=== PATIENT | female | born 1980 | race Caucasian/White ===

== ENCOUNTER → 2016-05-26 | Outpatient (CLI) | payer MEDICARE ==
[2016-05-26 15:46] LABS: Anion Gap 10 mmol/L; Blood Urea Nitrogen 8 mg/dL (7-17); Calcium 9.6 mg/dL (8.4-10.2); Carbon Dioxide 23 mmol/L (22-30); Chloride 110 mmol/L (98-107); Glucose 114 mg/dL (74-99); Non-African American GFR(MDRD) >60 (>60 ml/min/1.73 sqM); Potassium 3.5 mmol/L (3.5-5.1); Sodium 143 mmol/L (137-145)
== END | disposition home or self-care (01) ==
LOC: LABWHC1 15:20
PROVIDERS: ATTEND Family Medicine
DX: E87.6 Hypokalemia (principal); R00.0 Tachycardia, unspecified
CPT/HCPCS: 36415; 80048

== ENCOUNTER → 2016-06-03 | Outpatient (CLI) | payer MEDICARE ==
[2016-06-03 15:51] LABS: C Reactive Protein <5.0 mg/L (<10.0); Creatine Kinase 43 U/L (30-135); Iron 124 ug/dL (37-170)
[2016-06-03 16:04] LABS: Total Iron Binding Capacity 336 ug/dL (265-497)
[2016-06-03 16:57] LABS: Vitamin B12 315 pg/mL (239-931)
== END | disposition home or self-care (01) ==
LOC: LABWHC1 13:44
PROVIDERS: ATTEND Social Worker Clinical
DX: K90.89 Other intestinal malabsorption (principal); F45.8 Other somatoform disorders; E63.9 Nutritional deficiency, unspecified; G93.3 Postviral and related fatigue syndromes; R76.8 Other specified abnormal immunological findings in serum; R52 Pain, unspecified
CPT/HCPCS: 36415; 82306; 82550; 82607; 82746; 83540; 83550; 85652; 86140; 86160; 86225; 86235

== ENCOUNTER → 2016-06-08 | Outpatient (CLI) | payer MEDICARE ==
--- NOTE | 2016-06-09 08:09 | MM ---
Reason for exam: clinical finding. Last mammogram was performed 10 months ago. History: Family history of breast cancer in aunt at age 60. Indicated problem(s): other indicated problem in the right breast. Physical Findings: Nurse did not find any significant physical abnormalities on exam. MG 3D Diag Mammo W/Cad RT CC and MLO view(s) were taken of the right breast. Prior study comparison: August 04, 2015, bilateral MG 3d diag mammo w/cad [facility]. Densities in the right breast. Ultrasound is recommended. These results were verbally communicated with the patient and result sheet given to the patient on 06/08/16. ASSESSMENT: Incomplete: need additional imaging evaluation, BI-RAD 0 RECOMMENDATION: Ultrasound of the right breast.
--- NOTE | 2016-06-09 08:10 | USB ---
Reason for exam: additional evaluation requested from abnormal screening. History: Family history of breast cancer in aunt at age 60. US Breast RT Right breast ultrasound including all four quadrants, the retroareolar region and axilla demonstrates a 0.36 x 0.26 x 0.33cm lesion too small to characterize at 2 o'clock, a 0.95 x 0.48 x 0.79cm cystic lesion at 10 o'clock and a 0.24 x 0.21 x 0.27cm lesion too small to characterize at 11 o'clock. These results were verbally communicated with the patient and result sheet given to the patient on 06/08/16. ASSESSMENT: Benign, BI-RAD 2 RECOMMENDATION: Routine screening mammogram of both breasts at age 38.
== END | disposition home or self-care (01) ==
LOC: RADMAMWWP 14:11
PROVIDERS: ATTEND Family Medicine
DX: N63 Unspecified lump in breast (principal); R92.8 Other abnormal and inconclusive findings on diagnostic imaging of breast
CPT/HCPCS: 76641; G0206; G0279

== ENCOUNTER → 2016-08-30 | Outpatient (CLI) | payer MEDICARE ==
[2016-08-30 13:26] LABS: CH 31.9; CHCM 33.1; HCT 45.5 % (34.0-46.0); HDW 2.35; HGB 15.1 gm/dL (11.4-16.0); MCH 32.2 pg (25.0-35.0); MCHC 33.2 g/dL (31.0-37.0); MCV 96.9 fL (80.0-100.0); Mean Platelet Volume 8.3; RBC 4.69 m/uL (3.80-5.40); RDW 12.4 % (11.5-15.5); WBC 7.3 k/uL (3.8-10.6)
[2016-08-30 13:38] LABS: Anion Gap 12 mmol/L; Blood Urea Nitrogen 14 mg/dL (7-17); Calcium 9.9 mg/dL (8.4-10.2); Carbon Dioxide 25 mmol/L (22-30); Chloride 105 mmol/L (98-107); Glucose 105 mg/dL (74-99); Non-African American GFR(MDRD) >60 (>60 ml/min/1.73 sqM); Potassium 4.4 mmol/L (3.5-5.1); Sodium 142 mmol/L (137-145)
== END | disposition home or self-care (01) ==
LOC: LABWHC1 12:49
PROVIDERS: ATTEND Internal Medicine Clinical Cardiac Electrophysiology
DX: R00.2 Palpitations (principal)
CPT/HCPCS: 36415; 80048; 85027

== ENCOUNTER 2016-09-06 08:45 | Day surgery (SDC) | payer MEDICARE ==
[2016-09-05 09:20] VITALS: BMI 16.8
[~2016-09-06 08:45] MED LIST: SODIUM CHLORIDE 0.9% 1,000 ML IV SCH
[2016-09-06] MEDS ORDERED: IV FLUID CONTINUATION 1,000 ML IV ONE (10:25)
[2016-09-06] MEDS ORDERED: PROPOFOL 10 MG/ML 20 ML VIAL IV ONE (12:10)
[2016-09-06] MEDS ORDERED: PHENYLEPHRINE-0.9% NACL SYG 1 MG/10 ML SYRINGE ONE (12:10)
[2016-09-06] MEDS ORDERED: MIDAZOLAM 2 MG/2 ML VIAL ONE (12:10)
[2016-09-06] MEDS ORDERED: fentaNYL (PF) 50 MCG/ML 2 ML AMP ONE (12:10)
[2016-09-06] MEDS ORDERED: HYDROmorphone (PF) 1 MG/ML ONE (12:10)
[2016-09-06] MEDS ORDERED: ISOPROTERENOL 250 MCG/1.25 ML SYR IV ONE (12:10)
[2016-09-06] MEDS ORDERED: LIDOCAINE 1% INJ 10MG/ML (20 ML MDV) ONE (12:10)
[2016-09-06] MEDS ORDERED: IV FLUID CONTINUATION 800 ML IV ONE (12:16)
[2016-09-06] MEDS ORDERED: IODIXANOL 320 MG/ML 100 ML IV ONE (12:35)
[2016-09-06] MEDS ORDERED: LIDOCAINE 2% INJ 20 MG/ML SQ ONE (12:42)
--- NOTE | 2016-09-06 13:23 | P.PCN ---
Preoperative Diagnosis: Twelve-lead ECG Sinus rhythm normal LA narrow QRS normal ST segments normal QT interval of 440 ms no delta waves no epsilon waves Tilt table test report Baseline blood pressure 136/79 mmHg Heart rate 61 beats a minute Patient was tilted upright at an angle of 70 per protocol She did report dizziness when a heart rate increased 118 beats a minute briefly No evidence for neurocardiogenic syncope, no evidence for postural tachycardia syndrome
[2016-09-06] MEDS ORDERED: SODIUM CHLORIDE 0.9% 1,000 ML IV ONE (13:58)
[2016-09-06] MEDS ORDERED: ACETAMINOPHEN TAB 325 MG TAB PO PRN (14:02)
[2016-09-06] MEDS ORDERED: HYDROcodone/APAP 5-325MG 1 EACH TAB PO PRN (14:02)
[2016-09-06] MEDS ORDERED: ONDANSETRON 4 MG TAB PO PRN (14:03)
[2016-09-06] MEDS ORDERED: ALPRAZolam 0.5 MG TAB PO PRN (14:03)
--- NOTE | 2016-09-06 14:25 | CE ---
DATE OF SERVICE: This is a 36-year-old female who has recurrent palpitations. She was brought in for a diagnostic EP study. Patient was brought to the EP lab in a fasting state. Written informed consent was obtained prior to the procedure. The right and left femur were prepped and draped as per protocol and 1% Lidocaine was used for local anesthesia. Three venous sheaths were placed in the right femoral vein, one venous sheath in the left femoral vein. Via these, diagnostic catheters were placed in the right heart (high right atrial catheter, HIS bundle catheter and RV catheter). Baseline measurements were as follows: Sinus cycle length 855 ms, AR interval 99 ms, QRS 88 ms, and QT 414 ms, AH interval 73 ms, HV interval 30 ms. Sinus recovery times at 600, 500 and 400 ms were 904, 753 and 967 ms. No slow pathway conduction, no delta waves are noted, the ( ) reduction was midline and decremental. VA Wenckebach block at 420 ms, AV node Wenckebach block at 540 ms, Isuprel was started wide open and then 2 mcg later and 1 mcg EP study is continued. AV node Wenckebach block 210 ms, VA Wenckebach 360 ms, extrastimulation from the high right atrium, coronary sinus and RV were performed up to double extrastimuli. No SVT was induced. ( ) induction is midline and decremental. No excessive pathway conduction and no slow pathway conduction. Burst stimulation was performed from the atrium, coronary sinus and from the right ventricle. No arrhythmia was induced. EP study was continued after shutting off Isuprel. No arrhythmia is induced. Please note that during this study, start Isuprel, runs of sinus rhythm with alterations in heart rate were noted. These appear to be exaggerated form of sinus arrhythmia, not specifically atrial tachycardia. The patient tolerated the procedure well without any acute complications. PLAN: Consider digoxin 0.125 mg daily for suppression of palpitations which are most likely episodes of sinus tachycardia. I did not find any clear-cut evidence for an atrial tachycardia nor any AV mimi re-entry or ( ) SVT.
--- NOTE | 2016-09-06 14:30 | LTR ---
September 06, 2016 RE: Amparo Hester Brandon Dear Dr. Mari; I had the pleasure of seeing Amparo Hester in electrophysiology followup. As you know, Amparo complains of recurrent palpitations. She underwent a tilt table test which did not show any evidence for neurocardiogenic syncope or dysautonomia. There was an episode when she has sinus tachycardia up to 118 beats a minute. At that time, she felt dizzy, but her blood pressure was normal. During the EP study, no different arrhythmia was induced. I was not able to induce any atrial tachycardia. She does have a very prominent sinus arrhythmia and she does feel this. I would suggest reassurance and digoxin therapy, suggest 0.125 mg p.o. daily. Alternatively, Verapamil could also be considered; however, she has diabetes mellitus and Verapamil could increase her constipation and reduce peristalsis. Thank you for entrusting me with the care of your patient. Warm regards. Sincerely, MANDI CUEVA MD
[2016-09-06] MEDS: DIGOXIN 125 MCG TAB PO SCH (15:25)
[2016-09-06] MEDS ORDERED: ACETAMINOPHEN IV (For NPO) 1,000 MG in EMPTY BAG 1 BAG IVPB ONE (16:00)
[2016-09-06] MEDS ORDERED: SPIRONOLACTONE 25 MG TAB PO SCH (21:00)
[2016-09-07 04:28] VITALS: TEMP 97.7
--- NOTE | 2016-09-07 07:48 | P.DS ---
Providers Attending physician: Unruly Martin Primary care physician: [facility] Course: Patient is doing well. She has no chest discomfort no dizziness lightheadedness no shortness of breath. She has no groin pain or swelling. On examination her groin is healed well there is no hematoma, bilaterally She's afebrile 97.7F pulse rate in the 50s, blood pressure 119/73 mmHg normal respirations Normal heart sounds normal S1 normal S2 no murmurs or gallops Normal breath sounds no rhonchi no crackles Abdomen is soft nontender Extremities warm no edema Impression Symptoms of palpitations. Exaggerated sinus arrhythmia no definite SVT or atrial tachycardia induced at EP study no evidence for neurocardiogenic syncope postural tachycardia syndrome Plan Low-dose digoxin Verapamil distress but she does have diverticulosis/avoid constipation Plan - Discharge Summary New Discharge Prescriptions: Digoxin [Lanoxin] 125 mcg PO DAILY #1 tab Discharge Medication List HYDROcodone/APAP 7.5-325MG [Clifford 7.5-325] 1 tab PO Q6HR PRN 10/05/14 [History] ALPRAZolam [Xanax] 2 mg PO DAILY PRN 03/15/16 [History] Ondansetron [Zofran] 4 mg PO Q12HR PRN 09/05/16 [History] Spironolactone [Aldactone] 25 mg PO HS 09/05/16 [History] Digoxin [Lanoxin] 125 mcg PO DAILY #1 tab 09/07/16 [Rx] Activity/Diet/Wound Care/Special Instructions: Post EP study - Ablation instructions 1. Keep access sites dry for 2 days. 2. No heavy lifting or straining for 2 days. 3. Avoid bending the hips repeatedly for 2 days. 4. You may go up and down stairs slowly Call if the following is noted 1. Bleeding, increasing swelling or pain at the access sites. 2. Increasing chest discomfort, especially upon taking a deep breath. 3. Increasing shortness of breath, at rest or with exertion. 4. Undue cough / phlegm 5. Difficulty or pain while swallowing. 6. Pain or change in color in the extremities. 7. Fever, chills, rigors. 8. Increasing headache or neurologic symptoms. 9. Dizziness, fainting, palpitations Follow-up for a groin check within 1 week
[2016-09-07] MEDS: DIGOXIN 125 MCG TAB PO SCH (08:13)
[2016-09-07 08:33] VITALS: BP 110/58; PULSE 72; RESP 14
== END 2016-09-07 10:21 | disposition home or self-care (01) ==
LOC: CATHEP 08:45 → 3OBS 13:45 → CATHEP 09-07 10:21
PROVIDERS: ATTEND Internal Medicine Clinical Cardiac Electrophysiology
DX: R00.2 Palpitations (principal); Z82.3 Family history of stroke; Z87.891 Personal history of nicotine dependence; Z79.899 Other long term (current) drug therapy
CPT/HCPCS: 93005; 93623; 93620; 93660; C1894; C1769 ×2; C1730 ×2; J2001 ×2; J2250; Q9967; J3010; J1170; J2370; J2704

== ENCOUNTER 2017-01-26 13:00 | Emergency (ER) | payer MEDICARE ==
[2017-01-26] MEDS ORDERED: ONDANSETRON 4 MG/2 ML VIAL IVP STA (13:17)
[2017-01-26] MEDS ORDERED: HYDROmorphone 1 MG/ML 1 ML SYRINGE IVP STA (13:17)
[2017-01-26] MEDS ORDERED: SODIUM CHLORIDE 0.9% 1,000 ML IV STA ×2 (13:17→13:20)
--- NOTE | 2017-01-26 13:20 | ED ---
General Adult HPI - General Chief complaint: Abdominal Pain Stated complaint: Lupus/Not feeling well Time Seen by Provider: 01/26/17 13:12 Source: patient, RN notes reviewed Mode of arrival: wheelchair Limitations: no limitations - History of Present Illness Initial comments: Patient is a 36-year-old female who presents emergency room today with a chief complaint of symptoms of abdominal pain with nausea vomiting. She does admit that over the last week symptoms become worse. She has a history of lupus. She states that she's having difficult time keeping anything down. She states she's lost 5 pounds last week. Patient does admit to abdominal pain to the middle of her abdomen. She states feels a cramping sensation. She denies any other symptoms currently. Patient denies any recent fever, chills, shortness of breath, chest pain, back pain, numbness or tingling, dysuria or hematuria, constipation or diarrhea, headaches or visual changes, or any other complaints. - Related Data Home Medications Medication Instructions Recorded Confirmed HYDROcodone/APAP 7.5-325MG [Snyder 1 tab PO Q6HR PRN 10/05/14 01/26/17 7.5-325] Ondansetron [Zofran] 4 mg PO Q12HR PRN 09/05/16 01/26/17 ALPRAZolam [Xanax XR] 2 mg PO HS 01/26/17 01/26/17 Previous Rx's Medication Instructions Recorded Digoxin [Lanoxin] 125 mcg PO DAILY #1 tab 09/07/16 Metoclopramide HCl [Reglan] 10 mg PO Q6HR PRN #5 day 01/26/17 Allergies Allergy/AdvReac Type Severity Reaction Status Date / Time No Known Allergies Allergy Verified 01/26/17 13:25 Review of Systems ROS Statement: Those systems with pertinent positive or pertinent negative responses have been documented in the HPI. ROS Other: All systems not noted in ROS Statement are negative. Past Medical History Past Medical History: Fibromyalgia Additional Past Medical History / Comment(s): DIVERTICULITIS; HAS ARRYTHMIA, lupus, pleurisy History of Any Multi-Drug Resistant Organisms: None Reported Past Surgical History: Appendectomy, Bowel Resection, Section, Hysterectomy, Tubal Ligation, Uterine Ablation Additional Past Surgical History / Comment(s): 09/30/14 Robotic assisted lap vaginal hysterectomy, lysis of adhesions, and cystoscopy, LAPAROSCOPY X4;. c- section X4. BILAT CATARACTS REMOVED. COLONOSCOPY Past Anesthesia/Blood Transfusion Reactions: No Reported Reaction Past Psychological History: No Psychological Hx Reported Smoking Status: Former smoker Past Alcohol Use History: None Reported Past Drug Use History: Marijuana - Past Family History Mother Family Medical History: No Reported History Father Family Medical History: Diabetes Mellitus, Hyperlipidemia, Hypertension Additional Family Medical History / Comment(s): Glaucoma, Cataracts General Exam - General Exam Comments Initial Comments: General: The patient is awake and alert, in no distress, and does not appear acutely ill. Eye: Pupils are equal, round and reactive to light, extra-ocular movements are intact. No nystagmus. There is normal conjunctiva bilaterally. No signs of icterus. Ears, nose, mouth and throat: There are moist mucous membranes and no oral lesions. Neck: The neck is supple, there is no tenderness or JVD. Cardiovascular: There is a regular rate and rhythm. No murmur, rub or gallop is appreciated. Respiratory: Lungs are clear to auscultation, respirations are non-labored, breath sounds are equal. No wheezes, stridor, rales, or rhonchi. Gastrointestinal: Normal appearance of abdomen. Normal bowel sounds. Soft on palpation. Patient does have tenderness to the epigastric area. No rebound tenderness or guarding. No CVA tenderness. Musculoskeletal: Normal ROM, no tenderness. Strength 5/5. Sensation intact. Pulses equal bilaterally 2+. Neurological: A&O x 3. CN II-XII intact, There are no obvious motor or sensory deficits. Coordination appears grossly intact. Speech is normal. Skin: Skin is warm and dry and no rashes or lesions are noted. Psychiatric: Cooperative, appropriate mood & affect, normal judgment. Limitations: no limitations Course Vital Signs 01/26/17 13:05 Temperature 99.2 F Pulse Rate 110 H Respiratory 18 Rate Blood Pressure 165/97 O2 Sat by Pulse 99 Oximetry Medical Decision Making - Medical Decision Making Patient reexamined at this time shows no signs of distress. She isn't feeling better after cocktail of Toradol, Reglan, Benadryl here in the emergency room. Her abdomen soft nontender. Labs been reviewed. Imaging is unremarkable. At this time patient feels comfortable with that be discharged home. Follow-up the family doctor. Ice return for any other concerns. - Lab Data Result diagrams: 01/26/17 13:55 01/26/17 13:55 Lab Results 01/26/17 01/26/17 01/26/17 Range/Units 13:55 13:55 13:55 WBC 7.2 (3.8-10.6) k/uL RBC 5.33 (3.80-5.40) m/uL Hgb 16.6 H (11.4-16.0) gm/dL Hct 50.2 H (34.0-46.0) % MCV 94.3 (80.0-100.0) fL MCH 31.1 (25.0-35.0) pg MCHC 33.0 (31.0-37.0) g/dL RDW 13.0 (11.5-15.5) % Plt Count 259 (150-450) k/uL Neutrophils % 79 % Lymphocytes % 14 % Monocytes % 4 % Eosinophils % 1 % Basophils % 0 % Neutrophils # 5.7 (1.3-7.7) k/uL Lymphocytes # 1.0 (1.0-4.8) k/uL Monocytes # 0.3 (0-1.0) k/uL Eosinophils # 0.0 (0-0.7) k/uL Basophils # 0.0 (0-0.2) k/uL PT 10.6 (9.0-12.0) sec INR 1.0 (<1.2) APTT 24.0 (22.0-30.0) sec Sodium 141 (137-145) mmol/L Potassium 3.8 (3.5-5.1) mmol/L Chloride 102 (98-107) mmol/L Carbon Dioxide 25 (22-30) mmol/L Anion Gap 14 mmol/L BUN 14 (7-17) mg/dL Creatinine 0.80 (0.52-1.04) mg/dL Est GFR (MDRD) Af Amer >60 (>60 ml/min/1.73 sqM) Est GFR (MDRD) Non-Af >60 (>60 ml/min/1.73 sqM) Glucose 102 H (74-99) mg/dL Calcium 10.4 H (8.4-10.2) mg/dL Total Bilirubin 0.7 (0.2-1.3) mg/dL AST 23 (14-36) U/L ALT 26 (9-52) U/L Alkaline Phosphatase 56 (38-126) U/L Total Protein 8.6 H (6.3-8.2) g/dL Albumin 5.6 H (3.5-5.0) g/dL Amylase 85 (30-110) U/L Lipase 99 (23-300) U/L Urine Color Urine Appearance (Clear) Urine pH (5.0-8.0) Ur Specific Blauvelt (1.001-1.035) Urine Protein (Negative) Urine Glucose (UA) (Negative) Urine Ketones (Negative) Urine Blood (Negative) Urine Nitrite (Negative) Urine Bilirubin (Negative) Urine Urobilinogen (<2.0) mg/dL Ur Leukocyte Esterase (Negative) Group A Strep Rapid (Negative) 01/26/17 01/26/17 Range/Units 13:55 14:27 WBC (3.8-10.6) k/uL RBC (3.80-5.40) m/uL Hgb (11.4-16.0) gm/dL Hct (34.0-46.0) % MCV (80.0-100.0) fL MCH (25.0-35.0) pg MCHC (31.0-37.0) g/dL RDW (11.5-15.5) % Plt Count (150-450) k/uL Neutrophils % % Lymphocytes % % Monocytes % % Eosinophils % % Basophils % % Neutrophils # (1.3-7.7) k/uL Lymphocytes # (1.0-4.8) k/uL Monocytes # (0-1.0) k/uL Eosinophils # (0-0.7) k/uL Basophils # (0-0.2) k/uL PT (9.0-12.0) sec INR (<1.2) APTT (22.0-30.0) sec Sodium (137-145) mmol/L Potassium (3.5-5.1) mmol/L Chloride (98-107) mmol/L Carbon Dioxide (22-30) mmol/L Anion Gap mmol/L BUN (7-17) mg/dL Creatinine (0.52-1.04) mg/dL Est GFR (MDRD) Af Amer (>60 ml/min/1.73 sqM) Est GFR (MDRD) Non-Af (>60 ml/min/1.73 sqM) Glucose (74-99) mg/dL Calcium (8.4-10.2) mg/dL Total Bilirubin (0.2-1.3) mg/dL AST (14-36) U/L ALT (9-52) U/L Alkaline Phosphatase (38-126) U/L Total Protein (6.3-8.2) g/dL Albumin (3.5-5.0) g/dL Amylase (30-110) U/L Lipase (23-300) U/L Urine Color Yellow Urine Appearance Clear (Clear) Urine pH 5.0 (5.0-8.0) Ur Specific Blauvelt 1.013 (1.001-1.035) Urine Protein Negative (Negative) Urine Glucose (UA) Negative (Negative) Urine Ketones 1+ H (Negative) Urine Blood Negative (Negative) Urine Nitrite Negative (Negative) Urine Bilirubin Negative (Negative) Urine Urobilinogen <2.0 (<2.0) mg/dL Ur Leukocyte Esterase Negative (Negative) Group A Strep Rapid Negative (Negative) Disposition Clinical Impression: Nausea & vomiting, Headache, Abdominal pain Disposition: HOME SELF-CARE Condition: Good Instructions: Abdominal Pain (ED) Additional Instructions: Please use medication as discussed. Please discuss further evaluation of gallbladder possible ERCP or HIDA scan. if symptoms persist. Please follow-up with family doctor in the next 2 days of symptoms have not improved. Please return to emergency room if the symptoms increase or worsen or for any other concerns. Prescriptions: Metoclopramide HCl [Reglan] 10 mg PO Q6HR PRN #5 day PRN Reason: Nausea Referrals: Chuy Simon III, MD [Primary Care Provider] - 1-2 days Time of Disposition: 16:10
[2017-01-26 14:19] LABS: Appearance,Urine Clear (Clear); Bilirubin,Urine Negative (Negative); Glucose,Urine (UA) Negative (Negative); Ketones,Urine 1+ (Negative); Leukocyte Esterase,Urine Negative (Negative); Nitrite,Urine Negative (Negative); Protein,Urine Negative (Negative); Specific Gravity,Urine 1.013 (1.001-1.035); UA Billing (MACRO vs. MICRO) CHEM; Urobilinogen,Urine <2.0 mg/dL (<2.0)
[2017-01-26 14:23] LABS: Basophils % (A) 0 %; CH 32.5; CHCM 34.6; Eosinophils % (A) 1 %; HCT 50.2 % (34.0-46.0); HDW 2.23; HGB 16.6 gm/dL (11.4-16.0); Luc # (Auto) 0.14; Luc % (Auto) 2; Lymphocytes % (A) 14 %; MCH 31.1 pg (25.0-35.0); MCV 94.3 fL (80.0-100.0); Mean Platelet Volume 9.4; Monocytes # (A) 0.3 k/uL (0-1.0); Monocytes % (A) 4 %; Neutrophils # (A) 5.7 k/uL (1.3-7.7); Neutrophils % (A) 79 %; RBC 5.33 m/uL (3.80-5.40); WBC 7.2 k/uL (3.8-10.6); WBC (Perox) 7.09
[2017-01-26 14:28] LABS: Prothrombin Time 10.6 sec (9.0-12.0)
--- NOTE | 2017-01-26 14:29 | XR ---
EXAMINATION TYPE: XR KUB DATE OF EXAM: 01/26/2017 COMPARISON: 07/06/2010 HISTORY: Pain TECHNIQUE: Single supine KUB image of the abdomen is obtained FINDINGS: Small bowel demonstrates no evidence for dilatation or air fluid levels. Gas and fecal material is seen in non-distended colon. No convincing evidence for pneumoperitoneum. No unusual calcifications. The lung bases are clear. The osseous structures are intact. IMPRESSION: 1. Overall nonobstructive bowel gas pattern.
[2017-01-26 14:34] LABS: ALT 26 U/L (9-52); AST 23 U/L (14-36); Alkaline Phosphatase 56 U/L (38-126); Amylase 85 U/L (30-110); Anion Gap 14 mmol/L; Blood Urea Nitrogen 14 mg/dL (7-17); Calcium 10.4 mg/dL (8.4-10.2); Carbon Dioxide 25 mmol/L (22-30); Chloride 102 mmol/L (98-107); Glucose 102 mg/dL (74-99); Non-African American GFR(MDRD) >60 (>60 ml/min/1.73 sqM); Potassium 3.8 mmol/L (3.5-5.1); Sodium 141 mmol/L (137-145); Total Bilirubin 0.7 mg/dL (0.2-1.3); Total Protein 8.6 g/dL (6.3-8.2)
--- NOTE | 2017-01-26 15:02 | US ---
EXAMINATION TYPE: US abdomen limited DATE OF EXAM: 01/26/2017 COMPARISON: CT CLINICAL HISTORY: Pain. Abdomen pain, N/V, history of Lupus, history of appendectomy, exam done nereyda ble in ER EXAM MEASUREMENTS: Liver Length: 13.1 cm Gallbladder Wall: 0.1 cm CBD: 0.3 cm Right Kidney: 11 x 4.5 x 4.4 cm Pancreas: wnl Liver: wnl Gallbladder: wnl Evidence for sonographic Cummins's sign: yes CBD: wnl Right Kidney: small 0.3cm echogenic focus superior pole IMPRESSION: 1. 3 mm nonobstructing upper pole right renal calculus.
[2017-01-26] MEDS ORDERED: METOCLOPRAMIDE 5 MG/ML 2 ML VIAL IVP STA (15:10)
[2017-01-26] MEDS ORDERED: SODIUM CHLORIDE 0.9% 500 ML IV STA (15:10)
[2017-01-26] MEDS ORDERED: diphenhydrAMINE 50 MG/ML 1 ML VIAL IVP STA (15:10)
[2017-01-26] MEDS ORDERED: KETOROLAC 30 MG/ML 1 ML VIAL IVP STA (15:10)
[2017-01-26 16:20] VITALS: BP 128/75; PULSE 83; RESP 16; TEMP 98.5
== END 2017-01-26 16:27 | disposition home or self-care (01) ==
LOC: EC 13:00
DX: R11.2 Nausea with vomiting, unspecified (principal); R51 Headache; R10.13 Epigastric pain; N20.0 Calculus of kidney; Z90.49 Acquired absence of other specified parts of digestive tract; Z79.899 Other long term (current) drug therapy; Z87.891 Personal history of nicotine dependence
CPT/HCPCS: 99284; 96374; 96375 ×4; 96361 ×2; 36415; 80053; 82150; 83690; 85025; 85610; 85730; 81003; 87081; 87430; 74000; 76705; J1200; J2765; J2405; J1885; J1170

== ENCOUNTER 2017-01-31 14:06 | Inpatient (IN) | payer MEDICARE ==
[2017-01-31] MEDS ORDERED: HYDROmorphone 1 MG/ML 1 ML SYRINGE IVP PRN (15:14)
[2017-01-31] MEDS: SODIUM CHLORIDE 0.45% 1,000 ML IV SCH (18:51)
[2017-01-31] MEDS ORDERED: ONDANSETRON 4 MG TAB PO PRN (19:21)
[2017-01-31] MEDS ORDERED: ALPRAZolam 0.5 MG TAB PO STA (19:24)
[2017-01-31] MEDS: HEPARIN SODIUM,PORCINE 5,000 UNIT/ML 1 ML VIAL SQ SCH ×2 (19:30→21:53)
[2017-01-31] MEDS: PANTOPRAZOLE 40 MG/10 ML VIAL IVP SCH (19:30)
--- NOTE | 2017-01-31 20:05 | NM ---
EXAMINATION TYPE: NM hepatobiliary w EF DATE OF EXAM: 01/31/2017 COMPARISON: NONE HISTORY: Pain TECHNIQUE: After the intravenous administration of 5.3 mCi Tc 99m Mebrofenin hepatobiliary scintigrap hy is performed. Immediate images post injection. FINDINGS: There is satisfactory initial accumulation of tracer by the liver. The gallbladder is visualized wit hin 5 minutes. The small bowel activity is noted within 15 minutes. At one hour 8 ounces of oral en sure plus is given to mimic CCK and gallbladder ejection fraction is calculated at 20%. IMPRESSION: Diminished gallbladder ejection fraction which may reflect chronic cholecystitis and/or b iliary dyskinesia.
[2017-01-31] MEDS: DIGOXIN 125 MCG TAB PO SCH (21:38)
[2017-01-31] MEDS: ONDANSETRON 4 MG/2 ML VIAL IVP PRN (21:39)
[2017-01-31] MEDS: MORPHINE SULFATE 4 MG/ML SYRINGE IVP PRN (23:08)
[2017-02-01] MEDS: SODIUM CHLORIDE 0.45% 1,000 ML IV SCH ×2 (03:49→21:59)
[2017-02-01] MEDS: MORPHINE SULFATE 4 MG/ML SYRINGE IVP PRN ×2 (04:00→09:00)
[2017-02-01 08:16] LABS: Basophils % (A) 1 %; CH 32.2; CHCM 33.9; Eosinophils # (A) 0.1 k/uL (0-0.7); Eosinophils % (A) 2 %; HCT 40.1 % (34.0-46.0); HDW 2.21; HGB 13.2 gm/dL (11.4-16.0); Luc # (Auto) 0.16; Luc % (Auto) 3; Lymphocytes % (A) 35 %; MCH 31.3 pg (25.0-35.0); MCHC 32.8 g/dL (31.0-37.0); MCV 95.5 fL (80.0-100.0); Mean Platelet Volume 9.4; Monocytes # (A) 0.3 k/uL (0-1.0); Monocytes % (A) 6 %; Neutrophils % (A) 53 %; WBC 5.6 k/uL (3.8-10.6); WBC (Perox) 5.71
[2017-02-01] MEDS: DIGOXIN 125 MCG TAB PO SCH (08:30)
[2017-02-01 08:33] LABS: ALT 22 U/L (9-52); AST 17 U/L (14-36); Alkaline Phosphatase 37 U/L (38-126); Anion Gap 8 mmol/L; Blood Urea Nitrogen 14 mg/dL (7-17); Calcium 9.3 mg/dL (8.4-10.2); Carbon Dioxide 26 mmol/L (22-30); Chloride 105 mmol/L (98-107); Glucose 71 mg/dL (74-99); Non-African American GFR(MDRD) >60 (>60 ml/min/1.73 sqM); Potassium 4.5 mmol/L (3.5-5.1); Sodium 139 mmol/L (137-145); Total Bilirubin 0.5 mg/dL (0.2-1.3); Total Protein 6.2 g/dL (6.3-8.2)
[2017-02-01] MEDS: PANTOPRAZOLE 40 MG/10 ML VIAL IVP SCH (08:51)
[2017-02-01] MEDS: HEPARIN SODIUM,PORCINE 5,000 UNIT/ML 1 ML VIAL SQ SCH ×2 (08:52→16:03)
[2017-02-01] MEDS: ONDANSETRON 4 MG/2 ML VIAL IVP PRN ×2 (08:52→17:35)
[2017-02-01 10:22] VITALS: BMI 15.5
[2017-02-01] MEDS: MORPHINE SULFATE 10 MG/ML SYRINGE IVP PRN ×2 (11:47→17:34)
--- NOTE | 2017-02-01 12:02 | P.GSCN ---
History of Present Illness Consult date: 02/01/17 Reason for Consult: Abdominal pain History of present illness: Patient presents to the hospital with complaints of abdominal pain. She states that her pain is been going on for the last 3 weeks or so. She has a history of advanced lupus and has had a variety of different symptoms related to that in the past. She states that over the last few years she has been eating quite poorly. She remains fairly thin because she says she is unable to eat large quantities of food. She has been seen by GI and has had upper and lower endoscopies in the past. He states the last upper endoscopy was 6-12 months ago. She complains of abdominal pain. The pain is crampy and intermittent in nature. The patient points to the infraumbilical location initially as to the site of discomfort. She also describes the pain in the right lower back at times. She has a history of numerous abdominal surgeries including laparoscopy , exploration, and bladder repair. She had an outpatient ultrasound and at least at that time. Sales And Distribution Clerk describe a positive Cummins's sign. No gallstones were described in the gallbladder wall appeared normal on that study. Clinically she had a CAT scan of the abdomen and pelvis which was done without oral IV contrast and therefore was not very helpful but no abnormalities were identified. She had a HIDA scan performed yesterday evening she was experiencing some tenderness in the right upper quadrant and that showed a sluggish gallbladder. Her labs are fairly unimpressive including her liver enzymes. Pancreatic enzymes were not ordered. The patient describes infrequent bowels. She describes early satiety and upper abdominal discomfort sometimes after only 2 bites of food. She has had increased reflux recently. Some heartburn as well with that. Denies fevers. No rectal bleeding or melena. No history of ulcer disease. Review of Systems The patient denies any acute changes in vision or hearing, no dysphagia or odynophagia, no chest pain or shortness of breath, no dysuria or hematuria, no headache, no runny nose, no rectal bleeding or melena Past Medical History Past Medical History: Fibromyalgia Additional Past Medical History / Comment(s): DIVERTICULITIS;PCOS " ARRYTHMIA", lupus "mottled skin on her back", pleurisy,migraines, mixed connective tissue disease,tremors,ibs, thyroid nodule History of Any Multi-Drug Resistant Organisms: None Reported Past Surgical History: Appendectomy, Bowel Resection, Section, Hysterectomy, Tubal Ligation, Uterine Ablation Additional Past Surgical History / Comment(s): 09/30/14 Robotic assisted lap vaginal hysterectomy, lysis of adhesions pt stated bladder had been knicked - had sx to repair that and stomach lining, LAPAROSCOPY X4; TILT TABLE TEST AND EP STUDY. X4. BILAT CATARACTS REMOVED. COLONOSCOPY Past Anesthesia/Blood Transfusion Reactions: No Reported Reaction Smoking Status: Former smoker - Past Family History Mother Family Medical History: No Reported History Additional Family Medical History / Comment(s): celiac disease, migarines Father Family Medical History: Diabetes Mellitus, Hyperlipidemia, Hypertension Additional Family Medical History / Comment(s): Glaucoma, Cataracts Medications and Allergies Home Medications Medication Instructions Recorded Confirmed Type HYDROcodone/APAP 7.5-325MG [[place] 1 tab PO Q6HR PRN 10/05/14 01/31/17 History 7.5-325] Ondansetron [Zofran] 4 mg PO Q12HR PRN 09/05/16 01/31/17 History Digoxin [Lanoxin] 125 mcg PO DAILY #1 tab 09/07/16 01/31/17 Rx ALPRAZolam [Xanax XR] 2 mg PO HS 01/26/17 01/31/17 History Metoclopramide HCl [Reglan] 10 mg PO Q6HR PRN #5 day 01/26/17 01/31/17 Rx Allergies Allergy/AdvReac Type Severity Reaction Status Date / Time No Known Allergies Allergy Verified 01/31/17 15:27 Surgical - Exam Vital Signs Temp Pulse Resp BP Pulse Ox 98.5 F 84 18 142/83 100 01/31/17 14:46 01/31/17 14:46 01/31/17 14:46 01/31/17 14:46 01/31/17 14:46 Physical exam: General: Well-developed, thin-appearing HEENT: Normocephalic, sclerae nonicteric Abdomen: Mild diffuse tenderness, slightly increased in the right upper quadrant , previous scars noted, nondistended Extremities: No edema Neuro: Alert and oriented Results - Labs 02/01/17 06:49 02/01/17 06:49 Abnormal Lab Results - Last 24 Hours (Table) 02/01/17 Range/Units 06:49 Glucose 71 L (74-99) mg/dL Alkaline Phosphatase 37 L (38-126) U/L Total Protein 6.2 L (6.3-8.2) g/dL Diabetes panel 02/01/17 Range/Units 06:49 Sodium 139 (137-145) mmol/L Potassium 4.5 (3.5-5.1) mmol/L Chloride 105 (98-107) mmol/L Carbon Dioxide 26 (22-30) mmol/L BUN 14 (7-17) mg/dL Creatinine 0.79 (0.52-1.04) mg/dL Glucose 71 L (74-99) mg/dL Calcium 9.3 (8.4-10.2) mg/dL AST 17 (14-36) U/L ALT 22 (9-52) U/L Alkaline Phosphatase 37 L (38-126) U/L Total Protein 6.2 L (6.3-8.2) g/dL Albumin 4.0 (3.5-5.0) g/dL Calcium panel 02/01/17 Range/Units 06:49 Calcium 9.3 (8.4-10.2) mg/dL Albumin 4.0 (3.5-5.0) g/dL Pituitary panel 02/01/17 Range/Units 06:49 Sodium 139 (137-145) mmol/L Potassium 4.5 (3.5-5.1) mmol/L Chloride 105 (98-107) mmol/L Carbon Dioxide 26 (22-30) mmol/L BUN 14 (7-17) mg/dL Creatinine 0.79 (0.52-1.04) mg/dL Glucose 71 L (74-99) mg/dL Calcium 9.3 (8.4-10.2) mg/dL Adrenal panel 02/01/17 Range/Units 06:49 Sodium 139 (137-145) mmol/L Potassium 4.5 (3.5-5.1) mmol/L Chloride 105 (98-107) mmol/L Carbon Dioxide 26 (22-30) mmol/L BUN 14 (7-17) mg/dL Creatinine 0.79 (0.52-1.04) mg/dL Glucose 71 L (74-99) mg/dL Calcium 9.3 (8.4-10.2) mg/dL Total Bilirubin 0.5 (0.2-1.3) mg/dL AST 17 (14-36) U/L ALT 22 (9-52) U/L Alkaline Phosphatase 37 L (38-126) U/L Total Protein 6.2 L (6.3-8.2) g/dL Albumin 4.0 (3.5-5.0) g/dL Assessment and Plan (1) Abdominal pain Narrative/Plan: Patient with abdominal pain. Symptoms are not classic for biliary disease despite having right upper quadrant tenderness. Advise GI evaluation. Would prefer an upper endoscopy preoperatively. If no additional etiologies for her pain are identified would consider cholecystectomy although I did already discussed with the patient and her family that the alleviation of her symptoms may not be complete. Status: Acute
--- NOTE | 2017-02-01 12:47 | P.CONS ---
History of Present Illness - Reason for Consult Consult date: 02/01/17 abdominal pain Requesting physician: Mague Issa - History of Present Illness 34-year-old female history of prior myalgia, migraines, diverticulosis, depression, multiple abdominal surgeries admitted with abdominal pain crampy in nature to the mid abdomen sometimes radiating to lower right back x 3 weeks. Seems to exacerbate with meals and treatment fullness early satiety. Denies diarrhea occasional constipation. Nonbloody emesis at times no fevers. No history of this type of pain. No ETOH, ASA, or NSAIDS. Abdominal pain evaluated in the past with colonoscopy 2014 with findings of a normal-appearing colon with no evidence of colitis or colorectal neoplasia. Scattered sigmoid diverticulosis and small internal hemorrhoids. Upper endoscopy January 2014 show gastritis. Evaluated by general surgery. CT abdomen normal-appearing liver spleen pancreas gallbladder. No stones. Abdominal ultrasound mentioned no stones, wall thickening, pericholecystic fluid. HIDA scan diminished gallbladder EF may reflect chronic cholecystitis and/or biliary dyskinesia 20%. White count 5.6-9.7. Hemoglobin 13.2-16.1. Platelet 181-to 34. BUN 14. Creatinine 0.7. LFTs normal. Lipase 99. Review of Systems Constitutional: Denies fever, chills, sweats, weight gain, or loss. HEENT: History of migraines denies, blurred vision or loss, earaches, drainage, tinnitus, oral mucosal lesions, dysphagia, or odynophagia. CARDIAC: Negative for chest pain, arrhythmias, or palpitation. RESPIRATORY: Negative for shortness of breath, hemoptysis, cough, or sputum production. GI: See HPI for pertinent findings. : Negative for hematuria, urgency, frequency, polyuria, or dysuria. GYNc: Denies possibility of . Negative vaginal discharge. MUSCULOSKELETAL: Fibromyalgia. Negative for muscle aches, swelling, arthritis, and arthralgias. NEUROLOGIC: Negative for stroke or TIA. ENDOCRINE: Lupus. Negative for thyroid problems. SKIN: Negative for rash or itching. PSYCHIATRIC: History of depression All systems: negative (See HPI) Past Medical History Past Medical History: Fibromyalgia Additional Past Medical History / Comment(s): DIVERTICULITIS;PCOS " ARRYTHMIA", lupus "mottled skin on her back", pleurisy,migraines, mixed connective tissue disease,tremors,ibs, thyroid nodule History of Any Multi-Drug Resistant Organisms: None Reported Past Surgical History: Appendectomy, Bowel Resection, Section, Hysterectomy, Tubal Ligation, Uterine Ablation Additional Past Surgical History / Comment(s): 09/30/14 Robotic assisted lap vaginal hysterectomy, lysis of adhesions pt stated bladder had been knicked - had sx to repair that and stomach lining, LAPAROSCOPY X4; TILT TABLE TEST AND EP STUDY. X4. BILAT CATARACTS REMOVED. COLONOSCOPY Past Anesthesia/Blood Transfusion Reactions: No Reported Reaction Smoking Status: Former smoker - Past Family History Mother Family Medical History: No Reported History Additional Family Medical History / Comment(s): celiac disease, migarines Father Family Medical History: Diabetes Mellitus, Hyperlipidemia, Hypertension Additional Family Medical History / Comment(s): Glaucoma, Cataracts Medications and Allergies Home Medications Medication Instructions Recorded Confirmed Type HYDROcodone/APAP 7.5-325MG [[place] 1 tab PO Q6HR PRN 10/05/14 01/31/17 History 7.5-325] Ondansetron [Zofran] 4 mg PO Q12HR PRN 09/05/16 01/31/17 History Digoxin [Lanoxin] 125 mcg PO DAILY #1 tab 09/07/16 01/31/17 Rx ALPRAZolam [Xanax XR] 2 mg PO HS 01/26/17 01/31/17 History Metoclopramide HCl [Reglan] 10 mg PO Q6HR PRN #5 day 01/26/17 01/31/17 Rx Allergies Allergy/AdvReac Type Severity Reaction Status Date / Time No Known Allergies Allergy Verified 01/31/17 15:27 Physical Exam Vitals: Vital Signs Temp Pulse Resp BP Pulse Ox 02/01/17 07:00 97.8 F 65 18 117/65 100 02/01/17 00:00 60 16 01/31/17 22:25 98.4 F 60 16 129/77 99 01/31/17 14:46 98.5 F 84 18 142/83 100 Intake and Output 01/31/17 02/01/17 02/01/17 22:59 06:59 14:59 Intake Total 300 1000 Balance 300 1000 Intake: Intake, IV Titration 300 1000 Amount Sodium Chloride 0.45% 1, 300 1000 000 ml @ 100 mls/hr IV . Q10H [facility] Rx#:[id number] Other: Voiding Method Toilet Toilet # Voids 2 3 Weight 43.772 kg Patient Weight 02/02/17 06:59 Weight 43.772 kg General appearance: The patient is alert, oriented, in no acute distress. HET: Head is normocephalic and atraumatic. Pupils are equal and reactive. Oropharynx is clear without lesions. Neck: Supple without lymphadenopathy. Trachea midline. Heart: S1 S2. Regular rate and rhythm. Lungs: No crackles or wheezes are heard. Abdomen: Soft, mild midabdominal discomfort with palpation, nondistended with bowel sounds. No peritoneal signs. No palpable organomegaly or masses. Extremities: Normal skin color and turgor. No cyanosis, rash, ulceration, clubbing, or edema. Radial and pedal pulses are 2/4 bilaterally. Neurological: No focal deficits. Strength and sensation are grossly intact. - Constitutional General appearance: average body habitus, no acute distress - EENT Eyes: normal appearance - Neck Neck: normal ROM - Respiratory Respiratory: bilateral: CTA - Cardiovascular Rhythm: regular Heart sounds: normal: S1, S2 - Gastrointestinal General gastrointestinal: soft - Integumentary Integumentary: normal turgor - Neurologic Neurologic: CNII-XII intact - Psychiatric Psychiatric: A&O x's 3, appropriate affect, intact judgment & insight Results CBC & Chem 7: 02/01/17 06:49 02/01/17 06:49 Labs: Abnormal Lab Results - Last 24 Hours (Table) 02/01/17 Range/Units 06:49 Glucose 71 L (74-99) mg/dL Alkaline Phosphatase 37 L (38-126) U/L Total Protein 6.2 L (6.3-8.2) g/dL CT scan - abdomen: report reviewed (Dr. Machuca) US - abdomen: report reviewed (Dr. Machuca) Assessment and Plan (1) Abdominal pain Narrative/Plan: Possible GERD possible peptic ulcer disease Status: Acute Plan: . EGD evaluation tomorrow. 2. Continue with IV Protonix daily. Clear liquid diet. Nothing by mouth after midnight. Supportive measures. The senior software developer has discussed the risks, benefits and alternative therapies for the above-mentioned procedure and for both sedation/analgesia as well as necessary blood product administration, if indicated, as they pertain to this patient. The patient has indicated understanding and acceptance of the risks and procedures discussed. Thank you for this kind referral and the opportunity to participate in the care of your patient. This consultation was discussed with Dr. Machuca. The impression and plan of care have been directed as dictated.
--- NOTE | 2017-02-01 14:40 | P.HPIM ---
History of Present Illness 34-year-old female history of prior myalgia, migraines, diverticulosis, depression, multiple abdominal surgeries admitted with abdominal pain crampy in nature to the mid abdomen sometimes radiating to lower right back x 3 weeks. Seems to exacerbate with meals and treatment fullness early satiety. Denies diarrhea occasional constipation. Nonbloody emesis at times no fevers. No history of this type of pain. No ETOH, ASA, or NSAIDS. Abdominal pain evaluated in the past with colonoscopy 2014 with findings of a normal-appearing colon with no evidence of colitis or colorectal neoplasia. Scattered sigmoid diverticulosis and small internal hemorrhoids. Upper endoscopy January 2014 show gastritis. patient was a valid by [facility] surgery, patient underwent a HIDA scan which showed decreased ejection fraction. Plan is upper GI endoscopy which showed peptic ulcer disease no further intervention and treatment of peptic ulcer disease. He doesn't smoke peptic ulcer disease patient may need to undergo laparoscopic cholecystectomy. Review of Systems REVIEW OF SYSTEMS: CONSTITUTIONAL: No fever, no malaise, no fatigue. HEENT: No recent visual problems or hearing problems. Denied any sore throat. CARDIOVASCULAR: No chest pain, orthopnea, PND, no palpitations, no syncope. PULMONARY: No shortness of breath, no cough, no hemoptysis. GASTROINTESTINAL: as described in HPI NEUROLOGICAL: No headaches, no weakness, no numbness. HEMATOLOGICAL: Denies any bleeding or petechiae. GENITOURINARY: Denies any burning micturition, frequency, or urgency. MUSCULOSKELETAL/RHEUMATOLOGICAL: Denies any joint pain, swelling, or any muscle pain. ENDOCRINE: Denies any polyuria or polydipsia. The rest of the 14-point review of systems is negative. Past Medical History Past Medical History: Fibromyalgia Additional Past Medical History / Comment(s): DIVERTICULITIS;PCOS " ARRYTHMIA", lupus "mottled skin on her back", pleurisy,migraines, mixed connective tissue disease,tremors,ibs, thyroid nodule History of Any Multi-Drug Resistant Organisms: None Reported Past Surgical History: Appendectomy, Bowel Resection, Section, Hysterectomy, Tubal Ligation, Uterine Ablation Additional Past Surgical History / Comment(s): 09/30/14 Robotic assisted lap vaginal hysterectomy, lysis of adhesions pt stated bladder had been knicked - had sx to repair that and stomach lining, LAPAROSCOPY X4; TILT TABLE TEST AND EP STUDY. X4. BILAT CATARACTS REMOVED. COLONOSCOPY Past Anesthesia/Blood Transfusion Reactions: No Reported Reaction Smoking Status: Former smoker - Past Family History Mother Family Medical History: No Reported History Additional Family Medical History / Comment(s): celiac disease, migarines Father Family Medical History: Diabetes Mellitus, Hyperlipidemia, Hypertension Additional Family Medical History / Comment(s): Glaucoma, Cataracts Medications and Allergies Home Medications Medication Instructions Recorded Confirmed Type HYDROcodone/APAP 7.5-325MG [[place] 1 tab PO Q6HR PRN 10/05/14 01/31/17 History 7.5-325] Ondansetron [Zofran] 4 mg PO Q12HR PRN 09/05/16 01/31/17 History Digoxin [Lanoxin] 125 mcg PO DAILY #1 tab 09/07/16 01/31/17 Rx ALPRAZolam [Xanax XR] 2 mg PO HS 01/26/17 01/31/17 History Metoclopramide HCl [Reglan] 10 mg PO Q6HR PRN #5 day 01/26/17 01/31/17 Rx Allergies Allergy/AdvReac Type Severity Reaction Status Date / Time No Known Allergies Allergy Verified 01/31/17 15:27 Physical Exam Vitals: Vital Signs Temp Pulse Resp BP Pulse Ox 02/01/17 07:00 97.8 F 65 18 117/65 100 02/01/17 00:00 60 16 01/31/17 22:25 98.4 F 60 16 129/77 99 01/31/17 14:46 98.5 F 84 18 142/83 100 Intake and Output 01/31/17 02/01/17 02/01/17 22:59 06:59 14:59 Intake Total 300 1000 Balance 300 1000 Intake: Intake, IV Titration 300 1000 Amount Sodium Chloride 0.45% 1, 300 1000 000 ml @ 100 mls/hr IV . Q10H [facility] Rx#:[id number] Other: Voiding Method Toilet Toilet # Voids 2 3 Weight 43.772 kg Patient Weight 02/02/17 06:59 Weight 43.772 kg PHYSICAL EXAMINATION: GENERAL: The patient is alert and oriented x3, not in any acute distress. thin built patient did lose some weight because she is unable to tolerate oral diet. HEENT: Pupils are round and equally reacting to light. EOMI. No scleral icterus. No conjunctival pallor. Normocephalic, atraumatic. No pharyngeal erythema. No thyromegaly. CARDIOVASCULAR: S1 and S2 present. No murmurs, rubs, or gallops. PULMONARY: Chest is clear to auscultation, no wheezing or crackles. ABDOMEN: Soft, nontender, nondistended, normoactive bowel sounds. No palpable organomegaly. MUSCULOSKELETAL: No joint swelling or deformity. EXTREMITIES: No cyanosis, clubbing, or pedal edema. NEUROLOGICAL: Gross neurological examination did not reveal any focal deficits. SKIN: No rashes. Results CBC & Chem 7: 02/01/17 06:49 02/01/17 06:49 Labs: Abnormal Lab Results - Last 24 Hours (Table) 02/01/17 Range/Units 06:49 Glucose 71 L (74-99) mg/dL Alkaline Phosphatase 37 L (38-126) U/L Total Protein 6.2 L (6.3-8.2) g/dL Thrombosis Risk Factor Assmnt - Choose All That Apply Any of the Below Risk Factors Present?: Yes Other Risk Factors: Yes Each Risk Factor Represents 3 Points: Positive Lupus Anticoagulant Other congenital or acquired thrombophilia - If yes, enter type in comment: No Thrombosis Risk Factor Assessment Total Risk Factor Score: 3 Thrombosis Risk Factor Assessment Level: Moderate Risk Assessment and Plan Plan: #1 severe epigastric and right upper quadrant abdominal pains radiating to the back: Possibility of gastritis, will obtain lipase, cholecystitis cannot be ruled out. Patient is on Protonix at this time. #2fibromyalgia. #3 history of multiple surgeries including bowel resection section hysterotomy tubal ligation in the past.
[2017-02-02] MEDS: HEPARIN SODIUM,PORCINE 5,000 UNIT/ML 1 ML VIAL SQ SCH ×3 (00:44→16:11)
[2017-02-02] MEDS: SODIUM CHLORIDE 0.45% 1,000 ML IV SCH ×3 (00:46→12:58)
[2017-02-02] MEDS: ALPRAZOLAM 2 MG PO SCH ×2 (02:09→21:35)
[2017-02-02] MEDS: ONDANSETRON 4 MG/2 ML VIAL IVP PRN ×3 (07:57→21:36)
[2017-02-02] MEDS: PANTOPRAZOLE 40 MG/10 ML VIAL IVP SCH (07:58)
[2017-02-02] MEDS ORDERED: PROPOFOL 10 MG/ML 20 ML VIAL IV ONE (09:22)
[2017-02-02] MEDS ORDERED: LIDOCAINE 1% INJ 10MG/ML (20 ML MDV) ONE (09:22)
[2017-02-02] MEDS ORDERED: IV FLUID CONTINUATION 650 ML IV ONE (09:26)
--- NOTE | 2017-02-02 09:42 | P.PCN ---
Date of Procedure: 02/02/17 Procedure(s) Performed: BRIEF HISTORY: Patient is a 36-year-old, pleasant, scheduled for an upper endoscopy as a part of evaluation of acute onset of severe epigastric and right upper quadrant abdominal pain for the last 2 weeks' duration. The pain has been progressively getting worse with eating and hence she is scheduled for an upper endoscopy to evaluate further. PROCEDURE PERFORMED: Esophagogastroduodenoscopy with biopsy. PREOPERATIVE DIAGNOSIS: Epigastric/right upper quadrant abdominal. IV sedation per anesthesia. PROCEDURE: After informed consent was obtained, the patient was brought into the endoscopy unit. IV sedation was administered by Anesthesia under continuous monitoring. Initially the Olympus GIF-140 video endoscope was inserted into the mouth. Esophagus intubated without any difficulty. It was gradually advanced into the stomach and duodenum and carefully examined. The bulb and the second part of the duodenum appeared normal. The scope at this time was withdrawn to the stomach, adequately insufflated with air, and upon careful examination, mucosa of the antrum and mild mottling of the mucosa and biopsies were done from this area. body, cardia and the fundus appeared normal. The scope was then withdrawn into the esophagus. The GE junction was located at 39 cm from the incisors. There was once Provigil erosion consistent with LA grade a reflux esophagitis. The rest of the esophagus appeared normal and the patient tolerated the procedure well. IMPRESSION: 1. Mild antral gastritis but no evidence of peptic ulcer disease. 2. LA grade A reflux esophagitis. RECOMMENDATIONS: The findings of this examination were discussed with the patient as well as a family. She will continue with Protonix 40 mg daily and follow antireflux measures.
[2017-02-02] MEDS: MORPHINE SULFATE 10 MG/ML SYRINGE IVP PRN (10:18)
[2017-02-02] MEDS: DIGOXIN 125 MCG TAB PO SCH (12:03)
[2017-02-02] MEDS: HYDROmorphone 1 MG/ML 1 ML SYRINGE IVP PRN ×3 (12:58→23:21)
--- NOTE | 2017-02-02 16:35 | P.PN ---
Subjective Progress note being dictated for Dr. Issa Interval history:34-year-old female history of prior myalgia, migraines, diverticulosis, depression, multiple abdominal surgeries admitted with abdominal pain crampy in nature to the mid abdomen sometimes radiating to lower right back x 3 weeks. Seems to exacerbate with meals and treatment fullness early satiety. Denies diarrhea occasional constipation. Nonbloody emesis at times no fevers. No history of this type of pain. No ETOH, ASA, or NSAIDS. Abdominal pain evaluated in the past with colonoscopy 2014 with findings of a normal-appearing colon with no evidence of colitis or colorectal neoplasia. Scattered sigmoid diverticulosis and small internal hemorrhoids. Upper endoscopy January 2014 show gastritis. patient was a valid by [place] [facility], patient underwent a HIDA scan which showed decreased ejection fraction. Plan is upper GI endoscopy which showed peptic ulcer disease no further intervention and treatment of peptic ulcer disease. He doesn't smoke peptic ulcer disease patient may need to undergo laparoscopic cholecystectomy. 02/02/17 status post EGD reportedly mild gastritis, no peptic ulcer disease, LA Grade A reflux esophagitis. Lipase 189. continues to have significant mid epigastric pain radiating to right upper quadrant and right shoulder, unrelieved by morphine. Surgery notified, further recommendations pending. Afebrile. Objective - Vital Signs Vital signs: Vital Signs Temp 98.2 F 02/02/17 15:00 Pulse 63 02/02/17 11:55 Resp 20 02/02/17 15:00 BP 114/86 02/02/17 15:00 Pulse Ox 98 02/02/17 15:00 Intake & Output 02/01/17 02/02/17 02/02/17 18:59 06:59 18:59 Intake Total 1100 1150 Output Total 1 Balance 1100 1149 Weight 43.772 kg Intake: IV 350 Intake, IV Titration 1100 800 Amount Sodium Chloride 0.45% 1, 1100 800 000 ml @ 100 mls/hr IV . Q10H SHELLY Rx#:[id number] Output: Urine 1 Other: Voiding Method Toilet Toilet Toilet # Voids 2 2 - Exam GENERAL: The patient is alert and oriented x3, thin built, currently having abdominal pain as mentioned above. HEENT: Pupils are round and equally reacting to light. EOMI. No scleral icterus. No conjunctival pallor. Normocephalic, atraumatic. No pharyngeal erythema. No thyromegaly. CARDIOVASCULAR: S1 and S2 present. No murmurs, rubs, or gallops. PULMONARY: Chest is clear to auscultation, no wheezing or crackles. ABDOMEN: Soft, nondistended, mid epigastric tenderness ,normoactive bowel sounds. No palpable organomegaly. MUSCULOSKELETAL: No joint swelling or deformity. EXTREMITIES: No cyanosis, clubbing, or pedal edema. NEUROLOGICAL: Gross neurological examination did not reveal any focal deficits. SKIN: No rashes. - Labs CBC & Chem 7: 02/01/17 06:49 02/01/17 06:49 Assessment and Plan Plan: #1 severe epigastric and right upper quadrant abdominal pains radiating to the back: status post EGD reportedly mild gastritis, no peptic ulcer disease, LA Grade A reflux esophagitis., cholecystitis cannot be ruled out. #2fibromyalgia. #3 history of multiple surgeries including bowel resection section hysterotomy tubal ligation in the past. Plan: Continue on current medication regime ,monitoring and symptomatic treatment. For better pain control, DC morphine and placed on Dilaudid 1 mg every 3 hours prn. Further recommendations pending from surgery. The impression and plan of care has been dictated as directed. : I performed a H&P examination of this patient and discussed the same with the dictator. I agree with the dictator's note. Any additional findings/opinions/ etc. will be noted.
--- NOTE | 2017-02-02 17:59 | P.PN ---
Subjective Principal diagnosis: Abdominal pain Patient still having abdominal pain today. She says it is in the epigastric region. She does have radiation to the mid back. It is shortly after eating. Appetite diminished. Today's upper endoscopy by GI shows mild gastritis and mild esophagitis. The degree of esophagitis appears to be less than would explain her current symptoms. Labs are pending. No rectal bleeding or melena. She is afebrile. Objective - Vital Signs Vital signs: Vital Signs Temp 98.2 F 02/02/17 15:00 Pulse 63 02/02/17 11:55 Resp 20 02/02/17 15:00 BP 114/86 02/02/17 15:00 Pulse Ox 98 02/02/17 15:00 Intake & Output 02/01/17 02/02/17 02/02/17 18:59 06:59 18:59 Intake Total 1100 1150 Output Total 1 Balance 1100 1149 Weight 43.772 kg Intake: IV 350 Intake, IV Titration 1100 800 Amount Sodium Chloride 0.45% 1, 1100 800 000 ml @ 100 mls/hr IV . Q10H SHELLY Rx#:[id number] Output: Urine 1 Other: Voiding Method Toilet Toilet Toilet # Voids 2 2 - Exam Abdomen: Soft, mild epigastric tenderness, nondistended - Labs CBC & Chem 7: 02/01/17 06:49 02/01/17 06:49 Assessment and Plan (1) Abdominal pain Narrative/Plan: Patient ongoing upper abdominal pain with radiation of the mid back. Cannot completely exclude chronic cholecystitis/biliary dyskinesia as the source of her discomfort. No additional etiologies identified at this time. Options of observation versus cholecystectomy discussed. They are anxious to proceed with laparoscopic cholecystectomy in the hopes that this will improve her symptoms. The success rate of approximately 60-70% was described to the patient and her family. The risks of bleeding, infection, diarrhea, persistent pain, trocar injury, conversion, bile leak, bile duct injury, retained common bile duct stone , and anesthesia-related comp locations were discussed. They understand and wish for us to proceed. Status: Acute
[2017-02-02 18:21] LABS: Basophils % (A) 0 %; CH 32.2; CHCM 33.7; Eosinophils # (A) 0.1 k/uL (0-0.7); Eosinophils % (A) 2 %; HCT 41.4 % (34.0-46.0); HDW 2.25; HGB 13.4 gm/dL (11.4-16.0); Luc # (Auto) 0.11; Luc % (Auto) 2; Lymphocytes # (A) 1.7 k/uL (1.0-4.8); Lymphocytes % (A) 24 %; MCH 31.2 pg (25.0-35.0); MCHC 32.4 g/dL (31.0-37.0); MCV 96.2 fL (80.0-100.0); Mean Platelet Volume 9.1; Monocytes # (A) 0.3 k/uL (0-1.0); Monocytes % (A) 4 %; Neutrophils % (A) 69 %; RDW 12.9 % (11.5-15.5); WBC 7.3 k/uL (3.8-10.6); WBC (Perox) 7.76
[2017-02-02 18:30] LABS: ALT 22 U/L (9-52); AST 20 U/L (14-36); Alkaline Phosphatase 40 U/L (38-126); Amylase 57 U/L (30-110); Anion Gap 12 mmol/L; Blood Urea Nitrogen 10 mg/dL (7-17); Calcium 9.5 mg/dL (8.4-10.2); Carbon Dioxide 19 mmol/L (22-30); Chloride 108 mmol/L (98-107); Glucose 68 mg/dL (74-99); Non-African American GFR(MDRD) >60 (>60 ml/min/1.73 sqM); Potassium 4.6 mmol/L (3.5-5.1); Sodium 139 mmol/L (137-145); Total Bilirubin 0.6 mg/dL (0.2-1.3); Total Protein 6.8 g/dL (6.3-8.2)
[2017-02-03] MEDS: HEPARIN SODIUM,PORCINE 5,000 UNIT/ML 1 ML VIAL SQ SCH ×4 (00:41→23:07)
[2017-02-03] MEDS: HYDROmorphone 1 MG/ML 1 ML SYRINGE IVP PRN ×4 (03:17→15:24)
[2017-02-03] MEDS: SODIUM CHLORIDE 0.45% 1,000 ML IV SCH ×2 (07:06→07:10)
[2017-02-03] MEDS: DIGOXIN 125 MCG TAB PO SCH (08:33)
[2017-02-03] MEDS: PANTOPRAZOLE 40 MG/10 ML VIAL IVP SCH (09:44)
[2017-02-03] MEDS: ONDANSETRON 4 MG/2 ML VIAL IVP PRN ×2 (12:03→20:19)
--- NOTE | 2017-02-03 13:56 | P.PN ---
Subjective Progress note being dictated for Dr. Issa Interval history:34-year-old female history of prior myalgia, migraines, diverticulosis, depression, multiple abdominal surgeries admitted with abdominal pain crampy in nature to the mid abdomen sometimes radiating to lower right back x 3 weeks. Seems to exacerbate with meals and treatment fullness early satiety. Denies diarrhea occasional constipation. Nonbloody emesis at times no fevers. No history of this type of pain. No ETOH, ASA, or NSAIDS. Abdominal pain evaluated in the past with colonoscopy 2014 with findings of a normal-appearing colon with no evidence of colitis or colorectal neoplasia. Scattered sigmoid diverticulosis and small internal hemorrhoids. Upper endoscopy January 2014 show gastritis. patient was a valid by [facility] surgery, patient underwent a HIDA scan which showed decreased ejection fraction. Plan is upper GI endoscopy which showed peptic ulcer disease no further intervention and treatment of peptic ulcer disease. He doesn't smoke peptic ulcer disease patient may need to undergo laparoscopic cholecystectomy. 02/02/17 status post EGD reportedly mild gastritis, no peptic ulcer disease, LA Grade A reflux esophagitis. Lipase 189. continues to have significant mid epigastric pain radiating to right upper quadrant and right shoulder, unrelieved by morphine. Surgery notified, further recommendations pending. Afebrile. 02/03/2017 persistent mid epigastric pain radiating to mid back and right shoulder ,following diet intake. Evaluated by surgery, scheduled for laparoscopic cholecystectomy. Denies chest pain, palpitations or increasing shortness of breath. Afebrile. Objective - Vital Signs Vital signs: Vital Signs Temp 98.1 F 02/03/17 11:21 Pulse 63 02/03/17 11:21 Resp 16 02/03/17 11:21 BP 128/78 02/03/17 11:21 Pulse Ox 100 02/03/17 11:21 Intake & Output 02/02/17 02/03/17 02/03/17 18:59 06:59 18:59 Intake Total 1150 Output Total 1 Balance 1149 Intake: IV 350 Intake, IV Titration 800 Amount Sodium Chloride 0.45% 1, 800 000 ml @ 100 mls/hr IV . Q10H SHELLY Rx#:[id number] Output: Urine 1 Other: Voiding Method Toilet Toilet Toilet # Voids 2 - Exam GENERAL: The patient is alert and oriented x3, thin built, no acute distress HEENT: Pupils are round and equally reacting to light. EOMI. No scleral icterus. No conjunctival pallor. Normocephalic, atraumatic. No pharyngeal erythema. CARDIOVASCULAR: S1 and S2 present. No murmurs, rubs, or gallops. PULMONARY: Chest is clear to auscultation, no wheezing or crackles. ABDOMEN: Soft, nondistended, mid epigastric tenderness ,normoactive bowel sounds. No palpable organomegaly. MUSCULOSKELETAL: No joint swelling or deformity. EXTREMITIES: No cyanosis, clubbing, or pedal edema. NEUROLOGICAL: Gross neurological examination did not reveal any focal deficits. SKIN: No rashes. - Labs CBC & Chem 7: 02/02/17 18:03 02/02/17 18:03 Labs: Abnormal Lab Results - Last 24 Hours (Table) 02/02/17 Range/Units 18:03 Chloride 108 H (98-107) mmol/L Carbon Dioxide 19 L (22-30) mmol/L Glucose 68 L (74-99) mg/dL Assessment and Plan Plan: #1 severe epigastric and right upper quadrant abdominal pains radiating to the back: status post EGD reportedly mild gastritis, no peptic ulcer disease, LA Grade A reflux esophagitis., cholecystitis cannot be ruled out. #2fibromyalgia. #3 history of multiple surgeries including bowel resection section hysterotomy tubal ligation in the past. Plan: Continue on current medication regime ,monitoring and symptomatic treatment. Awaiting surgery, Dilaudid frequency increased. Incentive spirometer ordered-aggressive pulmonary toileting. Discharge planning in progress for tomorrow pending surgery's clearance. The impression and plan of care has been dictated as directed. : I performed a H&P examination of this patient and discussed the same with the dictator. I agree with the dictator's note. Any additional findings/opinions/ etc. will be noted.
[2017-02-03] MEDS ORDERED: IV FLUID CONTINUATION 1,000 ML IV ONE (17:44)
[2017-02-03] MEDS ORDERED: HEPARIN SODIUM,PORCINE 5,000 UNIT/ML 1 ML VIAL SQ ONE (17:51)
[2017-02-03] MEDS ORDERED: MIDAZOLAM 2 MG/2 ML VIAL ONE (18:09)
[2017-02-03] MEDS ORDERED: SUCCINYLCHOLINE CHLORIDE 100 MG/5 ML SYR IV ONE (18:09)
[2017-02-03] MEDS ORDERED: ONDANSETRON 4 MG/2 ML VIAL ONE (18:09)
[2017-02-03] MEDS ORDERED: ceFAZolin 1,000 MG VIAL ONE (18:09)
[2017-02-03] MEDS ORDERED: PROPOFOL 10 MG/ML 20 ML VIAL IV ONE (18:09)
[2017-02-03] MEDS ORDERED: ROCURONIUM BROMIDE 10 MG/ML 10 ML VIAL IV ONE (18:09)
[2017-02-03] MEDS ORDERED: GLYCOPYRROLATE 0.2 MG/ML 2 ML VIAL ONE (18:09)
[2017-02-03] MEDS ORDERED: NEOSTIGMINE 1 MG/ML 10 ML VIAL ONE (18:09)
[2017-02-03] MEDS ORDERED: HYDROmorphone (PF) 1 MG/ML ONE (18:09)
[2017-02-03] MEDS ORDERED: LIDOCAINE 1% INJ 10MG/ML (20 ML MDV) ONE (18:09)
[2017-02-03] MEDS ORDERED: fentaNYL (PF) 50 MCG/ML 2 ML AMP ONE (18:09)
[2017-02-03] MEDS ORDERED: BUPIVACAINE (PF) 0.25% 30 ML VIAL SQ ONE ×2 (18:25)
[2017-02-03] MEDS ORDERED: HYDROcodone/APAP 5-325MG 1 EACH TAB PO PRN (19:17)
--- NOTE | 2017-02-03 19:21 | P.OP ---
Date of Procedure: 02/03/17 Procedure(s) Performed: PREOPERATIVE DIAGNOSIS: Biliary dyskinesia/chronic cholecystitis POSTOPERATIVE DIAGNOSIS: Same PROCEDURE: Laparoscopic cholecystectomy SURGEON: aMrk EBL: Minimal see anesthesia record ANESTHESIA: Gen. COMPLICATIONS: None OPERATIVE PROCEDURE: The patient was brought and placed on the operating room table in the supine position. The patient was placed under general anesthesia at that time. The abdomen was prepped and draped in the usual sterile fashion. The patient had a previous midline incision extending above the umbilicus. A 5 mm optical trocar was used to enter the perineal cavity in the left upper quadrant. Entrance into the peritoneal cavity in that area was performed without difficulty. No adhesions at that location were seen. Insufflation took place fully to 15 mmHg. There were adhesions to the midline incision but these were less than anticipated. There were no adhesions above the umbilicus. There were some adhesions in the pelvis as well but again not as bad as anticipated given the significant surgeries she has had in the past. An additional 5 mm trocar was placed in the suprapubic location under direct visualization. 2 additional 5 mm trochars were placed in the right upper quadrant under direct visualization. A 12 mm trocar was advanced into the epigastric incision site. The gallbladder was retracted superiorly and laterally. The peritoneum overlying the infundibulum was bluntly dissected. The patient's cystic duct was visualized. The junction between the cystic duct common and hepatic duct was identified. The cystic duct was then divided after placement of 3 12 mm clips on the patient's side and one on the specimen side. The cystic artery was identified and clipped as well. A small vessel was seen along the gallbladder fossa and clipped as well. The gallbladder was then removed from the liver bed using electrocautery. The gallbladder was then removed from the epigastric trocar site with an Endo Catch bag. The gallbladder fossa was irrigated with saline. There was no evidence of any bleeding or biliary drainage seen. The trochars were then removed. The fascia at the 12 millimeter site was closed using a [id number] 0 Vicryl stitch. The skin at all 5 sites was closed using a 4-0 Monocryl stitch. Dermabond was applied to the incision sites At the end of this procedure the sponge and needle counts were correct. DISPOSITION: Stable to the recovery room
[2017-02-03] MEDS: HYDROmorphone 1 MG/ML 1 ML SYRINGE IVP ONE ×2 (19:28→19:42)
[2017-02-03] MEDS: MORPHINE SULFATE 10 MG/ML SYRINGE IVP PRN ×2 (21:03→23:05)
[2017-02-03] MEDS: ALPRAZOLAM 2 MG PO SCH (22:23)
[2017-02-04] MEDS: MORPHINE SULFATE 10 MG/ML SYRINGE IVP PRN ×11 (01:22→23:39)
[2017-02-04] MEDS: ONDANSETRON 4 MG/2 ML VIAL IVP PRN ×4 (03:41→23:39)
[2017-02-04] MEDS: SODIUM CHLORIDE 0.45% 1,000 ML IV SCH ×3 (04:13→17:27)
[2017-02-04] MEDS: PANTOPRAZOLE 40 MG/10 ML VIAL IVP SCH (08:17)
[2017-02-04] MEDS: DIGOXIN 125 MCG TAB PO SCH (08:17)
[2017-02-04] MEDS: HEPARIN SODIUM,PORCINE 5,000 UNIT/ML 1 ML VIAL SQ SCH ×3 (09:03→23:45)
--- NOTE | 2017-02-04 10:08 | P.PN ---
Subjective Principal diagnosis: Abdominal pain Patient having abdominal discomfort last night. Slightly better today. Seems to be more incisional discomfort. No nausea or vomiting. Appetite remains diminished. Objective - Vital Signs Vital signs: Vital Signs Temp 97.9 F 02/04/17 07:00 Pulse 60 02/04/17 07:00 Resp 18 02/04/17 07:00 BP 112/63 02/04/17 07:00 Pulse Ox 99 02/04/17 07:00 Intake & Output 02/03/17 02/04/17 02/04/17 18:59 06:59 18:59 Intake Total 450 1200 Output Total 5 Balance 445 1200 Weight 43.772 kg Intake: IV 450 1200 Sodium Chloride 0.45% 1, 1000 000 ml @ 100 mls/hr IV . Q10H SHELLY Rx#:[id number] Output: Estimated Blood Loss 5 Other: Voiding Method Toilet Toilet # Voids 2 5 - Exam Abdomen: Soft, nondistended, incisions clean and dry - Labs CBC & Chem 7: 02/02/17 18:03 02/02/17 18:03 Assessment and Plan (1) Abdominal pain Narrative/Plan: Increase activity. Add Toradol for pain control. Improve oral intake. Status: Acute
[2017-02-04] MEDS: KETOROLAC 30 MG/ML 1 ML VIAL IVP SCH ×3 (11:03→23:38)
[2017-02-04 16:11] LABS: ALT 28 U/L (9-52); AST 22 U/L (14-36); Alkaline Phosphatase 42 U/L (38-126); Anion Gap 15 mmol/L; Blood Urea Nitrogen 5 mg/dL (7-17); Calcium 9.6 mg/dL (8.4-10.2); Carbon Dioxide 18 mmol/L (22-30); Chloride 105 mmol/L (98-107); Glucose 72 mg/dL (74-99); Non-African American GFR(MDRD) >60 (>60 ml/min/1.73 sqM); Potassium 3.8 mmol/L (3.5-5.1); Sodium 138 mmol/L (137-145); Total Bilirubin 0.7 mg/dL (0.2-1.3); Total Protein 7.5 g/dL (6.3-8.2)
--- NOTE | 2017-02-04 18:23 | PN ---
PROGRESS NOTE DATE OF SERVICE: 02/04/2017 This 36-year-old woman who was admitted after significant abdominal pain and biliary dyskinesia under cholecystectomy. The patient is complaining of severe pain. Dr. Flores is following the patient. Pain management has been coordinated. No fever. No cough. PHYSICAL EXAMINATION: Alert, oriented x3. Pulse 60, blood pressure 112/60, respirations 18, temperature 97.9, pulse ox 99% on room air. HEENT: Conjunctivae normal. NECK: No jugular venous distention. CARDIOVASCULAR: S1, S2. RESPIRATORY: Breath sounds diminished in the bases. A few scattered rhonchi and crackles. Expiratory wheezing also present. ABDOMEN: Soft, nontender. No mass palpable. LEGS: No edema. No swelling. NERVOUS SYSTEM: Higher functions as mentioned earlier. Moves all four limbs. LYMPHATICS: No lymph node palpable in the neck, axillae or groin. SKIN: No rash, ulcer, bleeding. LAB: CBC within normal limits. Glucose 68. ASSESSMENT: 1. Severe epigastric and right upper quadrant abdominal pain possible gallbladder dyskinesia, status post cholecystectomy. 2. Fibromyalgia. 3. History of multiple surgeries including bowel obstruction, hysterectomy, tubal ligation. RECOMMENDATIONS AND DISCUSSION: I recommend to continue current medications. Continue symptomatic treatment. I recommend repeat labs. Pain management. Increase ambulation. Otherwise closely follow with Dr. Flores. Further recommendations to follow. MMODL / IJN: [id number] /
[2017-02-04] MEDS: ALPRAZOLAM 2 MG PO SCH (21:32)
[2017-02-05] MEDS: MORPHINE SULFATE 10 MG/ML SYRINGE IVP PRN ×2 (02:33→08:07)
[2017-02-05] MEDS: SODIUM CHLORIDE 0.45% 1,000 ML IV SCH (02:36)
[2017-02-05] MEDS: KETOROLAC 30 MG/ML 1 ML VIAL IVP SCH ×2 (05:57→11:49)
[2017-02-05] MEDS: ONDANSETRON 4 MG/2 ML VIAL IVP PRN (05:58)
[2017-02-05 07:47] LABS: Basophils % (A) 1 %; CH 31.5; CHCM 32.7; Eosinophils # (A) 0.2 k/uL (0-0.7); Eosinophils % (A) 4 %; HCT 36.8 % (34.0-46.0); HDW 2.32; HGB 12.1 gm/dL (11.4-16.0); Luc # (Auto) 0.11; Luc % (Auto) 2; Lymphocytes % (A) 17 %; MCH 31.7 pg (25.0-35.0); MCHC 32.8 g/dL (31.0-37.0); MCV 96.7 fL (80.0-100.0); Monocytes # (A) 0.4 k/uL (0-1.0); Monocytes % (A) 6 %; Neutrophils # (A) 4.2 k/uL (1.3-7.7); Neutrophils % (A) 71 %; RBC 3.81 m/uL (3.80-5.40); RDW 12.3 % (11.5-15.5); WBC (Perox) 6.31
[2017-02-05] MEDS: HEPARIN SODIUM,PORCINE 5,000 UNIT/ML 1 ML VIAL SQ SCH (08:08)
[2017-02-05] MEDS: PANTOPRAZOLE 40 MG/10 ML VIAL IVP SCH (08:08)
[2017-02-05] MEDS: DIGOXIN 125 MCG TAB PO SCH (08:09)
[2017-02-05 08:26] VITALS: BP 103/56; PULSE 74; RESP 20; TEMP 98.3
--- NOTE | 2017-02-05 10:08 | P.PN ---
Subjective Principal diagnosis: Abdominal pain Patient doing much better today. Pain is down to around 5. She tolerated her diet. She is hoping to go home today. Objective - Vital Signs Vital signs: Vital Signs Temp 98.3 F 02/05/17 07:00 Pulse 74 02/05/17 07:00 Resp 20 02/05/17 07:00 BP 103/56 02/05/17 07:00 Pulse Ox 97 02/05/17 07:00 Intake & Output 02/04/17 02/05/17 02/05/17 18:59 06:59 18:59 Intake Total 2280 Balance 2280 Intake: IV 1200 Sodium Chloride 0.45% 1, 1200 000 ml @ 100 mls/hr IV . Q10H SHELLY Rx#:[id number] Oral 1080 Other: Voiding Method Toilet Toilet Toilet # Voids 5 1 - Exam Abdomen: Soft, nondistended, mild tenderness, incision clean and dry - Labs CBC & Chem 7: 02/05/17 07:01 02/04/17 15:43 Labs: Abnormal Lab Results - Last 24 Hours (Table) 02/04/17 Range/Units 15:43 Carbon Dioxide 18 L (22-30) mmol/L BUN 5 L (7-17) mg/dL Glucose 72 L (74-99) mg/dL Assessment and Plan (1) Abdominal pain Narrative/Plan: Continue advancing diet as tolerated. May discharge from my standpoint. Follow -up in the office 1-2 weeks. Status: Acute
--- NOTE | 2017-02-05 17:52 | P.DS ---
Providers Date of admission: 01/31/17 14:23 Attending physician: Mague Issa Consults: 01/31/17 14:57 Consult Physician Routine Consulting Provider: Chema Flores Consult Reason/Comments: abd pain Do you want consulting provider notified?: Yes 02/01/17 11:56 Consult Physician Routine Consulting Provider: Yael Machuca Consult Reason/Comments: abdominal pain Do you want consulting provider notified?: Yes Primary care physician: Chuy [facility] Hospital Course: 6-year-old woman was admitted with severe epigastric and right upper quadrant abdominal pain possibly secondary to gallbladder dyskinesia. Dr. Flores saw the patient. Patient underwent cholecystectomy by Dr. Flores. Patient improved significantly. Pain management was given. On exam vitals stable. Cardio S1 and S2 normal. Respirator system normal. Abdomen soft status post surgery. Labs are stable. Dr. Flores recommend patient be discharged home for further follow-up in the preceding and Dr. Flores and Dr. Simon in the preceding. Final diagnosis 1. Severe epigastric and right upper quadrant pain possibly gallbladder dyskinesia status post cholecystectomy. 2. Fibromyalgia 3. History multiple surgeries including bowel obstruction hysterectomy and tubal ligation Plan - Discharge Summary New Discharge Prescriptions: Continue Ondansetron [Zofran] 4 mg PO Q12HR PRN PRN Reason: Nausea Digoxin [Lanoxin] 125 mcg PO DAILY #1 tab ALPRAZolam [Xanax XR] 2 mg PO HS Metoclopramide HCl [Reglan] 10 mg PO Q6HR PRN #5 day PRN Reason: Nausea HYDROcodone/APAP 7.5-325MG [[place] 7.5-325] 1 tab PO Q6HR PRN #30 PRN Reason: Pain Discharge Medication List Ondansetron [Zofran] 4 mg PO Q12HR PRN 09/05/16 [History] Digoxin [Lanoxin] 125 mcg PO DAILY #1 tab 09/07/16 [Rx] ALPRAZolam [Xanax XR] 2 mg PO HS 01/26/17 [History] Metoclopramide HCl [Reglan] 10 mg PO Q6HR PRN #5 day 01/26/17 [Rx] HYDROcodone/APAP 7.5-325MG [[place] 7.5-325] 1 tab PO Q6HR PRN #30 02/05/17 [Rx] Follow up Appointment(s)/Referral(s): Chema Flores MD [Medical Doctor] - 1 Week (Patient to call Dr. Flores's office Monday to schedule follow up appointment. The office is closed at time of discharge. ) Chuy Simon III, MD [Primary Care Provider] - 1 Week (Patient to call Dr. Simon's office Monday to schedule follow up appointment. The office is closed at time of discharge.) Patient Instructions/Handouts: *Surgery [facility] - ([facility]) Laparoscopic Cholecystectomy, Hydrocodone/Acetaminophen (By mouth) Activity/Diet/Wound Care/Special Instructions: diet soft as tolerated act limited till f/u Discharge Disposition: HOME SELF-CARE
== END 2017-02-05 13:15 | disposition home or self-care (01) | DRG 419 ==
LOC: 5ONC 14:23
PROVIDERS: ADMIT Internal Medicine; ATTEND Internal Medicine
PROC: 0DB68ZX Excision of Stomach, Via Natural or Artificial Opening Endoscopic, Diagnostic (ICD-10-PCS; principal; 2017-02-02 09:35)
PROC: 0DB58ZX Excision of Esophagus, Via Natural or Artificial Opening Endoscopic, Diagnostic (ICD-10-PCS; principal; 2017-02-02 09:35)
PROC: 0DB98ZX Excision of Duodenum, Via Natural or Artificial Opening Endoscopic, Diagnostic (ICD-10-PCS; principal; 2017-02-02 09:35)
PROC: 0FT44ZZ Resection of Gallbladder, Percutaneous Endoscopic Approach (ICD-10-PCS; 2017-02-03)
DX: K81.1 Chronic cholecystitis (principal); K27.9 Peptic ulcer, site unspecified, unspecified as acute or chronic, without hemorrhage or perforation; K21.0 Gastro-esophageal reflux disease with esophagitis; K29.60 Other gastritis without bleeding; K57.30 Diverticulosis of large intestine without perforation or abscess without bleeding; K58.9 Irritable bowel syndrome, unspecified; K64.8 Other hemorrhoids; M79.7 Fibromyalgia; Z82.49 Family history of ischemic heart disease and other diseases of the circulatory system; Z83.79 Family history of other diseases of the digestive system; Z87.891 Personal history of nicotine dependence; Z90.710 Acquired absence of both cervix and uterus; Z79.899 Other long term (current) drug therapy
CPT/HCPCS: 43239; 74176; 78226; 80053; 82150; 83690; 85025; 88304; 88305; 88342

== ENCOUNTER → 2017-01-31 | Outpatient (CLI) | payer MEDICARE ==
[2017-01-31 12:29] LABS: Basophils % (A) 0 %; CH 32.2; CHCM 34.2; Eosinophils % (A) 0 %; HCT 49.2 % (34.0-46.0); HDW 2.26; HGB 16.1 gm/dL (11.4-16.0); Luc # (Auto) 0.11; Luc % (Auto) 1; Lymphocytes # (A) 1.3 k/uL (1.0-4.8); Lymphocytes % (A) 13 %; MCHC 32.7 g/dL (31.0-37.0); MCV 94.7 fL (80.0-100.0); Mean Platelet Volume 9.7; Monocytes # (A) 0.4 k/uL (0-1.0); Monocytes % (A) 4 %; Neutrophils # (A) 7.9 k/uL (1.3-7.7); Neutrophils % (A) 81 %; RDW 13.2 % (11.5-15.5); WBC 9.7 k/uL (3.8-10.6); WBC (Perox) 9.23
[2017-01-31 12:31] LABS: ALT 24 U/L (9-52); AST 23 U/L (14-36); Alkaline Phosphatase 46 U/L (38-126); Anion Gap 11 mmol/L; Blood Urea Nitrogen 13 mg/dL (7-17); Carbon Dioxide 27 mmol/L (22-30); Chloride 104 mmol/L (98-107); Glucose 92 mg/dL (74-99); Non-African American GFR(MDRD) >60 (>60 ml/min/1.73 sqM); Sodium 142 mmol/L (137-145); Total Bilirubin 0.5 mg/dL (0.2-1.3); Total Protein 8.1 g/dL (6.3-8.2)
--- NOTE | 2017-01-31 12:32 | CT ---
EXAMINATION TYPE: CT abdomen pelvis wo con DATE OF EXAM: 01/31/2017 COMPARISON: NONE INDICATION: Epigastric pain and Rt flank pain DLP: 440 mGycm, Automated exposure control for dose reduction was used. CONTRAST: 0 mL of Omnipaque 300. Study performed without Oral Contrast TECHNIQUE: Axial images were obtained from above the diaphragm to the pubic rami in the axial plane a t 5 mm thick sections. Reconstructed images are reviewed on the computer in the coronal plane. FINDINGS: Limited CT sections are obtained the lung bases. The lung bases are clear. CT ABDOMEN: Liver: Normal Spleen: Normal Pancreas: Normal Adrenal glands: The adrenal glands are normal. Gallbladder: Normal Kidneys: No masses are evident. No hydronephrosis is present. No cysts are present. Aorta: Normal Inferior vena cava: Normal. CT PELVIS: Loops of bowel within the abdomen and pelvis are normal. No oral contrast was utilized. There is present throughout small bowel loops as well as the colon. A few diverticuli are likely within the si gmoid colon. Appendix: Normal as visualized. Urinary bladder: Normal. Genitourinary structures: Uterus is normal. The right ovary appears somewhat franklin than the left. Saxena spicious cysts are not evident. Osseous structures: No suspicious lytic or sclerotic lesions. IMPRESSIONS: 1. No suspicious etiology to account for right flank pain. 2. Nonspecific bowel without dilated loops. A few diverticuli without acute diverticulitis are eviden t. 3. Small air-filled appendix evident.
== END | disposition home or self-care (01) ==
LOC: RADCTMAIN 11:30
PROVIDERS: ATTEND Family Medicine
DX: K57.30 Diverticulosis of large intestine without perforation or abscess without bleeding (principal); N20.0 Calculus of kidney; R10.13 Epigastric pain; R10.11 Right upper quadrant pain
CPT/HCPCS: 74176; 80053; 85025

== ENCOUNTER → 2017-07-07 | Outpatient (CLI) | payer MEDICARE ==
--- NOTE | 2017-07-07 11:46 | MM ---
Reason for exam: additional evaluation requested from prior study. Last mammogram was performed 1 year and 1 month ago. History: Family history of breast cancer in aunt at age 60. Physical Findings: Nurse did not find any significant physical abnormalities on exam. MG 3D Diag Mammo W/Cad RT CC and MLO view(s) were taken of the right breast. Prior study comparison: June 08, 2016, right breast MG 3d diag mammo w/cad RT. August 04, 2015, bilateral MG 3d diag mammo w/cad [facility]. The breast tissue is heterogeneously dense. This may lower the sensitivity of mammography. The benign appearing mass at the 10 o'clock position corresponding to the sonographic cyst. These results were verbally communicated with the patient and result sheet given to the patient on 07/07/17. ASSESSMENT: Benign, BI-RAD 2 RECOMMENDATION: Routine screening mammogram of both breasts at age 38. (or sooner if clinically indicated)
--- NOTE | 2017-07-07 11:49 | USB ---
Reason for exam: additional evaluation requested from prior study. History: Family history of breast cancer in aunt at age 60. US Breast RT Right breast ultrasound includes all four quadrants, the retroareolar region and axilla. Finding demonstrates a 0.5 x 0.8 x 0.3cm benign, oval, cystic lesion at 7 o'clock and a 1.4 x 1.2 x 0.5cm benign, oval, cystic lesion at 10 o'clock. These results were verbally communicated with the patient and result sheet given to the patient on 07/07/17. ASSESSMENT: Benign, BI-RAD 2 RECOMMENDATION: Routine screening mammogram of both breasts at age 38. (or sooner if clinically indicated) Manage patient on a clinical basis.
== END | disposition home or self-care (01) ==
LOC: RADMAMWWP 08:59
PROVIDERS: ATTEND Family Medicine
DX: N63.11 Unspecified lump in the right breast, upper outer quadrant (principal); N64.4 Mastodynia
CPT/HCPCS: 77065; 76641; G0279

== ENCOUNTER 2017-10-29 10:01 | Emergency (ER) | payer MEDICARE ==
[2017-10-29 10:11] VITALS: RESP 18
[2017-10-29] MEDS ORDERED: HYDROcodone/APAP 5-325MG 1 EACH TAB PO STA (10:41)
--- NOTE | 2017-10-29 11:12 | XR ---
EXAMINATION TYPE: XR knee 4V RT DATE OF EXAM: 10/29/2017 COMPARISON: NONE HISTORY: Pain TECHNIQUE: Four views are submitted. FINDINGS: Joint spaces are preserved. Osseous structures are intact. No acute fracture seen. IMPRESSION: 1. No acute fracture or dislocation.
--- NOTE | 2017-10-29 11:36 | ED ---
Lower Extremity Injury HPI - General Chief Complaint: Extremity Injury, Lower Stated Complaint: Knee Injury Time Seen by Provider: 10/29/17 10:21 Source: patient Mode of arrival: wheelchair Limitations: no limitations - History of Present Illness Initial Comments: 37-year-old female with past medical history as noted below presented for evaluation of right knee pain. She states that she was planted on her right leg and turned left to walk out of the room and felt a pop and had pain on the medial joint line of the knee. She was able to walk on it but continued to cause her pain. Has pain with active and passive range of motion in flexion and extension. Denies any swelling or overlying skin changes. No change in sensation or discoloration of the foot. No previous surgeries to the knee. - Related Data Home Medications Medication Instructions Recorded Confirmed Ondansetron [Zofran] 4 mg PO Q12HR PRN 09/05/16 01/31/17 ALPRAZolam [Xanax XR] 2 mg PO HS 01/26/17 01/31/17 Previous Rx's Medication Instructions Recorded Digoxin [Lanoxin] 125 mcg PO DAILY #1 tab 09/07/16 Metoclopramide HCl [Reglan] 10 mg PO Q6HR PRN #5 day 01/26/17 HYDROcodone/APAP 7.5-325MG [[place] 1 tab PO Q6HR PRN #30 02/05/17 7.5-325] Allergies Allergy/AdvReac Type Severity Reaction Status Date / Time No Known Allergies Allergy Verified 10/29/17 10:10 Review of Systems ROS Statement: Those systems with pertinent positive or pertinent negative responses have been documented in the HPI. ROS Other: All systems not noted in ROS Statement are negative. Constitutional: Denies: fever, chills Respiratory: Denies: cough, dyspnea Cardiovascular: Denies: chest pain, palpitations Gastrointestinal: Denies: abdominal pain, nausea, vomiting Musculoskeletal: Reports: arthralgia (Right knee). Denies: back pain, joint swelling, myalgia Skin: Denies: rash, lesions, change in color Neurological: Reports: abnormal gait (Limping). Denies: weakness, numbness, paresthesias Psychiatric: Denies: anxiety, depression Hematological/Lymphatic: Denies: easy bleeding, easy bruising Past Medical History Past Medical History: Fibromyalgia Additional Past Medical History / Comment(s): DIVERTICULITIS;PCOS " ARRYTHMIA", lupus "mottled skin on her back", pleurisy,migraines, mixed connective tissue disease,tremors,ibs, thyroid nodule History of Any Multi-Drug Resistant Organisms: None Reported Past Surgical History: Appendectomy, Bowel Resection, Section, Hysterectomy, Tubal Ligation, Uterine Ablation Additional Past Surgical History / Comment(s): 09/30/14 Robotic assisted lap vaginal hysterectomy, lysis of adhesions pt stated bladder had been knicked - had sx to repair that and stomach lining, LAPAROSCOPY X4; TILT TABLE TEST AND EP STUDY. X4. BILAT CATARACTS REMOVED. COLONOSCOPY Past Anesthesia/Blood Transfusion Reactions: No Reported Reaction Past Psychological History: Depression Smoking Status: Former smoker Past Alcohol Use History: None Reported Past Drug Use History: Marijuana - Past Family History Mother Family Medical History: No Reported History Additional Family Medical History / Comment(s): celiac disease, migarines Father Family Medical History: Diabetes Mellitus, Hyperlipidemia, Hypertension Additional Family Medical History / Comment(s): Glaucoma, Cataracts General Exam Limitations: no limitations General appearance: alert, in no apparent distress Head exam: Present: atraumatic, normocephalic Eye exam: Present: normal appearance, EOMI Neck exam: Present: normal inspection, tenderness Respiratory exam: Present: normal lung sounds bilaterally. Absent: respiratory distress Cardiovascular Exam: Present: regular rate, normal rhythm GI/Abdominal exam: Present: soft. Absent: tenderness Rectal exam: Present: deferred Extremities exam: Present: tenderness (Right medial joint line), normal capillary refill. Absent: full ROM, pedal edema, joint swelling, calf tenderness Back exam: Present: normal inspection, full ROM Neurological exam: Present: alert, oriented X3 Psychiatric exam: Present: normal affect, normal mood Skin exam: Present: warm, dry, intact Course Vital Signs 10/29/17 10/29/17 10:09 11:53 Temperature 98.6 F 97.4 F L Pulse Rate 71 80 Respiratory 18 18 Rate Blood Pressure 124/87 144/72 O2 Sat by Pulse 99 99 Oximetry Medical Decision Making - Medical Decision Making 37-year-old male presented for evaluation of right knee pain after twisting and popping sensation. On physical examination she has tenderness to the right medial joint line without effusion or overlying erythema bruising or other discoloration. Pain with active and passive range of motion with the ability to passively flex to about 30. Patient is able to weight bear however with significant pain and tenderness. Distal pulse sensation and motor function intact. Popliteal pulse palpable without abnormality. X-ray showed no acute fracture. Patient was offered crutches and knee immobilizer both of which she accepted. Advised to follow-up with her orthopedic surgeon and given return instructions. The patient knowledge and understanding of all formation provided and agreed with this plan of care. Disposition Clinical Impression: Right knee injury Disposition: HOME SELF-CARE Condition: Stable Instructions: Knee Sprain (ED) Additional Instructions: Please follow up with you PCP or orthopedic surgeon Dr. Cummins tomorrow or monday for reevaluation. If your symptoms should worsen or persist please return to this ED for further treatment and evaluation. Is patient prescribed a controlled substance at d/c from ED?: No Referrals: Chuy Simon III, MD [Primary Care Provider] - 1-2 days Ezequiel Cummins MD [STAFF PHYSICIAN] - 1-2 days Time of Disposition: 11:36
[2017-10-29 11:54] VITALS: BP 144/72; PULSE 80; TEMP 97.4
== END 2017-10-29 11:54 | disposition home or self-care (01) ==
LOC: EC 10:01
DX: S89.91XA Unspecified injury of right lower leg, initial encounter (principal); Z87.891 Personal history of nicotine dependence; Z98.890 Other specified postprocedural states; X50.1XXA Overexertion from prolonged static or awkward postures, initial encounter
CPT/HCPCS: 73564; 99283; L1830

== ENCOUNTER → 2018-03-21 | Outpatient (CLI) | payer MEDICARE ==
--- NOTE | 2018-03-21 13:24 | XR ---
EXAMINATION TYPE: XR KUB DATE OF EXAM: 03/21/2018 COMPARISON: 01/26/2017 HISTORY: Pain TECHNIQUE: One view abdominal series FINDINGS: The osseous structures are intact. The bowel gas pattern is nonspecific. Surgical clips in the right upper quadrant. Numerous calcifications in the pelvis may be vascular. Sclerotic density overlying t he left upper sacrum likely related to bone island. Stable in appearance. IMPRESSION: 1. Nonspecific abdomen.
== END ==
LOC: RADXRMAIN 12:22
PROVIDERS: ATTEND Urology
DX: N30.20 Other chronic cystitis without hematuria (principal)
CPT/HCPCS: 74018

== ENCOUNTER → 2018-09-18 | Outpatient (CLI) | payer MEDICARE ==
[2018-09-18 14:40] LABS: Basophils % (A) 0 %; Eosinophils # (A) 0.1 k/uL (0-0.7); Eosinophils % (A) 1 %; HCT 41.7 % (34.0-46.0); HGB 13.7 gm/dL (11.4-16.0); Lymphocytes % (A) 13 %; MCH 30.3 pg (25.0-35.0); MCV 91.9 fL (80.0-100.0); Mean Platelet Volume 9.7; Monocytes # (A) 0.3 k/uL (0-1.0); Monocytes % (A) 3 %; Neutrophils # (A) 6.1 k/uL (1.3-7.7); Neutrophils % (A) 82 %; Platelet Count 224 k/uL (150-450); RBC 4.53 m/uL (3.80-5.40); RDW 12.8 % (11.5-15.5); WBC 7.5 k/uL (3.8-10.6)
[2018-09-18 15:27] LABS: Appearance,Urine Cloudy (Clear); Bacteria,Urine Occasional /hpf; Bilirubin,Urine Negative (Negative); Blood,Urine Negative (Negative); Color,Urine Yellow; Glucose,Urine (UA) Negative (Negative); Ketones,Urine 1+ (Negative); Leukocyte Esterase,Urine Negative (Negative); Mucus,Urine Many /hpf; Nitrite,Urine Negative (Negative); PH, Urine 5.5 (5.0-8.0); Protein,Urine Trace (Negative); RBC,Urine 3 /hpf (0-5); Specific Gravity,Urine 1.029 (1.001-1.035); Squamous Epithelial Cell,Urine 1 /hpf (0-4); Urobilinogen,Urine <2.0 mg/dL (<2.0); WBC,Urine 5 /hpf (0-5)
[2018-09-18 16:06] LABS: Erythrocyte Sedimentation Rate 2 mm/hr (0-20)
[2018-09-18 18:57] LABS: ALT 14 U/L (8-44); AST 23 U/L (13-35); Alkaline Phosphatase 54 U/L (41-126); Calcium 9.5 mg/dL (8.7-10.3); Carbon Dioxide 25.6 mmol/L (21.6-31.8); Chloride 106 mmol/L (96-109); Glucose 106 mg/dL (70-110); Potassium 3.6 mmol/L (3.5-5.5); Sodium 141 mmol/L (135-145); Total Bilirubin 0.5 mg/dL (0.3-1.2); Total Protein 6.8 g/dL (6.2-8.2)
[2018-09-18 18:58] LABS: C Reactive Protein <0.4 mg/dL (0.0-0.8); Magnesium 1.9 mg/dL (1.5-2.4); Phosphorus 2.8 mg/dL (2.4-5.1)
[2018-09-18 19:03] LABS: Anti-DNA, DS unit <1.0 IU/mL; DNA Double-Stranded NEGATIVE (NEGATIVE)
[2018-09-18 19:33] LABS: RNP <0.2 AI
[2018-09-19 13:02] LABS: Complement C3 89.5 mg/dL (80.0-207.0)
== END ==
LOC: LABWHC1 12:48
PROVIDERS: ATTEND Internal Medicine Nephrology
DX: N20.0 Calculus of kidney (principal); M32.9 Systemic lupus erythematosus, unspecified; G43.719 Chronic migraine without aura, intractable, without status migrainosus; N39.0 Urinary tract infection, site not specified; R22.2 Localized swelling, mass and lump, trunk; R80.9 Proteinuria, unspecified
CPT/HCPCS: 36415; 80053; 81001; 82570; 83735; 84100; 84156; 84166; 85025; 85652; 86038; 86140; 86160; 86225; 86235; 87086

== ENCOUNTER 2018-11-19 11:56 | Emergency (ER) | payer MEDICARE ==
[2018-11-19 12:27] VITALS: RESP 16; TEMP 99.9
--- NOTE | 2018-11-19 13:33 | XR ---
EXAMINATION TYPE: XR abdomen 2V DATE OF EXAM: 11/19/2018 COMPARISON: 03/21/2018 HISTORY: Pain TECHNIQUE: One view abdominal series FINDINGS: The osseous structures are intact. The bowel gas pattern is nonspecific. Lung bases are clear. Surg ical clips in the gallbladder fossa are noted. Calcifications in the pelvis are seen which are likely vascular. Hypertrophic change of the acetabulum can be associated with femoral acetabular impingemen t. Curvature the spine may represent position rather than scoliotic curvature. IMPRESSION: 1. Nonspecific abdomen.
[2018-11-19] MEDS ORDERED: MORPHINE SULFATE 4 MG/ML SYRINGE IVP STA (13:59)
[2018-11-19] MEDS ORDERED: ONDANSETRON 4 MG/2 ML VIAL IVP STA (14:43)
[2018-11-19 14:44] LABS: Basophils % (A) 0 %; Eosinophils % (A) 1 %; HCT 43.4 % (34.0-46.0); Lymphocytes # (A) 1.1 k/uL (1.0-4.8); Lymphocytes % (A) 12 %; MCH 30.3 pg (25.0-35.0); MCHC 32.3 g/dL (31.0-37.0); MCV 93.7 fL (80.0-100.0); Mean Platelet Volume 8.9; Monocytes # (A) 0.2 k/uL (0-1.0); Monocytes % (A) 3 %; Neutrophils # (A) 7.1 k/uL (1.3-7.7); Neutrophils % (A) 83 %; Platelet Count 210 k/uL (150-450); RBC 4.64 m/uL (3.80-5.40); RDW 12.5 % (11.5-15.5); WBC 8.6 k/uL (3.8-10.6)
[2018-11-19 15:00] LABS: ALT 18 U/L (9-52); AST 24 U/L (14-36); African American GFR (CKD) >90 (>60 ml/min/1.73 sqM); Alkaline Phosphatase 53 U/L (38-126); Amylase 96 U/L (30-110); Anion Gap 14 mmol/L; Blood Urea Nitrogen 14 mg/dL (7-17); Calcium 9.7 mg/dL (8.4-10.2); Carbon Dioxide 23 mmol/L (22-30); Chloride 105 mmol/L (98-107); Glucose 114 mg/dL (74-99); Lipase 61 U/L (23-300); Potassium 3.6 mmol/L (3.5-5.1); Sodium 142 mmol/L (137-145); Total Bilirubin 0.6 mg/dL (0.2-1.3); Total Protein 7.9 g/dL (6.3-8.2)
[2018-11-19 15:06] LABS: Appearance,Urine Clear (Clear); Bilirubin,Urine Negative (Negative); Blood,Urine Negative (Negative); Color,Urine Yellow; Glucose,Urine (UA) Negative (Negative); Ketones,Urine 1+ (Negative); Leukocyte Esterase,Urine Negative (Negative); Nitrite,Urine Negative (Negative); Protein,Urine Trace (Negative); Urobilinogen,Urine <2.0 mg/dL (<2.0)
[2018-11-19] MEDS ORDERED: DICYCLOMINE 10 MG/ML 2 ML AMP IM STA (15:15)
--- NOTE | 2018-11-19 15:23 | ED ---
Abdominal Pain HPI - General Chief Complaint: Abdominal Pain Stated Complaint: GI bleed Time Seen by Provider: 11/19/18 13:49 Source: patient Mode of arrival: ambulatory Limitations: no limitations - History of Present Illness Initial Comments: Patient is a 38-year-old female with history of lupus that presents to the emergency Department with abdominal pain. Patient reports multiple abdominal surgeries in past few years. Patient reports approximately 2 years ago she had a hysterectomy and in the process her bladder was injured. She reports bladder reconstructive surgery causing her constant urinary issues. Patient reports yesterday she was not able to urinate and she thought the cause of that was due to constipation. Patient takes multiple narcotics and has been constipated for over 2 weeks. The patient attempted to use an enema yesterday which relieved the urinary retention but caused bright red rectal bleeding. Patient reports this morning she had diarrhea but no blood. Patient denies dysuria or vaginal discharge but does report increased urgency or frequency and states that is typical for her due to her bladder reconstructive surgery. Patient reports nausea but no vomiting. Patient denies hematuria. Patient reports abdominal pain that has increased after yesterday and is mostly located in the mid suprapubic region and left lower quadrant. Patient reports the pain is a 9 and cramping. Patient reports an appendectomy, cholecystectomy and hysterectomy. - Related Data Home Medications Medication Instructions Recorded Confirmed Ondansetron [Zofran] 4 mg PO Q12HR PRN 09/05/16 11/19/18 ALPRAZolam [Xanax] 1 mg PO HS PRN 11/19/18 11/19/18 Desvenlafaxine Succinate [Pristiq] 50 mg PO DAILY 11/19/18 11/19/18 Diazepam [Valium] 20 mg PO HS 11/19/18 11/19/18 HYDROcodone/APAP 7.5-325MG [[place] 1 tab PO BID 11/19/18 11/19/18 7.5-325] Allergies Allergy/AdvReac Type Severity Reaction Status Date / Time No Known Allergies Allergy Verified 11/19/18 14:04 Review of Systems ROS Statement: Those systems with pertinent positive or pertinent negative responses have been documented in the HPI. ROS Other: All systems not noted in ROS Statement are negative. Past Medical History Past Medical History: Fibromyalgia Additional Past Medical History / Comment(s): DIVERTICULITIS;PCOS " ARRYTHMIA", lupus "mottled skin on her back", pleurisy,migraines, mixed connective tissue disease,tremors,ibs, thyroid nodule History of Any Multi-Drug Resistant Organisms: None Reported Past Surgical History: Appendectomy, Bowel Resection, Section, Hysterectomy, Tubal Ligation, Uterine Ablation Additional Past Surgical History / Comment(s): 09/30/14 Robotic assisted lap vaginal hysterectomy, lysis of adhesions pt stated bladder had been knicked -had sx to repair that and stomach lining, LAPAROSCOPY X4; TILT TABLE TEST AND EP STUDY. X4. BILAT CATARACTS REMOVED. COLONOSCOPY Past Anesthesia/Blood Transfusion Reactions: No Reported Reaction Past Psychological History: Depression Smoking Status: Former smoker Past Alcohol Use History: None Reported Past Drug Use History: Marijuana - Past Family History Mother Family Medical History: No Reported History Additional Family Medical History / Comment(s): celiac disease, migarines Father Family Medical History: Diabetes Mellitus, Hyperlipidemia, Hypertension Additional Family Medical History / Comment(s): Glaucoma, Cataracts General Exam Limitations: no limitations General appearance: alert, in no apparent distress Head exam: Present: atraumatic, normocephalic, normal inspection Eye exam: Present: normal appearance, PERRL, EOMI Pupils: Present: normal accommodation ENT exam: Present: normal exam, normal oropharynx, mucous membranes moist, TM's normal bilaterally, normal external ear exam Neck exam: Present: normal inspection Respiratory exam: Present: normal lung sounds bilaterally Cardiovascular Exam: Present: regular rate, normal rhythm, normal heart sounds GI/Abdominal exam: Present: soft, tenderness (Left lower quadrant and mid sup rapubic), normal bowel sounds. Absent: guarding, rebound, mass, bruit Extremities exam: Present: normal inspection, full ROM Back exam: Present: normal inspection, full ROM. Absent: CVA tenderness (R), CVA tenderness (L) Neurological exam: Present: alert, oriented X3 Psychiatric exam: Present: normal affect, normal mood Skin exam: Present: warm, intact, normal color Course Vital Signs 11/19/18 12:24 Temperature 99.9 F H Pulse Rate 99 Respiratory 16 Rate Blood Pressure 147/83 O2 Sat by Pulse 100 Oximetry Medical Decision Making - Medical Decision Making Patient is a 38-year-old female presenting to the emergency department with abdominal pain. Patient was given Zofran for nausea, morphine for pain and Bentyl for the abdominal cramping. CT of abdomen and pelvis is indicated of nonobstructing mid to upper left renal calcification. No abnormalities account for the constipation. No fecal retention noted. Labs are unremarkable. Bladder scan showing less than 20 mL of fluid. Patient advised to follow-up with a safety equipment testing specialist and surgeon who performed her procedures. On reevaluation patient reports she feels better and is ready go home. Strict return parameters were thoroughly discussed with patient who is understanding and agreeable. Case discussed and imaging reviewed with Dr. Pena who is in agreement with the treatment plan. - Lab Data Result diagrams: 11/19/18 14:18 11/19/18 14:18 Lab Results 11/19/18 11/19/18 11/19/18 Range/Units 14:10 14:18 14:18 WBC 8.6 (3.8-10.6) k/uL RBC 4.64 (3.80-5.40) m/uL Hgb 14.0 (11.4-16.0) gm/dL Hct 43.4 (34.0-46.0) % MCV 93.7 (80.0-100.0) fL MCH 30.3 (25.0-35.0) pg MCHC 32.3 (31.0-37.0) g/dL RDW 12.5 (11.5-15.5) % Plt Count 210 (150-450) k/uL Neutrophils % 83 % Lymphocytes % 12 % Monocytes % 3 % Eosinophils % 1 % Basophils % 0 % Neutrophils # 7.1 (1.3-7.7) k/uL Lymphocytes # 1.1 (1.0-4.8) k/uL Monocytes # 0.2 (0-1.0) k/uL Eosinophils # 0.0 (0-0.7) k/uL Basophils # 0.0 (0-0.2) k/uL Sodium 142 (137-145) mmol/L Potassium 3.6 (3.5-5.1) mmol/L Chloride 105 (98-107) mmol/L Carbon Dioxide 23 (22-30) mmol/L Anion Gap 14 mmol/L BUN 14 (7-17) mg/dL Creatinine 0.75 (0.52-1.04) mg/dL Est GFR (CKD-EPI)AfAm >90 (>60 ml/min/1.73 sqM) Est GFR (CKD-EPI)NonAf >90 (>60 ml/min/1.73 sqM) Glucose 114 H (74-99) mg/dL Calcium 9.7 (8.4-10.2) mg/dL Total Bilirubin 0.6 (0.2-1.3) mg/dL AST 24 (14-36) U/L ALT 18 (9-52) U/L Alkaline Phosphatase 53 (38-126) U/L Total Protein 7.9 (6.3-8.2) g/dL Albumin 5.0 (3.5-5.0) g/dL Amylase 96 (30-110) U/L Lipase 61 (23-300) U/L Urine Color Yellow Urine Appearance Clear (Clear) Urine pH 5.0 (5.0-8.0) Ur Specific [place] 1.020 (1.001-1.035) Urine Protein Trace H (Negative) Urine Glucose (UA) Negative (Negative) Urine Ketones 1+ H (Negative) Urine Blood Negative (Negative) Urine Nitrite Negative (Negative) Urine Bilirubin Negative (Negative) Urine Urobilinogen <2.0 (<2.0) mg/dL Ur Leukocyte Esterase Negative (Negative) Disposition Clinical Impression: Abdominal pain Disposition: HOME SELF-CARE Condition: Stable Instructions (If sedation given, give patient instructions): Abdominal Pain (ED) Additional Instructions: Please follow-up with rheumatology and neurosurgeon. Please return to emergency department if symptoms worsen. Alternate between Tylenol and ibuprofen for pain control. Please continue taking a stool softener. Is patient prescribed a controlled substance at d/c from ED?: No Referrals: Chuy Simon III, MD [Primary Care Provider] - 1-2 days Time of Disposition: 16:14
--- NOTE | 2018-11-19 15:33 | CT ---
EXAMINATION TYPE: CT abdomen pelvis wo con DATE OF EXAM: 11/19/2018 COMPARISON: 01/31/2017 INDICATION: Constipation x 4 weeks. Generalized abdominal pain. History of lupus. DLP: 278.1 mGycm, Automated exposure control for dose reduction was used. CONTRAST: 0 mL of Isovue 300. Study performed without Oral Contrast TECHNIQUE: Axial images were obtained from above the diaphragm to the pubic rami in the axial plane a t 5 mm thick sections. Reconstructed images are reviewed on the computer in the coronal plane. FINDINGS: Limited CT sections are obtained the lung bases. The lung bases are clear. CT ABDOMEN: Liver: Normal Spleen: Normal Pancreas: Normal Adrenal glands: The adrenal glands are normal. Gallbladder: Surgically absent Kidneys: No masses are evident. No hydronephrosis is present. No cysts are present. There are coup le of punctate upper pole renal calcifications without evidence of obstruction. No obstructing renal stones are evident. Aorta: Normal Inferior vena cava: Normal. CT PELVIS: Loops of bowel within the abdomen and pelvis are normal. Study is without oral contrast limiting bowel evaluation. Appendix: Normal as visualized. Urinary bladder: Decompressed with limited evaluation Genitourinary structures: Uterus and ovaries are not identified. Osseous structures: No suspicious lytic or sclerotic lesions. IMPRESSIONS: 1. Nonobstructing mid to upper left renal calcifications. No suspicious abnormality to account for c onstipation. No significant fecal retention is evident at this time.
[2018-11-19 16:37] VITALS: BP 109/65; PULSE 65
== END 2018-11-19 16:36 | disposition home or self-care (01) ==
LOC: EC 11:56
DX: R10.32 Left lower quadrant pain (principal); N28.89 Other specified disorders of kidney and ureter; M79.7 Fibromyalgia; F32.9 Major depressive disorder, single episode, unspecified; Z87.891 Personal history of nicotine dependence; Z79.891 Long term (current) use of opiate analgesic; Z79.899 Other long term (current) drug therapy; Z90.49 Acquired absence of other specified parts of digestive tract; Z90.710 Acquired absence of both cervix and uterus
CPT/HCPCS: 36415; 80053; 82150; 83690; 85025; 81003; 74019; 74176; 99284; 96374; 96375; 96372; J2270; J0500; J2405

== ENCOUNTER → 2019-04-23 | Outpatient (CLI) | payer MEDICARE ==
--- NOTE | 2019-04-23 09:42 | MM ---
Reason for exam: additional evaluation requested from prior study. Last mammogram was performed 1 year and 9 months ago. History: Family history of breast cancer in aunt at age 60. Physical Findings: Nurse Summary: 1cm nodule in the right breast at 9 o'clock (nurse kp). MG 3D Diag Mammo W/Cad ELMER Bilateral CC and MLO view(s) were taken. Prior study comparison: July 07, 2017, right breast MG 3d diag mammo w/cad RT. June 08, 2016, right breast MG 3d diag mammo w/cad RT. The breast tissue is extremely dense which could obscure a lesion on mammography. Benign appearing stable calcifications in the left breast. These results were verbally communicated with the patient and result sheet given to the patient on 04/23/19. ASSESSMENT: Incomplete: need additional imaging evaluation, BI-RAD 0 RECOMMENDATION: Ultrasound of the right breast.
--- NOTE | 2019-04-23 09:44 | USB ---
Reason for exam: clinical finding. History: Family history of breast cancer in aunt at age 60. US Breast RT Right complete breast ultrasound includes all four quadrants, the retroareolar region and axilla. Finding demonstrates a 0.3 x 0.3 x 0.2cm oval, cystic cluster at 1 o'clock, a 0.5 x 0.3 x 0.2cm oval, complex, cystic cluster at 6 o'clock, a 1.9 x 1.9 x 0.8cm oval, complex, cystic cluster at 10 o'clock BB and a 0.6 x 0.7 x 0.6cm cystic cluster at 11 o'clock. These results were verbally communicated with the patient and result sheet given to the patient on 04/23/19. ASSESSMENT: Probably benign, BI-RAD 3 RECOMMENDATION: Ultrasound of the right breast in 6 months.
== END ==
LOC: RADMAMWWP 08:10
PROVIDERS: ATTEND Family Medicine
DX: N63.10 Unspecified lump in the right breast, unspecified quadrant (principal)
CPT/HCPCS: 77062; 77066

== ENCOUNTER → 2019-06-27 | Outpatient (CLI) | payer MEDICARE ==
--- NOTE | 2019-06-27 11:44 | ECHOF ---
Referral Reason:R06.02 Shortness of Breath, R07.89 Other chestpain MEASUREMENTS -------- HEIGHT: 165.1 cm WEIGHT: 42.6 kg BP: RVIDd: 2.4 cm (< 3.3) IVSd: 0.6 cm (0.6 - 1.1) LVIDd: 4.5 cm (3.9 - 5.3) LVPWd: 0.7 cm (0.6 - 1.1) IVSs: 1.1 cm LVIDs: 2.8 cm LVPWs: 1.2 cm LAESV Index (A-L): 17.81 ml/m Ao Diam: 2.6 cm (2.0 - 3.7) AV Cusp: 2.0 cm (1.5 - 2.6) LA Diam: 2.4 cm (2.7 - 3.8) MV EXCURSION: 16.162 mm (> 18.000) MV EF SLOPE: 141 mm/s (70 - 150) EPSS: 1.4 cm MV E Saud: 0.68 m/s MV DecT: 174 ms MV A Saud: 0.64 m/s MV E/A Ratio: 1.06 RAP: 5.00 mmHg RVSP: 19.58 mmHg TAPSE: 24.36 mm FINDINGS -------- Sinus rhythm. This was a technically good study. The left ventricular size is normal. Left ventricular wall thickness is normal. Overall left vent ricular systolic function is low-normal with, an EF between 50 - 55 %. The diastolic filling patter n is normal for the age of the patient 7.55. The right ventricle is normal in size. The left atrial size is normal. Normal LA size by volume 22+/-6 ml/m2. The right atrial size is normal. The aortic valve is trileaflet and appears structurally normal. The mitral valve is normal. Mild mitral regurgitation is present. The tricuspid valve appears structurally normal. Mild tricuspid regurgitation present. Right vent ricular systolic pressure is normal at < 35 mmHg. There is no pulmonic regurgitation present. The aortic root size is normal. Normal inferior vena cava with normal inspiratory collapse consistent with estimated right atrial pre ssure of 5 mmHg. There is no pericardial effusion. CONCLUSIONS -------- 1. Sinus rhythm. 2. This was a technically good study. 3. The left ventricular size is normal. 4. Left ventricular wall thickness is normal. 5. Overall left ventricular systolic function is low-normal with, an EF between 50 - 55 %. 6. The diastolic filling pattern is normal for the age of the patient 7.55 7. The right ventricle is normal in size. 8. The left atrial size is normal. 9. Normal LA size by volume 22+/-6 ml/m2. 10. The right atrial size is normal. 11. The aortic valve is trileaflet and appears structurally normal. 12. The mitral valve is normal. 13. Mild mitral regurgitation is present. 14. The tricuspid valve appears structurally normal. 15. Mild tricuspid regurgitation present. 16. Right ventricular systolic pressure is normal at < 35 mmHg. 17. There is no pulmonic regurgitation present. 18. The aortic root size is normal. 19. Normal inferior vena cava with normal inspiratory collapse consistent with estimated right atrial pressure of 5 mmHg. 20. There is no pericardial effusion. COMMUNITY LIAISON: Sherita Dickens RDCS
[2019-06-27 12:39] LABS: Basophils % (A) 1 %; Eosinophils % (A) 1 %; HCT 42.2 % (34.0-46.0); HGB 14.1 gm/dL (11.4-16.0); Lymphocytes % (A) 17 %; MCH 31.5 pg (25.0-35.0); MCHC 33.3 g/dL (31.0-37.0); MCV 94.6 fL (80.0-100.0); Mean Platelet Volume 9.2; Monocytes # (A) 0.2 k/uL (0-1.0); Monocytes % (A) 4 %; Neutrophils # (A) 4.4 k/uL (1.3-7.7); Neutrophils % (A) 76 %; Platelet Count 242 k/uL (150-450); RBC 4.47 m/uL (3.80-5.40); RDW 11.9 % (11.5-15.5); WBC 5.8 k/uL (3.8-10.6)
[2019-06-27 12:50] LABS: ALT 13 U/L (4-34); AST 25 U/L (14-36); African American GFR (CKD) >90 (>60 ml/min/1.73 sqM); Albumin 5.1 g/dL (3.5-5.0); Alkaline Phosphatase 51 U/L (38-126); Anion Gap 14 mmol/L; Blood Urea Nitrogen 15 mg/dL (7-17); Calcium 10.4 mg/dL (8.4-10.2); Carbon Dioxide 26 mmol/L (22-30); Chloride 102 mmol/L (98-107); Glucose 104 mg/dL (74-99); Non-African American GFR(CKD) 79 (>60 ml/min/1.73 sqM); Potassium 4.2 mmol/L (3.5-5.1); Sodium 142 mmol/L (137-145); Total Bilirubin 0.6 mg/dL (0.2-1.3); Total Protein 8.3 g/dL (6.3-8.2)
[2019-06-27 20:52] LABS: Hemoglobin A1C 4.7 % (4.0-6.0)
== END | disposition home or self-care (01) ==
LOC: RADECHMAIN 10:49
PROVIDERS: ATTEND Family Medicine
DX: I08.1 Rheumatic disorders of both mitral and tricuspid valves (principal); Z00.01 Encounter for general adult medical examination with abnormal findings; R07.89 Other chest pain; R06.02 Shortness of breath; R63.1 Polydipsia; R63.4 Abnormal weight loss; R53.83 Other fatigue; G47.00 Insomnia, unspecified; R00.0 Tachycardia, unspecified
CPT/HCPCS: 36415; 80053; 83036; 84443; 85025; 93306

== ENCOUNTER 2019-07-04 12:24 | Inpatient (IN) | payer MEDICARE ==
[2019-07-04] MEDS ORDERED: ONDANSETRON 4 MG/2 ML VIAL IVP PRN (14:24)
[2019-07-04] MEDS: SODIUM CHLORIDE 0.9% 1,000 ML IV SCH (15:17)
[2019-07-04 15:21] LABS: ALT 13 U/L (4-34); AST 23 U/L (14-36); African American GFR (CKD) >90 (>60 ml/min/1.73 sqM); Albumin 4.8 g/dL (3.5-5.0); Alkaline Phosphatase 48 U/L (38-126); Anion Gap 7 mmol/L; Blood Urea Nitrogen 17 mg/dL (7-17); Calcium 9.8 mg/dL (8.4-10.2); Carbon Dioxide 29 mmol/L (22-30); Chloride 103 mmol/L (98-107); Glucose 96 mg/dL (74-99); Non-African American GFR(CKD) 90 (>60 ml/min/1.73 sqM); Sodium 139 mmol/L (137-145); Total Bilirubin 0.6 mg/dL (0.2-1.3); Total Protein 7.3 g/dL (6.3-8.2)
[2019-07-04 15:49] LABS: Basophils % (A) 1 %; Eosinophils % (A) 0 %; HCT 42.8 % (34.0-46.0); HGB 14.5 gm/dL (11.4-16.0); Lymphocytes % (A) 16 %; MCH 31.5 pg (25.0-35.0); MCHC 33.8 g/dL (31.0-37.0); MCV 93.2 fL (80.0-100.0); Mean Platelet Volume 9.5; Monocytes # (A) 0.3 k/uL (0-1.0); Monocytes % (A) 5 %; Neutrophils # (A) 4.7 k/uL (1.3-7.7); Neutrophils % (A) 77 %; Platelet Count 194 k/uL (150-450); RBC 4.59 m/uL (3.80-5.40); WBC 6.2 k/uL (3.8-10.6)
[2019-07-04] MEDS ORDERED: SUMAtriptan SUCCINATE 6 MG/0.5 ML VIAL SQ STA (15:52)
--- NOTE | 2019-07-04 16:39 | P.HPIM ---
History of Present Illness 38-year-old female was admitted after she was transferred from PCPs office. As patient is unable to tolerate any diet patient has been laying on gap of 8 lost significant amount of weight about 2 pounds in last week and significant and few pounds since last Thanksgiving patient denied any dysphagia or odynophagia is complaining of abdominal pain diffuse crampy in nature denied any diarrhea patient does have a scaphoid abdomen extremely thin built, denied any fever chills. CBC and basic metabolic profile was obtained which is essentially within normal limits although patient complains of significant other medical problems including systemic lupus erythematosus which was diagnosed by a physician, vp research at [facility]. Patient states that she has mixed connective disorder as well and does have significant problems with the chronic diarrhea and had multiple colonoscopies and upper GI endoscopies in the past patient states that she has migraine but nothing helped including Compazine and Reglan sumatriptan only thing that helps is opiates as per the patient. All the biopsies in the past all of them are within normal notes patient has a multiple abdominal and the adrenal biopsies which showed normal mucosa except for mild gastritis. Review of Systems REVIEW OF SYSTEMS: CONSTITUTIONAL: No fever, no malaise, no fatigue. HEENT: No recent visual problems or hearing problems. Denied any sore throat. CARDIOVASCULAR: No chest pain, orthopnea, PND, no palpitations, no syncope. PULMONARY: No shortness of breath, no cough, no hemoptysis. GASTROINTESTINAL: As mentioned in HPI NEUROLOGICAL: No headaches, no weakness, no numbness. HEMATOLOGICAL: Denies any bleeding or petechiae. GENITOURINARY: Denies any burning micturition, frequency, or urgency. MUSCULOSKELETAL/RHEUMATOLOGICAL: Denies any joint pain, swelling, or any muscle pain. ENDOCRINE: Denies any polyuria or polydipsia. The rest of the 14-point review of systems is negative. Past Medical History Past Medical History: Fibromyalgia Additional Past Medical History / Comment(s): DIVERTICULITIS;PCOS " ARRYTHMIA", lupus "mottled skin on her back", pleurisy,migraines, mixed connective tissue disease,tremors,ibs, thyroid nodule History of Any Multi-Drug Resistant Organisms: None Reported Past Surgical History: Appendectomy, Bowel Resection, Section, Hysterectomy, Tubal Ligation, Uterine Ablation Additional Past Surgical History / Comment(s): 09/30/14 Robotic assisted lap vaginal hysterectomy, lysis of adhesions pt stated bladder had been knicked -had sx to repair that and stomach lining, LAPAROSCOPY X4; TILT TABLE TEST AND EP STUDY. X4. BILAT CATARACTS REMOVED. COLONOSCOPY Past Anesthesia/Blood Transfusion Reactions: No Reported Reaction Past Psychological History: Depression Smoking Status: Former smoker Past Alcohol Use History: None Reported Additional Past Alcohol Use History / Comment(s): started smoking at age 10 and quit 2016 Past Drug Use History: Marijuana Additional Drug Use History / Comment(s): last used marijuana - Past Family History Mother Family Medical History: No Reported History Additional Family Medical History / Comment(s): celiac disease, migarines Father Family Medical History: Diabetes Mellitus, Hyperlipidemia, Hypertension Additional Family Medical History / Comment(s): Glaucoma, Cataracts Medications and Allergies Home Medications Medication Instructions Recorded Confirmed Type Ondansetron [Zofran] 4 mg PO Q12HR PRN 09/05/16 11/19/18 History ALPRAZolam [Xanax] 1 mg PO HS PRN 11/19/18 11/19/18 History Desvenlafaxine Succinate [Pristiq] 50 mg PO DAILY 11/19/18 11/19/18 History Diazepam [Valium] 20 mg PO HS 11/19/18 11/19/18 History Dicyclomine [Bentyl] 20 mg PO TID #30 tablet 11/19/18 Rx HYDROcodone/APAP 7.5-325MG [[place] 1 tab PO BID 11/19/18 11/19/18 History 7.5-325] Allergies Allergy/AdvReac Type Severity Reaction Status Date / Time No Known Allergies Allergy Verified 11/19/18 14:04 Physical Exam Vitals: Vital Signs Temp Pulse Resp BP Pulse Ox 07/04/19 14:10 98.4 F 98 18 131/95 98 Intake and Output 07/04/19 07/04/19 07/04/19 06:59 14:59 22:59 Other: Voiding Method Toilet Weight 43.182 kg PHYSICAL EXAMINATION: GENERAL: The patient is alert and oriented x3, not in any acute distress. Thin built HEENT: Pupils are round and equally reacting to light. EOMI. No scleral icterus. No conjunctival pallor. Normocephalic, atraumatic. No pharyngeal erythema. No thyromegaly. CARDIOVASCULAR: S1 and S2 present. No murmurs, rubs, or gallops. PULMONARY: Chest is clear to auscultation, no wheezing or crackles. ABDOMEN: Soft, scaphoid mild some subjective mild abdominal tenderness in the bilateral lower abdominal quadrants MUSCULOSKELETAL: No joint swelling or deformity. EXTREMITIES: No cyanosis, clubbing, or pedal edema. NEUROLOGICAL: Gross neurological examination did not reveal any focal deficits. SKIN: No rashes. Results CBC & Chem 7: 07/04/19 14:50 07/04/19 14:50 Thrombosis Risk Factor Assmnt - Choose All That Apply Any of the Below Risk Factors Present?: No Other Risk Factors: No Other congenital or acquired thrombophilia - If yes, enter type in comment: No Thrombosis Risk Factor Assessment Level: Very Low Risk Assessment and Plan Plan: -Intractable nausea vomiting with weight loss in able to tolerate any diet: Etiology is not clear consulted Dr. Teague very well may need another upper GI endoscopy patient doesn't have any dysphagia. Patient has multiple abdominal surgeries in the past may need abdominal imaging as well along with upper GI endoscopy but I'll leave the addition to gastroneurology hervery well -History of lupus not on any medications -History of migraine with aura as per the patient and patient is requesting morphine which helped. Which will be ordered along with IV Reglan to help her with the GI symptoms as well as migraine. -Depression
[2019-07-04] MEDS: MORPHINE SULFATE 4 MG/ML SYRINGE IVP PRN ×2 (16:46→20:55)
[2019-07-04] MEDS: DIAZEPAM 5 MG TAB PO PRN (20:55)
[2019-07-04] MEDS: PANTOPRAZOLE 40 MG/10 ML VIAL IVP SCH (20:56)
[2019-07-05] MEDS: SODIUM CHLORIDE 0.9% 1,000 ML IV SCH ×2 (00:19→11:20)
[2019-07-05] MEDS: MORPHINE SULFATE 4 MG/ML SYRINGE IVP PRN ×3 (01:52→16:17)
[2019-07-05] MEDS: METOCLOPRAMIDE 5 MG/ML 2 ML VIAL IVP PRN ×3 (01:53→19:44)
[2019-07-05] MEDS: PANTOPRAZOLE 40 MG/10 ML VIAL IVP SCH ×2 (07:45→20:20)
[2019-07-05] MEDS: ONDANSETRON 4 MG/2 ML VIAL IVP SCH ×2 (11:20→17:26)
--- NOTE | 2019-07-05 13:38 | P.PN ---
Subjective Patient is admitted for nausea vomiting which is kind of chronic With weight loss patient will undergo upper GI endoscopy tomorrow and patient has multiple medical issues which will be discussed in assessment and plan. Patient is still nauseous and barely able to drink liquids Constitutional: Denied any fatigue denied any fever. Cardio vascular: denied any chest pain, palpitations Gastrointestinal as mentioned in and told history Pulmonary: Denied any shortness of breath cough Neurologic denied any new focal deficits All inpatient medications were reviewed and appropriate changes in these medications as dictated in the interval history and assessment and plan. Objective - Vital Signs Vital signs: Vital Signs Temp 97.8 F 07/05/19 05:13 Pulse 55 L 07/05/19 05:13 Resp 16 07/05/19 05:13 BP 96/56 07/05/19 05:13 Pulse Ox 98 07/05/19 05:13 Intake & Output 07/04/19 07/05/19 07/05/19 18:59 06:59 18:59 Weight 43.182 kg Other: Voiding Method Toilet Toilet Toilet # Voids 2 # Bowel Movements 1 - Exam PHYSICAL EXAMINATION: GENERAL: The patient is alert and oriented x3, not in any acute distress. Thin built HEENT: Pupils are round and equally reacting to light. EOMI. No scleral icterus. No conjunctival pallor. Normocephalic, atraumatic. No pharyngeal erythema. No thyromegaly. CARDIOVASCULAR: S1 and S2 present. No murmurs, rubs, or gallops. PULMONARY: Chest is clear to auscultation, no wheezing or crackles. ABDOMEN: Soft, scaphoid mild some subjective mild abdominal tenderness in the bilateral lower abdominal quadrants MUSCULOSKELETAL: No joint swelling or deformity. EXTREMITIES: No cyanosis, clubbing, or pedal edema. NEUROLOGICAL: Gross neurological examination did not reveal any focal deficits. SKIN: No rashes. - Labs CBC & Chem 7: 07/04/19 14:50 07/04/19 14:50 Assessment and Plan Plan: -Intractable nausea vomiting with weight loss in able to tolerate any diet: Etiology is not clear patient will undergo upper GI endoscopy patient had both upper and lower GI endoscopies multiple in the past -History of lupus not on any medications -History of migraine with aura as per the patient and patient is requesting morphine which helped. Which will be ordered along with IV Reglan to help her with the GI symptoms as well as migraine. -Depression
[2019-07-05 14:04] VITALS: BMI 15.8
[2019-07-05] MEDS: MULTIVITAMINS, THERA 1 EACH TAB PO SCH (14:46)
[2019-07-05] MEDS: buPROPion XL 150 MG TAB.ER.24H PO SCH (14:46)
--- NOTE | 2019-07-05 20:04 | CONS ---
CONSULTATION DATE OF DICTATION: 07/05/2019 REASON FOR CONSULTATION: Abdominal pain, nausea, vomiting. HISTORY OF PRESENT ILLNESS: The patient is a 38-year-old pleasant white female who was admitted to the hospital with progressive weight loss of almost 15-20 pounds in the last one year duration. She has been having some abdominal epigastric pain associated with intermittent nausea and vomiting almost on a daily basis. She complains of severe nausea since Thanksgiving. She has been taking Zofran, Phenergan and Compazine, with no help. She thought she lost another 5 pounds in the last 3 months. Hence we are consulted for possible EGD. The patient states that she was diagnosed with systemic lupus erythematosus, for which she follows with a insulation cupola operator at [facility]. She also complains of occasional diarrhea and intermittent rectal bleeding. PAST MEDICAL HISTORY: Significant for fibromyalgia, migraines, chronic back pain, systemic lupus erythematosus, thyroid nodule. PAST SURGICAL HISTORY: Appendectomy, , hysterectomy, tubal ligation, uterine ablation, vaginal hysterectomy, EGD, colonoscopy in the past. MEDICATIONS: Medications at home include Zofran, Xanax, Desyrel, Valium, Bentyl, [place]. ALLERGIES: NONE. SOCIAL HISTORY: No smoking. Former smoker. No alcohol use. Uses medical marijuana. FAMILY HISTORY: Mother, migraine. Father, hyperlipidemia, hypertension and diabetes. REVIEW OF SYSTEMS: CARDIOPULMONARY: No chest pain or shortness of breath. GENITOURINARY: No dysuria or hematuria. MUSCULOSKELETAL: History of fibromyalgia. NEUROLOGY: Unremarkable. PSYCHIATRY: Anxiety, depression. ENT/VISION: Unremarkable. CONSTITUTIONAL: Weight loss of 15 to 20 pounds in 2 years. No fever, chills, night sweats. PHYSICAL EXAMINATION: She appears comfortable. No apparent distress. Vital signs are stable. Blood pressure is 108/76, pulse rate 55, temperature 97.6. HEENT examination unremarkable. Conjunctivae pink. Sclerae anicteric. Oral cavity no lesions. NECK: No JVD or lymph node enlargement. CHEST: Clear to auscultation. HEART: Regular rate and rhythm. ABDOMEN: Soft. Bowel sounds are positive. No organomegaly. EXTREMITIES: No pedal edema. SKIN: No rashes. NEUROLOGIC: Alert and oriented x3. No focal deficits. LABS: WBC 6.2, hemoglobin 14.5, platelets normal. Basic metabolic panel is within normal limits. ALT, AST, T-bilirubin and alkaline phosphatase are within normal limits. IMPRESSION: 1. Epigastric pain associated with intermittent nausea, vomiting and weight loss for the last 3 months' duration. Symptoms progressively getting worse. She had an EGD done about 2 years ago that showed mild gastritis. She is status post gallbladder surgery for similar symptoms a few years ago by Dr. Flores. 2. History of fibromyalgia and chronic migraines. 3. History of anxiety. 4. History of systemic lupus erythematosus; follows with a insulation cupola operator at [facility]. RECOMMENDATIONS: 1. Will proceed with an upper endoscopy tomorrow. 2. Continue with Protonix and anti-emetics for now. 3. If the upper endoscopy is negative, will schedule a gastric emptying scan. 4. We will follow with you closely. Thank you for this consultation. MMODL / IJN: [id number] /
[2019-07-05] MEDS: DIAZEPAM 5 MG TAB PO PRN (20:18)
[2019-07-06] MEDS: ONDANSETRON 4 MG/2 ML VIAL IVP SCH ×4 (01:46→16:44)
[2019-07-06] MEDS: SODIUM CHLORIDE 0.9% 1,000 ML IV SCH ×3 (01:46→16:44)
[2019-07-06] MEDS: MORPHINE SULFATE 4 MG/ML SYRINGE IVP PRN (01:51)
[2019-07-06] MEDS: METOCLOPRAMIDE 5 MG/ML 2 ML VIAL IVP PRN (06:24)
[2019-07-06] MEDS ORDERED: PROPOFOL 10 MG/ML 20 ML VIAL IV ONE (06:56)
[2019-07-06] MEDS ORDERED: LIDOCAINE 1% INJ 10MG/ML (20 ML MDV) ONE (06:56)
[2019-07-06] MEDS ORDERED: IV FLUID CONTINUATION 1,000 ML IV ONE (06:56)
--- NOTE | 2019-07-06 07:19 | P.PCN ---
Date of Procedure: 07/06/19 Procedure(s) Performed: BRIEF HISTORY: Patient is a 38-year-old, pleasant, 8 female scheduled for an upper endoscopy as a part of evaluation of intermittent episodes of nausea vomiting epigastric pain and progressive weight loss for the last 3 months duration. She tried various antiemetics and proton pump inhibitors with no help. PROCEDURE PERFORMED: Esophagogastroduodenoscopy with biopsy. PREOPERATIVE DIAGNOSIS: Epigastric pain/intermittent nausea vomiting for the last 3 months duration associated weight loss of 20 pounds. IV sedation per anesthesia. PROCEDURE: After informed consent was obtained, the patient was brought into the endoscopy unit. IV sedation was administered by Anesthesia under continuous monitoring. Initially the Olympus GIF-140 video endoscope was inserted into the mouth. Esophagus intubated without any difficulty. It was gradually advanced into the stomach and duodenum and carefully examined. The bulb and the second part of the duodenum appeared normal. Biopsies were done from this area to rule out celiac disease. The scope at this time was withdrawn to the stomach, adequately insufflated with air, and upon careful examination, mucosa of the antrum, had mild gastritis and biopsies were done from this area. The body, cardia and the fundus appeared normal. The scope was then withdrawn into the esophagus. The GE junction was located at 39 cm from the incisors. The esophagus appeared normal. There were no erosions or ulcerations seen, biopsies were done from the distal esophagus and the patient tolerated the procedure well. IMPRESSION: 1. Mild antral gastritis. 2. No evidence of esophagitis or peptic ulcer disease. RECOMMENDATIONS: The findings of this examination were discussed with the patient. Diet will be advanced as tolerated. In the meantime we'll schedule her for is gastric empting scan to evaluate further. She will continue with P PIs and antiemetics.
[2019-07-06] MEDS: MULTIVITAMINS, THERA 1 EACH TAB PO SCH (08:45)
[2019-07-06] MEDS: PANTOPRAZOLE 40 MG/10 ML VIAL IVP SCH ×2 (08:45→20:31)
[2019-07-06] MEDS: buPROPion XL 150 MG TAB.ER.24H PO SCH (08:45)
--- NOTE | 2019-07-06 15:56 | P.PN ---
Subjective Patient is admitted for nausea vomiting which is kind of chronic With weight loss patient will undergo upper GI endoscopy tomorrow and patient has multiple medical issues which will be discussed in assessment and plan. Patient is still nauseous and barely able to drink liquids 07/06/2019 Patient had an upper GI endoscopy which showed mild gastritis patient is scheduled for gastric emptying studies tomorrow. Because of that Reglan is being held morphine is being held and patient will be started on Fioricet without codeine her headaches Constitutional: Denied any fatigue denied any fever. Cardio vascular: denied any chest pain, palpitations Gastrointestinal as mentioned in and told history Pulmonary: Denied any shortness of breath cough Neurologic denied any new focal deficits All inpatient medications were reviewed and appropriate changes in these medications as dictated in the interval history and assessment and plan. Objective - Vital Signs Vital signs: Vital Signs Temp 98.4 F 07/06/19 12:30 Pulse 64 07/06/19 12:30 Resp 18 07/06/19 12:30 BP 108/69 07/06/19 12:30 Pulse Ox 100 07/06/19 12:30 Intake & Output 07/05/19 07/06/19 07/06/19 18:59 06:59 18:59 Intake Total 540 100 Balance 540 100 Weight 43.182 kg Intake: IV 100 Oral 540 Other: Voiding Method Toilet # Voids 2 1 1 # Bowel Movements 0 - Exam PHYSICAL EXAMINATION: GENERAL: The patient is alert and oriented x3, not in any acute distress. Thin built HEENT: Pupils are round and equally reacting to light. EOMI. No scleral icterus. No conjunctival pallor. Normocephalic, atraumatic. No pharyngeal erythema. No thyromegaly. CARDIOVASCULAR: S1 and S2 present. No murmurs, rubs, or gallops. PULMONARY: Chest is clear to auscultation, no wheezing or crackles. ABDOMEN: Soft, scaphoid mild some subjective mild abdominal tenderness in the bilateral lower abdominal quadrants MUSCULOSKELETAL: No joint swelling or deformity. EXTREMITIES: No cyanosis, clubbing, or pedal edema. NEUROLOGICAL: Gross neurological examination did not reveal any focal deficits. SKIN: No rashes. - Labs CBC & Chem 7: 07/04/19 14:50 07/04/19 14:50 Assessment and Plan Plan: -Intractable nausea vomiting with weight loss in able to tolerate any diet: Etiology is not clear patient-upper GI endoscopy as mentioned above continue with Protonix and gastric emptying studies tomorrow -History of lupus not on any medications -History of migraine with aura as per the patient: Fioricet as mentioned above -Depression
[2019-07-06] MEDS: BUTALB/APAP/CAFF 50-325-40MG TAB PO PRN ×2 (16:46→21:24)
[2019-07-06] MEDS: DIAZEPAM 5 MG TAB PO PRN (21:24)
[2019-07-07] MEDS: ONDANSETRON 4 MG/2 ML VIAL IVP SCH ×4 (00:42→11:40)
[2019-07-07] MEDS: SODIUM CHLORIDE 0.9% 1,000 ML IV SCH ×3 (04:22→22:22)
[2019-07-07] MEDS: PANTOPRAZOLE 40 MG/10 ML VIAL IVP SCH ×2 (08:40→20:38)
[2019-07-07] MEDS: MULTIVITAMINS, THERA 1 EACH TAB PO SCH (08:40)
[2019-07-07] MEDS: buPROPion XL 150 MG TAB.ER.24H PO SCH (08:41)
--- NOTE | 2019-07-07 11:15 | PN ---
PROGRESS NOTE DATE OF SERVICE: 07/07/2019 The patient is a 38-year-old pleasant white female admitted to hospital with severe epigastric pain associated with nausea, vomiting, decreased oral intake and abdominal pain for the last several months' duration. She has lost 30 pounds in the last 6 months. She had an EGD done yesterday that showed mild gastritis, otherwise unremarkable. She was scheduled for a gastric emptying scan which was not done yet and is scheduled for tomorrow. In the meantime, she continues to have poor oral intake secondary to decreased appetite and abdominal cramping. PHYSICAL EXAMINATION: Appears comfortable. No apparent distress. VITAL SIGNS: Stable. Blood pressure is 180/77, pulse rate 54, temperature 97.8. HEENT examination unremarkable. Conjunctivae pink. Sclerae anicteric. Oral cavity no lesions. NECK: No JVD or lymph node enlargement. CHEST: Clear to auscultation. HEART: Regular rate and rhythm. ABDOMEN: Soft. Bowel sounds are positive. Mild tenderness in the epigastric area. EXTREMITIES: No pedal edema. SKIN no rashes. NEUROLOGIC: Alert and oriented x3. No focal deficits. LABS: No labs available from today. IMPRESSION: 1. Epigastric pain associated with nausea, vomiting, and weight loss for the last several months' duration. Recent EGD done yesterday showed minimal gastritis. Biopsies are still pending. 2. History of anxiety and depression. 3. Progressive weight loss of 30 pounds in the last 6 months. RECOMMENDATIONS: 1. Obtain gastric emptying scan. 2. In the meantime, continue with Protonix 40 mg daily and antiemetics as needed. 3. Increase oral intake. 4. We will follow with you closely. Thank you for this consultation. MMODL / IJN: [id number] /
[2019-07-07] MEDS: BUTALB/APAP/CAFF 50-325-40MG TAB PO PRN ×2 (11:35→22:17)
--- NOTE | 2019-07-07 14:17 | P.PN ---
Subjective Patient is admitted for nausea vomiting which is kind of chronic With weight loss patient will undergo upper GI endoscopy tomorrow and patient has multiple medical issues which will be discussed in assessment and plan. Patient is still nauseous and barely able to drink liquids 07/06/2019 Patient had an upper GI endoscopy which showed mild gastritis patient is scheduled for gastric emptying studies tomorrow. Because of that Reglan is being held morphine is being held and patient will be started on Fioricet without codeine her headaches 07/07/2019 Patient is still scared of eating but able to tolerate diet. Patient will undergo gastric emptying studies tomorrow Constitutional: Denied any fatigue denied any fever. Cardio vascular: denied any chest pain, palpitations Gastrointestinal as mentioned in and told history Pulmonary: Denied any shortness of breath cough Neurologic denied any new focal deficits All inpatient medications were reviewed and appropriate changes in these medications as dictated in the interval history and assessment and plan. Objective - Vital Signs Vital signs: Vital Signs Temp 97.3 F L 07/07/19 05:27 Pulse 54 L 07/07/19 05:27 Resp 16 07/07/19 05:27 BP 118/77 07/07/19 05:27 Pulse Ox 98 07/07/19 05:27 Intake & Output 07/06/19 07/07/19 07/07/19 18:59 06:59 18:59 Other: Voiding Method Toilet # Voids 1 1 # Bowel Movements 0 - Exam PHYSICAL EXAMINATION: GENERAL: The patient is alert and oriented x3, not in any acute distress. Thin built HEENT: Pupils are round and equally reacting to light. EOMI. No scleral icterus. No conjunctival pallor. Normocephalic, atraumatic. No pharyngeal erythema. No thyromegaly. CARDIOVASCULAR: S1 and S2 present. No murmurs, rubs, or gallops. PULMONARY: Chest is clear to auscultation, no wheezing or crackles. ABDOMEN: Soft, scaphoid mild some subjective mild abdominal tenderness in the bilateral lower abdominal quadrants MUSCULOSKELETAL: No joint swelling or deformity. EXTREMITIES: No cyanosis, clubbing, or pedal edema. NEUROLOGICAL: Gross neurological examination did not reveal any focal deficits. SKIN: No rashes. - Labs CBC & Chem 7: 07/04/19 14:50 07/04/19 14:50 Assessment and Plan Plan: -Intractable nausea vomiting with weight loss in able to tolerate any diet: Etiology is not clear patient-upper GI endoscopy as mentioned above continue with Protonix and gastric emptying studies tomorrow -History of lupus not on any medications -History of migraine with aura as per the patient: Fioricet as mentioned above -Depression
[2019-07-07] MEDS: DIAZEPAM 5 MG TAB PO PRN (20:29)
[2019-07-08] MEDS: MULTIVITAMINS, THERA 1 EACH TAB PO SCH (12:29)
[2019-07-08] MEDS: MORPHINE SULFATE 4 MG/ML SYRINGE IVP PRN (12:29)
[2019-07-08] MEDS: buPROPion XL 150 MG TAB.ER.24H PO SCH (12:29)
[2019-07-08] MEDS: SODIUM CHLORIDE 0.9% 1,000 ML IV SCH (12:31)
--- NOTE | 2019-07-08 13:04 | NM ---
EXAMINATION TYPE: NM gastric emptying static DATE OF EXAM: 07/08/2019 COMPARISON: NONE HISTORY: Chronic nausea and vomiting, weight loss Following administration of 2.2 mCi Tc 99m Sulfur Colloid with 4oz eggs and 1/2peice of toast, projec tion images of the abdomen were obtained 10 minutes post ingestion. Patient Emptying Values 1 Hour 5 % 2 Hours 32 % 3 Hours 58 % 4 Hours 74 % Gastroesophagel reflux: None IMPRESSION: Gastric emptying: Delayed Gastroesophageal reflux: None
[2019-07-08 14:34] VITALS: BP 137/82; PULSE 50; RESP 16; TEMP 98.1
[2019-07-08] MEDS ORDERED: PANTOPRAZOLE 40 MG TABLET PO SCH (17:30)
--- NOTE | 2019-07-09 08:51 | P.DS ---
Providers Date of admission: 07/06/19 16:11 Expected date of discharge: 07/08/19 Attending physician: Mague Issa Consults: 07/04/19 14:25 Consult Physician Routine Consulting Provider: Yael Machuca Consult Reason/Comments: nausea, vomiting, diarrhea, weight loss Do you want consulting provider notified?: Yes Placement Type Exists?: Yes Primary care physician: Chuy Simon [facility] Course: Final diagnosis -Intractable nausea vomiting with weight loss and unable to tolerate any diet: Etiology is not clear -History of lupus not on any medications -History of migraine with aura as per the patient -Depression Discharge disposition Patient is being discharged in a stable condition with guarded prognosis to home and will follow-up with primary care provider Dr. Simon in the outpatient setting along with GI in 1-2 weeks for results. Patient will continue on Protonix twice daily for the next 2 weeks until follow-up with GI. Total time taken is 35 minutes. History of present illness Patient is admitted for nausea vomiting which is kind of chronic With weight loss patient will undergo upper GI endoscopy tomorrow and patient has multiple medical issues which will be discussed in assessment and plan. Patient is still nauseous and barely able to drink liquids 07/06/2019 Patient had an upper GI endoscopy which showed mild gastritis patient is schedul ed for gastric emptying studies tomorrow. Because of that Reglan is being held morphine is being held and patient will be started on Fioricet without codeine her headaches 07/07/2019 Patient is still scared of eating but able to tolerate diet. Patient will undergo gastric emptying studies tomorrow 07/08/2019 Patient underwent gastric emptying studies with GI and states that she is having decreasing abdominal pain and is tolerating some diet. Instructed the patient to advance diet slowly as tolerated and continue with Protonix 40 mg twice daily for the next 2 weeks until follow-up with GI. Patient instructed follow-up with primary care provider along with GI in 1-2 weeks for test results. No reports of chest pain, shortness of breath, or palpitations. Patient is afebrile. No reports of nausea or vomiting and patient is tolerating diet. Patient states she would like to go home today. On exam vital signs are stable. Temp is 98.1F, pulse is 50, respirations are 16, blood pressure is 137/82, oxygen saturation is 98% on room air. Cardio S1, S2 are present. Respiratory system shows clear to auscultation. Abdomen is soft, thin, nontender. Nervous system shows no focal deficits. Please refer to medication reconciliation sheet for a list of medications. Patient Condition at Discharge: Stable Plan - Discharge Summary New Discharge Prescriptions: New Pantoprazole [Protonix] 40 mg PO AC-BID #40 tablet. Continue Ondansetron [Zofran] 4 mg PO Q8H PRN PRN Reason: Nausea And Vomiting Diazepam [Valium] 20 mg PO HS PRN PRN Reason: Insomnia HYDROcodone/APAP 7.5-325MG [[place] 7.5-325] 1 tab PO Q6H PRN PRN Reason: Pain buPROPion HCL [Wellbutrin XL] 150 mg PO DAILY Multivitamins, Thera [Multivitamin (formulary)] 1 tab PO DAILY Discharge Medication List Ondansetron [Zofran] 4 mg PO Q8H PRN 09/05/16 [History] Diazepam [Valium] 20 mg PO HS PRN 11/19/18 [History] HYDROcodone/APAP 7.5-325MG [[place] 7.5-325] 1 tab PO Q6H PRN 11/19/18 [History] Multivitamins, Thera [Multivitamin (formulary)] 1 tab PO DAILY 07/04/19 [History] buPROPion HCL [Wellbutrin XL] 150 mg PO DAILY 07/04/19 [History] Pantoprazole [Protonix] 40 mg PO AC-BID #40 tablet. 07/08/19 [Rx] Follow up Appointment(s)/Referral(s): Chuy Simon III, MD [Primary Care Provider] - 07/15/19 11:00 am Yael Machuca MD [STAFF PHYSICIAN] - 08/01/19 11:30 am (hospital follow up and gastric empyting scan results) Patient Instructions/Handouts: Gastritis (DC), Acute Nausea and Vomiting (DC) Activity/Diet/Wound Care/Special Instructions: Contact CM at DC if Indigent funds needed Activity Limited until follow-up Continue current diet Follow-up with primary care provider upon discharge Continue with Protonix twice daily for 2 weeks Follow-up with GI in 2 weeks Discharge Disposition: HOME SELF-CARE
== END 2019-07-08 14:15 | disposition home or self-care (01) | DRG 392 ==
LOC: 6NMEDSUR 13:59 → INTOOBSV 13:59 → OBSVTOIN 07-06 16:11
PROVIDERS: ADMIT Internal Medicine; ATTEND Internal Medicine
PROC: 0DB98ZX Excision of Duodenum, Via Natural or Artificial Opening Endoscopic, Diagnostic (ICD-10-PCS; principal; 2019-07-06 07:25)
PROC: 0DB38ZX Excision of Lower Esophagus, Via Natural or Artificial Opening Endoscopic, Diagnostic (ICD-10-PCS; principal; 2019-07-06 07:25)
PROC: 0DB78ZX Excision of Stomach, Pylorus, Via Natural or Artificial Opening Endoscopic, Diagnostic (ICD-10-PCS; principal; 2019-07-06 07:25)
DX: R11.2 Nausea with vomiting, unspecified (principal); K62.5 Hemorrhage of anus and rectum; M35.1 Other overlap syndromes; M32.9 Systemic lupus erythematosus, unspecified; F32.9 Major depressive disorder, single episode, unspecified; G43.909 Migraine, unspecified, not intractable, without status migrainosus; K29.70 Gastritis, unspecified, without bleeding; K58.0 Irritable bowel syndrome with diarrhea; M79.7 Fibromyalgia; E04.1 Nontoxic single thyroid nodule; F41.9 Anxiety disorder, unspecified; E28.2 Polycystic ovarian syndrome; G89.29 Other chronic pain; M54.9 Dorsalgia, unspecified; R63.4 Abnormal weight loss; R10.9 Unspecified abdominal pain; K57.90 Diverticulosis of intestine, part unspecified, without perforation or abscess without bleeding; Z79.899 Other long term (current) drug therapy; Z90.710 Acquired absence of both cervix and uterus; Z87.891 Personal history of nicotine dependence; Z90.49 Acquired absence of other specified parts of digestive tract; Z98.51 Tubal ligation status; Z98.42 Cataract extraction status, left eye; Z98.41 Cataract extraction status, right eye; Z96.1 Presence of intraocular lens; Z82.49 Family history of ischemic heart disease and other diseases of the circulatory system; Z83.3 Family history of diabetes mellitus; Z83.79 Family history of other diseases of the digestive system; Z83.511 Family history of glaucoma; Z84.89 Family history of other specified conditions
CPT/HCPCS: 43239; 78264; 80053; 85025; 88305; 93005

== ENCOUNTER → 2019-08-06 | Outpatient (CLI) | payer MEDICARE ==
--- NOTE | 2019-08-06 13:12 | US ---
EXAMINATION TYPE: US pelvis complete transvag DATE OF EXAM: 08/06/2019 COMPARISON: CT November 19, 2018 CLINICAL HISTORY: N93.9 abn uterine and vaginal bleeding. TECHNIQUE: Transvaginal (TV) and Transabdominal (TA) . Transabdominal sonographic images of the pel vis were acquired. Transvaginal sonographic images were medically necessary to better assess the fol lowing anatomy: Date of LMP: Hysterectomy EXAM MEASUREMENTS: Uterus: Surgically absent Endometrial Stripe: Surgically absent Right Ovary: 3.4 x 2.3 x 2.3 cm Left Ovary: Surgically absent 1. Uterus: Surgically absent 2. Endometrium: Surgically absent 3. Right Ovary: wnl 4. Left Ovary: Surgically absent 5. Bilateral Adnexa: wnl 6. Posterior cul-de-sac: wnl Uterus is surgically absent peristalsing bowel noted during real-time scanning in the pelvis per tech nologist. Images of the bladder are unremarkable. Left ovary noted surgically absent per patient. No suspicious left adnexal masses. Right ovary shows 2 adjacent simple appearing thin-walled cysts or prominent follicles up to 2.2 cm long axis. Small pe ripheral follicles are noted. IMPRESSION: Source of vaginal bleeding not identified. No suspicious abnormality is seen on images sa keri.
== END | disposition home or self-care (01) ==
LOC: RADUSWWP 12:12
PROVIDERS: ATTEND Family Medicine
DX: N93.9 Abnormal uterine and vaginal bleeding, unspecified (principal)
CPT/HCPCS: 76830; 76856

== ENCOUNTER → 2019-11-12 | Outpatient (CLI) | payer MEDICARE ==
--- NOTE | 2019-11-12 15:29 | CT ---
EXAMINATION TYPE: CT kidney stone wo con DATE OF EXAM: 11/12/2019 COMPARISON: None HISTORY: 39-year-old female Bilateral flank pain with urination changes TECHNIQUE: Contiguous axial scanning of the abdomen and pelvis without IV contrast. Coronal and sagit jaye reconstructions performed. CT DLP: 224 mGycm Automated exposure control for dose reduction was used. FINDINGS: Heart normal size without pericardial effusion. Lung bases clear without pleural effusion. Noncontrast appearance of the liver, adrenal glands, spleen, and pancreas show no gross of mammograph y. Limited assessment due to paucity of intra-abdominal fat and lack of contrast. Cholecystectomy clips. There is no hydronephrosis seen on either side. No definite suspicious calcification along the course of either ureter though there are phleboliths in the pelvis. A couple punctate 2 mm nonobstructive left renal calculi. No dilated small bowel, free fluid, or free air. No obvious mesenteric or retroperitoneal lymphadenop athy. No secondary findings of acute appendicitis. The appendix cannot be discretely visualized. Moderate stool burden. Left-sided colonic diverticulosis, greatest in the sigmoid colon. No pericolic inflammatory change. Bladder is urine distended. Uterus surgically absent. 3.4 x 2.1 cm oval soft tissue along the right pelvic sidewall likely corresponds to the right ovary. Trace right cul-de-sac free fluid. Left ovary is also visualized. Bones: No osseous destructive process. IMPRESSION: 1. A COUPLE PUNCTATE 2 MM NONOBSTRUCTIVE LEFT RENAL CALCULI. NO HYDRONEPHROSIS ON EITHER SIDE. 2. SUSPECT MULTIPLE PELVIC PHLEBOLITHS RATHER THAN A PUNCTATE DISTAL URETERAL CALCULUS GIVEN THE LACK OF HYDRONEPHROSIS. FURTHER CLINICAL CORRELATION RECOMMENDED. 3. MODERATE STOOL BURDEN. SIGMOID DIVERTICULOSIS WITHOUT ACUTE DIVERTICULITIS. 4. STATUS POST HYSTERECTOMY. BOTH OVARIES ARE VISUALIZED.
== END | disposition home or self-care (01) ==
LOC: RADCTMAIN 14:06
PROVIDERS: ATTEND Family Medicine
DX: N20.0 Calculus of kidney (principal); K57.30 Diverticulosis of large intestine without perforation or abscess without bleeding; Z90.710 Acquired absence of both cervix and uterus; R35.0 Frequency of micturition
CPT/HCPCS: 74176

== ENCOUNTER 2020-07-06 12:55 | Emergency (ER) | payer MEDICARE ==
[2020-07-06 13:06] VITALS: TEMP 98.6
[2020-07-06] MEDS ORDERED: diphenhydrAMINE 50 MG/ML 1 ML VIAL IVP STA (13:30)
[2020-07-06] MEDS ORDERED: SODIUM CHLORIDE 0.9% 1,000 ML IV STA (13:30)
[2020-07-06] MEDS ORDERED: METOCLOPRAMIDE 5 MG/ML 2 ML VIAL IVP STA (13:30)
[2020-07-06] MEDS ORDERED: SODIUM CHLORIDE 0.9% 500 ML 500 ML IV STA (13:30)
--- NOTE | 2020-07-06 13:37 | ED ---
General Adult HPI - General Chief complaint: Nausea/Vomiting/Diarrhea Stated complaint: Dehydration,SOB Time Seen by Provider: 07/06/20 13:18 Source: patient, family, RN notes reviewed Mode of arrival: wheelchair Limitations: no limitations - History of Present Illness Initial comments: This a 39-year-old female presents emergency Department with chief complaint of nausea vomiting dehydration. Patient states that this started 4 days ago after starting some antibiotics for an abscess in her mouth. Patient states abscess ruptured last night. Patient states that she has not taken this antibiotic in the past in which she is on Keflex. Patient states that she's had recurrent issues with dehydration, hypo-kalemia, long history of GI issues including history of lupus. Patient states that she feels very dehydrated she's had urinary frequency but states that this is ongoing issue after she had complications from her hysterectomy. Patient denies known fever no chills no complaints of chest pain or shortness breath currently. She states when she vomits she has some pain radiates up from her acid reflux. - Related Data Home Medications Medication Instructions Recorded Confirmed Ondansetron [Zofran] 4 mg PO Q8H PRN 09/05/16 07/04/19 Diazepam [Valium] 20 mg PO HS PRN 11/19/18 07/04/19 HYDROcodone/APAP 7.5-325MG [[place] 1 tab PO Q6H PRN 11/19/18 07/04/19 7.5-325] Multivitamins, Thera [Multivitamin 1 tab PO DAILY 07/04/19 07/04/19 (formulary)] buPROPion HCL [Wellbutrin XL] 150 mg PO DAILY 07/04/19 07/04/19 Previous Rx's Medication Instructions Recorded Pantoprazole [Protonix] 40 mg PO AC-BID #40 tablet. 07/08/19 Ondansetron Odt [Zofran Odt] 4 mg PO Q8HR PRN #10 tab 07/06/20 Allergies Allergy/AdvReac Type Severity Reaction Status Date / Time No Known Allergies Allergy Verified 07/06/20 13:06 Review of Systems ROS Statement: Those systems with pertinent positive or pertinent negative responses have been documented in the HPI. ROS Other: All systems not noted in ROS Statement are negative. Past Medical History Past Medical History: Fibromyalgia Additional Past Medical History / Comment(s): DIVERTICULITIS;PCOS " ARRYTHMIA", lupus "mottled skin on her back", pleurisy,migraines, mixed connective tissue disease,tremors,ibs, thyroid nodule History of Any Multi-Drug Resistant Organisms: None Reported Past Surgical History: Appendectomy, Bowel Resection, Section, Hysterectomy, Tubal Ligation, Uterine Ablation Additional Past Surgical History / Comment(s): 09/30/14 Robotic assisted lap vaginal hysterectomy, lysis of adhesions pt stated bladder had been knicked -had sx to repair that and stomach lining, LAPAROSCOPY X4; TILT TABLE TEST AND EP STUDY. X4. BILAT CATARACTS REMOVED. COLONOSCOPY Past Anesthesia/Blood Transfusion Reactions: No Reported Reaction Past Psychological History: Depression Smoking Status: Never smoker Past Alcohol Use History: None Reported Past Drug Use History: Marijuana - Past Family History Mother Family Medical History: No Reported History Additional Family Medical History / Comment(s): celiac disease, migarines Father Family Medical History: Diabetes Mellitus, Hyperlipidemia, Hypertension Additional Family Medical History / Comment(s): Glaucoma, Cataracts General Exam Limitations: no limitations General appearance: alert, in no apparent distress Head exam: Present: atraumatic, normocephalic, normal inspection Eye exam: Present: normal appearance, PERRL, EOMI. Absent: scleral icterus, conjunctival injection, periorbital swelling ENT exam: Present: mucous membranes moist. Absent: normal exam, normal oropharynx (Small ruptured cyst in the lower lip inner aspect) Neck exam: Present: normal inspection, full ROM. Absent: tenderness, meningismus, lymphadenopathy Respiratory exam: Present: normal lung sounds bilaterally. Absent: respiratory distress, wheezes, rales, rhonchi, stridor Cardiovascular Exam: Present: normal rhythm, tachycardia, normal heart sounds. Absent: systolic murmur, diastolic murmur, rubs, gallop, clicks GI/Abdominal exam: Present: soft, tenderness, normal bowel sounds. Absent: distended, guarding, rebound, rigid Neurological exam: Present: alert, oriented X3, reflexes normal. Absent: motor sensory deficit Skin exam: Present: warm, dry, intact, normal color. Absent: rash Course Vital Signs 07/06/20 13:02 Temperature 98.6 F Pulse Rate 117 H Respiratory 18 Rate Blood Pressure 117/80 O2 Sat by Pulse 100 Oximetry Medical Decision Making - Medical Decision Making 39-year-old presents for nausea vomiting patient's had recurrent issues with multiple medical problems. Patient is improved after IV fluids, antiemetics. Patient does have a small cyst on the inner aspect of her lip which has ruptured there is no secondary signs of infection. Patient discharged with antiemetics will follow-up with PCP and return for any worsening change in symptoms. - Lab Data Result diagrams: 07/06/20 13:40 07/06/20 13:40 Lab Results 07/06/20 07/06/20 07/06/20 Range/Units 13:40 13:40 13:40 WBC 6.6 (3.8-10.6) k/uL RBC 4.64 (3.80-5.40) m/uL Hgb 14.9 (11.4-16.0) gm/dL Hct 44.1 (34.0-46.0) % MCV 95.0 (80.0-100.0) fL MCH 32.0 (25.0-35.0) pg MCHC 33.7 (31.0-37.0) g/dL RDW 11.7 (11.5-15.5) % Plt Count 220 (150-450) k/uL MPV 8.9 Neutrophils % 82 % Lymphocytes % 12 % Monocytes % 4 % Eosinophils % 1 % Basophils % 1 % Neutrophils # 5.4 (1.3-7.7) k/uL Lymphocytes # 0.8 L (1.0-4.8) k/uL Monocytes # 0.2 (0-1.0) k/uL Eosinophils # 0.0 (0-0.7) k/uL Basophils # 0.0 (0-0.2) k/uL Sodium 140 (137-145) mmol/L Potassium 3.9 (3.5-5.1) mmol/L Chloride 102 (98-107) mmol/L Carbon Dioxide 26 (22-30) mmol/L Anion Gap 12 mmol/L BUN 19 H (7-17) mg/dL Creatinine 0.91 (0.52-1.04) mg/dL Est GFR (CKD-EPI)AfAm >90 (>60 ml/min/1.73 sqM) Est GFR (CKD-EPI)NonAf 79 (>60 ml/min/1.73 sqM) Glucose 104 H (74-99) mg/dL Plasma Lactic Acid Viktor 1.5 (0.7-2.0) mmol/L Calcium 9.8 (8.4-10.2) mg/dL Magnesium 2.2 (1.6-2.3) mg/dL Total Bilirubin 0.6 (0.2-1.3) mg/dL AST 23 (14-36) U/L ALT 15 (4-34) U/L Alkaline Phosphatase 46 (38-126) U/L Total Protein 7.6 (6.3-8.2) g/dL Albumin 4.9 (3.5-5.0) g/dL Amylase 82 (30-110) U/L Lipase 91 (23-300) U/L Urine Color Urine Appearance (Clear) Urine pH (5.0-8.0) Ur Specific [place] (1.001-1.035) Urine Protein (Negative) Urine Glucose (UA) (Negative) Urine Ketones (Negative) Urine Blood (Negative) Urine Nitrite (Negative) Urine Bilirubin (Negative) Urine Urobilinogen (<2.0) mg/dL Ur Leukocyte Esterase (Negative) 07/06/20 Range/Units 14:33 WBC (3.8-10.6) k/uL RBC (3.80-5.40) m/uL Hgb (11.4-16.0) gm/dL Hct (34.0-46.0) % MCV (80.0-100.0) fL MCH (25.0-35.0) pg MCHC (31.0-37.0) g/dL RDW (11.5-15.5) % Plt Count (150-450) k/uL MPV Neutrophils % % Lymphocytes % % Monocytes % % Eosinophils % % Basophils % % Neutrophils # (1.3-7.7) k/uL Lymphocytes # (1.0-4.8) k/uL Monocytes # (0-1.0) k/uL Eosinophils # (0-0.7) k/uL Basophils # (0-0.2) k/uL Sodium (137-145) mmol/L Potassium (3.5-5.1) mmol/L Chloride (98-107) mmol/L Carbon Dioxide (22-30) mmol/L Anion Gap mmol/L BUN (7-17) mg/dL Creatinine (0.52-1.04) mg/dL Est GFR (CKD-EPI)AfAm (>60 ml/min/1.73 sqM) Est GFR (CKD-EPI)NonAf (>60 ml/min/1.73 sqM) Glucose (74-99) mg/dL Plasma Lactic Acid Viktor (0.7-2.0) mmol/L Calcium (8.4-10.2) mg/dL Magnesium (1.6-2.3) mg/dL Total Bilirubin (0.2-1.3) mg/dL AST (14-36) U/L ALT (4-34) U/L Alkaline Phosphatase (38-126) U/L Total Protein (6.3-8.2) g/dL Albumin (3.5-5.0) g/dL Amylase (30-110) U/L Lipase (23-300) U/L Urine Color Yellow Urine Appearance Clear (Clear) Urine pH 6.0 (5.0-8.0) Ur Specific [place] 1.025 (1.001-1.035) Urine Protein Trace H (Negative) Urine Glucose (UA) Negative (Negative) Urine Ketones 2+ H (Negative) Urine Blood Negative (Negative) Urine Nitrite Negative (Negative) Urine Bilirubin Negative (Negative) Urine Urobilinogen <2.0 (<2.0) mg/dL Ur Leukocyte Esterase Negative (Negative) Disposition Clinical Impression: Dehydration, Nausea & vomiting Disposition: HOME SELF-CARE Condition: Stable Instructions (If sedation given, give patient instructions): Acute Nausea and Vomiting (ED) Additional Instructions: Please return to the Emergency Department if symptoms worsen or any other concerns. Prescriptions: Ondansetron Odt [Zofran Odt] 4 mg PO Q8HR PRN #10 tab PRN Reason: Nausea Is patient prescribed a controlled substance at d/c from ED?: No Referrals: Chuy Simon III, MD [Primary Care Provider] - 1-2 days Time of Disposition: 15:40
[2020-07-06 14:10] LABS: Basophils % (A) 1 %; Eosinophils % (A) 1 %; HCT 44.1 % (34.0-46.0); HGB 14.9 gm/dL (11.4-16.0); Lymphocytes # (A) 0.8 k/uL (1.0-4.8); Lymphocytes % (A) 12 %; MCHC 33.7 g/dL (31.0-37.0); Mean Platelet Volume 8.9; Monocytes # (A) 0.2 k/uL (0-1.0); Monocytes % (A) 4 %; Neutrophils # (A) 5.4 k/uL (1.3-7.7); Neutrophils % (A) 82 %; Platelet Count 220 k/uL (150-450); RBC 4.64 m/uL (3.80-5.40); RDW 11.7 % (11.5-15.5); WBC 6.6 k/uL (3.8-10.6)
[2020-07-06 14:20] LABS: ALT 15 U/L (4-34); AST 23 U/L (14-36); African American GFR (CKD) >90 (>60 ml/min/1.73 sqM); Albumin 4.9 g/dL (3.5-5.0); Alkaline Phosphatase 46 U/L (38-126); Amylase 82 U/L (30-110); Anion Gap 12 mmol/L; Blood Urea Nitrogen 19 mg/dL (7-17); Calcium 9.8 mg/dL (8.4-10.2); Carbon Dioxide 26 mmol/L (22-30); Chloride 102 mmol/L (98-107); Glucose 104 mg/dL (74-99); Lipase 91 U/L (23-300); Magnesium 2.2 mg/dL (1.6-2.3); Non-African American GFR(CKD) 79 (>60 ml/min/1.73 sqM); Potassium 3.9 mmol/L (3.5-5.1); Sodium 140 mmol/L (137-145); Total Bilirubin 0.6 mg/dL (0.2-1.3); Total Protein 7.6 g/dL (6.3-8.2)
[2020-07-06 14:39] LABS: Appearance,Urine Clear (Clear); Bilirubin,Urine Negative (Negative); Blood,Urine Negative (Negative); Color,Urine Yellow; Glucose,Urine (UA) Negative (Negative); Ketones,Urine 2+ (Negative); Leukocyte Esterase,Urine Negative (Negative); Nitrite,Urine Negative (Negative); Protein,Urine Trace (Negative); Specific Gravity,Urine 1.025 (1.001-1.035); Urobilinogen,Urine <2.0 mg/dL (<2.0)
[2020-07-06 16:00] VITALS: BP 116/79; PULSE 110; RESP 16
== END 2020-07-06 16:00 | disposition home or self-care (01) ==
LOC: EC 12:55
DX: E86.0 Dehydration (principal); R11.2 Nausea with vomiting, unspecified; L72.8 Other follicular cysts of the skin and subcutaneous tissue; R35.0 Frequency of micturition; F32.9 Major depressive disorder, single episode, unspecified; M79.7 Fibromyalgia; M32.9 Systemic lupus erythematosus, unspecified; Z87.19 Personal history of other diseases of the digestive system; Z79.899 Other long term (current) drug therapy; Z90.49 Acquired absence of other specified parts of digestive tract; Z98.890 Other specified postprocedural states
CPT/HCPCS: 36415; 80053; 82150; 83605; 83690; 83735; 85025; 81003; 99284; 96374; 96375; 96361; J1200; J2765

== ENCOUNTER → 2020-07-08 | Outpatient (CLI) | payer MEDICARE ==
--- NOTE | 2020-07-08 14:38 | MM ---
Reason for exam: additional evaluation requested from prior study. Last mammogram was performed 1 year and 2 months ago. History: Family history of breast cancer in aunt at age 60. Physical Findings: Nurse did not find any significant physical abnormalities on exam. MG 3D Diag Mammo W/Cad ELMER Bilateral CC and MLO view(s) were taken. Prior study comparison: April 23, 2019, bilateral MG 3d diag mammo w/cad ELMER. July 07, 2017, right breast MG 3d diag mammo w/cad RT. The breast tissue is heterogeneously dense. This may lower the sensitivity of mammography. No significant new findings when compared with previous films. These results were verbally communicated with the patient and result sheet given to the patient on 07/08/20. ASSESSMENT: Incomplete: need additional imaging evaluation, BI-RAD 0 RECOMMENDATION: Ultrasound of both breasts. (right as ordered, left upper outer quadrant at nurse palpated lumpiness)
--- NOTE | 2020-07-08 14:40 | USB ---
Reason for exam: additional evaluation requested from abnormal screening. History: Family history of breast cancer in aunt at age 60. US Breast Limited BILAT Right complete breast ultrasound includes all four quadrants, the retroareolar region and axilla. Finding demonstrates a 5 x 2 x 4mm oval, cystic lesion at 6 o'clock, a 7 x 6 x 7mm oval, hypoechoic lesion at 10 o'clock likely debris filled cyst at the site of previous larger palpated cyst, 6 month follow up recommended and a 5 x 4 x 4mm oval, cystic lesion at 11 o'clock. Left limited breast ultrasound including focal area of concern, retroareolar and axilla demonstrates a 2 x 2 x 3mm oval, cystic lesion at 1 o'clock. These results were verbally communicated with the patient and result sheet given to the patient on 07/08/20. ASSESSMENT: Probably benign, BI-RAD 3 RECOMMENDATION: Ultrasound of the right breast in 6 months.
== END | disposition home or self-care (01) ==
LOC: RADMAMWWP 12:54
PROVIDERS: ATTEND Family Medicine
DX: N63.10 Unspecified lump in the right breast, unspecified quadrant (principal); R92.8 Other abnormal and inconclusive findings on diagnostic imaging of breast
CPT/HCPCS: 77066; 76642; G0279; 77062

== ENCOUNTER → 2020-09-03 | Outpatient (CLI) | payer MEDICARE ==
--- NOTE | 2020-09-03 07:57 | US ---
EXAMINATION TYPE: US pelvic complete DATE OF EXAM: 09/03/2020 COMPARISON: US August 06, 2019. CT abdomen and pelvis November 19, 2018 CLINICAL HISTORY: N93.9 Abnormal uterine bleeding. Patient stated had hysterectomy 2014 with history of left ectopic (unsure if left ovary still present); Lupus; IBS per patient; 3 weeks left pelvic pain; several bladder surgeries; bowel surgery; vaginal bleeding x several episodes TECHNIQUE: . Limited Transabdominal sonographic images of the pelvis were acquired as patient's blad parviz not full. Transvaginal sonographic images were medically necessary per order and to better assess the following anatomy: ovaries Date of LMP: NA EXAM MEASUREMENTS: Uterus: surgically removed Endometrial Stripe: surgically removed Right Ovary: 3.4 x 2.0 x 2.1 cm Left Ovary: 3.4 x 2.3 x 2.6 cm 1. Right Ovary: multiple follicles 2. Left Ovary: multiple follicles with largest = 1.2 x 1.3 x 1.2cm Spectral, color and waveform Doppler imaging shows good arterial and venous flow within the ovaries ; . 3. Bilateral Adnexa: large fluid filled bowel loop seen in left adnexa during real-time scanning. 4. Posterior cul-de-sac: wnl Uterus is surgically absent. Right ovary is identified and normal in size with scattered peripheral f ollicles. Left ovary less well seen but normal in size with scattered peripheral follicles. IMPRESSION: Posthysterectomy change is redemonstrated. Normal sized bilateral ovaries seen on current study. No suspicious solid or cystic adnexal mass.
== END | disposition home or self-care (01) ==
LOC: RADUSWWP 07:02
PROVIDERS: ATTEND Family Medicine
DX: N93.9 Abnormal uterine and vaginal bleeding, unspecified (principal); Z90.710 Acquired absence of both cervix and uterus
CPT/HCPCS: 76830; 76856

== ENCOUNTER → 2021-02-04 | Outpatient (CLI) | payer MEDICARE | END | disposition home or self-care (01) | LOC: LABWHC1 15:48 | PROVIDERS: ATTEND Family Medicine | DX: Z20.822 Contact with and (suspected) exposure to COVID-19 (principal) | CPT/HCPCS: U0003; C9803; U0005 ==

== ENCOUNTER → 2021-08-10 | Outpatient (CLI) | payer MEDICARE ==
[2021-08-10 23:59] LABS: Basophils # (A) 0.04 X 10*3/uL (0.00-0.10); Basophils % (A) 0.5 %; Eosinophils # (A) 0.03 X 10*3/uL (0.04-0.35); Eosinophils % (A) 0.4 %; HCT 44.2 % (37.2-46.3); Immature Grans, Automated 0.4 %; Lymphocytes # (A) 1.17 X 10*3/uL (0.90-5.00); MCH 30.4 pg (27.0-32.0); MCHC 31.7 g/dL (32.0-37.0); MCV 96.1 fL (80.0-97.0); Mean Platelet Volume 12.9 fL (9.5-12.2); Monocytes # (A) 0.33 X 10*3/uL (0.20-1.00); NRBC Per 100 WBC 0 /100 WBCS (0.0-0.0); Neutrophils # (A) 6.75 X 10*3/uL (1.80-7.70); Neutrophils % (A) 80.7 %; Platelet Count 248 X 10*3/uL (140-440); RDW 12.3 % (11.5-14.5); WBC 8.35 X 10*3/uL (4.50-10.00)
[2021-08-11 04:48] LABS: ALT 12 U/L (8-44); AST 16 U/L (13-35); African American GFR (CKD) 96.4 (60.0-200.0); Albumin 5.2 g/dL (3.8-4.9); Albumin/Globulin Ratio 2.43 (1.60-3.17); Alkaline Phosphatase 57 U/L (41-126); BUN/Creat Ratio 17.77 Ratio (12.00-20.00); Blood Urea Nitrogen 15.3 mg/dL (9.0-27.0); Calcium 9.5 mg/dL (8.7-10.3); Carbon Dioxide 19.3 mmol/L (20.0-27.5); Chloride 106 mmol/L (96-109); Follicle Stimulating Hormone 5.5 mIU/mL; Globulin 2.1 g/dL (1.6-3.3); Glucose 118 mg/dL (70-110); Luteinizing Hormone 7.5 mIU/mL; Non-African American GFR(CKD) 83.2 (60.0-200.0); Potassium 3.9 mmol/L (3.5-5.5); Sodium 141 mmol/L (135-145); Total Protein 7.3 g/dL (6.2-8.2)
[2021-08-11 06:21] LABS: Estradiol 61.3 pg/mL
--- NOTE | 2021-08-11 08:50 | MM ---
Reason for exam: clinical finding. Last mammogram was performed 1 year and 1 month ago. History: Family history of breast cancer in aunt at age 60. Indicated problem(s): lump or thickening in the right breast. Physical Findings: A clinical breast exam by your physician is recommended on an annual basis and results should be correlated with mammographic findings. MG 3D Diag Mammo W/Cad ELMER Bilateral CC and MLO view(s) were taken. Prior study comparison: July 08, 2020, bilateral MG 3d diag mammo w/cad ELMER. April 23, 2019, bilateral MG 3d diag mammo w/cad ELMER. The breast tissue is extremely dense which could obscure a lesion on mammography. There is no discrete abnormality including area of concern with regard to right palpable. No significant changes when compared with prior studies. ASSESSMENT: Benign, BI-RAD 2 RECOMMENDATION: Routine screening mammogram of both breasts in 1 year.
--- NOTE | 2021-08-11 08:52 | USB ---
Reason for exam: clinical finding. History: Family history of breast cancer in aunt at age 60. Indicated problem(s): lump or thickening in the right breast. Physical Findings: A clinical breast exam by your physician is recommended on an annual basis and results should be correlated with mammographic findings. US Breast RT Right complete breast ultrasound includes all four quadrants, the retroareolar region and axilla. Finding demonstrates a 0.6 x 0.5 x 0.6cm mixed lesion at 11 o'clock, cyst aspiration recommended and a 0.8 x 0.2 x 0.5cm lesion at 10 o'clock. Dense tissue. ASSESSMENT: Suspicious, BI-RAD 4 RECOMMENDATION: Aspiration of the right breast. (11 o'clock) Called Dr. Simon's office with mammographic findings and has scheduled an appointment for the patient for 10/07/21 at 8:[address] Flores. Aspiration scheduled for 08/25/21 at 8:00. PRELIMINARY REPORT CALLED AND FAXED TO DR. FLORES ON 08/11/21.
== END | disposition home or self-care (01) ==
LOC: RADMAMWWP 12:43
PROVIDERS: ATTEND Family Medicine
DX: Z00.01 Encounter for general adult medical examination with abnormal findings (principal); M35.9 Systemic involvement of connective tissue, unspecified; M32.9 Systemic lupus erythematosus, unspecified; G89.4 Chronic pain syndrome; F33.1 Major depressive disorder, recurrent, moderate; R92.8 Other abnormal and inconclusive findings on diagnostic imaging of breast; Z80.3 Family history of malignant neoplasm of breast
CPT/HCPCS: 80053; 84443; 83001; 83002; 82607; 82670; 85025; 84144; 82306; 77066; 76641; 36415; G0279; 77062

== ENCOUNTER 2021-09-20 08:23 | Observation (INO) | payer MEDICARE ==
[2021-09-20] MEDS ORDERED: ASPIRIN 81 MG PO STA (08:42)
[2021-09-20] MEDS ORDERED: NITROGLYCERIN SL TABS 0.4 MG TAB SUBLINGUAL STA ×3 (08:42)
[2021-09-20] MEDS ORDERED: LORazepam 2 MG/ML INJ IV STA (08:43)
--- NOTE | 2021-09-20 08:45 | ED ---
General Adult HPI - General Chief complaint: Chest Pain Stated complaint: Chest Pain Time Seen by Provider: 09/20/21 08:31 Source: patient, RN notes reviewed Mode of arrival: ambulatory Limitations: no limitations - History of Present Illness Initial comments: Patient is a pleasant 41-year-old female presenting to the emergency Department with chest discomfort. Symptoms have been intermittent for the past several weeks. Symptoms are worse this morning. Discomfort is somewhat severe at this time. Discomfort feels like an ache however there is some tightness up in her neck. No dyspnea. No nausea. Patient has had some associated sweating. No leg pain or leg swelling. - Related Data Home Medications Medication Instructions Recorded Confirmed Diazepam [Valium] 10 mg PO HS PRN 11/19/18 09/20/21 HYDROcodone/APAP 7.5-325MG [[place] 1 tab PO DAILY PRN 11/19/18 09/20/21 7.5-325] Rizatriptan Odt [Maxalt BITE BLOCK MAKER] 10 mg PO DAILY PRN 07/06/20 09/20/21 buPROPion XL [Wellbutrin XL] 300 mg PO DAILY 07/06/20 09/20/21 Immune Boost 1 tab PO DAILY 09/20/21 09/20/21 Multivit with Calcium,Iron,Min 1 tab PO DAILY 09/20/21 09/20/21 [Women's Multivitamin] Previous Rx's Medication Instructions Recorded Ondansetron Odt [Zofran Odt] 4 mg PO Q8HR PRN #10 tab 07/06/20 Allergies Allergy/AdvReac Type Severity Reaction Status Date / Time No Known Allergies Allergy Verified 09/20/21 09:31 Review of Systems ROS Statement: Those systems with pertinent positive or pertinent negative responses have been documented in the HPI. ROS Other: All systems not noted in ROS Statement are negative. Constitutional: Denies: fever Eyes: Denies: eye pain ENT: Denies: ear pain Respiratory: Denies: cough Cardiovascular: Reports: as per HPI, chest pain Endocrine: Denies: fatigue Gastrointestinal: Denies: abdominal pain Genitourinary: Denies: dysuria Musculoskeletal: Denies: back pain Skin: Denies: rash Neurological: Denies: weakness Past Medical History Past Medical History: Fibromyalgia Additional Past Medical History / Comment(s): DIVERTICULITIS;PCOS " ARRYTHMIA", lupus "mottled skin on her back", pleurisy,migraines, mixed connective tissue disease,tremors,ibs, thyroid nodule History of Any Multi-Drug Resistant Organisms: None Reported Past Surgical History: Appendectomy, Bowel Resection, Section, Cholecystectomy, Hysterectomy, Tubal Ligation, Uterine Ablation Additional Past Surgical History / Comment(s): 09/30/14 Robotic assisted lap vaginal hysterectomy, lysis of adhesions pt stated bladder had been knicked -had sx to repair that and stomach lining, LAPAROSCOPY X4; TILT TABLE TEST AND EP STUDY. X4. BILAT CATARACTS REMOVED. 2016 pots, cardiac ablation. COLONOSCOPY Past Anesthesia/Blood Transfusion Reactions: No Reported Reaction Past Psychological History: Anxiety, Depression Smoking Status: Former smoker Past Alcohol Use History: None Reported Past Drug Use History: Marijuana - Past Family History Mother Family Medical History: No Reported History Additional Family Medical History / Comment(s): celiac disease, migarines Father Family Medical History: Diabetes Mellitus, Hyperlipidemia, Hypertension Additional Family Medical History / Comment(s): Glaucoma, Cataracts General Exam Limitations: no limitations General appearance: alert Head exam: Present: normocephalic Eye exam: Present: normal appearance Neck exam: Present: normal inspection. Absent: tenderness Respiratory exam: Present: normal lung sounds bilaterally. Absent: chest wall tenderness Cardiovascular Exam: Present: normal rhythm, tachycardia Expanded Peripheral pulses: 2+: Radial (R), Radial (L), Dorsalis Pedis (R), Dorsalis Pedis (L) GI/Abdominal exam: Present: soft. Absent: tenderness Extremities exam: Present: normal inspection. Absent: pedal edema, calf tenderness Neurological exam: Present: alert Psychiatric exam: Present: anxious (Patient does appear mildly anxious) Skin exam: Present: normal color Course Vital Signs 09/20/21 09/20/21 09/20/21 08:25 08:50 09:27 Temperature 98.4 F Pulse Rate 138 H 108 H 97 Respiratory 16 22 18 Rate Blood Pressure 154/67 127/91 131/88 O2 Sat by Pulse 100 99 99 Oximetry EKG Findings - EKG Comments: EKG Findings:: Sinus tachycardia 110. HI 129. QRS 82. QT 315. QTC 38. Normal axis. Right atrial enlargement. No acute ST change. Medical Decision Making - Medical Decision Making Patient reevaluated and resting more comfortably in bed. Patient still having discomfort. Patient and family updated on results and plan. Case was discussed with Dr. Long, who will admit for hospital observation call - Lab Data Result diagrams: 09/20/21 08:44 09/20/21 08:44 Lab Results 09/20/21 09/20/21 09/20/21 Range/Units 08:44 08:44 08:44 WBC 6.5 (3.8-10.6) k/uL RBC 5.00 (3.80-5.40) m/uL Hgb 15.7 (11.4-16.0) gm/dL Hct 47.7 H (34.0-46.0) % MCV 95.4 (80.0-100.0) fL MCH 31.3 (25.0-35.0) pg MCHC 32.9 (31.0-37.0) g/dL RDW 12.6 (11.5-15.5) % Plt Count 271 (150-450) k/uL MPV 9.9 Neutrophils % 63 % Lymphocytes % 26 % Monocytes % 5 % Eosinophils % 2 % Basophils % 1 % Neutrophils # 4.1 (1.3-7.7) k/uL Lymphocytes # 1.7 (1.0-4.8) k/uL Monocytes # 0.3 (0-1.0) k/uL Eosinophils # 0.1 (0-0.7) k/uL Basophils # 0.0 (0-0.2) k/uL PT 11.0 (9.0-12.0) sec INR 1.0 (<1.2) APTT 24.8 (22.0-30.0) sec D-Dimer <0.17 (<0.60) mg/L FEU Sodium 139 (137-145) mmol/L Potassium 3.9 (3.5-5.1) mmol/L Chloride 104 (98-107) mmol/L Carbon Dioxide 24 (22-30) mmol/L Anion Gap 11 mmol/L BUN 17 (7-17) mg/dL Creatinine 0.89 (0.52-1.04) mg/dL Est GFR (CKD-EPI)AfAm >90 (>60 ml/min/1.73 sqM) Est GFR (CKD-EPI)NonAf 80 (>60 ml/min/1.73 sqM) Glucose 133 H (74-99) mg/dL Calcium 9.9 (8.4-10.2) mg/dL Magnesium 2.0 (1.6-2.3) mg/dL Total Bilirubin 0.7 (0.2-1.3) mg/dL AST 25 (14-36) U/L ALT 15 (4-34) U/L Alkaline Phosphatase 66 (38-126) U/L Troponin I (0.000-0.034) ng/mL Total Protein 8.2 (6.3-8.2) g/dL Albumin 5.2 H (3.5-5.0) g/dL Lipase 596 H (23-300) U/L 09/20/21 Range/Units 08:44 WBC (3.8-10.6) k/uL RBC (3.80-5.40) m/uL Hgb (11.4-16.0) gm/dL Hct (34.0-46.0) % MCV (80.0-100.0) fL MCH (25.0-35.0) pg MCHC (31.0-37.0) g/dL RDW (11.5-15.5) % Plt Count (150-450) k/uL MPV Neutrophils % % Lymphocytes % % Monocytes % % Eosinophils % % Basophils % % Neutrophils # (1.3-7.7) k/uL Lymphocytes # (1.0-4.8) k/uL Monocytes # (0-1.0) k/uL Eosinophils # (0-0.7) k/uL Basophils # (0-0.2) k/uL PT (9.0-12.0) sec INR (<1.2) APTT (22.0-30.0) sec D-Dimer (<0.60) mg/L FEU Sodium (137-145) mmol/L Potassium (3.5-5.1) mmol/L Chloride (98-107) mmol/L Carbon Dioxide (22-30) mmol/L Anion Gap mmol/L BUN (7-17) mg/dL Creatinine (0.52-1.04) mg/dL Est GFR (CKD-EPI)AfAm (>60 ml/min/1.73 sqM) Est GFR (CKD-EPI)NonAf (>60 ml/min/1.73 sqM) Glucose (74-99) mg/dL Calcium (8.4-10.2) mg/dL Magnesium (1.6-2.3) mg/dL Total Bilirubin (0.2-1.3) mg/dL AST (14-36) U/L ALT (4-34) U/L Alkaline Phosphatase (38-126) U/L Troponin I <0.012 (0.000-0.034) ng/mL Total Protein (6.3-8.2) g/dL Albumin (3.5-5.0) g/dL Lipase (23-300) U/L - Radiology Data Radiology results: image reviewed (Chest x-ray shows no acute) Disposition Clinical Impression: Chest pain Disposition: ADMITTED IP TO THIS HOSP Is patient prescribed a controlled substance at d/c from ED?: No Referrals: Chuy Simon III, MD [Primary Care Provider] - 1-2 days Time of Disposition: 10:45
[2021-09-20] MEDS ORDERED: ONDANSETRON 4 MG/2 ML VIAL IVP STA (08:51)
--- NOTE | 2021-09-20 09:11 | XR ---
EXAMINATION TYPE: XR chest 2V DATE OF EXAM: 09/20/2021 COMPARISON: NONE TECHNIQUE: PA and lateral views submitted. HISTORY: Chest pain FINDINGS: The lungs are clear and there is no pneumothorax, pleural effusion, or focal pneumonia. Heart size is normal. There is no overt failure. Surgical clips in the abdomen. Hyperinflation suggests COPD. IMPRESSION: 1. No acute process.
[2021-09-20 09:43] LABS: Basophils % (A) 1 %; Eosinophils # (A) 0.1 k/uL (0-0.7); Eosinophils % (A) 2 %; HCT 47.7 % (34.0-46.0); HGB 15.7 gm/dL (11.4-16.0); Lymphocytes # (A) 1.7 k/uL (1.0-4.8); Lymphocytes % (A) 26 %; MCH 31.3 pg (25.0-35.0); MCHC 32.9 g/dL (31.0-37.0); MCV 95.4 fL (80.0-100.0); Mean Platelet Volume 9.9; Monocytes # (A) 0.3 k/uL (0-1.0); Monocytes % (A) 5 %; Neutrophils # (A) 4.1 k/uL (1.3-7.7); Neutrophils % (A) 63 %; Platelet Count 271 k/uL (150-450); RDW 12.6 % (11.5-15.5); WBC 6.5 k/uL (3.8-10.6)
[2021-09-20 09:55] LABS: ALT 15 U/L (4-34); AST 25 U/L (14-36); African American GFR (CKD) >90 (>60 ml/min/1.73 sqM); Albumin 5.2 g/dL (3.5-5.0); Alkaline Phosphatase 66 U/L (38-126); Anion Gap 11 mmol/L; Blood Urea Nitrogen 17 mg/dL (7-17); Calcium 9.9 mg/dL (8.4-10.2); Carbon Dioxide 24 mmol/L (22-30); Chloride 104 mmol/L (98-107); Glucose 133 mg/dL (74-99); Lipase 596 U/L (23-300); Non-African American GFR(CKD) 80 (>60 ml/min/1.73 sqM); Potassium 3.9 mmol/L (3.5-5.1); Sodium 139 mmol/L (137-145); Total Bilirubin 0.7 mg/dL (0.2-1.3); Total Protein 8.2 g/dL (6.3-8.2)
[2021-09-20] MEDS ORDERED: MORPHINE SULFATE 4 MG/ML SYRINGE IVP STA (09:57)
[2021-09-20 09:59] LABS: Partial Thromboplastin Time 24.8 sec (22.0-30.0)
[2021-09-20] MEDS ORDERED: ALPRAZolam 0.25 MG TAB PO PRN (10:46)
[2021-09-20] MEDS ORDERED: NITROGLYCERIN SL TABS 0.4 MG TAB SUBLINGUAL PRN (10:46)
--- NOTE | 2021-09-20 11:18 | US ---
EXAMINATION TYPE: US abdomen limited DATE OF EXAM: 09/20/2021 COMPARISON: CT November 12, 2019 CLINICAL HISTORY: Evaluate pancreas. abn labs EXAM MEASUREMENTS: Liver Length: 9.9 cm Gallbladder Wall: Surgically absent CBD: 0.5 cm Right Kidney: 9.9 x 3.8 x 4.3 cm Pancreas: prominent duct Liver: wnl Gallbladder: Surgically absent CBD: wnl Right Kidney: No hydronephrosis or masses seen Visualized portion of pancreas shows no worrisome solid or cystic mass. Pancreatic duct measures 2 mm which is within normal limits and the proximal to mid body on images saved. Gallbladder surgically a bsent. No intrahepatic or extra hepatic biliary dilatation. No concerning liver masses. No right-side d hydronephrosis. IMPRESSION: No worrisome pancreatic mass or abnormal ductal dilatation on images saved.
[2021-09-20] MEDS ORDERED: MORPHINE SULFATE 4 MG/ML SYRINGE IVP PRN (11:19)
[2021-09-20] MEDS ORDERED: HYDROcodone/APAP 7.5-325MG 1 EACH TAB PO PRN (12:12)
[2021-09-20] MEDS ORDERED: SUMAtriptan succinate 50 MG TAB PO PRN (12:12)
--- NOTE | 2021-09-20 12:12 | P.HPIM ---
History of Present Illness H&P Date: 09/20/21 History of Presenting Illness: Patient is a very pleasant 41-year-old female with a past medical history of lupus, fibromyalgia, chronic migraines, anxiety and connective tissue disorder. She presented to the emergency department with a chief complaint of chest pain. Patient reports chest pain intermittently over the past 2-3 months but reports last night this feeling intensified and was described as an achiness/tightness in the midsternal chest radiating up her left anterior neck and into her jaw. Patient reports this pain persisted throughout the night accompanied by mild diaphoresis. She denies having any recent fevers or illnesses, headache, lightheadedness, dizziness, palpitations, shortness of breath, cough/congestion, nausea, vomiting, or experiencing any numbness/tingling/weakness in her extremities. In the emergency department patient underwent full evaluation. EKG completed showing sinus tachycardia at 110 bpm with no noted T-wave or ST abnormalities. CBC and CMP were unremarkable. Troponin less than 0.012 and d- dimer less than 0.17. Patient was noted to have a slightly elevated lipase of 596. Abdominal ultrasound completed negative for acute intra-abdominal process showing no worrisome pancreatic mass or abnormal ductal dilation on images. Patient was admitted under our services with consultation to cardiology. Review of systems: Pertinent positives and negatives as discussed in HPI, a complete review of systems was performed and all other systems are negative. Physical exam: Vital signs reviewed and stable. General: Nontoxic, no distress and appears stated age. Very thin build. Skin warm and dry, normal coloration for ethnicity. Head: Atraumatic, normocephalic and symmetric. Eyes: EOMs intact, no lid lag, and anicteric sclera Mouth: no lip lesions, mucus membranes moist Cardiovascular: regular rate and rhythm with normal S1S2, no murmur, positive posterior tibial pulses bilaterally, and cap refill < 2 seconds. Lungs: Respirations even, regular, and unlabored on room air. Lungs CTA bilaterally, no rhonchi, no rales, no wheezing, and no accessory muscle usage. Abdominal: soft, nontender to palpation, no guarding, no appreciable organomegaly Ext: ROM intact. No gross muscle atrophy, no edema, no contractures Neuro: Speech clear, face symmetrical and CN II-XII grossly intact with no noted focal neuro deficits Psych: Alert and oriented to person, place, time, and situation. Anxious but pleasant affect. Assessment and Plan of Care: Chest pain, rule out acute coronary event -Cardiology consult, appreciate further recommendations -Telemetry monitoring -Trend troponins -Cardiac diet, NPO at midnight -Aspirin, atorvastatin, and metoprolol -Lipid profile with a.m. labs. -Echocardiogram Elevated lipase -Unclear etiology, patient denies daily EtOH use. -Provide IV fluid hydration. The patient is admitted with an anticipated less than 2 midnight stay for evaluation of chest pain. CODE STATUS: Full code DVT prophylaxis: heparin Discussed with: patient, patient's significant other, and RN Anticipated discharge date: Likely tomorrow morning Anticipated discharge place: home A total of 40 minutes was spent on the care of this complex patient more than 50% of the time was spent in counseling and care coordination. I reviewed the documentation as provided by the KAREN above, who is the original author of this note. I agree with the documented assessment and plan, with the following changes: none Past Medical History Past Medical History: Fibromyalgia Additional Past Medical History / Comment(s): DIVERTICULITIS;PCOS " ARRYTHMIA", lupus "mottled skin on her back", pleurisy,migraines, mixed connective tissue disease,tremors,ibs, thyroid nodule History of Any Multi-Drug Resistant Organisms: None Reported Past Surgical History: Appendectomy, Bowel Resection, Section, Cholecystectomy, Hysterectomy, Tubal Ligation, Uterine Ablation Additional Past Surgical History / Comment(s): 09/30/14 Robotic assisted lap vaginal hysterectomy, lysis of adhesions pt stated bladder had been knicked -had sx to repair that and stomach lining, LAPAROSCOPY X4; TILT TABLE TEST AND EP STUDY. X4. BILAT CATARACTS REMOVED. 2016 pots, cardiac ablation. COLONOSCOPY Past Anesthesia/Blood Transfusion Reactions: No Reported Reaction Past Psychological History: Anxiety, Depression Smoking Status: Former smoker Past Alcohol Use History: None Reported Past Drug Use History: Marijuana - Past Family History Mother Family Medical History: No Reported History Additional Family Medical History / Comment(s): celiac disease, migarines Father Family Medical History: Diabetes Mellitus, Hyperlipidemia, Hypertension Additional Family Medical History / Comment(s): Glaucoma, Cataracts Medications and Allergies Home Medications Medication Instructions Recorded Confirmed Type Diazepam [Valium] 10 mg PO HS PRN 11/19/18 09/20/21 History HYDROcodone/APAP 7.5-325MG [[place] 1 tab PO DAILY PRN 11/19/18 09/20/21 History 7.5-325] Ondansetron Odt [Zofran Odt] 4 mg PO Q8HR PRN #10 tab 07/06/20 09/20/21 Rx Rizatriptan Odt [Maxalt IT HELP DESK TECHNICIAN] 10 mg PO DAILY PRN 07/06/20 09/20/21 History buPROPion XL [Wellbutrin XL] 300 mg PO DAILY 07/06/20 09/20/21 History Immune Boost 1 tab PO DAILY 09/20/21 09/20/21 History Multivit with Calcium,Iron,Min 1 tab PO DAILY 09/20/21 09/20/21 History [Women's Multivitamin] Allergies Allergy/AdvReac Type Severity Reaction Status Date / Time No Known Allergies Allergy Verified 09/20/21 09:31 Physical Exam Osteopathic Statement: *. No significant issues noted on an osteopathic structural exam other than those noted in the History and Physical/Consult. Vitals: Vital Signs Temp Pulse Pulse Resp BP BP Pulse Ox 09/20/21 11:35 98.5 F 93 18 135/90 98 09/20/21 11:25 98.1 F 98 16 107/85 98 09/20/21 09:27 97 18 131/88 99 09/20/21 08:50 108 H 22 127/91 99 09/20/21 08:25 98.4 F 138 H 16 154/67 100 Intake and Output 09/19/21 09/20/21 09/20/21 22:59 06:59 14:59 Other: Weight 45.359 kg Results CBC & Chem 7: 09/20/21 08:44 09/20/21 08:44 Labs: Abnormal Lab Results - Last 24 Hours (Table) 09/20/21 09/20/21 Range/Units 08:44 08:44 Hct 47.7 H (34.0-46.0) % Glucose 133 H (74-99) mg/dL Albumin 5.2 H (3.5-5.0) g/dL Lipase 596 H (23-300) U/L
[2021-09-20] MEDS: NITROGLYCERIN OINT 1 INCH/GM PACKET TOPICAL SCH ×3 (13:18→23:15)
[2021-09-20] MEDS: SODIUM CHLORIDE 0.9% 1,000 ML IV SCH ×2 (15:17→23:14)
[2021-09-20] MEDS: HEPARIN SODIUM,PORCINE/PF 5,000 UNIT/0.5 ML SYRINGE SQ SCH (17:09)
--- NOTE | 2021-09-20 17:12 | CA ---
Transthoracic Echo Report Name: Amparo Valencia Age: 41 Gender: F : 1980 Exam Date: 09/20/2021 13:17 Exam Location: [facility] Ht (in): 65 Wt (lb): 100 Ordering Physician: Mariaa Friend Attending/Referring Phys: [id number], Phuc Alligator Shear Operator Denia Redmond, JIMMY Procedure CPT: Indications: Chest Pain Cardiac Hx: Technical Quality: Excellent Contrast 1: Total Dose (mL): Contrast 2: Total Dose (mL): MEASUREMENTS (Male / Female) Normal Values 2D ECHO LV Diastolic Diameter PLAX 3.8 cm 4.2 - 5.9 / 3.9 - 5.3 cm LV Systolic Diameter PLAX 2.9 cm IVS Diastolic Thickness 0.9 cm 0.6 - 1.0 / 0.6 - 0.9 cm LVPW Diastolic Thickness 0.7 cm 0.6 - 1.0 / 0.6 - 0.9 cm LV Relative Wall Thickness 0.4 RV Internal Dim ED PLAX 3.0 cm LA Systolic Diameter LX 2.4 cm 3.0 - 4.0 / 2.7 - 3.8 cm LA Volume 31.5 cm??? 18 - 58 / 22 - 52 cm??? M-MODE Aortic Root Diameter MM 2.6 cm MV E Point Septal Separation 1.0 cm AV Cusp Separation MM 1.9 cm DOPPLER AV Peak Velocity 110.8 cm/s AV Peak Gradient 4.9 mmHg MV Area PHT 2.0 cm??? Mitral E Point Velocity 62.6 cm/s Mitral A Point Velocity 51.0 cm/s Mitral E to A Ratio 1.2 MV Deceleration Time 370.2 ms TR Peak Velocity 197.6 cm/s TR Peak Gradient 15.6 mmHg Right Ventricular Systolic Press 20.0 mmHg FINDINGS Left Ventricle Left ventricular ejection fraction is estimated at 60-65 %. Normal Left ventricular size, wall thickness, systolic function with no obvious regional wall motion abnormalities. Normal Left ventricular diastolic filling pattern. Right Ventricle Normal right ventricular size and function. Right ventricular systolic pressure within normal limits. Right Atrium Normal right atrial size. Left Atrium Normal left atrial size. No evidence for an atrial septal defect. Mitral Valve Structurally normal mitral valve. Trace mitral regurgitation. Aortic Valve Trileaflet aortic valve. No aortic valve stenosis or regurgitation. Tricuspid Valve Mild tricuspid regurgitation. Pulmonic Valve Trace pulmonic regurgitation. Pericardium Normal pericardium. Aorta Normal size aortic root and proximal ascending aorta. CONCLUSIONS Normal LV function Previewed by: Dr. Ralph Machuca MD (Electronically Signed) Final Date: 20 Sep 2021 17:11
[2021-09-21] MEDS: HEPARIN SODIUM,PORCINE/PF 5,000 UNIT/0.5 ML SYRINGE SQ SCH ×2 (00:18→10:47)
[2021-09-21] MEDS: SODIUM CHLORIDE 0.9% 1,000 ML IV SCH (05:57)
[2021-09-21] MEDS: NITROGLYCERIN OINT 1 INCH/GM PACKET TOPICAL SCH ×2 (05:57→06:02)
[2021-09-21 08:00] VITALS: BP 110/72; PULSE 91; RESP 18; TEMP 98.4
[2021-09-21] MEDS ORDERED: DOBUTamine DRIP for NUC MED 500 MG in DEXTROSE/WATER 1 250ML.BAG IV PRN (08:15)
[2021-09-21 08:46] LABS: ALT 10 U/L (4-34); AST 17 U/L (14-36); African American GFR (CKD) >90 (>60 ml/min/1.73 sqM); Albumin 3.3 g/dL (3.5-5.0); Albumin/Globulin Ratio 1.4; Alkaline Phosphatase 47 U/L (38-126); Anion Gap 5 mmol/L; Blood Urea Nitrogen 15 mg/dL (7-17); Calcium 8.4 mg/dL (8.4-10.2); Carbon Dioxide 26 mmol/L (22-30); Chloride 109 mmol/L (98-107); Globulin 2.4 g/dL; Glucose 95 mg/dL (74-99); Lipase 162 U/L (23-300); Non-African American GFR(CKD) >90 (>60 ml/min/1.73 sqM); Potassium 3.9 mmol/L (3.5-5.1); Sodium 140 mmol/L (137-145); Total Bilirubin 0.4 mg/dL (0.2-1.3); Total Protein 5.7 g/dL (6.3-8.2)
[2021-09-21 08:49] LABS: HCT 38.7 % (34.0-46.0); MCH 32.1 pg (25.0-35.0); MCHC 32.7 g/dL (31.0-37.0); MCV 98.1 fL (80.0-100.0); Platelet Count 195 k/uL (150-450); RBC 3.94 m/uL (3.80-5.40); RDW 12.7 % (11.5-15.5)
[2021-09-21 08:54] LABS: HGB 12.6 gm/dL (11.4-16.0)
[2021-09-21] MEDS ORDERED: ASPIRIN 325 MG TAB PO SCH (09:00)
[2021-09-21] MEDS ORDERED: buPROPion XL 300 MG TAB.ER.24H PO SCH (09:00)
[2021-09-21] MEDS ORDERED: ASPIRIN 81 MG PO SCH (09:00)
--- NOTE | 2021-09-21 09:13 | P.CRDCN ---
History of Present Illness History of present illness: HISTORY OF PRESENT ILLNESS: This is a 41-year-old female with a past medical history significant for lupus, fibromyalgia, anxiety, migraines, and connective tissue disorder. Patient used to follow in the office with Dr Martin but has not been seen since 2017. At t hat time patient underwent a tilt table test which did not show any evidence of neurogenic syncope or pots. She also underwent EP study which revealed sinus tachycardia with no inducible arrhythmias. We have been asked to see the patient in consultation for chest pain. Patient examined at the bedside. Patient states she has been having chest pain and back pain for the past 2-3 months. She state s that yesterday she was having chest pain that seemed to be more severe. She also reports the pain radiated into her back. She denied any shortness of breath. At the time of examination this morning, she denies any chest pain or pressure. * EKG reveals sinus tachycardia with no signs of acute ischemia. * Chest xray negative for acute process * Laboratory data: WBC 4.0. Hemoglobin 12.6. Platelet count 198. D-dimer 0.17. Sodium 140. Potassium 3.9. BUN 15. Creatinine 0.75. Magnesium 2.0. Troponin negative 3. * Current home cardiac medications include none * Echocardiogram completed revealing ejection fraction 60-65%, trace MR, mild TR. * Patient underwent stress test in 2013 which was negative for ischemia REVIEW OF SYSTEMS: At the time of my exam: CONSTITUTIONAL: Denies fever or chills. HEENT: Denies blurred vision, vision changes, or eye pain. Denies hemoptysis CARDIOVASCULAR: Denies chest pain. Denies orthopnea. Denies PND. Denies palpitations RESPIRATORY: Denies shortness of breath. GASTROINTESTINAL: Denies abdominal pain. Denies nausea or vomiting. HEMATOLOGIC: Denies bleeding disorders. GENITOURINARY: Denies any blood in urine. SKIN: Denies pruitis. Denies rash. PHYSICAL EXAM: VITAL SIGNS: Reviewed. GENERAL: Well-developed in no acute distress. HEENT: Head is normocephalic. Pupils are equal, round. Sclerae anicteric. Mucous membranes of the mouth are moist. Neck supple. No JVD or thyromegaly LUNGS: Respirations even and unlabored. Lungs essentially clear to auscultation bilaterally. HEART: Regular rate and rhythm. S1 and S2 heard. ABDOMEN: Soft. Nondistended. Nontender. EXTREMITIES: Normal range of motion. No clubbing or cyanosis. Peripheral pulses intact. No lower extremity edema NEUROLOGIC: Awake and alert. Oriented x 3. ASSESSMENT: Acute on chronic chest pain, troponins negative 3 Elevated lipase Lupus Fibromyalgia History of migraines Anxiety History of connective tissue disorder PLAN: An acute coronary event has been ruled out 2-D echo obtained and reviewed Patient states she is unable to complete a walking stress test. We will perform dobutamine stress test today to assess for ischemia If negative, the patient may be discharged home today from a cardiac standpoint Nurse practitioner note has been reviewed by physician. Signing provider agrees with the documented findings, assessment, and plan of care. Past Medical History Past Medical History: Fibromyalgia Additional Past Medical History / Comment(s): DIVERTICULITIS;PCOS " ARRYTHMIA", lupus "mottled skin on her back", pleurisy,migraines, mixed connective tissue disease,tremors,ibs, thyroid nodule History of Any Multi-Drug Resistant Organisms: None Reported Past Surgical History: Appendectomy, Bowel Resection, Section, Cholecystectomy, Hysterectomy, Tubal Ligation, Uterine Ablation Additional Past Surgical History / Comment(s): 09/30/14 Robotic assisted lap vaginal hysterectomy, lysis of adhesions pt stated bladder had been knicked -had sx to repair that and stomach lining, LAPAROSCOPY X4; TILT TABLE TEST AND EP STUDY. X4. BILAT CATARACTS REMOVED. 2015 pots, cardiac ablation. COLONOSCOPY Past Anesthesia/Blood Transfusion Reactions: No Reported Reaction Past Psychological History: Anxiety, Depression Smoking Status: Former smoker Past Alcohol Use History: None Reported Past Drug Use History: Marijuana - Past Family History Mother Family Medical History: No Reported History Additional Family Medical History / Comment(s): celiac disease, migarines Father Family Medical History: Diabetes Mellitus, Hyperlipidemia, Hypertension Additional Family Medical History / Comment(s): Glaucoma, Cataracts Medications and Allergies Home Medications Medication Instructions Recorded Confirmed Type Diazepam [Valium] 10 mg PO HS PRN 11/19/18 09/20/21 History HYDROcodone/APAP 7.5-325MG [[place] 1 tab PO DAILY PRN 11/19/18 09/20/21 History 7.5-325] Ondansetron Odt [Zofran Odt] 4 mg PO Q8HR PRN #10 tab 07/06/20 09/20/21 Rx Rizatriptan Odt [Maxalt DIVISION HUMAN RESOURCES MANAGER] 10 mg PO DAILY PRN 07/06/20 09/20/21 History buPROPion XL [Wellbutrin XL] 300 mg PO DAILY 07/06/20 09/20/21 History Immune Boost 1 tab PO DAILY 09/20/21 09/20/21 History Multivit with Calcium,Iron,Min 1 tab PO DAILY 09/20/21 09/20/21 History [Women's Multivitamin] Allergies Allergy/AdvReac Type Severity Reaction Status Date / Time No Known Allergies Allergy Verified 09/20/21 09:31 Physical Exam Vitals: Vital Signs Temp Pulse Pulse Resp BP BP Pulse Ox 09/21/21 07:00 98.4 F 91 18 110/72 100 09/21/21 04:03 79 100/59 09/21/21 03:30 98.2 F 79 16 94/54 99 09/21/21 02:00 89 09/20/21 20:00 98.1 F 89 17 111/69 99 09/20/21 19:26 86 18 09/20/21 15:00 98.0 F 86 18 114/73 99 09/20/21 12:37 98 09/20/21 11:35 98.5 F 93 18 135/90 98 09/20/21 11:25 98.1 F 98 16 107/85 98 09/20/21 09:27 97 18 131/88 99 09/20/21 08:50 108 H 22 127/91 99 09/20/21 08:25 98.4 F 138 H 16 154/67 100 Intake and Output 09/20/21 09/21/21 09/21/21 22:59 06:59 14:59 Intake Total 0 Balance 0 Intake: Oral 0 Other: Voiding Method Toilet # Voids 1 1 Results 09/21/21 05:41 09/21/21 05:41 Cardiac Enzymes 09/20/21 09/20/21 09/20/21 Range/Units 08:44 08:44 11:33 AST 25 (14-36) U/L Troponin I <0.012 <0.012 (0.000-0.034) ng/mL 09/20/21 Range/Units 14:19 AST (14-36) U/L Troponin I <0.012 (0.000-0.034) ng/mL Coagulation 09/20/21 Range/Units 08:44 PT 11.0 (9.0-12.0) sec APTT 24.8 (22.0-30.0) sec CBC 09/20/21 Range/Units 08:44 WBC 6.5 (3.8-10.6) k/uL RBC 5.00 (3.80-5.40) m/uL Hgb 15.7 (11.4-16.0) gm/dL Hct 47.7 H (34.0-46.0) % Plt Count 271 (150-450) k/uL Comprehensive Metabolic Panel 09/20/21 Range/Units 08:44 Sodium 139 (137-145) mmol/L Potassium 3.9 (3.5-5.1) mmol/L Chloride 104 (98-107) mmol/L Carbon Dioxide 24 (22-30) mmol/L BUN 17 (7-17) mg/dL Creatinine 0.89 (0.52-1.04) mg/dL Glucose 133 H (74-99) mg/dL Calcium 9.9 (8.4-10.2) mg/dL AST 25 (14-36) U/L ALT 15 (4-34) U/L Alkaline Phosphatase 66 (38-126) U/L Total Protein 8.2 (6.3-8.2) g/dL Albumin 5.2 H (3.5-5.0) g/dL Current Medications Generic Name Dose Route Start Last Admin Trade Name Freq PRN Reason Stop Dose Admin Hydrocodone Bitart/Acetaminophen 1 each 09/20/21 12:12 09/20/21 15:17 Hydrocodone/Apap 7.5-325mg 1 Each Tab PO 1 each DAILY PRN Administration Pain Alprazolam 0.25 mg 09/20/21 10:46 09/20/21 22:16 Alprazolam 0.25 Mg Tab PO 0.25 mg QID PRN Administration Anxiety Aspirin 81 mg 09/21/21 09:00 Aspirin 81 Mg PO DAILY SHELLY Bupropion HCl 300 mg 09/21/21 09:00 Bupropion Xl 300 Mg Tab.Er.24h PO DAILY SHELLY Heparin Sodium (Porcine) 5,000 unit 09/20/21 16:00 09/21/21 00:18 Heparin Sodium,Porcine/Pf 5,000 Unit/0.5 Ml Syringe SQ 5,000 unit Q8HR SHELLY Administration Sodium Chloride 1,000 mls @ 130 mls/hr 09/20/21 14:15 09/21/21 05:57 Saline 0.9% IV 130 mls/hr .[id number] SHELLY Administration Morphine Sulfate 4 mg 09/20/21 11:19 Morphine Sulfate 4 Mg/Ml Syringe IVP Q4HR PRN Pain Nitroglycerin 0.4 mg 09/20/21 10:46 Nitroglycerin Sl Tabs 0.4 Mg Tab SUBLINGUAL Q5M PRN Chest Pain Nitroglycerin 1 inch 09/20/21 12:00 09/21/21 06:02 Nitroglycerin Oint 1 Inch/Gm Packet TOPICAL Not Given Q6HR SHELLY Sodium Chloride 10 ml 09/20/21 21:00 09/20/21 21:48 Sodium Chloride 0.9% Flush 10 Ml Syringe IV 10 ml BID SHELLY Administration Sumatriptan Succinate 100 mg 09/20/21 12:12 Sumatriptan Succinate 50 Mg Tab PO DAILY PRN Migraine Headache Intake and Output 09/20/21 09/21/21 09/21/21 22:59 06:59 14:59 Intake Total 0 Balance 0 Intake: Oral 0 Other: Voiding Method Toilet # Voids 1 1 09/20/21 08:44 09/20/21 08:44
[2021-09-21 09:46] LABS: Chol/HDL Ratio 2.31 Ratio; Complement C3 67.2 mg/dL (80.0-207.0); LDL Cholesterol,Calculated 56.2 mg/dL (0.0-131.0); VLDL Calculation 12.42 mg/dL (5.00-40.00)
[2021-09-21] MEDS ORDERED: ONDANSETRON 4 MG/2 ML VIAL IVP PRN (11:18)
[2021-09-21] MEDS ORDERED: POTASSIUM CHLORIDE ER 20 MEQ TAB.ER PO STA (11:20)
--- NOTE | 2021-09-21 12:10 | CA ---
Dobutamine Stress Echocardiogram Report Amparo Valencia Age: 41 Gender: F : 1980 Exam Date: 09/21/2021 11:15 Exam Location: [facility] Ordering Physician: Mariaa Friend Referring Physician: [id number] [address] Justice: Sherita Dickens RDCS Technologist: Ht (in): 65 Wt (lb): 100 Procedure CPT: Indication: Chest Pain ICD-9 Codes: Rhythm: Patient History: Cardiac Medications: Medications in past 24 hours: Contrast: Total Dose (mL): Stress Results Protocol: Dobutamine Peak Dose (???g/kg/min): 40 Duration (min:sec): Atropine:(mg) N/A Target HR: 150 Double Product: [id number] Resting HR: 83 Resting BP: 114 / 81 Peak HR: 156 Peak BP: 169 / 75 Max Predicted HR: 177 88 % Max Predicted HR Stress Summary: BP Response: Reason for Termination: Cardiac Symptoms: ECG Analysis Resting EKG: Normal sinus rhythm normal axis normal intervals Stress EKG: At peak dobutamine infusion 88% of predicted maximal heart rate was obtained and there was no ST segment depression Arrhythmia: No significant cardiac arrhythmia Echo Analysis Base Echo Analysis: Technically suboptimal study Normal wall motion and LV function Low Echo Anaylsis: Peak Echo Analysis: Normal hyperdynamic response of all segments of myocardium noted Recovery Echo: MEASUREMENTS (Male/Female) Normal Values CONCLUSIONS Negative stress test by EKG criteria Negative dobutamine stress echo Dr. Ralph Machuca MD (Electronically Signed) Final Date: 21 Sep 2021 12:08
--- NOTE | 2021-09-21 13:28 | P.DS ---
Providers Date of admission: 09/20/21 10:46 Expected date of discharge: 09/21/21 Attending physician: Ginette Meier MD Primary care physician: Chuy Simon [place] Hospital Course: Discharge Diagnosis: Chest pain, acute coronary event ruled out. Likely costochondritis as pain is reproducible upon palpation. Elevated lipase, resolved Lupus, complement C3 remains slightly low at 67.2 patient being discharged home on prednisone 40 mg daily 5 days and to follow up outpatient with video production engineer. Fibromyalgia Chronic migraines Anxiety Connective tissue disorder Hospital Course: Patient is a very pleasant 41-year-old female with a past medical history of lupus, fibromyalgia, chronic migraines, anxiety and connective tissue disorder. She presented to the emergency department with a chief complaint of chest pain. Patient reports chest pain intermittently over the past 2-3 months but reports last night this feeling intensified and was described as an achiness/tightness in the midsternal chest radiating up her left anterior neck and into her jaw. Patient reports this pain persisted throughout the night accompanied by mild diaphoresis. She denies having any recent fevers or illnesses, headache, lightheadedness, dizziness, palpitations, shortness of breath, cough/congestion, nausea, vomiting, or experiencing any numbness/tingling/weakness in her extremities. In the emergency department patient underwent full evaluation. EKG completed showing sinus tachycardia at 110 bpm with no noted T-wave or ST abnormalities. CBC and CMP were unremarkable. Troponin less than 0.012 and d- dimer less than 0.17. chest x-ray negative for acute cardiopulmonary process. Patient was noted to have a slightly elevated lipase of 596. Abdominal u ltrasound completed negative for acute intra-abdominal process showing no worrisome pancreatic mass or abnormal ductal dilation on images. Patient was admitted under our services with consultation to cardiology. echocardiogram revealing normal EF of 60-65% with no significant valvular abnormalities. troponins were trended all negative at less than 0.012. Patient was seen and evaluated by cardiology and underwent a dobutamine stress test which was negative stress test by EKG criteria and negative dobutamine stress echo.repeat labs completed with CBC and CMP unremarkable. Lipid profile was unremarkable. Previous elevation in lipase resolved. Complement C3 and complement C4 drawn secondary to patient's history of lupus. Complement C3 was slightly low at 67.2. Patient is medically stable at this time for discharge, chest pain believed to be costochondritis as pain is reproducible upon palpation of left anterior chest.patient discharged home at this time was prescribed prednisone 40 mg daily 5 days secondary to slightly low complement C3. Patient stable for discharge and to follow up outpatient with PCP, cardiology, and rheumatology. Physical exam: Vital signs reviewed and stable. General: Nontoxic, no distress and appears stated age. Very thin/frail build. Skin warm and dry, normal coloration for ethnicity. Head: Atraumatic, normocephalic and symmetric. Eyes: EOMs intact, no lid lag, and anicteric sclera Mouth: no lip lesions, mucus membranes moist Cardiovascular: regular rate and rhythm with normal S1S2, no murmur, positive posterior tibial pulses bilaterally, and cap refill < 2 seconds. Patient with reproducible pain to left anterior chest upon palpation. Lungs: Respirations even, regular, and unlabored on room air. Lungs CTA bilaterally, no rhonchi, no rales, no wheezing, and no accessory muscle usage. Abdominal: soft, nontender to palpation, no guarding, no appreciable organomegaly Ext: ROM intact. No gross muscle atrophy, no edema, no contractures Neuro: Speech clear, face symmetrical and CN II-XII grossly intact with no noted focal neuro deficits Psych: Alert and oriented to person, place, time, and situation. Anxious but pleasant affect. A total of 35 minutes of time were spent preparing this complex discharge summary. Pt was discharged on 09/21/21 at 1:27 PM. I reviewed the documentation as provided by the KAREN above, who is the original author of this note. I agree with the documented assessment and plan, with the following changes: none Patient Condition at Discharge: Stable Plan - Discharge Summary Discharge Rx Participant: No New Discharge Prescriptions: New predniSONE [Deltasone] 40 mg PO DAILY 5 Days #10 tab Continue Diazepam [Valium] 10 mg PO HS PRN PRN Reason: Insomnia HYDROcodone/APAP 7.5-325MG [[place] 7.5-325] 1 tab PO DAILY PRN PRN Reason: Pain Ondansetron Odt [Zofran ODT] 4 mg PO Q8HR PRN #10 tab PRN Reason: Nausea buPROPion XL [Wellbutrin XL] 300 mg PO DAILY Rizatriptan Odt [Maxalt OPERATING ROOM ASSISTANT] 10 mg PO DAILY PRN PRN Reason: Migraine Headache Immune Boost 1 tab PO DAILY Multivit with Calcium,Iron,Min [Women's Multivitamin] 1 tab PO DAILY Discharge Medication List Diazepam [Valium] 10 mg PO HS PRN 11/19/18 [History] HYDROcodone/APAP 7.5-325MG [[place] 7.5-325] 1 tab PO DAILY PRN 11/19/18 [History] Ondansetron Odt [Zofran ODT] 4 mg PO Q8HR PRN #10 tab 07/06/20 [Rx] Rizatriptan Odt [Maxalt OPERATING ROOM ASSISTANT] 10 mg PO DAILY PRN 07/06/20 [History] buPROPion XL [Wellbutrin XL] 300 mg PO DAILY 07/06/20 [History] Immune Boost 1 tab PO DAILY 09/20/21 [History] Multivit with Calcium,Iron,Min [Women's Multivitamin] 1 tab PO DAILY 09/20/21 [History] predniSONE [Deltasone] 40 mg PO DAILY 5 Days #10 tab 09/21/21 [Rx] Follow up Appointment(s)/Referral(s): Chuy Simon III, MD [Primary Care Provider] - 1-2 days Daniella Domingo MD [STAFF PHYSICIAN] - 1 Week Ralph Machuca MD [STAFF PHYSICIAN] - 1 Week Activity/Diet/Wound Care/Special Instructions: Activity: As tolerated. Take breaks as needed. Diet: Heart healthy and carb consistent diet. Avoid salts, or foods with hidden salts such as canned or boxed foods and frozen dinners. Extra salt makes your heart work harder and traps the fluid in your body for longer. Special Instructions: Take all of your medications as directed and remember to keep all of your doctor's appointments and follow-up as needed. Thank you for allowing us to participate in your care, it was truly a pleasure having you for our patient!!! Discharge Disposition: HOME SELF-CARE
[2021-09-21 14:25] VITALS: BMI 16.6
== END 2021-09-21 14:28 | disposition home or self-care (01) ==
LOC: EC 08:23 → 6NMEDSUR 10:46
PROVIDERS: ADMIT Internal Medicine; ATTEND Internal Medicine
DX: R07.89 Other chest pain (principal); R74.8 Abnormal levels of other serum enzymes; G89.29 Other chronic pain; M79.7 Fibromyalgia; M35.1 Other overlap syndromes; R61 Generalized hyperhidrosis; G43.909 Migraine, unspecified, not intractable, without status migrainosus; E28.2 Polycystic ovarian syndrome; K58.9 Irritable bowel syndrome, unspecified; F32.A Depression, unspecified; F41.9 Anxiety disorder, unspecified; E04.1 Nontoxic single thyroid nodule; I49.8 Other specified cardiac arrhythmias; Z79.899 Other long term (current) drug therapy; Z98.51 Tubal ligation status; Z90.710 Acquired absence of both cervix and uterus; Z87.19 Personal history of other diseases of the digestive system; Z98.42 Cataract extraction status, left eye; Z98.41 Cataract extraction status, right eye; Z98.891 History of uterine scar from previous surgery; Z90.49 Acquired absence of other specified parts of digestive tract; Z87.891 Personal history of nicotine dependence; Z98.890 Other specified postprocedural states; Z83.79 Family history of other diseases of the digestive system; Z83.3 Family history of diabetes mellitus; Z82.49 Family history of ischemic heart disease and other diseases of the circulatory system; Z83.511 Family history of glaucoma; Z83.49 Family history of other endocrine, nutritional and metabolic diseases; Z82.0 Family history of epilepsy and other diseases of the nervous system; Z83.518 Family history of other specified eye disorder
CPT/HCPCS: 96376; 96361; 96372 ×2; 96374; 96375; 99285; 36415; 93005; 93306; 93351; 86160 ×2; 85379; 86162; 80061; 80053 ×2; 83690 ×2; 83735; 84484; 85025; 85027; 85610; 85730; 71046; 76705; G0378 ×2; J2060; J1250; J2270; J2405 ×2; J1644 ×2

== ENCOUNTER → 2021-09-29 | Day surgery (SDC) | payer MEDICARE ==
--- NOTE | 2021-10-04 10:45 | USB ---
Risk Values: Tatyana 5 year model risk: 0.5%. NCI Lifetime model risk: 7.1%. Pathology Description: Location: 11 o'clock, upper outer quadrant, anterior. EXAMINATION TYPE: US breast aspiration single RT DATE OF EXAM: 09/29/2021 CLINICAL HISTORY: N60.01 SOLITARY CYST OF RT BREAST. TECHNIQUE: Ultrasound guided vaccuum assisted cyst aspiration of right breast. COMPARISON: NONE FINDINGS: The ultrasound guided cyst aspiration procedure was explained to the patient. The risks, benefits, alternatives were discussed. An informed consent was then obtained. Timeout was performed. The patient was placed in supine positioning for imaging and for the procedure. The overlying skin was prepped with betadine and sterilely draped in usual sterile fashion. Lidocaine 1% was used as anesthetic into the skin and deeper breast tissue up to area of concern in the breast. Under ultrasound guidance, cyst aspiration was performed of a cyst at the 11:00 position right breast. This was an area identified by the patient as painful and correlating with previous palpable areas. Tiny amount of bloody fluid was extracted with easy decompression when the needle tip was placed within the cyst. A biopsy clip was left at the location. Barrel coil [place] tom was placed. Good hemostasis was obtained with direct pressure. Discharge instructions were discussed with the patient. The patient will follow up with the referring physician for results. Postprocedure mammogram: The patient was transferred to mammography for physician ordered post procedure mammogram for clip placement verification. The clip is in the expected region of the biopsy. The patient tolerated the procedure well without any immediate complication. The patient was discharged to home in stable condition. IMPRESSION: 1. Successful ultrasound cyst aspiration right breast. Pathology Results: Result: Benign, Benign cyst. RIGHT BREAST, ELEVEN O'CLOCK, ASPIRATION: Peripheral blood elements and small clusters of ductal cells having apocrine metaplasia. See note. Tissue Density: Right: The breast tissue is extremely dense which could obscure a lesion on mammography. Overall Assessment: Benign Assessment: MG diagnostic mammo RT wo CAD - Right: Benign, BI-RAD 2. Management: Diagnostic Breast Ultrasound of the right breast in 6 months. Electronically signed and approved by: Royce Hahn D.O. Radiologis
== END ==
LOC: RADUSWWP 12:41
PROVIDERS: ATTEND Surgery
DX: N60.81 Other benign mammary dysplasias of right breast (principal)
CPT/HCPCS: 19000; 19285; 88305; 88173; 77065; 76942; A4648

== ENCOUNTER 2022-01-26 11:09 | Emergency (ER) | payer MEDICARE ==
[2022-01-26] MEDS ORDERED: SODIUM CHLORIDE 0.9% 1,000 ML IV ONE (12:34)
[2022-01-26] MEDS ORDERED: methylPREDNISolone SOD SUCCI 125 MG/2 ML VIAL IV STA (12:35)
--- NOTE | 2022-01-26 12:37 | ED ---
General Adult HPI - General Chief complaint: Neuro Symptoms/Deficit Stated complaint: lupus, hard time walking Time Seen by Provider: 01/26/22 12:25 Source: patient, RN notes reviewed, old records reviewed Mode of arrival: wheelchair Limitations: no limitations - History of Present Illness Initial comments: This is a 41-year-old female with past history significant for lupus. Patient comes in today stating that she started having a migraine earlier in the morning she was very nauseated and vomiting. Patient states the pain radiates from her head now down into her trapezius muscles bilaterally. Patient denies any pain into her left arm. Patient denies any shortness of breath but she states it does hurt to take a deep breath because her costochondritis is acting up. Patient denies any anterior chest pain. Patient states she also has a little bit of pain in the lower back that radiates down her left leg. Patient denies abdominal pain. Patient denies any diarrhea. Patient denies any recent fever chills or cough. - Related Data Home Medications Medication Instructions Recorded Confirmed HYDROcodone/APAP 7.5-325MG [[place] 1 tab PO DAILY PRN 11/19/18 01/26/22 7.5-325] diazePAM [Valium] 10 mg PO HS PRN 11/19/18 01/26/22 Multivit with Calcium,Iron,Min 1 tab PO DAILY 09/20/21 01/26/22 [Women's Multivitamin] Previous Rx's Medication Instructions Recorded Ondansetron Odt [Zofran ODT] 4 mg PO Q8HR PRN #10 tab 07/06/20 predniSONE [Deltasone] 40 mg PO DAILY #8 tab 01/26/22 Allergies Allergy/AdvReac Type Severity Reaction Status Date / Time No Known Allergies Allergy Verified 01/26/22 15:34 Review of Systems ROS Statement: Those systems with pertinent positive or pertinent negative responses have been documented in the HPI. ROS Other: All systems not noted in ROS Statement are negative. Past Medical History Past Medical History: Fibromyalgia Additional Past Medical History / Comment(s): DIVERTICULITIS;PCOS " ARRYTHMIA", lupus "mottled skin on her back", pleurisy,migraines, mixed connective tissue disease,tremors,ibs, thyroid nodule History of Any Multi-Drug Resistant Organisms: None Reported Past Surgical History: Appendectomy, Bowel Resection, Section, Cholecystectomy, Hysterectomy, Tubal Ligation, Uterine Ablation Additional Past Surgical History / Comment(s): 09/30/14 Robotic assisted lap vaginal hysterectomy, lysis of adhesions pt stated bladder had been knicked -had sx to repair that and stomach lining, LAPAROSCOPY X4; TILT TABLE TEST AND EP STUDY. X4. BILAT CATARACTS REMOVED. 2016 pots, cardiac ablation. COLONOSCOPY Past Anesthesia/Blood Transfusion Reactions: No Reported Reaction Past Psychological History: Anxiety, Depression Smoking Status: Former smoker Past Alcohol Use History: None Reported Past Drug Use History: Marijuana - Past Family History Mother Family Medical History: No Reported History Additional Family Medical History / Comment(s): celiac disease, migarines Father Family Medical History: Diabetes Mellitus, Hyperlipidemia, Hypertension Additional Family Medical History / Comment(s): Glaucoma, Cataracts General Exam - General Exam Comments Initial Comments: GENERAL: Patient is well-developed and well-nourished. Patient is nontoxic and well- hydrated and is in mild distress. ENT: Neck is soft and supple. No significant lymphadenopathy is noted. Oropharynx is clear. Moist mucous membranes. Neck has full range of motion without eliciting any pain. EYES: The sclera were anicteric and conjunctiva were pink and moist. Extraocular movements were intact and pupils were equal round and reactive to light. Eyelids were unremarkable. PULMONARY: Unlabored respirations. Good breath sounds bilaterally. No audible rales rhonchi or wheezing was noted. CARDIOVASCULAR: There is a regular rate and rhythm without any murmurs gallops or rubs. Patient has some tenderness in the thoracic region posteriorly just below the left scapula ABDOMEN: Soft and nontender with normal bowel sounds. SKIN: Skin is clear with no lesions or rashes and otherwise unremarkable. NEUROLOGIC: Patient is alert and oriented x3. Cranial nerves II through XII are grossly intact. Motor and sensory are also intact. Normal speech, volume and content. Symmetrical smile. Straight leg test is negative bilaterally. NIH is 0 MUSCULOSKELETAL: Normal extremities with adequate strength and full range of motion. LYMPHATICS: No significant lymphadenopathy is noted PSYCHIATRIC: Normal psychiatric evaluation. Limitations: no limitations Course Vital Signs 01/26/22 01/26/22 01/26/22 11:26 15:21 16:07 Temperature 99.2 F 98.7 F Pulse Rate 91 95 99 Respiratory 16 16 18 Rate Blood Pressure 119/80 127/88 113/74 O2 Sat by Pulse 99 97 97 Oximetry Medical Decision Making - Medical Decision Making EKG shows sinus rhythm at 70 bpm NM interval is 128 QRSs 80 QT interval 383 QTC is 44 per patient's EKG shows no ST segment elevation or depression. Chest x-ray showed no acute normalities. Patient received droperidol and Reglan and for the nausea and headache. Patient states it helped very slightly. After that I gave the patient Benadryl and Compazine and Toradol and I will back into reevaluate the patient she stated she felt considerably better wanted be discharged home. Patient stated that often times she gets his thoracic pain it is her lupus acting up and steroids helped in the past so we will try a short course of steroids on the patient was home. - Lab Data Result diagrams: 01/26/22 13:01/26/22 13:01 Lab Results 01/26/22 01/26/22 Range/Units 13: 13:01 WBC 6.0 (3.8-10.6) k/uL RBC 5.09 (3.80-5.40) m/uL Hgb 15.3 (11.4-16.0) gm/dL Hct 47.8 H (34.0-46.0) % MCV 93.9 (80.0-100.0) fL MCH 30.0 (25.0-35.0) pg MCHC 32.0 (31.0-37.0) g/dL RDW 12.1 (11.5-15.5) % Plt Count 177 (150-450) k/uL MPV 9.4 Neutrophils % 85 % Lymphocytes % 4 % Monocytes % 7 % Eosinophils % 1 % Basophils % 1 % Neutrophils # 5.1 (1.3-7.7) k/uL Lymphocytes # 0.2 L (1.0-4.8) k/uL Monocytes # 0.4 (0-1.0) k/uL Eosinophils # 0.0 (0-0.7) k/uL Basophils # 0.1 (0-0.2) k/uL Sodium 139 (137-145) mmol/L Potassium 3.4 L (3.5-5.1) mmol/L Chloride 101 (98-107) mmol/L Carbon Dioxide 23 (22-30) mmol/L Anion Gap 15 mmol/L BUN 9 (7-17) mg/dL Creatinine 0.76 (0.52-1.04) mg/dL Est GFR (CKD-EPI)AfAm >90 (>60 ml/min/1.73 sqM) Est GFR (CKD-EPI)NonAf >90 (>60 ml/min/1.73 sqM) Glucose 94 (74-99) mg/dL Calcium 9.5 (8.4-10.2) mg/dL Total Bilirubin 0.7 (0.2-1.3) mg/dL AST 25 (14-36) U/L ALT 15 (4-34) U/L Alkaline Phosphatase 60 (38-126) U/L Total Protein 7.8 (6.3-8.2) g/dL Albumin 5.2 H (3.5-5.0) g/dL Disposition Clinical Impression: Migraine headache, Thoracic back pain Disposition: HOME SELF-CARE Condition: Good Prescriptions: predniSONE [Deltasone] 40 mg PO DAILY #8 tab Is patient prescribed a controlled substance at d/c from ED?: No Referrals: Chuy Simon III, MD [Primary Care Provider] - 1-2 days Time of Disposition: 16:51
[2022-01-26 13:19] LABS: Basophils # (A) 0.1 k/uL (0-0.2); Basophils % (A) 1 %; Eosinophils % (A) 1 %; HCT 47.8 % (34.0-46.0); HGB 15.3 gm/dL (11.4-16.0); Lymphocytes # (A) 0.2 k/uL (1.0-4.8); Lymphocytes % (A) 4 %; MCV 93.9 fL (80.0-100.0); Mean Platelet Volume 9.4; Monocytes # (A) 0.4 k/uL (0-1.0); Monocytes % (A) 7 %; Neutrophils # (A) 5.1 k/uL (1.3-7.7); Neutrophils % (A) 85 %; Platelet Count 177 k/uL (150-450); RBC 5.09 m/uL (3.80-5.40); RDW 12.1 % (11.5-15.5)
[2022-01-26 13:33] LABS: ALT 15 U/L (4-34); AST 25 U/L (14-36); African American GFR (CKD) >90 (>60 ml/min/1.73 sqM); Albumin 5.2 g/dL (3.5-5.0); Alkaline Phosphatase 60 U/L (38-126); Anion Gap 15 mmol/L; Blood Urea Nitrogen 9 mg/dL (7-17); Calcium 9.5 mg/dL (8.4-10.2); Carbon Dioxide 23 mmol/L (22-30); Chloride 101 mmol/L (98-107); Glucose 94 mg/dL (74-99); Non-African American GFR(CKD) >90 (>60 ml/min/1.73 sqM); Potassium 3.4 mmol/L (3.5-5.1); Sodium 139 mmol/L (137-145); Total Bilirubin 0.7 mg/dL (0.2-1.3); Total Protein 7.8 g/dL (6.3-8.2)
--- NOTE | 2022-01-26 14:28 | XR ---
EXAMINATION TYPE: XR chest 2V DATE OF EXAM: 01/26/2022 COMPARISON: 09/30/2021 TECHNIQUE: PA and lateral views submitted. HISTORY: Chest pain FINDINGS: The lungs are clear and there is no pneumothorax, pleural effusion, or focal pneumonia. Heart size is normal. No overt failure. Biapical pleural thickening. Hyperexpansion of the lungs. Surgical clips in the abdomen. IMPRESSION: 1. No acute process. Correlate for asthma or COPD.
--- NOTE | 2022-01-26 14:30 | XR ---
EXAMINATION TYPE: XR cervical spine comp DATE OF EXAM: 01/26/2022 COMPARISON: NONE HISTORY: Pain TECHNIQUE: Four views are submitted. FINDINGS: The odontoid is intact. There are no compression deformities. The prevertebral soft tissue structur es are within normal limits. Vertebral body height and disc airspace maintained. IMPRESSION: 1. No acute process. If symptoms persist or there is concern for disc herniation consider MRI.
[2022-01-26] MEDS ORDERED: PROCHLORPERAZINE INJ 10 MG/2 ML VIAL IVP STA (15:29)
[2022-01-26] MEDS ORDERED: diphenhydrAMINE 50 MG/ML 1 ML VIAL IVP STA (15:29)
[2022-01-26] MEDS ORDERED: KETOROLAC 15 MG/ML 1 ML VIAL IVP STA (15:29)
[2022-01-26 16:08] VITALS: RESP 18
[2022-01-26 17:10] VITALS: BP 102/69; PULSE 98; TEMP 98.6
== END 2022-01-26 17:08 | disposition home or self-care (01) ==
LOC: EC 11:09
DX: G43.909 Migraine, unspecified, not intractable, without status migrainosus (principal); M54.6 Pain in thoracic spine; F41.9 Anxiety disorder, unspecified; F32.A Depression, unspecified; Z87.891 Personal history of nicotine dependence; F12.90 Cannabis use, unspecified, uncomplicated; Z79.899 Other long term (current) drug therapy
CPT/HCPCS: 36415; 93005; 80053; 85025; 72050; 71046; 99284; 96374; 96375 ×4; 96361; J1200; J0780; J2930; J1885; J1790

== ENCOUNTER 2022-09-19 14:09 | Observation (INO) | payer MEDICARE ==
--- NOTE | 2022-09-19 16:18 | ED ---
General Adult HPI - General Chief complaint: Chest Pain Stated complaint: chest pain Time Seen by Provider: 09/19/22 15:35 Source: patient, RN notes reviewed, old records reviewed Mode of arrival: ambulatory Limitations: no limitations - History of Present Illness Initial comments: 42-year-old female presenting to the emergency department for reevaluation of central chest pain radiating to the bilateral arms. Patient's had contacted her apprentice painter hand who recommended the patient presented to the emergency department.He is vomiting or diaphoresis. No fever. - Related Data Home Medications Medication Instructions Recorded Confirmed HYDROcodone/APAP 7.5-325MG [[place] 1 tab PO Q8H PRN 11/19/18 09/19/22 7.5-325] diazePAM [Valium] 10 - 20 mg PO HS PRN 11/19/18 09/19/22 Cholecalciferol [Vitamin D3 (25 25 mcg PO DAILY 09/19/22 09/19/22 Mcg = 1000 Iu)] Mirabegron [Myrbetriq] 50 mg PO DIRECTED 09/19/22 09/19/22 Allergies Allergy/AdvReac Type Severity Reaction Status Date / Time No Known Allergies Allergy Verified 09/19/22 15:53 Review of Systems ROS Statement: Those systems with pertinent positive or pertinent negative responses have been documented in the HPI. ROS Other: All systems not noted in ROS Statement are negative. Past Medical History Past Medical History: Fibromyalgia Additional Past Medical History / Comment(s): DIVERTICULITIS;PCOS " ARRYTHMIA", lupus "mottled skin on her back", pleurisy,migraines, mixed connective tissue disease,tremors,ibs, thyroid nodule, pots, tachycardia History of Any Multi-Drug Resistant Organisms: None Reported Past Surgical History: Appendectomy, Bowel Resection, Section, Cholecystectomy, Hysterectomy, Tubal Ligation, Uterine Ablation Additional Past Surgical History / Comment(s): 09/30/14 Robotic assisted lap vaginal hysterectomy, lysis of adhesions pt stated bladder had been knicked -had sx to repair that and stomach lining, LAPAROSCOPY X4; TILT TABLE TEST AND EP STUDY. X4. BILAT CATARACTS REMOVED. 2016 pots, cardiac ablation. COLONOSCOPY Past Anesthesia/Blood Transfusion Reactions: No Reported Reaction Past Psychological History: Anxiety, Depression Smoking Status: Former smoker Past Alcohol Use History: None Reported Past Drug Use History: Marijuana - Past Family History Mother Family Medical History: No Reported History Additional Family Medical History / Comment(s): celiac disease, migarines Father Family Medical History: Diabetes Mellitus, Hyperlipidemia, Hypertension Additional Family Medical History / Comment(s): Glaucoma, Cataracts General Exam Limitations: no limitations General appearance: alert, anxious Head exam: Present: atraumatic, normocephalic Eye exam: Present: normal appearance, PERRL ENT exam: Present: normal exam Neck exam: Present: normal inspection. Absent: tenderness, meningismus Respiratory exam: Present: normal lung sounds bilaterally. Absent: respiratory distress, wheezes, rales Cardiovascular Exam: Present: regular rate, normal rhythm GI/Abdominal exam: Present: soft. Absent: distended, tenderness, guarding Extremities exam: Present: normal inspection, normal capillary refill. Absent: pedal edema, joint swelling Neurological exam: Present: alert, oriented X3, CN II-XII intact. Absent: motor sensory deficit Psychiatric exam: Present: anxious Skin exam: Present: warm, dry, intact. Absent: cyanosis, diaphoretic Course Vital Signs 09/19/22 14:16 Temperature 98 F Pulse Rate 108 H Respiratory 16 Rate Blood Pressure 137/89 O2 Sat by Pulse 99 Oximetry EKG Findings - EKG Comments: EKG Findings:: EKG: Sinus rhythm rate 97, TX interval 133, QRS duration 79, QTC 399, no ST segment elevation. - EKG Results: EKG: interpreted by KYLE Medical Decision Making - Medical Decision Making Was pt. sent in by a medical professional or institution (, PA, TRAINING AND DEVELOPMENT HEAD, urgent care, hospital, or long term...) When possible be specific @ -No Did you speak to anyone other than the patient for history (EMS, parent, family, police, friend...)? What history was obtained from this source @ -No Did you review nursing and triage notes (agree or disagree)? Why? @ -I reviewed and agree with nursing and triage notes Were old charts reviewed (outside hosp., previous admission, EMS record, old EKG, old radiological studies, urgent care reports/EKG's, long term records)? Report findings @ -No old charts were reviewed Differential Diagnosis (chest pain, altered mental status, abdominal pain women, abdominal pain men, vaginal bleeding, weakness, fever, dyspnea, syncope, headache, dizziness, GI bleed, back pain, seizure, CVA, palpatations, mental health, musculoskeletal)? @ -Differential Chest Pain: Stable Angina, Unstable Angina, STEMI, NSTEMI Aortic Dissection, Pneumothorax, Musculoskeletal, Esophageal Spasm GERD, Cholecystitis, Pancreatitis, Zoster, this is not meant to be an all-inclusive list. EKG interpreted by me (3pts min.). @ -As above X-rays interpreted by me (1pt min.). @Chest x-ray negative for acute cardiac primary findings CT interpreted by me (1pt min.). @ -None done U/S interpreted by me (1pt. min.). @ -None done What testing was considered but not performed or refused? (CT, X-rays, U/S, labs)? Why? @ -None What meds were considered but not given or refused? Why? @ -None Did you discuss the management of the patient with other professionals (professionals i.e. , PA, TRAINING AND DEVELOPMENT HEAD, lab, RT, psych nurse, social work nurse, natural gas field processing supervisor, teacher, foreign service officer, case assembler)? Give summary @ [facility] Was smoking cessation discussed for >3mins.? @ -No Was critical care preformed (if so, how long)? @ -No Were there social determinants of health that impacted care today? How? (Homelessness, low income, unemployed, alcoholism, drug addiction, transportation, low edu. Level, literacy, decrease access to med. care, assisted, re hab)? @ -No Was there de-escalation of care discussed even if they declined (Discuss DNR or withdrawal of care, Hospice)? DNR status @ -No What co-morbidities impacted this encounter? (DM, HTN, Smoking, COPD, CAD, Cancer, CVA, ARF, Chemo, Hep., AIDS, mental health diagnosis, sleep apnea, morbid obesity)? @ -Smoking Was patient admitted / discharged? Hospital course, mention meds given and route, prescriptions, significant lab abnormalities, going to OR and other pertinent info. @ Given the recurrent nature of her symptoms she will be admitted for cardiology consultation, telemetry, serial cardiac enzymes, and echo Undiagnosed new problem with uncertain prognosis? @ -No Drug Therapy requiring intensive monitoring for toxicity (Heparin, Nitro, Insulin, Cardizem)? @ -No Were any procedures done? @ -No Diagnosis/symptom? @ Chest pain Acute, or Chronic, or Acute on Chronic? @ Acute Uncomplicated (without systemic symptoms) or Complicated (systemic symptoms)? @Complicated Side effects of treatment? @ -No Exacerbation, Progression, or Severe Exacerbation? @ -No Poses a threat to life or bodily function? How? (Chest pain, [place], PR, pneumonia, PE, COPD, DKA, ARF, appy, cholecystitis, CVA, Diverticulitis, Homicidal, Suicidal, threat to staff... and all critical care pts) @ Yes, chest pain - Lab Data Result diagrams: 09/19/22 16:25 09/19/22 16:25 Lab Results 09/19/22 09/19/22 09/19/22 Range/Units 16:25 16:25 16:25 WBC 8.8 (3.8-10.6) k/uL RBC 5.29 (3.80-5.40) m/uL Hgb 16.1 H (11.4-16.0) gm/dL Hct 48.5 H (34.0-46.0) % MCV 91.7 (80.0-100.0) fL MCH 30.5 (25.0-35.0) pg MCHC 33.3 (31.0-37.0) g/dL RDW 12.5 (11.5-15.5) % Plt Count 269 (150-450) k/uL MPV 9.6 Neutrophils % 82 % Lymphocytes % 12 % Monocytes % 3 % Eosinophils % 0 % Basophils % 0 % Neutrophils # 7.2 (1.3-7.7) k/uL Lymphocytes # 1.1 (1.0-4.8) k/uL Monocytes # 0.3 (0-1.0) k/uL Eosinophils # 0.0 (0-0.7) k/uL Basophils # 0.0 (0-0.2) k/uL PT 10.2 (9.0-12.0) sec INR 1.0 (<1.2) APTT 23.2 (22.0-30.0) sec D-Dimer <0.17 (<0.60) mg/L FEU Sodium 139 (137-145) mmol/L Potassium 3.5 (3.5-5.1) mmol/L Chloride 102 (98-107) mmol/L Carbon Dioxide 24 (22-30) mmol/L Anion Gap 13 mmol/L BUN 13 (7-17) mg/dL Creatinine 0.73 (0.52-1.04) mg/dL Est GFR (CKD-EPI)AfAm >90 (>60 ml/min/1.73 sqM) Est GFR (CKD-EPI)NonAf >90 (>60 ml/min/1.73 sqM) Glucose 91 (74-99) mg/dL Calcium 9.7 (8.4-10.2) mg/dL Magnesium 2.0 (1.6-2.3) mg/dL Total Bilirubin 0.7 (0.2-1.3) mg/dL AST 34 (14-36) U/L ALT 28 (4-34) U/L Alkaline Phosphatase 60 (38-126) U/L Troponin I (0.000-0.034) ng/mL Total Protein 7.9 (6.3-8.2) g/dL Albumin 4.9 (3.5-5.0) g/dL Lipase 60 (23-300) U/L 09/19/22 Range/Units 16:25 WBC (3.8-10.6) k/uL RBC (3.80-5.40) m/uL Hgb (11.4-16.0) gm/dL Hct (34.0-46.0) % MCV (80.0-100.0) fL MCH (25.0-35.0) pg MCHC (31.0-37.0) g/dL RDW (11.5-15.5) % Plt Count (150-450) k/uL MPV Neutrophils % % Lymphocytes % % Monocytes % % Eosinophils % % Basophils % % Neutrophils # (1.3-7.7) k/uL Lymphocytes # (1.0-4.8) k/uL Monocytes # (0-1.0) k/uL Eosinophils # (0-0.7) k/uL Basophils # (0-0.2) k/uL PT (9.0-12.0) sec INR (<1.2) APTT (22.0-30.0) sec D-Dimer (<0.60) mg/L FEU Sodium (137-145) mmol/L Potassium (3.5-5.1) mmol/L Chloride (98-107) mmol/L Carbon Dioxide (22-30) mmol/L Anion Gap mmol/L BUN (7-17) mg/dL Creatinine (0.52-1.04) mg/dL Est GFR (CKD-EPI)AfAm (>60 ml/min/1.73 sqM) Est GFR (CKD-EPI)NonAf (>60 ml/min/1.73 sqM) Glucose (74-99) mg/dL Calcium (8.4-10.2) mg/dL Magnesium (1.6-2.3) mg/dL Total Bilirubin (0.2-1.3) mg/dL AST (14-36) U/L ALT (4-34) U/L Alkaline Phosphatase (38-126) U/L Troponin I <0.012 (0.000-0.034) ng/mL Total Protein (6.3-8.2) g/dL Albumin (3.5-5.0) g/dL Lipase (23-300) U/L Disposition Clinical Impression: Chest pain Disposition: ADMITTED IP TO [facility] Condition: Stable Is patient prescribed a controlled substance at d/c from ED?: No Referrals: Chuy Simon III, MD [Primary Care Provider] - 1-2 days Time of Disposition: 18:04
[2022-09-19 16:37] LABS: Basophils % (A) 0 %; Eosinophils % (A) 0 %; HCT 48.5 % (34.0-46.0); HGB 16.1 gm/dL (11.4-16.0); Lymphocytes # (A) 1.1 k/uL (1.0-4.8); Lymphocytes % (A) 12 %; MCH 30.5 pg (25.0-35.0); MCHC 33.3 g/dL (31.0-37.0); MCV 91.7 fL (80.0-100.0); Mean Platelet Volume 9.6; Monocytes # (A) 0.3 k/uL (0-1.0); Monocytes % (A) 3 %; Neutrophils # (A) 7.2 k/uL (1.3-7.7); Neutrophils % (A) 82 %; Platelet Count 269 k/uL (150-450); RBC 5.29 m/uL (3.80-5.40); RDW 12.5 % (11.5-15.5); WBC 8.8 k/uL (3.8-10.6)
[2022-09-19 16:53] LABS: ALT 28 U/L (4-34); AST 34 U/L (14-36); African American GFR (CKD) >90 (>60 ml/min/1.73 sqM); Albumin 4.9 g/dL (3.5-5.0); Alkaline Phosphatase 60 U/L (38-126); Anion Gap 13 mmol/L; Blood Urea Nitrogen 13 mg/dL (7-17); Calcium 9.7 mg/dL (8.4-10.2); Carbon Dioxide 24 mmol/L (22-30); Chloride 102 mmol/L (98-107); Glucose 91 mg/dL (74-99); Lipase 60 U/L (23-300); Non-African American GFR(CKD) >90 (>60 ml/min/1.73 sqM); Potassium 3.5 mmol/L (3.5-5.1); Sodium 139 mmol/L (137-145); Total Bilirubin 0.7 mg/dL (0.2-1.3); Total Protein 7.9 g/dL (6.3-8.2)
[2022-09-19 16:55] LABS: Partial Thromboplastin Time 23.2 sec (22.0-30.0); Prothrombin Time 10.2 sec (9.0-12.0)
--- NOTE | 2022-09-19 17:07 | XR ---
EXAMINATION TYPE: XR chest 2V DATE OF EXAM: 09/19/2022 COMPARISON: 09/12/2022 HISTORY: 42 year-old female chest pain TECHNIQUE: PA and lateral views FINDINGS: The cardiomediastinal silhouette, aorta, and pulmonary vasculature are within normal limits. Lungs an d pleural spaces are clear. IMPRESSION: No acute cardiopulmonary process.
[2022-09-19] MEDS ORDERED: LORazepam 0.5 MG TAB PO PRN (18:01)
[2022-09-19] MEDS ORDERED: ACETAMINOPHEN TAB 325 MG TAB PO PRN (18:01)
[2022-09-19] MEDS ORDERED: NALOXONE 0.4 MG/ML 1 ML VIAL IV PRN (18:01)
[2022-09-19 18:27] LABS: Glucose,Whole Blood 88 mg/dL (70-110)
[2022-09-19] MEDS: MORPHINE SULFATE 4 MG/ML SYRINGE IV PRN ×2 (18:32→21:41)
[2022-09-19] MEDS ORDERED: HYDROcodone/APAP 7.5-325MG 1 EACH TAB PO PRN (20:23)
[2022-09-19] MEDS ORDERED: diazePAM 5 MG TAB PO SCH (21:30)
[2022-09-20] MEDS ORDERED: PANTOPRAZOLE 40 MG TABLET PO SCH (07:30)
[2022-09-20] MEDS ORDERED: KETOROLAC 15 MG/ML 1 ML VIAL IVP PRN (08:13)
[2022-09-20] MEDS ORDERED: MAG HYDROX/AL HYDROX/SIMETH 30 ML, HYOSCYAMINE ELIXIR 10 ML, LIDOCAINE 2% GLYDO JELLY 1... PO ONE ×3 (08:30)
[2022-09-20] MEDS ORDERED: CHOLECALCIFEROL 25 MCG (1000 IU) TABLET PO SCH (09:00)
[2022-09-20 09:18] VITALS: RESP 16
--- NOTE | 2022-09-20 09:47 | P.CRDCN ---
History of Present Illness Consult date: 09/20/22 Consult reason: chest pain Chief complaint: Chest pain History of present illness: History of present illness: Patient is a pleasant 42-year-old female with significant past medical history of fibromyalgia and lupus who presented with chest pains. She follows with Dr. Machuca in the office. She has a significant family history of her father having CAD and hypertension. She saw Dr. Machuca last week in the office and is scheduled for an echocardiogram in October. However, she developed worsening chest pain and was referred by the office to go to the ER. She has been having chest pain ongoing for the past 2-3 weeks. She was recently diagnosed with pneumonia and took a Z-Dc for she did not feel better after this. Yesterday morning she reports that she woke up and was soaked in sweats with chest pain. Chest pain does radiate to the left armpit/neck/back, but also will get pain in the right arm intermittently as well. Nothing seems to make the chest pain better or worse. She denies any fevers, chills, cough. Denies any shortness of breath. She does report increased nausea and decreased appetite over the past couple days. She has also had a migraine for the past couple weeks as well. She denies any change in the chest pain with food. Denies any pain with deep breathing. She does report she feels like she is in a lupus flair for the last week and reports that she is starting to get mouth and nose blisters which is typically her first symptom. She is not currently on any treatment for lupus. L ab work reviewed: Troponin negative 3, WBC 8.8, hemoglobin 16.1 d-dimer negative, creatinine 0.73. EKG shows sinus rhythm with sinus arrhythmia. Chest x-ray with no acute findings. She had a prior echocardiogram 09/2021 with ejection fraction 60-65%. She also had a prior dobutamine stress test 09/2021 and was unremarkable. REVIEW OF SYSTEMS: No fever or chills. No cough or expectoration. No d iaphoresis. Patient denies dizziness, blurred vision, double vision. Patient denies any stomach discomfort. No vomiting. No hematochezia. No hematemesis. Denies any black stools or blood in his stools. Denies dysuria or hematuria. No muscle weakness or numbness. Reports chest pain, decreased appetite, nausea, headache. PHYSICAL EXAMINATION: This is a 42-year-old female in no apparent distress at the time of my examination. HEENT: Head is atraumatic, normocephalic. Pupils are equal, round. Sclerae anicteric. Conjunctivae are clear. Mucous membranes of the mouth are moist. There is no jugular venous distention. No carotid bruit is heard. CHEST EXAMINATION: Lungs are clear to auscultation. No chest wall tenderness is noted on palpation or with deep breathing. HEART EXAMINATION: Heart regular rate and rhythm. S1, S2 heard. No murmurs, gallops or rub. ABDOMEN: Soft, nontender. Bowel sounds are heard. No organomegaly noted. EXTREMITIES: 2+ peripheral pulses with no evidence of peripheral edema and no calf tenderness noted. NEUROLOGIC EXAMINATION: Patient is awake, alert and oriented x3. IMPRESSION AND PLAN: Chest pain Lupus Fibromyalgia History of migraines PLAN: We will check echocardiogram to rule out pericarditis. Chest pain is atypical in nature, troponin negative 3, likely related to lupus flare. Patient had a recent stress test 1 year ago that was unremarkable, no need to repeat at this time. We'll check CRP and ESR. Recommend trial of GI cocktail to see if symptoms improve. Also, recommend Toradol when necessary for pain. If echocardiogram is stable, then OK to DC from cardiology standpoint and follow-up with Dr. Machuca in 1 week. I am dictating on behalf of Dr. Boni Benjamin's history/physical and assessment/plan. Past Medical History Past Medical History: Fibromyalgia Additional Past Medical History / Comment(s): DIVERTICULITIS;PCOS " ARRYTHMIA", lupus "mottled skin on her back", pleurisy,migraines, mixed connective tissue disease,tremors,ibs, thyroid nodule, pots, tachycardia History of Any Multi-Drug Resistant Organisms: None Reported Past Surgical History: Appendectomy, Bowel Resection, Section, Cholecystectomy, Hysterectomy, Tubal Ligation, Uterine Ablation Additional Past Surgical History / Comment(s): 09/30/14 Robotic assisted lap vaginal hysterectomy, lysis of adhesions pt stated bladder had been knicked -had sx to repair that and stomach lining, LAPAROSCOPY X4; TILT TABLE TEST AND EP STUDY. X4. BILAT CATARACTS REMOVED. 2015 pots, cardiac ablation. COLONOSCOPY Past Anesthesia/Blood Transfusion Reactions: No Reported Reaction Past Psychological History: Anxiety, Depression Additional Psychological History / Comment(s): Pt resides with her spouse/children. She no longer drives, her spouse drives or her children drive. She has a cane, walker and wheelchair. Smoking Status: Former smoker Past Alcohol Use History: None Reported Additional Past Alcohol Use History / Comment(s): Pt started smokingin 1980 and quit in 2017 Past Drug Use History: Marijuana Additional Drug Use History / Comment(s): Occasional marijuana use. - Past Family History Mother Family Medical History: No Reported History Additional Family Medical History / Comment(s): celiac disease, migarines Father Family Medical History: Diabetes Mellitus, Hyperlipidemia, Hypertension Additional Family Medical History / Comment(s): Glaucoma, Cataracts Medications and Allergies Home Medications Medication Instructions Recorded Confirmed Type HYDROcodone/APAP 7.5-325MG [[place] 1 tab PO Q8H PRN 11/19/18 09/19/22 History 7.5-325] diazePAM [Valium] 10 - 20 mg PO HS PRN 11/19/18 09/19/22 History Cholecalciferol [Vitamin D3 (25 25 mcg PO DAILY 09/19/22 09/19/22 History Mcg = 1000 Iu)] Mirabegron [Myrbetriq] 50 mg PO DIRECTED 09/19/22 09/19/22 History Allergies Allergy/AdvReac Type Severity Reaction Status Date / Time No Known Allergies Allergy Verified 09/19/22 15:53 Physical Exam Vitals: Vital Signs Temp Pulse Pulse Resp BP BP BP 09/20/22 07:41 09/20/22 07:00 97.9 F 69 16 121/82 09/20/22 02:00 98.1 F 67 14 114/76 09/19/22 20:00 98.2 F 85 18 144/89 09/19/22 19:54 97.8 F 98 18 128/89 09/19/22 19:00 98 18 131/90 09/19/22 18:19 87 18 124/92 09/19/22 17:00 22 09/19/22 14:16 98 F 108 H 16 137/89 Pulse Ox FiO2 09/20/22 07:41 100 21 09/20/22 07:00 100 09/20/22 02:00 100 09/19/22 20:00 99 09/19/22 19:54 98 09/19/22 19:00 98 09/19/22 18:19 98 09/19/22 17:00 09/19/22 14:16 99 Intake and Output 09/19/22 09/20/22 09/20/22 22:59 06:59 14:59 Other: # Voids 1 1 Weight 57.606 kg Results 09/19/22 16:25 09/19/22 16:25 Cardiac Enzymes 09/19/22 09/19/22 09/19/22 Range/Units 16:25 16:25 20:05 AST 34 (14-36) U/L Troponin I <0.012 <0.012 (0.000-0.034) ng/mL 09/20/22 Range/Units 01:09 AST (14-36) U/L Troponin I <0.012 (0.000-0.034) ng/mL Coagulation 09/19/22 Range/Units 16:25 PT 10.2 (9.0-12.0) sec APTT 23.2 (22.0-30.0) sec CBC 09/19/22 Range/Units 16:25 WBC 8.8 (3.8-10.6) k/uL RBC 5.29 (3.80-5.40) m/uL Hgb 16.1 H (11.4-16.0) gm/dL Hct 48.5 H (34.0-46.0) % Plt Count 269 (150-450) k/uL Comprehensive Metabolic Panel 09/19/22 Range/Units 16:25 Sodium 139 (137-145) mmol/L Potassium 3.5 (3.5-5.1) mmol/L Chloride 102 (98-107) mmol/L Carbon Dioxide 24 (22-30) mmol/L BUN 13 (7-17) mg/dL Creatinine 0.73 (0.52-1.04) mg/dL Glucose 91 (74-99) mg/dL Calcium 9.7 (8.4-10.2) mg/dL AST 34 (14-36) U/L ALT 28 (4-34) U/L Alkaline Phosphatase 60 (38-126) U/L Total Protein 7.9 (6.3-8.2) g/dL Albumin 4.9 (3.5-5.0) g/dL Current Medications Generic Name Dose Route Start Last Admin Trade Name Radha PRN Reason Stop Dose Admin Acetaminophen 650 mg 09/19/22 18:01 Acetaminophen Tab 325 Mg Tab PO Q6HR PRN Mild Pain or Fever > 100.5 Hydrocodone Bitart/Acetaminophen 1 each 09/19/22 20:23 Hydrocodone/Apap 7.5-325mg 1 Each Tab PO Q8H PRN Pain Cholecalciferol 25 mcg 09/20/22 09:00 09/20/22 08:36 Cholecalciferol 25 Mcg (1000 Iu) Tablet PO 25 mcg DAILY SHELLY Administration Diazepam 20 mg 09/19/22 21:30 09/19/22 21:36 Diazepam 5 Mg Tab PO 20 mg HS SHELLY Administration Ketorolac Tromethamine 15 mg 09/20/22 08:13 09/20/22 08:36 Ketorolac 15 Mg/Ml 1 Ml Vial IVP 09/25/22 08:15 15 mg Q6HR PRN Administration Pain Lorazepam 0.5 mg 09/19/22 18:01 09/19/22 18:32 Lorazepam 0.5 Mg Tab PO 0.5 mg Q6HR PRN Administration Anxiety Morphine Sulfate 4 mg 09/19/22 18:01 09/19/22 21:41 Morphine Sulfate 4 Mg/Ml Syringe IV 4 mg Q4HR PRN Administration Severe Pain (Scale 7 to 10) Naloxone HCl 0.2 mg 09/19/22 18:01 Naloxone 0.4 Mg/Ml 1 Ml Vial IV Q2M PRN Opioid Reversal Pantoprazole Sodium 40 mg 09/20/22 07:30 09/20/22 05:27 Pantoprazole 40 Mg Tablet PO 40 mg [id number] SHELLY Administration Intake and Output 09/19/22 09/20/22 09/20/22 22:59 06:59 14:59 Other: # Voids 1 1 Weight 57.606 kg 09/19/22 16:25 09/19/22 16:25
--- NOTE | 2022-09-20 12:04 | HP ---
HISTORY AND PHYSICAL This is a combined history and physical and discharge summary. CHIEF COMPLAINT: Chest pain. HISTORY OF PRESENT ILLNESS: This is a 42-year-old woman with a past medical history of lupus, being followed by Dr. Simon. The patient is complaining of left-sided chest pain. The pain has actually felt on the left side of the chest, left axilla and left back. The patient had a stress test last year. The patient is scheduled to have a stress test in October. Cardiac markers are negative. Cardiology is recommending a 2D echo and consider the possibility of pleural pericarditis. Troponins are negative. There is no history of any fever, rigors, or chills. PAST MEDICAL HISTORY: Reviewed, include appendectomy, bowel resection, fibromyalgia, lupus. HOME MEDICATIONS: Reviewed include Valium. Dose and rest of medications noted. ALLERGIES: None. FAMILY HISTORY: History of celiac disease, migraine. SOCIAL HISTORY: Previous history of smoking. REVIEW OF SYSTEMS: Fourteen-point review of systems is negative except as mentioned earlier. PHYSICAL EXAMINATION: VITAL SIGNS: Pulse is 69, blood pressure 121/82, respirations 16. HEENT: Conjunctivae normal. NECK: No jugular venous distention. CARDIOVASCULAR: S1, S2. RESPIRATIONS: Clear to auscultation. ABDOMEN: Soft. LEGS: No edema. NERVOUS SYSTEM: No focal deficits. SKIN: No ulcer, rash, or bleeding. JOINTS: No active deforming arthropathy. LABORATORY DATA: Labs are reviewed. IMAGING STUDIES: Chest x-ray reviewed. EKG reviewed, within normal limits. ASSESSMENT: 1. Left-sided chest pain, possibly pleural pericarditis. 2. History of lupus. 3. History of fibromyalgia. 4. History of appendectomy, bowel resection. 5. Multiple medical issues. RECOMMENDATIONS: This is a 42-year-old woman who presented with multiple complex medical issues. I recommend symptomatic treatment of the pain and 2D echo as recommended by Cardiology. If the 2D echo was okay and cardiology cleared the patient, the patient maybe discharged home with outpatient followup and I would also recommend follow up with the patient's lupus physician and follow up with primary physician. See discharge reconciliation sheet for discharge recommendations. Please note, this is a combined history and physical and discharge summary. MMODL / IJN: [id number] /
[2022-09-20 15:20] VITALS: BP 118/74; PULSE 73; TEMP 98.4
--- NOTE | 2022-09-20 16:55 | CA ---
Transthoracic Echo Report Name: Amparo Valencia Age: 42 Gender: F : 1980 Exam Date: 09/20/2022 09:52 Exam Location: [facility] Ht (in): 66 Wt (lb): 127 Ordering Physician: Piero White MD Attending/Referring Phys: [id number], [facility] Denia Redmond RDCS Procedure CPT: Indications: CP Cardiac Hx: Technical Quality: Good Contrast 1: Total Dose (mL): Contrast 2: Total Dose (mL): MEASUREMENTS (Male / Female) Normal Values 2D ECHO LV Diastolic Diameter PLAX 4.4 cm 4.2 - 5.9 / 3.9 - 5.3 cm LV Systolic Diameter PLAX 2.7 cm IVS Diastolic Thickness 0.9 cm 0.6 - 1.0 / 0.6 - 0.9 cm LVPW Diastolic Thickness 0.8 cm 0.6 - 1.0 / 0.6 - 0.9 cm LV Relative Wall Thickness 0.4 RV Internal Dim ED PLAX 3.0 cm LVOT Diameter 2.8 cm LV Diastolic Volume MOD 4C 63.0 cm??? LV Systolic Volume MOD 4C 32.4 cm??? LV Ejection Fraction MOD 4C 48.5 % LV Diastolic Length 4C 7.5 cm LV Systolic Length 4C 5.8 cm LV Diastolic Volume MOD 2C 57.7 cm??? LV Systolic Volume MOD 2C 32.5 cm??? LV Ejection Fraction MOD 2C 43.7 % LV Diastolic Length 2C 7.4 cm LV Systolic Length 2C 6.6 cm M-MODE Aortic Root Diameter MM 2.8 cm AV Cusp Separation MM 2.0 cm DOPPLER AV Peak Velocity 117.2 cm/s AV Peak Gradient 5.5 mmHg Mitral E Point Velocity 68.6 cm/s Mitral A Point Velocity 52.9 cm/s Mitral E to A Ratio 1.3 MV Deceleration Time 245.6 ms MV E' Velocity 12.0 cm/s Mitral E to MV E' Ratio 5.7 FINDINGS Left Ventricle Left ventricular ejection fraction is estimated at 50-55 %. Left ventricular cavity size normal. Left ventricular wall thickness normal. Normal left ventricular wall motion. Right Ventricle Normal right ventricular size and function. Unable to estimate the right ventricular systolic pressure. Right Atrium Normal right atrial size. Left Atrium Normal left atrial size. Mitral Valve Structurally normal mitral valve. Trace to mild mitral regurgitation. Aortic Valve Trileaflet aortic valve. No aortic valve stenosis or regurgitation. Tricuspid Valve Structurally normal tricuspid valve. No tricuspid regurgitation. Pulmonic Valve Structurally normal pulmonic valve. Trace pulmonic regurgitation. Pericardium Normal pericardium. No pericardial effusion. Aorta Normal size aortic root and proximal ascending aorta. CONCLUSIONS Left ventricular ejection fraction 50-55% Normal left ventricular wall thickness Trace to mild mitral regurgitation No pericardial effusion Previewed by: Dr. Boni Benjamin DO (Electronically Signed) Final Date: 20 Sep 2022 16:54
--- NOTE | 2022-09-20 20:16 | P.DS ---
Providers Date of admission: 09/19/22 18:01 Expected date of discharge: 09/20/22 Attending physician: Edgardo Vo Consults: 09/19/22 18:01 Consult Physician Routine Consulting Provider: Ralph Machuca Consult Reason/Comments: CP Do you want consulting provider notified?: Yes Primary care physician: Chuy Escobar [facility] Course: Final diagnosis Left-sided chest pain, pleural pericarditis ruled out, acute coronary syndrome ruled out History of lupus history of fibromyalgia history of appendectomy with bowel resection Discharge disposition Patient is being discharged in a stable condition with guarded prognosis to home. Patient will follow-up with Dr. Simon in the outpatient setting upon discharge. Patient is to continue with outpatient stress testing as scheduled in October and close outpatient follow-up with cardiology as scheduled. Total time taken is greater than 35 minutes. Hospital course This is a 42-year-old female who was recently admitted with chest pain evaluated by cardiology. Patient underwent 2-D echo with pericarditis ruled out and has been instructed to keep appointment in October for outpatient stress testing. Patient recently had one approximately one year ago. Patient also follows with a Fabian Santiago Dr. for lupus and encouraged to follow-up this week. Patient to continue current medication regimen as mentioned below and close outpatient follow-up. Please refer to other consultation notes for further HPI. Currently no reports of chest pain, shortness of breath, or palpitations. Patient is afebrile. No reports of nausea or vomiting and patient is tolerating diet. Patient will be discharged home today. Physical exam: Gen: This is a 42-year-old female who is awake, alert and oriented 3, well- developed, well-nourished HEENT: Head is atraumatic, normocephalic. Pupils equal, round. Sclerae is anicteric. NECK: Supple. No JVD. No lymphadenopathy. No thyromegaly. LUNGS: Clear to auscultation. No wheezes or rhonchi. No intercostal retractions. HEART: Regular rate and rhythm. No murmur. ABDOMEN: Soft. Bowel sounds are present. No masses. No tenderness. EXTREMITIES: No pedal edema. No calf tenderness. NEUROLOGICAL: Patient is awake, alert and oriented x3. Cranial nerves 2 through 12 are grossly intact. Please refer to medication reconciliation sheet for a list of medications. The impression and plan of care has been dictated by Sepideh Polk, Nurse Practitioner as directed. Dr. Tavo MD I have performed a history and examination and MDM of this patient, discussed the same with the dictator, and agree with the dictator's assessment and plan as written ,documented as a scribe. Based on total visit time, I have performed more than 50% of the visit. Patient Condition at Discharge: Stable Plan - Discharge Summary Discharge Rx Participant: No New Discharge Prescriptions: New Acetaminophen Tab [Tylenol] 650 mg PO Q6HR PRN tab PRN Reason: Mild Pain Or Fever > 100.5 Continue diazePAM [Valium] 10 - 20 mg PO HS PRN PRN Reason: Insomnia HYDROcodone/APAP 7.5-325MG [[place] 7.5-325] 1 tab PO Q8H PRN PRN Reason: Pain Mirabegron [Myrbetriq] 50 mg PO DAILY Cholecalciferol [Vitamin D3 (25 Mcg = 1000 Iu)] 25 mcg PO DAILY Discharge Medication List HYDROcodone/APAP 7.5-325MG [[place] 7.5-325] 1 tab PO Q8H PRN 11/19/18 [History] diazePAM [Valium] 10 - 20 mg PO HS PRN 11/19/18 [History] Cholecalciferol [Vitamin D3 (25 Mcg = 1000 Iu)] 25 mcg PO DAILY 09/19/22 [History] Mirabegron [Myrbetriq] 50 mg PO DAILY 09/19/22 [History] Acetaminophen Tab [Tylenol] 650 mg PO Q6HR PRN tab 09/20/22 [Rx] Follow up Appointment(s)/Referral(s): Chuy Simon III, MD [Primary Care Provider] - 1-2 days Ralph Machuca MD [STAFF PHYSICIAN] - 09/29/22 1:45 pm Patient Instructions/Handouts: Chest Pain (DC) Activity/Diet/Wound Care/Special Instructions: Activity Limited until follow-up Follow-up with primary care provider and discharge Follow-up with your Fabian santiago Dr. regarding lupus and medication adjustments Keep scheduled appointment with stress testing Follow-up cardiology outpatient Discharge Disposition: HOME SELF-CARE
== END 2022-09-20 17:20 | disposition home or self-care (01) ==
LOC: EC 14:09 → 6NMEDSUR 18:01
PROVIDERS: ADMIT Hospitalist; ATTEND Hospitalist
DX: R07.9 Chest pain, unspecified (principal); M32.9 Systemic lupus erythematosus, unspecified; M79.7 Fibromyalgia; E28.2 Polycystic ovarian syndrome; G43.909 Migraine, unspecified, not intractable, without status migrainosus; M35.1 Other overlap syndromes; R25.1 Tremor, unspecified; K58.9 Irritable bowel syndrome, unspecified; G90.A Postural orthostatic tachycardia syndrome [POTS]; Z87.19 Personal history of other diseases of the digestive system; Z90.49 Acquired absence of other specified parts of digestive tract; Z98.891 History of uterine scar from previous surgery; Z90.710 Acquired absence of both cervix and uterus; Z98.51 Tubal ligation status; Z98.890 Other specified postprocedural states; F41.9 Anxiety disorder, unspecified; F32.A Depression, unspecified; Z83.79 Family history of other diseases of the digestive system; Z83.3 Family history of diabetes mellitus; Z82.49 Family history of ischemic heart disease and other diseases of the circulatory system; Z83.438 Family history of other disorder of lipoprotein metabolism and other lipidemia; Z83.511 Family history of glaucoma; Z98.42 Cataract extraction status, left eye; Z98.41 Cataract extraction status, right eye; Z79.899 Other long term (current) drug therapy
CPT/HCPCS: 96376; 96375; 96374; 99285; 36415; 94760; 93005; 93306; 85379; 80053; 85652; 83690; 83735; 84484 ×2; 85025; 85610; 85730; 86140; 71046; G0378 ×2; J2270; J1885

== ENCOUNTER 2023-03-14 10:07 | Emergency (ER) | payer MEDICARE ==
[2023-03-14 10:21] VITALS: TEMP 98.1
[2023-03-14 10:43] VITALS: RESP 18
--- NOTE | 2023-03-14 10:56 | ED ---
Chest Pain HPI - General Chief Complaint: Chest Pain Stated Complaint: Chest Pain,High Bp Time Seen by Provider: 03/14/23 10:28 Source: patient Mode of arrival: ambulatory Limitations: no limitations - History of Present Illness Initial Comments: 42-year-old female past history of pots disease, lupus who presents to the emergency department reporting chest pain. States that she does have issues with chronic chest pain possibly related to pleurisy. She is currently on treatment for her lupus to help the symptoms. She also follows with Dr. Pinto. He did order a CT of her chest which was completed today. During the infusion she had sudden onset of chest pain and trouble breathing. They then recommended that she come to the emergency room for evaluation of this. She denies having issues with contrast previously. Dr. Pinto just recently placed her on 10 mg of prednisone daily which she states usually helps her chronic chest pain. She has had significant cardiac workup without any findings. No other alleviating, precipitating or modifying factors - Related Data Home Medications Medication Instructions Recorded Confirmed HYDROcodone/APAP 7.5-325MG [[place] 1 tab PO Q8H PRN 11/19/18 09/19/22 7.5-325] diazePAM [Valium] 10 - 20 mg PO HS PRN 11/19/18 09/19/22 Cholecalciferol [Vitamin D3 (25 25 mcg PO DAILY 09/19/22 09/19/22 Mcg = 1000 Iu)] Mirabegron [Myrbetriq] 50 mg PO DAILY 09/19/22 09/20/22 Previous Rx's Medication Instructions Recorded Acetaminophen Tab [Tylenol] 650 mg PO Q6HR PRN tab 09/20/22 Allergies Allergy/AdvReac Type Severity Reaction Status Date / Time No Known Allergies Allergy Verified 03/14/23 10:15 Review of Systems ROS Statement: Those systems with pertinent positive or pertinent negative responses have been documented in the HPI. ROS Other: All systems not noted in ROS Statement are negative. Past Medical History Past Medical History: Fibromyalgia Additional Past Medical History / Comment(s): DIVERTICULITIS;PCOS " ARRYTHMIA", lupus "mottled skin on her back", pleurisy,migraines, mixed connective tissue disease,tremors,ibs, thyroid nodule, pots, tachycardia History of Any Multi-Drug Resistant Organisms: None Reported Past Surgical History: Appendectomy, Bowel Resection, Section, Cho lecystectomy, Hysterectomy, Tubal Ligation, Uterine Ablation Additional Past Surgical History / Comment(s): 09/30/14 Robotic assisted lap vaginal hysterectomy, lysis of adhesions pt stated bladder had been knicked -had sx to repair that and stomach lining, LAPAROSCOPY X4; TILT TABLE TEST AND EP STUDY. X4. BILAT CATARACTS REMOVED. 2016 pots, cardiac ablation. COLONOSCOPY Past Anesthesia/Blood Transfusion Reactions: No Reported Reaction Past Psychological History: Anxiety, Depression Smoking Status: Former smoker Past Alcohol Use History: None Reported Past Drug Use History: Marijuana - Past Family History Mother Family Medical History: No Reported History Additional Family Medical History / Comment(s): celiac disease, migarines Father Family Medical History: Diabetes Mellitus, Hyperlipidemia, Hypertension Additional Family Medical History / Comment(s): Glaucoma, Cataracts General Exam Limitations: no limitations General appearance: alert, in no apparent distress Head exam: Present: atraumatic, normocephalic, normal inspection Eye exam: Present: normal appearance, PERRL, EOMI. Absent: scleral icterus, conjunctival injection, periorbital swelling ENT exam: Present: normal exam, mucous membranes moist Neck exam: Present: normal inspection. Absent: tenderness, meningismus, lymphadenopathy Respiratory exam: Present: normal lung sounds bilaterally. Absent: respiratory distress, wheezes, rales, rhonchi, stridor Cardiovascular Exam: Present: normal rhythm, tachycardia, normal heart sounds. Absent: systolic murmur, diastolic murmur, rubs, gallop, clicks GI/Abdominal exam: Present: soft, normal bowel sounds. Absent: distended, tenderness, guarding, rebound, rigid Extremities exam: Present: normal inspection, full ROM, normal capillary refill. Absent: tenderness, pedal edema, joint swelling, calf tenderness Back exam: Present: normal inspection Neurological exam: Present: alert, oriented X3, CN II-XII intact Psychiatric exam: Present: normal affect, normal mood Skin exam: Present: warm, dry, intact, normal color. Absent: rash Course Vital Signs 03/14/23 03/14/23 03/14/23 10:13 10:18 11:50 Temperature 98.1 F Pulse Rate 114 H 85 Respiratory 22 18 18 Rate Blood Pressure 131/76 121/85 O2 Sat by Pulse 99 98 Oximetry 10/31/23 12:34 Temperature Pulse Rate 78 Respiratory 18 Rate Blood Pressure 122/74 O2 Sat by Pulse 99 Oximetry Chest Pain MDM - MDM Was pt. sent in by a medical professional or institution (, LINDA, FOREST FIRE MANAGEMENT OFFICER, urgent care, hospital, or custodial...) When possible be specific @ -No Did you speak to anyone other than the patient for history (EMS, parent, family, police, friend...)? What history was obtained from this source @ -No Did you review nursing and triage notes (agree or disagree)? Why? @ -I reviewed and agree with nursing and triage notes Were old charts reviewed (outside hosp., previous admission, EMS record, old EKG, old radiological studies, urgent care reports/EKG's, custodial records)? Report findings @ -The CT that was done today in the outpatient setting was reviewed Differential Diagnosis (chest pain, altered mental status, abdominal pain women, abdominal pain men, vaginal bleeding, weakness, fever, dyspnea, syncope, headache, dizziness, GI bleed, back pain, seizure, CVA, palpatations, mental health, musculoskeletal)? @ -Differential Chest Pain: Stable Angina, Unstable Angina, STEMI, NSTEMI Aortic Dissection, Pneumothorax, Musculoskeletal, Esophageal Spasm GERD, Cholecystitis, Pancreatitis, Zoster, this is not meant to be an all-inclusive list. EKG interpreted by me (3pts min.). @ -Yes and demonstrates sinus tachycardia with a rate of 110. IA interval 136. QRS 82. QTC of 390. No acute ST segment elevations or depression X-rays interpreted by me (1pt min.). @ -None done CT interpreted by me (1pt min.). @ -None done U/S interpreted by me (1pt. min.). @ -None done What testing was considered but not performed or refused? (CT, X-rays, U/S, labs)? Why? @ -None What meds were considered but not given or refused? Why? @ -None Did you discuss the management of the patient with other professionals (professionals i.e. LINDA Romero, FOREST FIRE MANAGEMENT OFFICER, lab, RT, psych nurse, social worker delinquency prevention, high speed warper tender, teacher, sailing officer, case reviewer)? Give summary @ -No Was smoking cessation discussed for >3mins.? @ -No Was critical care preformed (if so, how long)? @ -No Were there social determinants of health that impacted care today? How? (Homelessness, low income, unemployed, alcoholism, drug addiction, transportation, low edu. Level, literacy, decrease access to med. care, correction, rehab)? @ -No Was there de-escalation of care discussed even if they declined (Discuss DNR or withdrawal of care, Hospice)? DNR status @ -No What co-morbidities impacted this encounter? (DM, HTN, Smoking, COPD, CAD, Cancer, CVA, ARF, Chemo, Hep., AIDS, mental health diagnosis, sleep apnea, morbid obesity)? @ -Lupus, tachycardia, pots Was patient admitted / discharged? Hospital course, mention meds given and route, prescriptions, significant lab abnormalities, going to OR and other pertinent info. @ Upon arrival patient was placed in room 15. Neuro history and physical exam is performed. Patient placed on continuous pulse ox and cardiac monitoring. 12-lead EKG is obtained. Laboratory studies were conducted and reviewed. Chest CT does not demonstrate any acute findings. Results are discussed with patient. She feels improved at this time. Patient will be discharged home instructed to start her prednisone pack. Return for any new or worsening symptoms per patient was agreeable discharged in stable condition Undiagnosed new problem with uncertain prognosis? @ -No Drug Therapy requiring intensive monitoring for toxicity (Heparin, Nitro, Insulin, Cardizem)? @ -No Were any procedures done? @ -No Diagnosis/symptom? @ -default Acute, or Chronic, or Acute on Chronic? @ -Acute atypical chest pain, possible medication side effect, history of tachycardia Uncomplicated (without systemic symptoms) or Complicated (systemic symptoms)? @ -Complicated Side effects of treatment? @ -No Exacerbation, Progression, or Severe Exacerbation? @ -Yes, patient has chronic chest pain with exacerbations Poses a threat to life or bodily function? How? (Chest pain, [place], [place], pneumonia, PE, COPD, DKA, ARF, appy, cholecystitis, CVA, Diverticulitis, Homicidal, Suicidal, threat to staff... and all critical care pts) @ -No Disposition Clinical Impression: Palpitations Disposition: HOME SELF-CARE Condition: Stable Instructions (If sedation given, give patient instructions): Chest Pain (ED) Additional Instructions: Please start your steroids. Follow-up with your care team and return for any new or worsening symptoms Is patient prescribed a controlled substance at d/c from ED?: No Referrals: Piero Pinto DO [Family Provider] - 1-2 days Time of Disposition: 12:27
[2023-03-14 11:16] LABS: Basophils % (A) 0 %; Eosinophils % (A) 0 %; HCT 44.6 % (34.0-46.0); HGB 14.9 gm/dL (11.4-16.0); Lymphocytes # (A) 1.1 k/uL (1.0-4.8); Lymphocytes % (A) 10 %; MCH 31.5 pg (25.0-35.0); MCHC 33.4 g/dL (31.0-37.0); MCV 94.3 fL (80.0-100.0); Mean Platelet Volume 10.6; Monocytes # (A) 0.3 k/uL (0-1.0); Monocytes % (A) 3 %; Neutrophils # (A) 9.1 k/uL (1.3-7.7); Neutrophils % (A) 85 %; Platelet Count 231 k/uL (150-450); RBC 4.72 m/uL (3.80-5.40); RDW 12.1 % (11.5-15.5); WBC 10.7 k/uL (3.8-10.6)
[2023-03-14] MEDS ORDERED: SODIUM CHLORIDE 0.9% 1,000 ML IV ONE (11:19)
[2023-03-14 11:33] LABS: ALT 14 U/L (4-34); AST 23 U/L (14-36); African American GFR (CKD) >90 (>60 ml/min/1.73 sqM); Albumin 4.7 g/dL (3.5-5.0); Alkaline Phosphatase 52 U/L (38-126); Anion Gap 14 mmol/L; Blood Urea Nitrogen 14 mg/dL (7-17); Calcium 9.4 mg/dL (8.4-10.2); Carbon Dioxide 19 mmol/L (22-30); Chloride 104 mmol/L (98-107); Glucose 123 mg/dL (74-99); Lipase 66 U/L (23-300); Non-African American GFR(CKD) >90 (>60 ml/min/1.73 sqM); Potassium 3.4 mmol/L (3.5-5.1); Sodium 137 mmol/L (137-145); Total Bilirubin 0.8 mg/dL (0.2-1.3); Total Protein 7.4 g/dL (6.3-8.2)
[2023-03-14 11:41] LABS: Partial Thromboplastin Time 23.4 sec (22.0-30.0); Prothrombin Time 11.1 sec (10.0-12.5)
[2023-03-14 12:37] VITALS: BP 122/74; PULSE 78
== END 2023-03-14 12:35 | disposition home or self-care (01) ==
LOC: EC 10:07
DX: R00.2 Palpitations (principal); I10 Essential (primary) hypertension; F41.9 Anxiety disorder, unspecified; F32.A Depression, unspecified; F12.90 Cannabis use, unspecified, uncomplicated; Z79.899 Other long term (current) drug therapy; Z87.891 Personal history of nicotine dependence; Z90.49 Acquired absence of other specified parts of digestive tract
CPT/HCPCS: 36415; 80053; 83690; 83735; 84484; 85025; 85610; 85730; 93005; 96360; 99285

== ENCOUNTER → 2023-03-14 | Outpatient (CLI) | payer MEDICARE ==
--- NOTE | 2023-03-14 10:44 | CT ---
EXAMINATION TYPE: CT chest angio for PE DATE OF EXAM: 03/14/2023 COMPARISON: None HISTORY: 42-year-old female I26.9 chest pain, SOB, elevated BP TECHNIQUE: Contiguous axial scanning of the chest performed with IV Contrast, patient injected with 1 00 mL of Isovue 370. Coronal/sagittal MIP reconstructions performed. CT DLP: 123.9 mGycm Automated exposure control for dose reduction was used. FINDINGS: Heart is normal size without pericardial effusion. No flattening of the interventricular septum or re flux of contrast into the hepatic veins. Aorta normal caliber without evidence for aortic dissection. There is very direct takeoff of the left vertebral artery directly from the aortic arch. No thoracic lymph adenopathy by CT size criteria. Satisfactory opacification of the pulmonary to systemic without evidence for pulmonary embolus. Mild biapical pleural-parenchymal scarring. There may some mild underlying emphysematous change. No c onsolidation or pleural effusion. Visualized upper abdomen shows cholecystectomy clips. No osseous destructive process. IMPRESSION: SOME POSSIBLE UNDERLYING MILD EMPHYSEMATOUS CHANGE. CLINICALLY CORRELATE. NO EVIDENCE FOR PULMONARY E MBOLUS.
== END | disposition home or self-care (01) ==
LOC: RADCTMAIN 09:39
PROVIDERS: ATTEND Internal Medicine Critical Care Medicine
DX: I26.99 Other pulmonary embolism without acute cor pulmonale (principal); R03.0 Elevated blood-pressure reading, without diagnosis of hypertension
CPT/HCPCS: 71275; Q9967

== ENCOUNTER → 2023-06-01 | Outpatient (CLI) | payer MEDICARE ==
--- NOTE | 2023-06-02 20:15 | MM ---
Reason for Exam: Screening (asymptomatic). Last mammogram was performed 1 year(s) and 10 month(s) ago. Patient History: Menarche at age 11. First Full-Term at age 17. Right ovary removed at age 34. Hysterectomy at age 34. 09/29/2021, Benign US breast aspiration single RT on the right side. Maternal aunt had breast cancer, age 60. Risk Values: Tatyana 5 year model risk: 0.6%. NCI Lifetime model risk: 7.1%. Prior Study Comparison: 07/08/2020 Bilateral Diagnostic Mammogram, [facility]. 08/10/2021 Bilateral Diagnostic Mammogram, PH. 09/29/2021 Right MG diagnostic mammo RT wo CAD, MERGED WITH [facility]. Tissue Density: The breast tissue is heterogeneously dense. This may lower the sensitivity of mammography. Findings: Analyzed By CAD. Microclip right breast from prior biopsy. There is no suspicious group of microcalcifications or new suspicious mass in either breast. Overall Assessment: Benign, BI-RAD 2 Management: Screening Mammogram of both breasts in 1 year. . Patient should continue monthly self-breast exams. A clinical breast exam by your physician is recommended on an annual basis. This exam should not preclude additional follow-up of suspicious palpable abnormalities. Note on Tatyana scores and lifetime risk: 1. A Tatyana score greater than 3% is considered moderate risk. If this is the case, consider specialist referral to assess eligibility for a risk reducing agent. 2. If overall lifetime risk for the development of breast cancer is 20% or higher, the patient may qualify for future screening with alternating mammogram and breast MRI. Electronically signed and approved by: Roberto Parsons M.D. Radiologist
== END | disposition home or self-care (01) ==
LOC: RADMAMWWP 11:54
PROVIDERS: ATTEND Family Medicine
DX: Z12.31 Encounter for screening mammogram for malignant neoplasm of breast (principal); R92.333 Mammographic heterogeneous density, bilateral breasts; Z90.710 Acquired absence of both cervix and uterus; Z80.3 Family history of malignant neoplasm of breast
CPT/HCPCS: 77063; 77067

== ENCOUNTER → 2023-06-14 | Outpatient (CLI) | payer MEDICARE ==
--- NOTE | 2023-06-14 13:28 | US ---
EXAMINATION TYPE: US pelvic complete DATE OF EXAM: 06/14/2023 COMPARISON: NONE CLINICAL INDICATION: Female, 42 years old with history of N32.81 OVERACTIVE BLADDER R10.2 PELVIC AND PERINEA; Patient states she his not experiencing pelvic pain and she is here to have her bladder eval uated and sent to the urologist for surgical consultation. TECHNIQUE: Transabdominal (TA). Transabdominal sonographic images of the pelvis were acquired. EXAM MEASUREMENTS: Uterus: Surgically absent Endometrial Stripe: Surgically absent Right Ovary: Not visualized due to overlying bowel gas Left Ovary: Surgically absent Bilateral Adnexa: Wnl Posterior cul-de-sac: Wnl Bladder is anechoic in appearance with bilateral jets noted. Prevoid volume measures 252 ml. Post voi d residual noted at 62.9 ml. IMPRESSION: Post void residual is greater than 50 mL.
== END | disposition home or self-care (01) ==
LOC: RADUSWWP 12:08
PROVIDERS: ATTEND Family Medicine
DX: R10.2 Pelvic and perineal pain (principal)
CPT/HCPCS: 76856

== ENCOUNTER → 2023-06-14 | Outpatient (CLI) | payer MEDICARE ==
[2023-06-14 16:14] LABS: BUN/Creat Ratio 9.89 Ratio (12.00-20.00); Blood Urea Nitrogen 8.9 mg/dL (9.0-27.0); Calcium 9.8 mg/dL (8.7-10.3); Carbon Dioxide 24.2 mmol/L (21.6-31.8); Chloride 106 mmol/L (96-109); Glucose 121 mg/dL (70-110); Potassium 3.4 mmol/L (3.5-5.5); Sodium 144 mmol/L (135-145)
== END | disposition home or self-care (01) ==
LOC: LABWHC1 12:29
PROVIDERS: ATTEND Family Medicine
DX: R10.2 Pelvic and perineal pain (principal)
CPT/HCPCS: 36415; 80048

== ENCOUNTER 2023-06-24 12:59 | Emergency (ER) | payer MEDICARE ==
[2023-06-24 13:27] VITALS: RESP 18; TEMP 98.3
[2023-06-24] MEDS: SODIUM CHLORIDE 0.9% 1,000 ML IV STA (13:46)
[2023-06-24] MEDS: ONDANSETRON 4 MG/2 ML VIAL IVP STA (13:47)
[2023-06-24] MEDS: KETOROLAC 15 MG/ML 1 ML VIAL IVP STA (13:47)
[2023-06-24] MEDS: HYDROmorphone 0.5 MG/0.5 ML SYRINGE IVP STA (13:51)
[2023-06-24 13:54] LABS: Basophils % (A) 0 %; Eosinophils % (A) 0 %; HCT 41.9 % (34.0-46.0); Lymphocytes # (A) 1.2 k/uL (1.0-4.8); Lymphocytes % (A) 19 %; MCH 31.4 pg (25.0-35.0); MCHC 33.3 g/dL (31.0-37.0); MCV 94.3 fL (80.0-100.0); Mean Platelet Volume 9.1; Monocytes # (A) 0.2 k/uL (0-1.0); Monocytes % (A) 3 %; Neutrophils # (A) 4.8 k/uL (1.3-7.7); Neutrophils % (A) 76 %; Platelet Count 241 k/uL (150-450); RBC 4.45 m/uL (3.80-5.40); RDW 12.5 % (11.5-15.5); WBC 6.3 k/uL (3.8-10.6)
[2023-06-24 14:02] LABS: Appearance,Urine Cloudy (Clear); Bacteria,Urine Rare /hpf; Bilirubin,Urine Negative (Negative); Blood,Urine Negative (Negative); Color,Urine Yellow; Glucose,Urine (UA) Negative (Negative); Ketones,Urine Trace (Negative); Leukocyte Esterase,Urine Negative (Negative); Mucus,Urine Many /hpf; Nitrite,Urine Negative (Negative); PH, Urine 5.5 (5.0-8.0); Protein,Urine Trace (Negative); Specific Gravity,Urine 1.029 (1.001-1.035); Squamous Epithelial Cell,Urine 6 /hpf (0-4); Urobilinogen,Urine <2.0 mg/dL (<2.0); WBC,Urine 1 /hpf (0-5)
[2023-06-24 14:05] LABS: ALT 12 U/L (4-34); AST 22 U/L (14-36); African American GFR (CKD) >90 (>60 ml/min/1.73 sqM); Albumin 4.3 g/dL (3.5-5.0); Alkaline Phosphatase 70 U/L (38-126); Anion Gap 9 mmol/L; Blood Urea Nitrogen 13 mg/dL (7-17); Calcium 9.2 mg/dL (8.4-10.2); Carbon Dioxide 24 mmol/L (22-30); Chloride 107 mmol/L (98-107); Glucose 101 mg/dL (74-99); Lipase 67 U/L (23-300); Non-African American GFR(CKD) >90 (>60 ml/min/1.73 sqM); Potassium 3.8 mmol/L (3.5-5.1); Sodium 140 mmol/L (137-145); Total Bilirubin 0.6 mg/dL (0.2-1.3); Total Protein 6.9 g/dL (6.3-8.2)
--- NOTE | 2023-06-24 14:58 | CT ---
EXAMINATION TYPE: CT abdomen pelvis w con DATE OF EXAM: 06/24/2023 HISTORY: low abd pain that radiates to back. CT DLP: 571.6mGycm Automated Exposure Control for Dose Reduction was Utilized. CONTRAST: CT scan of the abdomen and pelvis is performed with IV Contrast, patient injected with 100ml mL of Is ovue 300. COMPARISON: Prior CT November 12, 2019 FINDINGS: LUNG BASES: No significant abnormality is appreciated. LIVER/GB: Cholecystectomy clips are redemonstrated. PANCREAS: No significant abnormality is seen. SPLEEN: No significant abnormality is seen. ADRENALS: No significant abnormality is seen. KIDNEYS: No renal calculi or hydronephrosis are clearly seen bilaterally. Tiny calculi in prior study are less well seen on current study with contrast. BOWEL: No abnormal small or large bowel dilatation. Diverticula in the distal transverse colon throu gh the sigmoid colon are redemonstrated. No convincing CT evidence for acute diverticulitis. UTERUS/ADNEXA: Uterus is surgically absent. Scattered tiny bilateral pelvic phleboliths redemonstrate d. No free fluid. LYMPH NODES: No greater than 1cm abdominal or pelvic lymph nodes are appreciated. OSSEOUS STRUCTURES: No significant abnormality is seen. OTHER: No significant additional abnormality is seen. IMPRESSION: Tiny nonobstructing calculi in prior study less well seen on current study due to size an d presence of IV contrast. No obvious hydronephrosis or obstructing ureteral calculi on the current s tudy. No significant acute finding is clearly seen to account for patient's clinical symptoms.
--- NOTE | 2023-06-24 15:04 | ED ---
General Adult HPI - General Chief complaint: Back Pain/Injury Stated complaint: back pain Time Seen by Provider: 06/24/23 13:10 Source: patient, RN notes reviewed Mode of arrival: ambulatory Limitations: no limitations - History of Present Illness Initial comments: 42-year-old female presents emergency department chief complaint of low back pain. Patient states she been suffering with low back pain for the last 5 weeks. Patient states that she had prior hysterectomy which she had bladder wall injury. Patient states that this was years ago. She states she had an ultrasound which they noticed some fluid and she has chronic urinary frequency. She was referred to urology and was show took a month to get into this appointment but it had to cancel and was advised to come the emergency department. She states that she does have lupus and states that she has a history of bowel issues and back issues but this feels different. She denies any bowel, bladder incontinence or retention no saddle esthesia. - Related Data Home Medications Medication Instructions Recorded Confirmed HYDROcodone/APAP 7.5-325MG [[place] 1 tab PO Q8H PRN 11/19/18 09/19/22 7.5-325] diazePAM [Valium] 10 - 20 mg PO HS PRN 11/19/18 09/19/22 Cholecalciferol [Vitamin D3 (25 25 mcg PO DAILY 09/19/22 09/19/22 Mcg = 1000 Iu)] Mirabegron [Myrbetriq] 50 mg PO DAILY 09/19/22 09/20/22 Previous Rx's Medication Instructions Recorded Acetaminophen Tab [Tylenol] 650 mg PO Q6HR PRN tab 09/20/22 Allergies Allergy/AdvReac Type Severity Reaction Status Date / Time No Known Allergies Allergy Verified 06/24/23 13:06 Review of Systems ROS Statement: Those systems with pertinent positive or pertinent negative responses have been documented in the HPI. ROS Other: All systems not noted in ROS Statement are negative. Past Medical History Past Medical History: Fibromyalgia Additional Past Medical History / Comment(s): DIVERTICULITIS;PCOS " ARRYTHMIA", lupus "mottled skin on her back", pleurisy,migraines, mixed connective tissue disease,tremors,ibs, thyroid nodule, pots, tachycardia History of Any Multi-Drug Resistant Organisms: None Reported Past Surgical History: Appendectomy, Bowel Resection, Section, Cholecystectomy, Hysterectomy, Tubal Ligation, Uterine Ablation Additional Past Surgical History / Comment(s): 09/30/14 Robotic assisted lap vaginal hysterectomy, lysis of adhesions pt stated bladder had been knicked -had sx to repair that and stomach lining, LAPAROSCOPY X4; TILT TABLE TEST AND EP STUDY. X4. BILAT CATARACTS REMOVED. 2016 pots, cardiac ablation. COLONOSCOPY Past Anesthesia/Blood Transfusion Reactions: No Reported Reaction Past Psychological History: Anxiety, Depression Smoking Status: Former smoker Past Alcohol Use History: None Reported Past Drug Use History: Marijuana - Past Family History Mother Family Medical History: No Reported History Additional Family Medical History / Comment(s): celiac disease, migarines Father Family Medical History: Diabetes Mellitus, Hyperlipidemia, Hypertension Additional Family Medical History / Comment(s): Glaucoma, Cataracts General Exam Limitations: no limitations General appearance: alert, in no apparent distress Head exam: Present: atraumatic, normocephalic, normal inspection Eye exam: Present: normal appearance, PERRL, EOMI. Absent: scleral icterus, conjunctival injection, periorbital swelling Cardiovascular Exam: Present: regular rate, normal rhythm, normal heart sounds. Absent: systolic murmur, diastolic murmur, rubs, gallop, clicks GI/Abdominal exam: Present: soft, normal bowel sounds. Absent: distended, tende rness, guarding, rebound, rigid Back exam: Present: paraspinal tenderness. Absent: CVA tenderness (R), CVA tenderness (L), muscle spasm, vertebral tenderness Neurological exam: Present: alert, oriented X3 Course Vital Signs 06/24/23 13:07 Temperature 98.3 F Pulse Rate 106 H Respiratory 18 Rate Blood Pressure 136/90 O2 Sat by Pulse 100 Oximetry Medical Decision Making - Medical Decision Making Was pt. sent in by a medical professional or institution (, PA, UNLOADER OPERATOR, urgent care, hospital, or residential...) When possible be specific @ -No Did you speak to anyone other than the patient for history (EMS, parent, family, police, friend...)? What history was obtained from this source @ -No Did you review nursing and triage notes (agree or disagree)? Why? @ -I reviewed and agree with nursing and triage notes Were old charts reviewed (outside hosp., previous admission, EMS record, old EKG, old radiological studies, urgent care reports/EKG's, residential records)? Report findings @ -[Reviewed prior imaging laboratory studies Differential Diagnosis (chest pain, altered mental status, abdominal pain women, abdominal pain men, vaginal bleeding, weakness, fever, dyspnea, syncope, headache, dizziness, GI bleed, back pain, seizure, CVA, palpatations, mental health, musculoskeletal)? @ -Differential Back Pain: Strain, zoster, cauda equina syndrome, epidural abscess, vertebral osteomyelitis, discitis, fracture, subluxation, disc herniation, DJD, spinal stenosis, dissection, AAA, pancreatitis, peptic ulcer disease, pyelonephritis, kidney stone, this is not meant to be an all-inclusive list. EKG interpreted by me (3pts min.). @ -[None X-rays interpreted by me (1pt min.). @ -[None done CT interpreted by me (1pt min.). @ -[CT of the abdomen pelvis revealing no acute intra-abdominal acute process U/S interpreted by me (1pt. min.). @ -None done What testing was considered but not performed or refused? (CT, X-rays, U/S, labs)? Why? @ -None What meds were considered but not given or refused? Why? @ -None Did you discuss the management of the patient with other professionals (professionals i.e. , PA, UNLOADER OPERATOR, lab, RT, psych nurse, social worker masters, performance improvement manager, teacher, facility security officer, case management associate)? Give summary @ -No Was smoking cessation discussed for >3mins.? @ -No Was critical care preformed (if so, how long)? @ -No Were there social determinants of health that impacted care today? How? (Homelessness, low income, unemployed, alcoholism, drug addiction, transportation, low edu. Level, literacy, decrease access to med. care, retirement, rehab)? @ -No Was there de-escalation of care discussed even if they declined (Discuss DNR or withdrawal of care, Hospice)? DNR status @ -No What co-morbidities impacted this encounter? (DM, HTN, Smoking, COPD, CAD, Cancer, CVA, ARF, Chemo, Hep., AIDS, mental health diagnosis, sleep apnea, morbid obesity)? @ -None Was patient admitted / discharged? Hospital course, mention meds given and route, prescriptions, significant lab abnormalities, going to OR and other pertinent info. @ -[Discharge patient presented for back pain she had concerns of intra- abdominal process, laboratory studies urinalysis and CT unremarkable she has a follow-up appoint with Dr. Grace. I do believe this is musculoskeletal in nature and return pressure discussed. She has no red flag symptoms. Undiagnosed new problem with uncertain prognosis? @ -No Drug Therapy requiring intensive monitoring for toxicity (Heparin, Nitro, Insulin, Cardizem)? @ -No Were any procedures done? @ -No Diagnosis/symptom? @ -Low back pain Acute, or Chronic, or Acute on Chronic? @ -Acute Uncomplicated (without systemic symptoms) or Complicated (systemic symptoms)? @ -Uncomplicated Side effects of treatment? @ -No Exacerbation, Progression, or Severe Exacerbation? @ -No Poses a threat to life or bodily function? How? (Chest pain, [place], [place], pneumonia, PE, COPD, DKA, ARF, appy, cholecystitis, CVA, Diverticulitis, Homicidal, Suicidal, threat to staff... and all critical care pts) @ -No - Lab Data Result diagrams: 06/24/23 13:43 06/24/23 13:43 Lab Results 06/24/23 06/24/23 06/24/23 Range/Units 13:43 13:43 13:43 WBC 6.3 (3.8-10.6) k/uL RBC 4.45 (3.80-5.40) m/uL Hgb 14.0 (11.4-16.0) gm/dL Hct 41.9 (34.0-46.0) % MCV 94.3 (80.0-100.0) fL MCH 31.4 (25.0-35.0) pg MCHC 33.3 (31.0-37.0) g/dL RDW 12.5 (11.5-15.5) % Plt Count 241 (150-450) k/uL MPV 9.1 Neutrophils % 76 % Lymphocytes % 19 % Monocytes % 3 % Eosinophils % 0 % Basophils % 0 % Neutrophils # 4.8 (1.3-7.7) k/uL Lymphocytes # 1.2 (1.0-4.8) k/uL Monocytes # 0.2 (0-1.0) k/uL Eosinophils # 0.0 (0-0.7) k/uL Basophils # 0.0 (0-0.2) k/uL Sodium 140 (137-145) mmol/L Potassium 3.8 (3.5-5.1) mmol/L Chloride 107 (98-107) mmol/L Carbon Dioxide 24 (22-30) mmol/L Anion Gap 9 mmol/L BUN 13 (7-17) mg/dL Creatinine 0.73 (0.52-1.04) mg/dL Est GFR (CKD-EPI)AfAm >90 (>60 ml/min/1.73 sqM) Est GFR (CKD-EPI)NonAf >90 (>60 ml/min/1.73 sqM) Glucose 101 H (74-99) mg/dL Calcium 9.2 (8.4-10.2) mg/dL Total Bilirubin 0.6 (0.2-1.3) mg/dL AST 22 (14-36) U/L ALT 12 (4-34) U/L Alkaline Phosphatase 70 (38-126) U/L Total Protein 6.9 (6.3-8.2) g/dL Albumin 4.3 (3.5-5.0) g/dL Lipase 67 (23-300) U/L Urine Color Yellow Urine Appearance Cloudy H (Clear) Urine pH 5.5 (5.0-8.0) Ur Specific [place] 1.029 (1.001-1.035) Urine Protein Trace H (Negative) Urine Glucose (UA) Negative (Negative) Urine Ketones Trace H (Negative) Urine Blood Negative (Negative) Urine Nitrite Negative (Negative) Urine Bilirubin Negative (Negative) Urine Urobilinogen <2.0 (<2.0) mg/dL Ur Leukocyte Esterase Negative (Negative) Urine WBC 1 (0-5) /hpf Ur Squamous Epith Cells 6 H (0-4) /hpf Urine Bacteria Rare H (None) /hpf Urine Mucus Many H (None) /hpf Disposition Clinical Impression: Back pain Disposition: HOME SELF-CARE Condition: Stable Instructions (If sedation given, give patient instructions): Acute Low Back P ain (ED) Additional Instructions: Please return to the Emergency Department if symptoms worsen or any other concerns. Is patient prescribed a controlled substance at d/c from ED?: No Referrals: Papito Bravo MD [Primary Care Provider] - 1-2 days Time of Disposition: 15:07
[2023-06-24] MEDS: ACET/COD 300 MG/30 MG STARTER PACK 6 TAB BTL PO STA (15:29)
[2023-06-24 15:44] VITALS: BP 128/75; PULSE 74
== END 2023-06-24 15:32 | disposition home or self-care (01) ==
LOC: EC 12:59
DX: M54.50 Low back pain, unspecified (principal); F41.9 Anxiety disorder, unspecified; F12.90 Cannabis use, unspecified, uncomplicated; F32.A Depression, unspecified; Z87.891 Personal history of nicotine dependence; Z79.899 Other long term (current) drug therapy
CPT/HCPCS: 36415; 80053; 83690; 85025; 81001; 74177; 99284; 96374; 96375 ×2; 96361; J2405; J1885; J1170; Q9967

== ENCOUNTER 2023-06-26 15:22 | Emergency (ER) | payer MEDICARE ==
[2023-06-26 15:51] LABS: Basophils % (A) 0 %; Eosinophils % (A) 0 %; HCT 39.3 % (34.0-46.0); HGB 13.1 gm/dL (11.4-16.0); Lymphocytes # (A) 1.3 k/uL (1.0-4.8); Lymphocytes % (A) 17 %; MCH 31.4 pg (25.0-35.0); MCHC 33.2 g/dL (31.0-37.0); MCV 94.4 fL (80.0-100.0); Mean Platelet Volume 9.5; Monocytes # (A) 0.3 k/uL (0-1.0); Monocytes % (A) 3 %; Neutrophils # (A) 6.2 k/uL (1.3-7.7); Neutrophils % (A) 78 %; Platelet Count 203 k/uL (150-450); RBC 4.16 m/uL (3.80-5.40); RDW 12.7 % (11.5-15.5)
--- NOTE | 2023-06-26 15:51 | ED ---
General Adult HPI - General Chief complaint: Chest Pain Stated complaint: Chest Pain Time Seen by Provider: 06/26/23 15:26 Source: patient, EMS, RN notes reviewed, old records reviewed Mode of arrival: EMS - History of Present Illness Initial comments: 42-year-old female presenting for evaluation of epigastric pain, chest pain. Patient's symptoms began approximately 30 minutes prior to arrival. She has no prior history of cardiac disease. There is associated dyspnea. Patient denies vomiting. Denies fever. Denies cough. - Related Data Home Medications Medication Instructions Recorded Confirmed Acetaminophen-Codeine 300-30mg 1 tab PO Q6H PRN 06/26/23 06/26/23 [Tylenol w/codeine #3] Cyclobenzaprine [Flexeril] 5 mg PO BID PRN 06/26/23 06/26/23 Hydroxychloroquine Sulfate 200 mg PO DAILY 06/26/23 06/26/23 [Plaquenil] Ondansetron Odt [Zofran Odt] 8 mg PO Q8HR PRN 06/26/23 06/26/23 Allergies Allergy/AdvReac Type Severity Reaction Status Date / Time No Known Allergies Allergy Verified 06/26/23 16:27 Review of Systems ROS Statement: Those systems with pertinent positive or pertinent negative responses have been documented in the HPI. ROS Other: All systems not noted in ROS Statement are negative. Past Medical History Past Medical History: Fibromyalgia Additional Past Medical History / Comment(s): DIVERTICULITIS;PCOS " ARRYTHMIA", lupus "mottled skin on her back", pleurisy,migraines, mixed connective tissue disease,tremors,ibs, thyroid nodule, pots, tachycardia History of Any Multi-Drug Resistant Organisms: None Reported Past Surgical History: Appendectomy, Bowel Resection, Section, Cholecystectomy, Hysterectomy, Tubal Ligation, Uterine Ablation Additional Past Surgical History / Comment(s): 09/30/14 Robotic assisted lap vaginal hysterectomy, lysis of adhesions pt stated bladder had been knicked -had sx to repair that and stomach lining, LAPAROSCOPY X4; TILT TABLE TEST AND EP STUDY. X4. BILAT CATARACTS REMOVED. 2016 pots, cardiac ablation. COLONOSCOPY Past Anesthesia/Blood Transfusion Reactions: No Reported Reaction Past Psychological History: Anxiety, Depression Smoking Status: Former smoker Past Alcohol Use History: None Reported Past Drug Use History: Marijuana - Past Family History Mother Family Medical History: No Reported History Additional Family Medical History / Comment(s): celiac disease, migarines Father Family Medical History: Diabetes Mellitus, Hyperlipidemia, Hypertension Additional Family Medical History / Comment(s): Glaucoma, Cataracts General Exam General appearance: alert, anxious Head exam: Present: atraumatic, normocephalic Eye exam: Present: normal appearance, PERRL Respiratory exam: Present: normal lung sounds bilaterally. Absent: respiratory distress, wheezes Cardiovascular Exam: Present: regular rate, normal rhythm GI/Abdominal exam: Present: soft, tenderness (Epigastric). Absent: distended Extremities exam: Present: normal inspection, normal capillary refill. Absent: pedal edema, calf tenderness Neurological exam: Present: alert, oriented X3, CN II-XII intact. Absent: motor sensory deficit Skin exam: Present: warm, dry, intact. Absent: diaphoretic Course Vital Signs 06/26/23 06/26/23 15:28 16:50 Pulse Rate 93 64 Respiratory 20 20 Rate Blood Pressure 148/91 142/88 O2 Sat by Pulse 100 100 Oximetry - Reevaluation(s) Reevaluation #1: 06/26/23 17:15 Pain resolved with GI cocktail, patient feeling significantly better Medical Decision Making - Medical Decision Making Was pt. sent in by a medical professional or institution (LINDA Romero, QUALITATIVE RESEARCHER, urgent care, hospital, or fpc...) When possible be specific @ -No Did you speak to anyone other than the patient for history (EMS, parent, family, police, friend...)? What history was obtained from this source @ -No Did you review nursing and triage notes (agree or disagree)? Why? @ -I reviewed and agree with nursing and triage notes Were old charts reviewed (outside hosp., previous admission, EMS record, old EKG, old radiological studies, urgent care reports/EKG's, fpc records)? Report findings @ -No old charts were reviewed Differential Diagnosis (chest pain, altered mental status, abdominal pain women, abdominal pain men, vaginal bleeding, weakness, fever, dyspnea, syncope, headache, dizziness, GI bleed, back pain, seizure, CVA, palpatations, mental health, musculoskeletal)? @ -Differential Chest Pain: Stable Angina, Unstable Angina, STEMI, NSTEMI Aortic Dissection, Pneumothorax, Musculoskeletal, Esophageal Spasm GERD, Cholecystitis, Pancreatitis, Zoster, this is not meant to be an all-inclusive list. EKG interpreted by me (3pts min.). @ -Sinus rhythm rate of 75, WA interval 129, QRS duration 95, QTc [address] segment changes. X-rays interpreted by me (1pt min.). @ -Chest x-ray negative for acute cardiopulmonary CT interpreted by me (1pt min.). @ -None done U/S interpreted by me (1pt. min.). @ -None done What testing was considered but not performed or refused? (CT, X-rays, U/S, labs)? Why? @ -None What meds were considered but not given or refused? Why? @ -None Did you discuss the management of the patient with other professionals (professionals i.e. , PA, QUALITATIVE RESEARCHER, lab, RT, psych nurse, social work msw, customer service correspondence clerk, t eacher, information officer, piano case and bench assembler)? Give summary @ -No Was smoking cessation discussed for >3mins.? @ -No Was critical care preformed (if so, how long)? @ -No Were there social determinants of health that impacted care today? How? (Homelessness, low income, unemployed, alcoholism, drug addiction, transportation, low edu. Level, literacy, decrease access to med. care, senior care, rehab)? @ -No Was there de-escalation of care discussed even if they declined (Discuss DNR or withdrawal of care, Hospice)? DNR status @ -No What co-morbidities impacted this encounter? (DM, HTN, Smoking, COPD, CAD, Cancer, CVA, ARF, Chemo, Hep., AIDS, mental health diagnosis, sleep apnea, morbid obesity)? @ -None Was patient admitted / discharged? Hospital course, mention meds given and route, prescriptions, significant lab abnormalities, going to OR and other pertinent info. @ -[42-year-old female presenting with epigastric and lower chest pain began suddenly. This did occur after taking a medication. Patient's EKG was sinus rhythm without ischemic changes. She has normal chest x-ray. Normal CBC, no rmal CMP, negative D-dimer, negative troponin, negative lipase. Patient feels almost 100% better with GI cocktail.. Patient will require outpatient GI follow-up. Undiagnosed new problem with uncertain prognosis? @ -No Drug Therapy requiring intensive monitoring for toxicity (Heparin, Nitro, Insul in, Cardizem)? @ -No Were any procedures done? @ -No Diagnosis/symptom? @ -[Epigastric pain, resolved Acute, or Chronic, or Acute on Chronic? @ -acute Uncomplicated (without systemic symptoms) or Complicated (systemic symptoms)? @ -Default Side effects of treatment? @ -No Exacerbation, Progression, or Severe Exacerbation? @ -No Poses a threat to life or bodily function? How? (Chest pain, [place], [place], pneumonia, PE, COPD, DKA, ARF, appy, cholecystitis, CVA, Diverticulitis, Homicidal, Suicidal, threat to staff... and all critical care pts) @ -low risk at this time - Lab Data Result diagrams: 06/26/23 15:39 06/26/23 15:39 Lab Results 06/26/23 06/26/23 06/26/23 Range/Units 15:39 15:39 15:39 WBC 8.0 (3.8-10.6) k/uL RBC 4.16 (3.80-5.40) m/uL Hgb 13.1 (11.4-16.0) gm/dL Hct 39.3 (34.0-46.0) % MCV 94.4 (80.0-100.0) fL MCH 31.4 (25.0-35.0) pg MCHC 33.2 (31.0-37.0) g/dL RDW 12.7 (11.5-15.5) % Plt Count 203 (150-450) k/uL MPV 9.5 Neutrophils % 78 % Lymphocytes % 17 % Monocytes % 3 % Eosinophils % 0 % Basophils % 0 % Neutrophils # 6.2 (1.3-7.7) k/uL Lymphocytes # 1.3 (1.0-4.8) k/uL Monocytes # 0.3 (0-1.0) k/uL Eosinophils # 0.0 (0-0.7) k/uL Basophils # 0.0 (0-0.2) k/uL PT 10.7 (10.0-12.5) sec INR 1.0 (<1.2) APTT 22.2 (22.0-30.0) sec D-Dimer 0.24 (<0.60) mg/L FEU Sodium 137 (137-145) mmol/L Potassium 3.8 (3.5-5.1) mmol/L Chloride 109 H (98-107) mmol/L Carbon Dioxide 24 (22-30) mmol/L Anion Gap 4 mmol/L BUN 11 (7-17) mg/dL Creatinine 0.65 (0.52-1.04) mg/dL Est GFR (CKD-EPI)AfAm >90 (>60 ml/min/1.73 sqM) Est GFR (CKD-EPI)NonAf >90 (>60 ml/min/1.73 sqM) Glucose 101 H (74-99) mg/dL Calcium 8.9 (8.4-10.2) mg/dL Magnesium 1.9 (1.6-2.3) mg/dL Total Bilirubin 0.4 (0.2-1.3) mg/dL AST 46 H (14-36) U/L ALT 19 (4-34) U/L Alkaline Phosphatase 64 (38-126) U/L Troponin I (0.000-0.034) ng/mL Total Protein 6.3 (6.3-8.2) g/dL Albumin 3.9 (3.5-5.0) g/dL Lipase 80 (23-300) U/L 06/26/23 Range/Units 15:39 WBC (3.8-10.6) k/uL RBC (3.80-5.40) m/uL Hgb (11.4-16.0) gm/dL Hct (34.0-46.0) % MCV (80.0-100.0) fL MCH (25.0-35.0) pg MCHC (31.0-37.0) g/dL RDW (11.5-15.5) % Plt Count (150-450) k/uL MPV Neutrophils % % Lymphocytes % % Monocytes % % Eosinophils % % Basophils % % Neutrophils # (1.3-7.7) k/uL Lymphocytes # (1.0-4.8) k/uL Monocytes # (0-1.0) k/uL Eosinophils # (0-0.7) k/uL Basophils # (0-0.2) k/uL PT (10.0-12.5) sec INR (<1.2) APTT (22.0-30.0) sec D-Dimer (<0.60) mg/L FEU Sodium (137-145) mmol/L Potassium (3.5-5.1) mmol/L Chloride (98-107) mmol/L Carbon Dioxide (22-30) mmol/L Anion Gap mmol/L BUN (7-17) mg/dL Creatinine (0.52-1.04) mg/dL Est GFR (CKD-EPI)AfAm (>60 ml/min/1.73 sqM) Est GFR (CKD-EPI)NonAf (>60 ml/min/1.73 sqM) Glucose (74-99) mg/dL Calcium (8.4-10.2) mg/dL Magnesium (1.6-2.3) mg/dL Total Bilirubin (0.2-1.3) mg/dL AST (14-36) U/L ALT (4-34) U/L Alkaline Phosphatase (38-126) U/L Troponin I <0.012 (0.000-0.034) ng/mL Total Protein (6.3-8.2) g/dL Albumin (3.5-5.0) g/dL Lipase (23-300) U/L Disposition Clinical Impression: Epigastric pain Disposition: HOME SELF-CARE Condition: Good Instructions (If sedation given, give patient instructions): Abdominal Pain (ED) Is patient prescribed a controlled substance at d/c from ED?: No Referrals: Papito Bravo MD [Primary Care Provider] - 1-2 days Yael Machuca MD [STAFF PHYSICIAN] - 1-2 days Time of Disposition: 17:20
[2023-06-26 16:06] LABS: ALT 19 U/L (4-34); AST 46 U/L (14-36); African American GFR (CKD) >90 (>60 ml/min/1.73 sqM); Albumin 3.9 g/dL (3.5-5.0); Alkaline Phosphatase 64 U/L (38-126); Anion Gap 4 mmol/L; Blood Urea Nitrogen 11 mg/dL (7-17); Calcium 8.9 mg/dL (8.4-10.2); Carbon Dioxide 24 mmol/L (22-30); Chloride 109 mmol/L (98-107); Glucose 101 mg/dL (74-99); Lipase 80 U/L (23-300); Magnesium 1.9 mg/dL (1.6-2.3); Non-African American GFR(CKD) >90 (>60 ml/min/1.73 sqM); Potassium 3.8 mmol/L (3.5-5.1); Sodium 137 mmol/L (137-145); Total Bilirubin 0.4 mg/dL (0.2-1.3); Total Protein 6.3 g/dL (6.3-8.2)
[2023-06-26 16:15] LABS: Partial Thromboplastin Time 22.2 sec (22.0-30.0); Prothrombin Time 10.7 sec (10.0-12.5)
--- NOTE | 2023-06-26 16:22 | XR ---
EXAMINATION TYPE: XR chest 2V DATE OF EXAM: 06/26/2023 4:08 PM CLINICAL INDICATION:Female, 42 years old with history of Chest Pain; COMPARISON: Chest radiographs from TECHNIQUE: XR chest 2V Frontal and lateral views of the chest. FINDINGS: Lungs/Pleura: There is no evidence of pleural effusion, focal consolidation, or pneumothorax. Pulmonary vascularity: Unremarkable. Heart/mediastinum: Cardiomediastinal silhouette is unremarkable. Musculoskeletal: No acute osseous pathology. Other findings: None IMPRESSION: No acute cardiopulmonary disease/process.
[2023-06-26] MEDS: MAG HYDROX/AL HYDROX/SIMETH 30 ML, HYOSCYAMINE ELIXIR 10 ML, LIDOCAINE VISCOUS 2% 10 ML PO STA (16:44)
[2023-06-26] MEDS: LORazepam 2 MG/ML INJ IV STA (16:44)
[2023-06-26 18:22] VITALS: BP 130/82; PULSE 75; RESP 16
== END 2023-06-26 18:04 | disposition home or self-care (01) ==
LOC: EC 15:22
DX: R10.13 Epigastric pain (principal); F32.A Depression, unspecified; F41.9 Anxiety disorder, unspecified; F12.90 Cannabis use, unspecified, uncomplicated; Z79.899 Other long term (current) drug therapy; Z87.891 Personal history of nicotine dependence; Z90.49 Acquired absence of other specified parts of digestive tract
CPT/HCPCS: 99285; 96374; 36415; 93005; 85379; 80053; 83690; 83735; 84484; 85025; 85610; 85730; 71046; J2060

== ENCOUNTER 2023-06-30 12:42 | Day surgery (SDC) | payer MEDICARE ==
[2023-06-28 12:46] VITALS: BMI 21.6
[~2023-06-30 12:42] MED LIST changes: +LIDOCAINE 1% (10MG/ML) FOR IV START INTRADERMA PRN; +ONDANSETRON 4 MG/2 ML VIAL IVP PRN; -SODIUM CHLORIDE 0.9% 1,000 ML IV SCH
[2023-06-30] MEDS: LACTATED RINGERS 1,000 ML IV SCH (13:09)
[2023-06-30 13:33] VITALS: RESP 16; TEMP 98
[2023-06-30] MEDS: fentaNYL (PF) 50 MCG/ML 2 ML AMP IVP ONE (13:38)
[2023-06-30] MEDS: ONDANSETRON 4 MG/2 ML VIAL IVP ONE (13:42)
[2023-06-30] MEDS ORDERED: PROPOFOL 10 MG/ML 20 ML VIAL IV ONE (14:18)
[2023-06-30] MEDS ORDERED: MIDAZOLAM 2 MG/2 ML VIAL ONE (14:18)
[2023-06-30] MEDS ORDERED: LIDOCAINE 1% INJ 10MG/ML (20 ML MDV) ONE (14:18)
--- NOTE | 2023-06-30 14:29 | P.PCN ---
Date of Procedure: 06/30/23 Procedure(s) Performed: BRIEF HISTORY: Patient is a 42-year-old, pleasant, white female scheduled for an upper endoscopy as a part of evaluation of severe epigastric pain for the last 1 week duration. She went to the emergency room and she had a CT of abdomen and pelvis done last week that was unremarkable. Presently on Prilosec 20 mg daily as well as Bentyl with no help.. PROCEDURE PERFORMED: Esophagogastroduodenoscopy biopsy. PREOPERATIVE DIAGNOSIS: Severe epigastric pain of 1 week duration. IV sedation per anesthesia. PROCEDURE: After informed consent was obtained, the patient was brought into the endoscopy unit. IV sedation was administered by Anesthesia under continuous monitoring. Initially the Olympus GIF-140 video endoscope was inserted into the mouth. Esophagus intubated without any difficulty. It was gradually advanced into the stomach and duodenum and carefully examined. The bulb and the second part of the duodenum appeared normal. Biopsies were done from the duodenum to rule out celiac disease The scope at this time was withdrawn to the stomach, adequately insufflated with air, and upon careful examination, mucosa of the antrum, destroyed is and biopsies were done from this area. Mucosa of the body, cardia and the fundus appeared normal. The scope was then withdrawn into the esophagus. Small hiatal hernia noted. The GE junction was located at 39 cm from the incisors. The esophagus appeared normal. There were no erosions or ulcerations seen and the patient tolerated the procedure well. IMPRESSION: 1. Mild antralgastritis. 2. Small hiatal hernia. RECOMMENDATIONS: The findings of this examination were discussed with the patient as well as a family. She was advised to follow up the biopsy results. Increase the Prilosec to 20 minute grams twice daily as well as Bentyl 10 mg 3 times daily and follow up in office in 2 weeks.
[2023-06-30 15:07] VITALS: BP 113/81
[2023-06-30 15:37] VITALS: PULSE 89
== END 2023-06-30 15:22 | disposition home or self-care (01) ==
LOC: ORWHC2ENDO 12:42
PROVIDERS: ATTEND Internal Medicine Gastroenterology
DX: K29.50 Unspecified chronic gastritis without bleeding (principal); K44.9 Diaphragmatic hernia without obstruction or gangrene; J44.9 Chronic obstructive pulmonary disease, unspecified; F12.90 Cannabis use, unspecified, uncomplicated; M79.7 Fibromyalgia; F41.9 Anxiety disorder, unspecified; F32.A Depression, unspecified; Z79.899 Other long term (current) drug therapy; Z90.710 Acquired absence of both cervix and uterus
CPT/HCPCS: 43239; J2405; J3010; 88305

== ENCOUNTER → 2023-08-02 | Outpatient (CLI) | payer MEDICARE ==
--- NOTE | 2023-08-02 13:12 | XR ---
EXAMINATION TYPE: XR chest 2V DATE OF EXAM: 08/02/2023 COMPARISON: 06/26/2023 TECHNIQUE: PA and lateral views submitted. HISTORY: Tachycardia FINDINGS: The lungs are clear and there is no pneumothorax, pleural effusion, or focal pneumonia. Heart size normal and no overt failure. Osseous structures intact. Surgical clips in the abdomen. IMPRESSION: 1. No acute process.
== END | disposition home or self-care (01) ==
LOC: RADXRMAIN 12:47
PROVIDERS: ATTEND Family Medicine
DX: R00.0 Tachycardia, unspecified (principal)
CPT/HCPCS: 71046

== ENCOUNTER 2023-08-04 15:27 | Emergency (ER) | payer MEDICARE ==
[2023-08-04] MEDS: ADENOSINE 3 MG/ML 2 ML VIAL IVP STA ×2 (15:53→16:22)
[2023-08-04 16:02] LABS: Basophils % (A) 1 %; Eosinophils % (A) 1 %; HCT 45.1 % (34.0-46.0); HGB 14.6 gm/dL (11.4-16.0); Lymphocytes # (A) 2.3 k/uL (1.0-4.8); Lymphocytes % (A) 26 %; MCH 30.5 pg (25.0-35.0); MCHC 32.4 g/dL (31.0-37.0); MCV 94.4 fL (80.0-100.0); Mean Platelet Volume 9.9; Monocytes # (A) 0.4 k/uL (0-1.0); Monocytes % (A) 4 %; Neutrophils # (A) 5.8 k/uL (1.3-7.7); Neutrophils % (A) 66 %; Platelet Count 231 k/uL (150-450); RBC 4.78 m/uL (3.80-5.40); RDW 12.4 % (11.5-15.5); WBC 8.9 k/uL (3.8-10.6)
--- NOTE | 2023-08-04 16:05 | ED ---
General Adult HPI - General Chief complaint: Arrhythmia/Palpitations Stated complaint: High Heart Rate,near syncope Time Seen by Provider: 08/04/23 15:30 Source: patient Mode of arrival: wheelchair - History of Present Illness Initial comments: Dictation was produced using [employer] dictation software. please excuse any grammatical, word or spelling errors. Chief Complaint: 42-year-old female past medical history of POTS presents to the ER for palpitations History of Present Illness: Patient is a 42-year-old female presents emergency department palpitations. She has a history of COPD fibromyalgia POTS disease. Patient is very mindful of her nutrition. She has had history of electrolyte derangement in the past. For the past hour she has had really fast heart rates. She was seen by electrophysiology in the past told that she has POTS. She does complain of some mild chest pressure. The ROS documented in this emergency department record has been reviewed and confirmed by me. Those systems with pertinent positive or negative responses have been documented in the HPI. All other systems are other negative and/or noncontributory. - Related Data Home Medications Medication Instructions Recorded Confirmed Cyclobenzaprine [Flexeril] 10 mg PO BID PRN 06/26/23 08/04/23 Dicyclomine [Bentyl] 10 mg PO QID 06/28/23 08/04/23 Omeprazole [PriLOSEC] 20 mg PO BID 06/28/23 08/04/23 Sulfamethox-Tmp 800-160Mg [Bactrim 1 tab PO Q12HR 08/04/23 08/04/23 DS 800-160 mg] Allergies Allergy/AdvReac Type Severity Reaction Status Date / Time No Known Allergies Allergy Verified 08/04/23 16:37 Review of Systems ROS Statement: Those systems with pertinent positive or pertinent negative responses have been documented in the HPI. ROS Other: All systems not noted in ROS Statement are negative. Past Medical History Past Medical History: COPD, Fibromyalgia Additional Past Medical History / Comment(s): DIVERTICULITIS;PCOS " ARRYTHMIA", lupus "mottled skin on her back", pleurisy,migraines, mixed connective tissue disease,tremors,ibs, thyroid nodule, pots, tachycardia, HIATAL HERNIA AND DIVERTICULITIS. ONGOING GI ISSUES SINCE + COVID 05/15/23 History of Any Multi-Drug Resistant Organisms: None Reported Past Surgical History: Appendectomy, Bowel Resection, Section, Cholecystectomy, Hysterectomy, Tubal Ligation, Uterine Ablation Additional Past Surgical History / Comment(s): 09/30/14 Robotic assisted lap vaginal hysterectomy, lysis of adhesions pt stated bladder had been knicked -had sx to repair that and stomach lining, LAPAROSCOPY X4; TILT TABLE TEST AND EP STUDY, X4. BILAT CATARACTS REMOVED. 2016 pots, cardiac ablation. COLONOSCOPY, EGD Past Anesthesia/Blood Transfusion Reactions: No Reported Reaction Past Psychological History: Anxiety, Depression Smoking Status: Former smoker - Past Family History Mother Family Medical History: No Reported History Additional Family Medical History / Comment(s): celiac disease, migarines Father Family Medical History: Diabetes Mellitus, Hyperlipidemia, Hypertension Additional Family Medical History / Comment(s): Glaucoma, Cataracts General Exam - General Exam Comments Initial Comments: PHYSICAL EXAM: General Impression: Alert and oriented x3 HEENT: Normocephalic atraumatic, extra-ocular movements intact, pupils equal and reactive to light bilaterally, mucous membranes moist. Cardiovascular: H tachycardic, regular Chest: Able to complete full sentences, no retractions, no tachypnea Abdomen: abdomen soft, non-tender, non-distended, no organomegaly Musculoskeletal: Pulses present and equal in all extremities, no peripheral edema Motor: no focal deficits noted Neurological: CN II-XII grossly intact, no focal motor or sensory deficits noted Skin: Intact with no visualized rashes Psych: Normal affect and mood Course Vital Signs 08/04/23 08/04/23 08/04/23 15:28 16:03 16:14 Pulse Rate 188 H 140 H 112 H Respiratory 18 20 Rate Blood Pressure 152/91 143/91 O2 Sat by Pulse 99 99 Oximetry 08/04/23 08/04/23 16:30 16:52 Pulse Rate 101 H 105 H Respiratory 20 16 Rate Blood Pressure 127/69 111/80 O2 Sat by Pulse 98 98 Oximetry - Reevaluation(s) Reevaluation #1: 08/04/23 16:04 Initial EKG showed sinus tachycardia versus supraventricular tachycardia. Patient given 6 mg of adenosine with no changes. Patient then given 12 mg of adenosine which slowed her heart rate down however did not show any fibrillatory P waves or flutter like P waves. Patient's rate decreased to 150s. Repeat EKG showed sinus tachycardia with obvious P waves. Patient given IV metoprolol. EKG Findings - EKG Comments: EKG Findings:: My EKG interpretation: Ventricular rate 173, sinus tach versus SVT, QRS 80, QTc 340. No MO prolongation, no QTC prolongation, no ST or T-wave changes noted. Medical Decision Making - Medical Decision Making Was pt. sent in by a medical professional or institution (, PA, FLOORWORKER LASTING, urgent care, hospital, or shelter...) When possible be specific @ -No Did you speak to anyone other than the patient for history (EMS, parent, family, police, friend...)? What history was obtained from this source @ -No Did you review nursing and triage notes (agree or disagree)? Why? @ -I reviewed and agree with nursing and triage notes Were old charts reviewed (outside hosp., previous admission, EMS record, old EKG, old radiological studies, urgent care reports/EKG's, shelter records)? Report findings @ -No old charts were reviewed Differential Diagnosis (chest pain, altered mental status, abdominal pain women, abdominal pain men, vaginal bleeding, musculoskeletal, weakness, fever, dyspnea, syncope, headache, dizziness, GI bleed, back pain, seizure, CVA, palpatations, mental health)? @ - Differential Palpitations: Ventricular arrhythmias, atrial arrhythmias, myocardial infarction, anemia, thyrotoxicosis, electrolyte imbalance, hypokalemia, pulmonary embolism, pulmonary disease, drugs, alcohol, anxiety, stress.... This is not meant to be an all-inclusive list. EKG interpreted by me (3pts min.). @ -See above X-rays interpreted by me (1pt min.). @ -Chest x-ray is nonacute CT interpreted by me (1pt min.). @ -None done U/S interpreted by me (1pt. min.). @ -None done What testing was considered but not performed or refused? (CT, X-rays, U/S, labs)? Why? @ -None What meds were considered but not given or refused? Why? @ -None Did you discuss the management of the patient with other professionals (professionals i.e. , PA, FLOORWORKER [employer]STING, lab, RT, psych nurse, manager social services, casting machine set up operator, teacher, wildlife officer, case aide)? Give summary @ -No Was smoking cessation discussed for >3mins.? @ -No Was critical care preformed (if so, how long)? @ -Yes, 33 minutes Were there social determinants of health that impacted care today? How? (Homelessness, low income, unemployed, alcoholism, drug addiction, transportation, low edu. Level, literacy, decrease access to med. care, intermediate, rehab)? @ -No Was there de-escalation of care discussed even if they declined (Discuss DNR or withdrawal of care, Hospice)? DNR status @ -No What co-morbidities impacted this encounter? (DM, HTN, Smoking, COPD, CAD, Cancer, CVA, ARF, Chemo, Hep., AIDS, mental health diagnosis, sleep apnea, morbid obesity)? @ -None Was patient admitted / discharged? Hospital course, mention meds given and route, prescriptions, significant lab abnormalities, going to OR and other pertinent info. @ -42-year-old female with past medical history of pots disease presents to the emergency department for tachycardia and palpitations. Patient states that she stopped taking her metoprolol to increase the sensitivity of identifying pathologic palpitations for her recently placed Holter monitor. Vital signs upon arrival shows tachycardia into the 180s. Initial EKG interpretation was SVT versus a flutter versus sinus tachycardia. Patient heart rate improved with metoprolol showing sinus tachycardia. She laboratory evaluation obtained is unremarkable. Chest x-ray is nonacute. Patient observed emergency department for approximately 2 hours. Disposition options were discussed she is agreeable for discharge. She is warned of the harms of discontinuing her metoprolol abruptly. She is told to follow-up closely with cardiology. Undiagnosed new problem with uncertain prognosis? @ -No Drug Therapy requiring intensive monitoring for toxicity (Heparin, Nitro, Insulin, Cardizem)? @ -No Were any procedures done? @ -No Diagnosis/symptom? Acute, or Chronic, or Acute on Chronic? Uncomplicated (without systemic symptoms) or Complicated (systemic symptoms)? @ -Tachycardia Side effects of treatment? @ -No Exacerbation, Progression, or Severe Exacerbation? @ -No Poses a threat to life or bodily function? How? (Chest pain, [place], NE, pneumonia, PE, COPD, DKA, ARF, appy, cholecystitis, CVA, Diverticulitis, Homicidal, Suicidal, threat to staff... and all critical care pts) @ -No - Lab Data Result diagrams: 03/22/24 15:50 08/04/23 15:50 Lab Results 08/04/23 08/04/23 08/04/23 Range/Units 15:50 15:50 15:50 WBC 8.9 (3.8-10.6) k/uL RBC 4.78 (3.80-5.40) m/uL Hgb 14.6 (11.4-16.0) gm/dL Hct 45.1 (34.0-46.0) % MCV 94.4 (80.0-100.0) fL MCH 30.5 (25.0-35.0) pg MCHC 32.4 (31.0-37.0) g/dL RDW 12.4 (11.5-15.5) % Plt Count 231 (150-450) k/uL MPV 9.9 Neutrophils % 66 % Lymphocytes % 26 % Monocytes % 4 % Eosinophils % 1 % Basophils % 1 % Neutrophils # 5.8 (1.3-7.7) k/uL Lymphocytes # 2.3 (1.0-4.8) k/uL Monocytes # 0.4 (0-1.0) k/uL Eosinophils # 0.0 (0-0.7) k/uL Basophils # 0.0 (0-0.2) k/uL PT 10.0 (10.0-12.5) sec INR 0.9 (<1.2) APTT 22.5 (22.0-30.0) sec Sodium 138 (137-145) mmol/L Potassium 3.5 (3.5-5.1) mmol/L Chloride 107 (98-107) mmol/L Carbon Dioxide 17 L (22-30) mmol/L Anion Gap 14 mmol/L BUN 14 (7-17) mg/dL Creatinine 0.96 (0.52-1.04) mg/dL Est GFR (CKD-EPI)AfAm 83 (>60 ml/min/1.73 sqM) Est GFR (CKD-EPI)NonAf 72 (>60 ml/min/1.73 sqM) Glucose 115 H (74-99) mg/dL Calcium 9.2 (8.4-10.2) mg/dL Magnesium 1.9 (1.6-2.3) mg/dL Total Bilirubin 0.4 (0.2-1.3) mg/dL AST 27 (14-36) U/L ALT 16 (4-34) U/L Alkaline Phosphatase 70 (38-126) U/L Troponin I (0.000-0.034) ng/mL Total Protein 7.4 (6.3-8.2) g/dL Albumin 4.8 (3.5-5.0) g/dL 08/04/23 Range/Units 15:50 WBC (3.8-10.6) k/uL RBC (3.80-5.40) m/uL Hgb (11.4-16.0) gm/dL Hct (34.0-46.0) % MCV (80.0-100.0) fL MCH (25.0-35.0) pg MCHC (31.0-37.0) g/dL RDW (11.5-15.5) % Plt Count (150-450) k/uL MPV Neutrophils % % Lymphocytes % % Monocytes % % Eosinophils % % Basophils % % Neutrophils # (1.3-7.7) k/uL Lymphocytes # (1.0-4.8) k/uL Monocytes # (0-1.0) k/uL Eosinophils # (0-0.7) k/uL Basophils # (0-0.2) k/uL PT (10.0-12.5) sec INR (<1.2) APTT (22.0-30.0) sec Sodium (137-145) mmol/L Potassium (3.5-5.1) mmol/L Chloride (98-107) mmol/L Carbon Dioxide (22-30) mmol/L Anion Gap mmol/L BUN (7-17) mg/dL Creatinine (0.52-1.04) mg/dL Est GFR (CKD-EPI)AfAm (>60 ml/min/1.73 sqM) Est GFR (CKD-EPI)NonAf (>60 ml/min/1.73 sqM) Glucose (74-99) mg/dL Calcium (8.4-10.2) mg/dL Magnesium (1.6-2.3) mg/dL Total Bilirubin (0.2-1.3) mg/dL AST (14-36) U/L ALT (4-34) U/L Alkaline Phosphatase (38-126) U/L Troponin I <0.012 (0.000-0.034) ng/mL Total Protein (6.3-8.2) g/dL Albumin (3.5-5.0) g/dL Disposition Clinical Impression: Palpitations Disposition: HOME SELF-CARE Condition: Fair Instructions (If sedation given, give patient instructions): Heart Palpitations (ED) Is patient prescribed a controlled substance at d/c from ED?: No Referrals: Papito Bravo MD [Primary Care Provider] - 1-2 days Unruly Martin MD [STAFF PHYSICIAN] - 1-2 days Time of Disposition: 17:19
[2023-08-04] MEDS: METOPROLOL TARTRATE 5 MG/5 ML VIAL IVP STA (16:09)
[2023-08-04 16:12] LABS: INR 0.9 (<1.2); Partial Thromboplastin Time 22.5 sec (22.0-30.0)
[2023-08-04 16:15] LABS: ALT 16 U/L (4-34); AST 27 U/L (14-36); African American GFR (CKD) 83 (>60 ml/min/1.73 sqM); Albumin 4.8 g/dL (3.5-5.0); Alkaline Phosphatase 70 U/L (38-126); Anion Gap 14 mmol/L; Blood Urea Nitrogen 14 mg/dL (7-17); Calcium 9.2 mg/dL (8.4-10.2); Carbon Dioxide 17 mmol/L (22-30); Chloride 107 mmol/L (98-107); Glucose 115 mg/dL (74-99); Magnesium 1.9 mg/dL (1.6-2.3); Non-African American GFR(CKD) 72 (>60 ml/min/1.73 sqM); Potassium 3.5 mmol/L (3.5-5.1); Sodium 138 mmol/L (137-145); Total Bilirubin 0.4 mg/dL (0.2-1.3); Total Protein 7.4 g/dL (6.3-8.2)
[2023-08-04] MEDS: METOPROLOL TARTRATE 50 MG TAB PO STA (16:51)
--- NOTE | 2023-08-04 16:57 | XR ---
EXAMINATION TYPE: XR chest 2V DATE OF EXAM: 08/04/2023 COMPARISON: 08/02/2023 HISTORY: Dysrhythmia TECHNIQUE: Frontal and lateral views of the chest are obtained. FINDINGS: There is no focal air space opacity, pleural effusion, or pneumothorax seen. The cardiac silhouette size is within normal limits. The osseous structures are intact. IMPRESSION: No acute cardiopulmonary process.
[2023-08-04 17:46] VITALS: BP 105/74; PULSE 98; RESP 18
== END 2023-08-04 17:39 | disposition home or self-care (01) ==
LOC: EC 15:27
DX: R00.2 Palpitations (principal); Z86.16 Personal history of COVID-19; Z87.891 Personal history of nicotine dependence
CPT/HCPCS: 36415; 93005; 80053; 83735; 84484; 85025; 85610; 85730; 71046; 99285; 96374; 96375; 96376; J0153

== ENCOUNTER → 2023-08-09 | Outpatient (CLI) | payer MEDICARE ==
[2023-08-09 16:20] LABS: HCT 47.3 % (37.2-46.3); HGB 15.1 g/dL (12.0-15.0); MCH 29.8 pg (27.0-32.0); MCHC 31.9 g/dL (32.0-37.0); MCV 93.3 FL (80.0-97.0); Mean Platelet Volume 12.2 FL (9.5-12.2); NRBC Per 100 WBC 0 X 10*3/uL (0.00-0.01); Platelet Count 249 X 10*3/uL (140-440); RBC 5.07 X 10*6/uL (4.10-5.20); RDW 12.4 % (11.5-14.5)
[2023-08-09 16:40] LABS: Carbon Dioxide 23.8 mmol/L (21.6-31.8); Chloride 104 mmol/L (96-109); Potassium 4.1 mmol/L (3.5-5.5); Sodium 142 mmol/L (135-145)
== END | disposition home or self-care (01) ==
LOC: LABPAT 09:52
PROVIDERS: ATTEND Internal Medicine Clinical Cardiac Electrophysiology
DX: Z01.812 Encounter for preprocedural laboratory examination (principal); R00.2 Palpitations; R55 Syncope and collapse
CPT/HCPCS: 36415; 80051; 82565; 84520; 85027

== ENCOUNTER 2023-08-14 11:20 | Day surgery (SDC) | payer MEDICARE ==
[2023-08-09 14:39] VITALS: BMI 21.8
[2023-08-14] MEDS: SODIUM CHLORIDE 0.9% 1,000 ML IV SCH (11:45)
[2023-08-14 12:01] VITALS: RESP 16
[2023-08-14] MEDS: MIDAZOLAM 2 MG/2 ML VIAL IVP ONE (13:10)
[2023-08-14] MEDS ORDERED: LIDOCAINE 1% INJ 10MG/ML (20 ML MDV) ONE ×2 (13:59→15:50)
[2023-08-14] MEDS ORDERED: PROPOFOL 10 MG/ML 20 ML VIAL IV ONE (14:03)
[2023-08-14] MEDS ORDERED: MIDAZOLAM 2 MG/2 ML VIAL ONE (14:03)
[2023-08-14] MEDS ORDERED: fentaNYL (PF) 50 MCG/ML 2 ML AMP ONE (14:03)
[2023-08-14] MEDS ORDERED: ceFAZolin 1 GM/50 ML BAG (PMX) ONE (14:03)
[2023-08-14] MEDS ORDERED: diphenhydrAMINE 50 MG/ML 1 ML VIAL ONE (14:03)
[2023-08-14] MEDS ORDERED: ISOPROTERENOL 250 MCG/1.25 ML SYR IV ONE (14:03)
[2023-08-14] MEDS: LIDOCAINE 1% INJ 10MG/ML (20 ML MDV) SQ ONE ×2 (14:35→16:00)
[2023-08-14] MEDS ORDERED: ACETAMINOPHEN TAB 325 MG TAB PO PRN (15:47)
[2023-08-14] MEDS ORDERED: CYCLOBENZAPRINE 10 MG TAB PO PRN (15:50)
--- NOTE | 2023-08-14 15:55 | P.EPPROC ---
- EP Procedure Note Electrophysiology Procedure Note: Procedure Diagnostic EP study on and off Isopril Indication for procedure Recurrent palpitations, very symptomatic, random episodes No documentation on event monitors Details Patient was brought to the EP lab in a fasting state. Written informed consent was obtained prior to the procedure. The left groin was prepped and draped as a protocol and venous sheaths were placed in the left femoral vein Via these diagnostic catheters were positioned in the high right atrium, coronary sinus, His bundle area and right ventricle Sinus cycle length 577 ms, RI interval 123 ms, QRS 82 ms and QT interval 363 ms. AH interval 54 ms and HV interval 37 ms Sinus node recovery times at a pacing cycle length of 400 ms was 924 ms AV node Wenckebach block 300 ms VA Wenckebach block 270 ms Burst stimulation was performed from the high right atrium. Atrial fibrillation was induced during pacing After several minutes this terminated. A-fib with RVR was noted somewhat organized rhythm The stimulation was performed from the coronary sinus. No atrial fibrillation was induced Straight pacing was performed from the right ventricle Extrastimulation up to triple extrastimuli performed from the coronary sinus. No inducible arrhythmia Isopril started high-dose. On high-dose Isopril no atrial fibrillation was induced no SVT was induced no atrial tachycardia was induced Burst stimulation was performed from the high right atrium and from the coronary sinus Extra stimulation was performed from the coronary sinus without induction of any arrhythmias Extrastimulation was performed from the right ventricle VA ERP 400\less than 180 ms Isopril was stopped Burst stimulation was performed from the high right atrium without induction of any arrhythmias Please note that there was no evidence for slow pathway conduction or accessory pathway conduction Right bundle branch block aberrancy was noted Impression Diagnostic EP study revealed normal baseline measurements 1 episode of inducible atrial fibrillation with RVR in this lady who has been complaining of recurrent, quite random palpitations without any clear-cut diagnosis for several years Plan Implantation of a loop monitor to see if she has episodes of atrial fibrillation that are symptomatic This was discussed with her as well as her family members in detail and she is agreeable to the plan
--- NOTE | 2023-08-14 15:57 | P.PRLE ---
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 These episodes can occur randomly when she is re sting or even while at night when she is sleeping and are quite symptomatic. Today she underwent a diagnostic EP study and we were able to induce atrial fibrillation with RVR with spontaneous conversion for the very first time Therefore I recommended that she proceed with implantation of a loop monitor to see if this is a clinically relevant arrhythmia and if this is the cause of her symptoms We successfully implanted a loop monitor and if she has episodes of atrial fibrillation and we will treat her for it Thank you for entrusting me with the care of the patient Warm regards Sincerely Unruly Martin
--- NOTE | 2023-08-14 16:07 | P.EPPROC ---
- EP Procedure Note Electrophysiology Procedure Note: Loop monitor implant Primary physicians: Dr. Bravo Photography Sales Associate: Dr. Martin Indication: Recurrent palpitations, PAF Patient was brought to the EP lab in a fasting state. Written informed consent was obtained prior to the procedure. The left pectoral area was prepped and draped per protocol. Intravenous antibiotic was administered preoperatively. A subcutaneous Loop monitor was implanted successfully and the wound was closed per protocol. The device was programmed to detect significant saurav- arrhythmic and tachy-arrhythmic events, per protocol. Device and programming details: PAF detection
[2023-08-14] MEDS: LACTATED RINGERS 1,000 ML IV SCH (17:36)
[2023-08-14] MEDS: ACETAMINOPHEN IV (For NPO) 1,000 MG in EMPTY BAG 1 BAG IVPB ONE (17:36)
[2023-08-14] MEDS: DICYCLOMINE 10 MG CAP PO SCH (17:55)
[2023-08-14] MEDS: METOPROLOL TARTRATE 12.5 MG TAB PO SCH (20:57)
[2023-08-14 21:06] VITALS: TEMP 98.2
[2023-08-14 23:09] VITALS: BP 122/82; PULSE 76
[2023-08-15] MEDS ORDERED: PANTOPRAZOLE 40 MG TABLET PO SCH (07:30)
== END 2023-08-14 21:45 | disposition home or self-care (01) ==
LOC: CATHEP 11:20 → 6NMEDSUR 16:15 → CATHEP 21:45
PROVIDERS: ATTEND Internal Medicine Clinical Cardiac Electrophysiology
DX: I48.91 Unspecified atrial fibrillation (principal); Z88.8 Allergy status to other drugs, medicaments and biological substances; Z79.899 Other long term (current) drug therapy
CPT/HCPCS: 93623; 93621; 93620; 33285; 86900; 86901; 86850; C1894; C1769; C1760; C1730 ×3; J2250; J1200; J2001; J3010; J0690; J2704

== ENCOUNTER 2023-08-26 14:15 | Emergency (ER) | payer MEDICARE ==
[2023-08-26 14:30] VITALS: TEMP 98.9
--- NOTE | 2023-08-26 14:49 | ED ---
General Adult HPI - General Chief complaint: Arrhythmia/Palpitations Stated complaint: Palpitations Time Seen by Provider: 08/26/23 14:26 Source: patient, RN notes reviewed Mode of arrival: ambulatory Limitations: no limitations - History of Present Illness Initial comments: Patient is a pleasant 43-year-old female present to the emergency department wi th lightheadedness. Patient does have history of SVT just a couple months ago. Patient did have cardioversion done twice. Patient did have an EP study done around 6 weeks ago and has been having symptoms since that time. Patient feels lightheaded. Patient does have some palpitations and tightness in her chest. Patient watches monitor from her implanted monitoring tech. Heart rate has been varying between 50 and 140. No dyspnea. - Related Data Home Medications Medication Instructions Recorded Confirmed Cyclobenzaprine [Flexeril] 10 mg PO BID PRN 06/26/23 08/09/23 Dicyclomine [Bentyl] 10 mg PO QID 06/28/23 08/14/23 Omeprazole [PriLOSEC] 20 mg PO BID 06/28/23 08/14/23 Metoprolol Tartrate 12.5 mg PO BID 08/09/23 08/14/23 Allergies Allergy/AdvReac Type Severity Reaction Status Date / Time No Known Allergies Allergy Verified 08/26/23 14:20 Review of Systems ROS Statement: Those systems with pertinent positive or pertinent negative responses have been documented in the HPI. ROS Other: All systems not noted in ROS Statement are negative. Constitutional: Denies: fever Eyes: Denies: eye pain ENT: Denies: ear pain Respiratory: Denies: cough Cardiovascular: Reports: as per HPI, palpitations Past Medical History Past Medical History: COPD, Fibromyalgia, Supraventricular Tachycardia (SVT) Additional Past Medical History / Comment(s): Recent SVT flare up. HX DIVERTICULITIS, HIATAL HERNIA, PCOS, ARRYTHMIA/TACHYCARDIA/POTS, MCTD (Mixed Connective Tissue Disease), Lupus, "mottled skin on her back", pleurisy, migraines, tremors, IBS, thyroid nodule. ONGOING GI ISSUES SINCE +VE COVID 05/15/23. History of Any Multi-Drug Resistant Organisms: None Reported Past Surgical History: Appendectomy, Bowel Resection, Section, Cholecystectomy, Hysterectomy, Tubal Ligation, Uterine Ablation Additional Past Surgical History / Comment(s): Robotic assisted laproscopic vaginal hysterectomy, lysis of adhesions pt stated bladder had been knicked -had surgery to repair that and stomach lining, LAPAROSCOPY X4, TILT TABLE TEST AND EP STUDY, section X4, BILATERAL CATARACTS REMOVED, 2016 pots/cardiac ablation, COLONOSCOPY, EGD. Past Anesthesia/Blood Transfusion Reactions: No Reported Reaction Past Psychological History: Anxiety, Depression Smoking Status: Never smoker Past Alcohol Use History: None Reported Past Drug Use History: Marijuana - Past Family History Mother Family Medical History: No Reported History Additional Family Medical History / Comment(s): Celiac disease, migraines. Father Family Medical History: Diabetes Mellitus, Eye Disorder, Hyperlipidemia, Hypertension Additional Family Medical History / Comment(s): Glaucoma, Cataracts. General Exam Limitations: no limitations General appearance: alert, in no apparent distress Head exam: Present: normocephalic Eye exam: Present: normal appearance Neck exam: Present: normal inspection Respiratory exam: Present: normal lung sounds bilaterally. Absent: chest wall tenderness Cardiovascular Exam: Present: tachycardia, normal heart sounds Expanded Peripheral pulses: 2+: Radial (R), Radial (L), Posterior Tibialis (R), Posterior Tibialis (L) GI/Abdominal exam: Present: soft. Absent: tenderness Extremities exam: Present: normal inspection. Absent: pedal edema, calf tenderness Neurological exam: Present: alert Psychiatric exam: Present: anxious Skin exam: Present: normal color Course Vital Signs 08/26/23 08/26/23 14:18 15:11 Temperature 98.9 F Pulse Rate 140 H 100 Respiratory 22 20 Rate Blood Pressure 140/91 129/107 O2 Sat by Pulse 99 100 Oximetry EKG Findings - EKG Results: EKG: interpreted by ERMD, sinus rhythm, normal axis, normal QRS, normal ST/T EKG shows: tachycardia Medical Decision Making - Medical Decision Making Was pt. sent in by a medical professional or institution (, PA, ROPEMAN, urgent care, hospital, or shelter...) When possible be specific @ -[No] Did you speak to anyone other than the patient for history (EMS, parent, family, police, friend...)? What history was obtained from this source @ -[No] Did you review nursing and triage notes (agree or disagree)? Why? @ -[I reviewed and agree with nursing and triage notes] Were old charts reviewed (outside hosp., previous admission, EMS record, old EKG, old radiological studies, urgent care reports/EKG's, shelter records)? Report findings @ -[No old charts were reviewed] Differential Diagnosis (chest pain, altered mental status, abdominal pain women, abdominal pain men, vaginal bleeding, weakness, fever, dyspnea, syncope, headache, dizziness, GI bleed, back pain, seizure, CVA, palpatations, mental health, musculoskeletal)? @ -Differential Palpitations Ventricular arrhythmias, atrial arrhythmias, myocardial infarction, anemia, thyrotoxicosis, electrolyte imbalance, hypokalemia, pulmonary embolism, pulmonary disease, drugs, alcohol, anxiety, stress.... This is not meant to be an all-inclusive list. EKG interpreted by me (3pts min.). @ -[As above] X-rays interpreted by me (1pt min.). @ -Chest x-ray shows no acute process. CT interpreted by me (1pt min.). @ -CT scan of the brain shows no acute process U/S interpreted by me (1pt. min.). @ -[None done] What testing was considered but not performed or refused? (CT, X-rays, U/S, labs)? Why? @ -[None] What meds were considered but not given or refused? Why? @ -[None] Did you discuss the management of the patient with other professionals (professionals i.e. , PA, ROPEMAN, lab, RT, psych nurse, social work instructor, assistant professor of anthropology, teacher, safety and security officer, piano case and bench assembler)? Give summary @ -[No] Was smoking cessation discussed for >3mins.? @ -[No] Was critical care preformed (if so, how long)? @ -[No] Were there social determinants of health that impacted care today? How? (Homelessness, low income, unemployed, alcoholism, drug addiction, transportation, low edu. Level, literacy, decrease access to med. care, [facility], rehab)? @ -[No] Was there de-escalation of care discussed even if they declined (Discuss DNR or withdrawal of care, Hospice)? DNR status @ -[No] What co-morbidities impacted this encounter? (DM, HTN, Smoking, COPD, CAD, Cancer, CVA, ARF, Chemo, Hep., AIDS, mental health diagnosis, sleep apnea, morbid obesity)? @ -[None] Was patient admitted / discharged? Hospital course, mention meds given and rout e, prescriptions, significant lab abnormalities, going to OR and other pertinent info. @ -Patient reevaluated and feels significantly better with Antivert. Patient and family are updated on results and need for follow-up. Patient did ambulate well to the department. Patient questions if her symptoms could be related to vertigo. Patient states that she does have a spinning type sensation that does get worse with head movement and upright position and does improve with rest. Undiagnosed new problem with uncertain prognosis? @ -[No] Drug Therapy requiring intensive monitoring for toxicity (Heparin, Nitro, Insulin, Cardizem)? @ -[No] Were any procedures done? @ -[No] Diagnosis/symptom? @ -Palpitations, dizziness Acute, or Chronic, or Acute on Chronic? @ -Acute, acute Uncomplicated (without systemic symptoms) or Complicated (systemic symptoms)? @ -[default] Side effects of treatment? @ -[No] Exacerbation, Progression, or Severe Exacerbation? @ -[No] Poses a threat to life or bodily function? How? (Chest pain, [place], [place], pneumonia, PE, COPD, DKA, ARF, appy, cholecystitis, CVA, Diverticulitis, Homicidal, Suicidal, threat to staff... and all critical care pts) @ -[No] - Lab Data Result diagrams: 08/26/23 15:06 08/26/23 15:06 Lab Results 08/26/23 08/26/23 08/26/23 Range/Units 15:06 15:06 15:06 WBC 9.1 (3.8-10.6) k/uL RBC 5.27 (3.80-5.40) m/uL Hgb 15.9 (11.4-16.0) gm/dL Hct 49.7 H (34.0-46.0) % MCV 94.2 (80.0-100.0) fL MCH 30.1 (25.0-35.0) pg MCHC 31.9 (31.0-37.0) g/dL RDW 12.5 (11.5-15.5) % Plt Count 228 (150-450) k/uL MPV 9.0 Neutrophils % 81 % Lymphocytes % 14 % Monocytes % 3 % Eosinophils % 0 % Basophils % 0 % Neutrophils # 7.4 (1.3-7.7) k/uL Lymphocytes # 1.2 (1.0-4.8) k/uL Monocytes # 0.3 (0-1.0) k/uL Eosinophils # 0.0 (0-0.7) k/uL Basophils # 0.0 (0-0.2) k/uL PT 10.2 (10.0-12.5) sec INR 0.9 (<1.2) APTT 23.6 (22.0-30.0) sec Sodium 139 (137-145) mmol/L Potassium 4.2 (3.5-5.1) mmol/L Chloride 104 (98-107) mmol/L Carbon Dioxide 24 (22-30) mmol/L Anion Gap 11 mmol/L BUN 12 (7-17) mg/dL Creatinine 0.73 (0.52-1.04) mg/dL Est GFR (CKD-EPI)AfAm >90 (>60 ml/min/1.73 sqM) Est GFR (CKD-EPI)NonAf >90 (>60 ml/min/1.73 sqM) Glucose 98 (74-99) mg/dL Calcium 10.1 (8.4-10.2) mg/dL Magnesium 2.2 (1.6-2.3) mg/dL Total Bilirubin 0.5 (0.2-1.3) mg/dL AST 26 (14-36) U/L ALT 19 (4-34) U/L Alkaline Phosphatase 68 (38-126) U/L Troponin I (0.000-0.034) ng/mL Total Protein 7.7 (6.3-8.2) g/dL Albumin 4.9 (3.5-5.0) g/dL TSH 1.280 (0.465-4.680) mIU/L 08/26/23 Range/Units 15:06 WBC (3.8-10.6) k/uL RBC (3.80-5.40) m/uL Hgb (11.4-16.0) gm/dL Hct (34.0-46.0) % MCV (80.0-100.0) fL MCH (25.0-35.0) pg MCHC (31.0-37.0) g/dL RDW (11.5-15.5) % Plt Count (150-450) k/uL MPV Neutrophils % % Lymphocytes % % Monocytes % % Eosinophils % % Basophils % % Neutrophils # (1.3-7.7) k/uL Lymphocytes # (1.0-4.8) k/uL Monocytes # (0-1.0) k/uL Eosinophils # (0-0.7) k/uL Basophils # (0-0.2) k/uL PT (10.0-12.5) sec INR (<1.2) APTT (22.0-30.0) sec Sodium (137-145) mmol/L Potassium (3.5-5.1) mmol/L Chloride (98-107) mmol/L Carbon Dioxide (22-30) mmol/L Anion Gap mmol/L BUN (7-17) mg/dL Creatinine (0.52-1.04) mg/dL Est GFR (CKD-EPI)AfAm (>60 ml/min/1.73 sqM) Est GFR (CKD-EPI)NonAf (>60 ml/min/1.73 sqM) Glucose (74-99) mg/dL Calcium (8.4-10.2) mg/dL Magnesium (1.6-2.3) mg/dL Total Bilirubin (0.2-1.3) mg/dL AST (14-36) U/L ALT (4-34) U/L Alkaline Phosphatase (38-126) U/L Troponin I <0.012 (0.000-0.034) ng/mL Total Protein (6.3-8.2) g/dL Albumin (3.5-5.0) g/dL TSH (0.465-4.680) mIU/L Disposition Clinical Impression: Palpitations, Dizziness Disposition: HOME SELF-CARE Condition: Stable Instructions (If sedation given, give patient instructions): Heart Palpitations (ED), Vertigo (ED), Dizziness (ED) Additional Instructions: Please do follow-up with your primary care physician in the next day or 2 for recheck. Please also follow-up with your fish icer and neurologist. Please follow-up with ENT, number provided. Return for increased heart rate, difficulty breathing, weakness or confusion, off-balance, worsening symptoms or any other concerns. [id number] Antivert as needed. Is patient prescribed a controlled substance at d/c from ED?: No Referrals: Papito Bravo MD [Primary Care Provider] - 1-2 days Elgin Gilmore DO [STAFF PHYSICIAN] - 1-2 days Yeyo Damon MD [STAFF PHYSICIAN] - 1-2 days Time of Disposition: 17:59
[2023-08-26] MEDS: LORazepam 2 MG/ML INJ IV STA (15:06)
[2023-08-26 15:27] LABS: Basophils % (A) 0 %; Eosinophils % (A) 0 %; HCT 49.7 % (34.0-46.0); HGB 15.9 gm/dL (11.4-16.0); Lymphocytes # (A) 1.2 k/uL (1.0-4.8); Lymphocytes % (A) 14 %; MCH 30.1 pg (25.0-35.0); MCHC 31.9 g/dL (31.0-37.0); MCV 94.2 fL (80.0-100.0); Monocytes # (A) 0.3 k/uL (0-1.0); Monocytes % (A) 3 %; Neutrophils # (A) 7.4 k/uL (1.3-7.7); Neutrophils % (A) 81 %; Platelet Count 228 k/uL (150-450); RBC 5.27 m/uL (3.80-5.40); RDW 12.5 % (11.5-15.5); WBC 9.1 k/uL (3.8-10.6)
[2023-08-26 15:35] LABS: INR 0.9 (<1.2); Partial Thromboplastin Time 23.6 sec (22.0-30.0); Prothrombin Time 10.2 sec (10.0-12.5)
--- NOTE | 2023-08-26 15:47 | XR ---
EXAMINATION TYPE: XR chest 2V DATE OF EXAM: 08/26/2023 3:34 PM CLINICAL INDICATION:Female, 43 years old with history of dysrhythmia; H COMPARISON: Chest radiographs from 08/04/2023 TECHNIQUE: XR chest 2V Frontal and lateral views of the chest. FINDINGS: Lungs/Pleura: There is no evidence of pleural effusion, focal consolidation, or pneumothorax. Pulmonary vascularity: Unremarkable. Heart/mediastinum: Cardiomediastinal silhouette is unremarkable. A loop recorder projects over the le ft thorax over the heart. Musculoskeletal: No acute osseous pathology. IMPRESSION: No acute cardiopulmonary disease/process.
[2023-08-26 16:16] LABS: ALT 19 U/L (4-34); AST 26 U/L (14-36); African American GFR (CKD) >90 (>60 ml/min/1.73 sqM); Albumin 4.9 g/dL (3.5-5.0); Alkaline Phosphatase 68 U/L (38-126); Anion Gap 11 mmol/L; Blood Urea Nitrogen 12 mg/dL (7-17); Calcium 10.1 mg/dL (8.4-10.2); Carbon Dioxide 24 mmol/L (22-30); Chloride 104 mmol/L (98-107); Glucose 98 mg/dL (74-99); Magnesium 2.2 mg/dL (1.6-2.3); Non-African American GFR(CKD) >90 (>60 ml/min/1.73 sqM); Potassium 4.2 mmol/L (3.5-5.1); Sodium 139 mmol/L (137-145); Total Bilirubin 0.5 mg/dL (0.2-1.3); Total Protein 7.7 g/dL (6.3-8.2)
--- NOTE | 2023-08-26 16:40 | CT ---
EXAMINATION TYPE: CT brain wo con CT DLP: 1157.8 mGycm, Automated exposure control for dose reduction was used. DATE OF EXAM: 08/26/2023 4:18 PM COMPARISON: None. CLINICAL INDICATION:Female, 43 years old with history of dizziness and tremors, c/o dizziness TECHNIQUE: Brain: Axial CT images of the brain were obtained with coronal and sagittal reformats created and rev iewed. Contrast used: None. Oral contrast used: None. FINDINGS: Brain: Extra-axial spaces: No abnormal extra-axial fluid collections. Ventricular system: Within normal limits Cerebral parenchyma: No acute intraparenchymal hemorrhage or mass effect. The winchester-white junction is well differentiated. Cerebellum: Unremarkable. Mass effect: No evidence of midline shift. Intracranial vasculature: unremarkable Soft tissues: Normal. Calvarium/osseous structures: No depressed skull fracture. Paranasal sinuses and mastoid air cells: Mild scattered paranasal sinus disease. Visualized orbits: Orbital contents are intact. IMPRESSION: No acute intracranial process.
[2023-08-26] MEDS: MECLIZINE 12.5 MG TAB PO STA (16:55)
[2023-08-26] MEDS: METOCLOPRAMIDE 5 MG/ML 2 ML VIAL IVP STA (16:56)
[2023-08-26 18:15] VITALS: BP 140/68; PULSE 68; RESP 16
== END 2023-08-26 18:13 | disposition home or self-care (01) ==
LOC: EC 14:15
DX: R00.2 Palpitations (principal); R42 Dizziness and giddiness; R00.0 Tachycardia, unspecified
CPT/HCPCS: 36415; 93005; 80053; 83735; 84443; 84484; 85025; 85610; 85730; 71046; 70450; 99285; 96374; 96375; J2060; J2765

== ENCOUNTER → 2023-09-06 | Outpatient (CLI) | payer MEDICARE ==
--- NOTE | 2023-09-07 16:41 | P.PCN ---
Date of Procedure: 09/06/23 Operative Findings: Will sleep study testing Date of services 09/06/2023 Pertinent history This is a 43-year-old female patient who was referred for a home sleep study testing due to concerns of obstructive sleep apnea. She has multiple comorbidities including coronary artery disease, depression, fibromyalgia, previous history of SVT and postural orthostatic tachycardia syndrome and she also suffers from irritable bowel syndrome, migraine, tremors, and restlessness in lower extremity. The main concern was for sleep apnea. Pertinent physical findings The patient has a weight of 134 with a body mass index of 22.3 Technical description The [employer] ApneaLink system was used to complete this home sleep study. This is a type III home sleep study evaluation. The total recording duration was 8 hours and 19 minutes. The study started at 10:11 PM and it ended at 6:31 AM. There was more than 8 hours of flow and oxygen saturation evaluation throughout the study Results The sleep study showed a total of 6 obstructive apneas and 5 obstructive hypopneas and the resulting AHI was 1.4 Oxygenation analysis no desaturations encountered throughout the sleep study Cardiac summary Average heart rate was 71 with a minimum heart rate of 52 and a maximum heart of 102 Assessment Primary snoring, no evidence of any sleep breathing disorder. The patient's AHI was 1.4. Nevertheless, the patient has multiple comorbidities which could potentially contribute for comorbid insomnia. She does have chronic depression in addition to fibromyalgia. She has also history of restless leg syndrome. She suffers from chronic tremors and migraines and coronary artery disease and irritable bowel syndrome. She suffers from chronic anxiety. All of these factors could this potentially the patient's sleep quality. Plan I would like this patient to come back to the office to discuss those findings with Dr. Pinto for has initiated this workup. I do not see any evidence of any sleep breathing disorder. I do not see the need for CPAP therapy at this point in time. Very important to treat comorbidities to improve her sleep quality in general targeting various comorbid conditions. No concerns for sleep apnea at this point in time.
== END ==
LOC: 3 N SLEEP 11:01
PROVIDERS: ATTEND Internal Medicine Critical Care Medicine
DX: G47.33 Obstructive sleep apnea (adult) (pediatric) (principal); G47.00 Insomnia, unspecified; F32.A Depression, unspecified; G25.81 Restless legs syndrome; M79.7 Fibromyalgia; I25.10 Atherosclerotic heart disease of native coronary artery without angina pectoris; K58.9 Irritable bowel syndrome, unspecified; G43.909 Migraine, unspecified, not intractable, without status migrainosus; F41.9 Anxiety disorder, unspecified; Z86.79 Personal history of other diseases of the circulatory system; Z87.891 Personal history of nicotine dependence; Z79.899 Other long term (current) drug therapy

== ENCOUNTER 2023-12-28 12:56 | Emergency (ER) | payer MEDICARE ==
[2023-12-28] MEDS ORDERED: ONDANSETRON 4 MG/2 ML VIAL ONE (14:33)
[2023-12-28] MEDS ORDERED: KETOROLAC 15 MG/ML 1 ML VIAL ONE (14:33)
[2023-12-28] MEDS ORDERED: SODIUM CHLORIDE 0.9% 1,000 ML BAG ONE (14:40)
--- NOTE | 2024-01-26 14:44 | CT ---
Patient Amparo Rios ID [id number] Order # EXAMINATION TYPE: CT abdomen pelvis w con DATE OF EXAM: 12/28/2023 COMPARISON: No comparison available on downtime PACS. INDICATION: Bilateral flank pain DLP: 527.4 mGycm, Automated exposure control for dose reduction was used. CONTRAST: 100 mL of Isovue 300. Study performed without Oral Contrast TECHNIQUE: Axial images were obtained from above the diaphragm to the pubic rami in the axial plane a t 5 mm thick sections. Reconstructed images are reviewed on the computer in the coronal plane. FINDINGS: Limited CT sections are obtained the lung bases. The lung bases are clear. CT ABDOMEN: Liver: There appears to be a small cyst in the periphery of the right mid liver. Spleen: Normal Pancreas: Normal Adrenal glands: The adrenal glands are normal. Gallbladder: Normal Kidneys: No masses are evident. No hydronephrosis is present. No cysts are present. Delayed images were obtained through the kidneys, which remain unremarkable. Aorta: Vascular calcification is within the aorta. Inferior vena cava: Normal. CT PELVIS: Loops of bowel within the abdomen and pelvis are normal. Study is without oral contrast imaging b owel evaluation. Scattered diverticuli are present without acute diverticulitis. Appendix: Not identified. No dilated tubular structure or inflammatory change is evident. Urinary bladder: Normal. Genitourinary structures: Uterus is not identified. There appear to be multiple cysts on the left ova ry. A few cysts may be on the right ovary. Osseous structures: No suspicious lytic or sclerotic lesions. IMPRESSION: 1. No suspicious abnormalities to account for bilateral flank pain. 2. Diverticulosis without acute diverticulitis. 3. Scattered follicles on the bilateral ovaries.
== END 2023-12-28 18:00 | disposition home or self-care (01) ==
LOC: EC 12:56
DX: K57.32 Diverticulitis of large intestine without perforation or abscess without bleeding (principal)
CPT/HCPCS: 74177; 87086; 96361; 96374; 96375; 99284

== ENCOUNTER 2024-07-28 09:31 | Emergency (ER) | payer MEDICARE ==
--- NOTE | 2024-07-28 10:02 | ED ---
General Adult HPI - General Chief complaint: Back Pain/Injury Stated complaint: high heart rate Time Seen by Provider: 07/28/24 09:38 Source: patient, RN notes reviewed Mode of arrival: ambulatory Limitations: no limitations - History of Present Illness Initial comments: 43-year-old female presents emergency department with chief complaint of bilateral flank pain. Patient states she has been on antibiotics since Monday night for UTI prescribed by urgent care. Patient states she continues to have urinary frequency and dysuria he reports hot and cold episodes in which she believes she has fever, chills. Patient states she has slight nausea with out vomiting she states she been trying to push fluids but states she feels dehydrated. Patient's had history of tachycardia including SVT. Patient states she feels like her heart rate is elevated currently. - Related Data Home Medications Medication Instructions Recorded Confirmed Cyclobenzaprine [Flexeril] 10 mg PO BID PRN 06/26/23 08/09/23 Dicyclomine [Bentyl] 10 mg PO QID 06/28/23 08/14/23 Omeprazole [PriLOSEC] 20 mg PO BID 06/28/23 08/14/23 Metoprolol Tartrate 12.5 mg PO BID 08/09/23 08/14/23 Allergies Allergy/AdvReac Type Severity Reaction Status Date / Time nitrofurantoin Allergy Nausea & Verified 07/28/24 09:37 [From Macrobid] Vomiting Review of Systems ROS Statement: Those systems with pertinent positive or pertinent negative responses have been documented in the HPI. ROS Other: All systems not noted in ROS Statement are negative. Past Medical History Past Medical History: COPD, Fibromyalgia, Supraventricular Tachycardia (SVT) Additional Past Medical History / Comment(s): Recent SVT flare up. HX DIVERTICULITIS, HIATAL HERNIA, PCOS, ARRYTHMIA/TACHYCARDIA/POTS, MCTD (Mixed Connective Tissue Disease), Lupus, "mottled skin on her back", pleurisy, migraines, tremors, IBS, thyroid nodule. ONGOING GI ISSUES SINCE +VE COVID 05/15/23. History of Any Multi-Drug Resistant Organisms: None Reported Past Surgical History: Appendectomy, Bowel Resection, Section, Cholecystectomy, Hysterectomy, Tubal Ligation, Uterine Ablation Additional Past Surgical History / Comment(s): Robotic assisted laproscopic vaginal hysterectomy, lysis of adhesions pt stated bladder had been knicked -had surgery to repair that and stomach lining, LAPAROSCOPY X4, TILT TABLE TEST AND EP STUDY, section X4, BILATERAL CATARACTS REMOVED, 2016 pots/cardiac ablation, COLONOSCOPY, EGD. Past Anesthesia/Blood Transfusion Reactions: No Reported Reaction Past Psychological History: Anxiety, Depression Smoking Status: Never smoker Past Alcohol Use History: None Reported Past Drug Use History: Marijuana - Past Family History Mother Family Medical History: No Reported History Additional Family Medical History / Comment(s): Celiac disease, migraines. Father Family Medical History: Diabetes Mellitus, Eye Disorder, Hyperlipidemia, Hypertension Additional Family Medical History / Comment(s): Glaucoma, Cataracts. General Exam Limitations: no limitations General appearance: alert, in no apparent distress Head exam: Present: atraumatic, normocephalic, normal inspection Eye exam: Present: normal appearance, PERRL, EOMI. Absent: scleral icterus, conjunctival injection, periorbital swelling ENT exam: Present: normal exam, normal oropharynx, mucous membranes moist Neck exam: Present: normal inspection, full ROM. Absent: tenderness, meningismus, lymphadenopathy Respiratory exam: Present: normal lung sounds bilaterally. Absent: respiratory distress, wheezes, rales, rhonchi, stridor Cardiovascular Exam: Present: normal rhythm, tachycardia, normal heart sounds. Absent: systolic murmur, diastolic murmur, rubs, gallop, clicks GI/Abdominal exam: Present: soft, normal bowel sounds. Absent: distended, tenderness, guarding, rebound, rigid Back exam: Present: CVA tenderness (R), CVA tenderness (L) Neurological exam: Present: alert, oriented X3 Course Vital Signs 07/28/24 07/28/24 09:35 11:56 Temperature 98.2 F Pulse Rate 133 H 64 Respiratory 20 16 Rate Blood Pressure 127/84 134/81 O2 Sat by Pulse 99 98 Oximetry EKG Findings - EKG Comments: EKG Findings:: EKG performed at 10: 44 sinus rhythm with short DC rate of 67 DC 111 QRS 89 QT/QTc 387/403 - EKG Results: EKG: interpreted by KYLE Medical Decision Making - Medical Decision Making Was pt. sent in by a medical professional or institution (, PA, REO ASSET MANAGER, urgent care, hospital, or group home...) When possible be specific @ -No Did you speak to anyone other than the patient for history (EMS, parent, family, police, friend...)? What history was obtained from this source @ -No Did you review nursing and triage notes (agree or disagree)? Why? @ -I reviewed and agree with nursing and triage notes Were old charts reviewed (outside hosp., previous admission, EMS record, old EKG, old radiological studies, urgent care reports/EKG's, group home records)? Report findings @ -No old charts were reviewed Differential Diagnosis (chest pain, altered mental status, abdominal pain women, abdominal pain men, vaginal bleeding, weakness, fever, dyspnea, syncope, headache, dizziness, GI bleed, back pain, seizure, CVA, palpatations, mental health, musculoskeletal)? @ -Differential Abdominal Pain Women: Appendicitis, Cholecystitis, diverticulosis, ischemic bowel, pancreatitis, hepatitis, UTI, gastroenteritis, AAA, incarcerated hernia, bowel obstruction, c onstipation, inflammatory bowel, hepatitis, peptic ulcer disease, splenic infarction, perforated viscus, vulvitis, ovarian torsion, PID, kidney stone, placenta abruption, this is not meant to be an all-inclusive list EKG interpreted by me (3pts min.). @ -As above X-rays interpreted by me (1pt min.). @ -None done CT interpreted by me (1pt min.). @ -None done U/S interpreted by me (1pt. min.). @ -None done What testing was considered but not performed or refused? (CT, X-rays, U/S, labs)? Why? @ -None What meds were considered but not given or refused? Why? @ -None Did you discuss the management of the patient with other professionals (professionals i.e. , PA, REO ASSET MANAGER, lab, RT, psych nurse, social services director, sheet metal superintendent, teacher, senior compliance officer, case therapist)? Give summary @ -No Was smoking cessation discussed for >3mins.? @ -No Was critical care preformed (if so, how long)? @ -No Were there social determinants of health that impacted care today? How? (Homelessness, low income, unemployed, alcoholism, drug addiction, transportation, low edu. Level, literacy, decrease access to med. care, group home, r ehab)? @ -No Was there de-escalation of care discussed even if they declined (Discuss DNR or withdrawal of care, Hospice)? DNR status @ -No What co-morbidities impacted this encounter? (DM, HTN, Smoking, COPD, CAD, Cancer, CVA, ARF, Chemo, Hep., AIDS, mental health diagnosis, sleep apnea, morbid obesity)? @ -None Was patient admitted / discharged? Hospital course, mention meds given and route, prescriptions, significant lab abnormalities, going to OR and other pertinent info. @ -Discharge patient found to have 2+ ketones, acute dehydration patient feels improved IV fluids. Patient has very minimal pancreatitis denies being alcoholic. Patient feels comfortable discharge there is no evidence of UTI patient is on current antibiotics. Return parameters discussed. Undiagnosed new problem with uncertain prognosis? @ -No Drug Therapy requiring intensive monitoring for toxicity (Heparin, Nitro, Insulin, Cardizem)? @ -No Were any procedures done? @ -No Diagnosis/symptom? @ -Abdominal pain, dehydration Acute, or Chronic, or Acute on Chronic? @ -Acute Uncomplicated (without systemic symptoms) or Complicated (systemic symptoms)? @ -Uncomplicated Side effects of treatment? @ -No Exacerbation, Progression, or Severe Exacerbation? @ -No Poses a threat to life or bodily function? How? (Chest pain, USA, [place], pneumonia, PE, COPD, DKA, ARF, appy, cholecystitis, CVA, Diverticulitis, Homicidal, S uicidal, threat to staff... and all critical care pts) @ -No - Lab Data Result diagrams: 07/28/24 10:28 07/28/24 10:28 Lab Results 07/28/24 07/28/24 07/28/24 Range/Units 10:28 10:28 10:28 WBC 8.4 (3.8-10.6) k/uL RBC 4.82 (3.80-5.40) m/uL Hgb 14.3 (11.4-16.0) gm/dL Hct 44.3 (34.0-46.0) % MCV 91.9 (80.0-100.0) fL MCH 29.6 (25.0-35.0) pg MCHC 32.2 (31.0-37.0) g/dL RDW 12.6 (11.5-15.5) % Plt Count 311 (150-450) k/uL MPV 9.3 Neutrophils % 81 % Lymphocytes % 13 % Monocytes % 4 % Eosinophils % 1 % Basophils % 0 % Neutrophils # 6.8 (1.3-7.7) k/uL Lymphocytes # 1.1 (1.0-4.8) k/uL Monocytes # 0.3 (0-1.0) k/uL Eosinophils # 0.1 (0-0.7) k/uL Basophils # 0.0 (0-0.2) k/uL Sodium 136 L (137-145) mmol/L Potassium 3.8 (3.5-5.1) mmol/L Chloride 98 (98-107) mmol/L Carbon Dioxide 27 (22-30) mmol/L Anion Gap 11 mmol/L BUN 11 (7-17) mg/dL Creatinine 0.75 (0.52-1.04) mg/dL Est GFR (CKD-EPI)AfAm >90 (>60 ml/min/1.73 sqM) Est GFR (CKD-EPI)NonAf >90 (>60 ml/min/1.73 sqM) Glucose 112 H (74-99) mg/dL Plasma Lactic Acid Viktor 1.7 (0.7-2.0) mmol/L Calcium 10.4 H (8.4-10.2) mg/dL Magnesium 1.9 (1.6-2.3) mg/dL Total Bilirubin 0.9 (0.2-1.3) mg/dL AST 28 (14-36) U/L ALT 33 (4-34) U/L Alkaline Phosphatase 60 (38-126) U/L Total Protein 7.9 (6.3-8.2) g/dL Albumin 5.0 (3.5-5.0) g/dL Lipase 338 H (23-300) U/L Urine Color Urine Appearance (Clear) Urine pH (5.0-8.0) Ur Specific [place] (1.001-1.035) Urine Protein (Negative) Urine Glucose (UA) (Negative) Urine Ketones (Negative) Urine Blood (Negative) Urine Nitrite (Negative) Urine Bilirubin (Negative) Urine Urobilinogen (<2.0) mg/dL Ur Leukocyte Esterase (Negative) 07/28/24 Range/Units 11:20 WBC (3.8-10.6) k/uL RBC (3.80-5.40) m/uL Hgb (11.4-16.0) gm/dL Hct (34.0-46.0) % MCV (80.0-100.0) fL MCH (25.0-35.0) pg MCHC (31.0-37.0) g/dL RDW (11.5-15.5) % Plt Count (150-450) k/uL MPV Neutrophils % % Lymphocytes % % Monocytes % % Eosinophils % % Basophils % % Neutrophils # (1.3-7.7) k/uL Lymphocytes # (1.0-4.8) k/uL Monocytes # (0-1.0) k/uL Eosinophils # (0-0.7) k/uL Basophils # (0-0.2) k/uL Sodium (137-145) mmol/L Potassium (3.5-5.1) mmol/L Chloride (98-107) mmol/L Carbon Dioxide (22-30) mmol/L Anion Gap mmol/L BUN (7-17) mg/dL Creatinine (0.52-1.04) mg/dL Est GFR (CKD-EPI)AfAm (>60 ml/min/1.73 sqM) Est GFR (CKD-EPI)NonAf (>60 ml/min/1.73 sqM) Glucose (74-99) mg/dL Plasma Lactic Acid Viktor (0.7-2.0) mmol/L Calcium (8.4-10.2) mg/dL Magnesium (1.6-2.3) mg/dL Total Bilirubin (0.2-1.3) mg/dL AST (14-36) U/L ALT (4-34) U/L Alkaline Phosphatase (38-126) U/L Total Protein (6.3-8.2) g/dL Albumin (3.5-5.0) g/dL Lipase (23-300) U/L Urine Color Dark Yellow Urine Appearance Clear (Clear) Urine pH 6.5 (5.0-8.0) Ur Specific [place] 1.009 (1.001-1.035) Urine Protein Negative (Negative) Urine Glucose (UA) Negative (Negative) Urine Ketones 2+ H (Negative) Urine Blood Negative (Negative) Urine Nitrite Negative (Negative) Urine Bilirubin Negative (Negative) Urine Urobilinogen <2.0 (<2.0) mg/dL Ur Leukocyte Esterase Negative (Negative) Disposition Clinical Impression: Dehydration, Abdominal pain Disposition: HOME SELF-CARE Condition: Stable Instructions (If sedation given, give patient instructions): Abdominal Pain ( ED) Additional Instructions: Please return to the Emergency Department if symptoms worsen or any other concerns. Is patient prescribed a controlled substance at d/c from ED?: No Referrals: Papito Bravo MD [Primary Care Provider] - 1-2 days Time of Disposition: 12:14
[2024-07-28] MEDS: SODIUM CHLORIDE 0.9% 1,000 ML IV SCH (10:33)
[2024-07-28] MEDS: KETOROLAC 15 MG/ML 1 ML VIAL IVP STA (10:33)
[2024-07-28] MEDS: ONDANSETRON 4 MG/2 ML VIAL IVP STA (10:33)
[2024-07-28 10:59] LABS: Basophils % (A) 0 %; Eosinophils # (A) 0.1 k/uL (0-0.7); Eosinophils % (A) 1 %; HCT 44.3 % (34.0-46.0); HGB 14.3 gm/dL (11.4-16.0); Lymphocytes # (A) 1.1 k/uL (1.0-4.8); Lymphocytes % (A) 13 %; MCH 29.6 pg (25.0-35.0); MCHC 32.2 g/dL (31.0-37.0); MCV 91.9 fL (80.0-100.0); Mean Platelet Volume 9.3; Monocytes # (A) 0.3 k/uL (0-1.0); Monocytes % (A) 4 %; Neutrophils # (A) 6.8 k/uL (1.3-7.7); Neutrophils % (A) 81 %; Platelet Count 311 k/uL (150-450); RBC 4.82 m/uL (3.80-5.40); RDW 12.6 % (11.5-15.5); WBC 8.4 k/uL (3.8-10.6)
[2024-07-28 11:13] LABS: ALT 33 U/L (4-34); AST 28 U/L (14-36); African American GFR (CKD) >90 (>60 ml/min/1.73 sqM); Alkaline Phosphatase 60 U/L (38-126); Anion Gap 11 mmol/L; Blood Urea Nitrogen 11 mg/dL (7-17); Calcium 10.4 mg/dL (8.4-10.2); Carbon Dioxide 27 mmol/L (22-30); Chloride 98 mmol/L (98-107); Glucose 112 mg/dL (74-99); Lipase 338 U/L (23-300); Magnesium 1.9 mg/dL (1.6-2.3); Non-African American GFR(CKD) >90 (>60 ml/min/1.73 sqM); Potassium 3.8 mmol/L (3.5-5.1); Sodium 136 mmol/L (137-145); Total Bilirubin 0.9 mg/dL (0.2-1.3); Total Protein 7.9 g/dL (6.3-8.2)
[2024-07-28 11:32] LABS: Appearance,Urine Clear (Clear); Bilirubin,Urine Negative (Negative); Blood,Urine Negative (Negative); Color,Urine Dark Yellow; Glucose,Urine (UA) Negative (Negative); Ketones,Urine 2+ (Negative); Leukocyte Esterase,Urine Negative (Negative); Nitrite,Urine Negative (Negative); PH, Urine 6.5 (5.0-8.0); Protein,Urine Negative (Negative); Specific Gravity,Urine 1.009 (1.001-1.035); Urobilinogen,Urine <2.0 mg/dL (<2.0)
[2024-07-28 12:34] VITALS: BP 130/76; PULSE 76; RESP 14; TEMP 98.3
== END 2024-07-28 12:35 | disposition home or self-care (01) ==
LOC: EC 09:31
DX: E86.0 Dehydration (principal); R10.9 Unspecified abdominal pain; Z88.1 Allergy status to other antibiotic agents
CPT/HCPCS: 36415; 93005; 80053; 83605; 83690; 83735; 85025; 81003; 99284; 96374; 96375; 96361; J2405; J1885

== ENCOUNTER → 2024-10-02 | Outpatient (CLI) | payer MEDICARE ==
--- NOTE | 2024-10-02 14:32 | CT ---
EXAMINATION TYPE: CT abdomen pelvis wo con DATE OF EXAM: 10/02/2024 COMPARISON: Prior CT December 28, 2023 CLINICAL INDICATION: Female, 44 years old with history of M54.50 kacy low back pain, ABDOMINAL PAIN AN D FLANK PAIN, TECHNIQUE: CT scan of the abdomen and pelvis is performed , patient injected with mL of ., (none if empty) Oral contrast used: with Oral Contrast (none if empty) CT DLP: 244.8 mGycm, Automated exposure control for dose reduction was used. FINDINGS: LUNG BASES: No significant abnormality is appreciated. LIVER/GB: Multiple cholecystectomy clips are redemonstrated. PANCREAS: No significant abnormality is seen. SPLEEN: No significant abnormality is seen. ADRENALS: No significant abnormality is seen. KIDNEYS: No renal stones or hydronephrosis is seen bilaterally. BOWEL: Although contrast reaches the proximal sigmoid colon level. There are distal colonic diverticu la seen. No CT evidence for acute diverticulitis. No abnormal small or large bowel dilatation. UTERUS/ADNEXA: Uterus is suspected surgically absent. Larger right pelvic 3.5 x 1.8 cm lesion could r eflect ovarian cyst or cystic lesion. Advise pelvic ultrasound follow-up to further evaluate. Left ov dede is smaller in size versus prior CT. LYMPH NODES: No greater than 1cm abdominal or pelvic lymph nodes are appreciated. OSSEOUS STRUCTURES: No significant abnormality is seen. OTHER: A new stimulator device in the left presacral region is noted.. IMPRESSION: No significant new/acute finding is seen to account for patient's clinical symptoms. [facility], , 10/02/2024 2:30 PM
== END | disposition home or self-care (01) ==
LOC: RADCTMAIN 09:59
DX: K57.30 Diverticulosis of large intestine without perforation or abscess without bleeding (principal); M54.50 Low back pain, unspecified
CPT/HCPCS: 74176

== ENCOUNTER 2024-11-29 19:20 | Emergency (ER) | payer MEDICARE ==
--- NOTE | 2024-11-29 19:39 | ED ---
Chest Pain HPI - General Chief Complaint: Chest Pain Stated Complaint: Chest pain,Sob Time Seen by Provider: 11/29/24 19:28 Source: patient Mode of arrival: ambulatory Limitations: no limitations - History of Present Illness Initial Comments: 44-year-old female presented with chief complaint of chest pain. Patient reports the pain has been ongoing for the last 3 days. States that initially it is felt like heartburn. Today she had some radiation into the left arm and neck which prompted her to come to the ER. States that she feels like she gets out of breath easily and she has felt rundown for few days. She is having nausea. She states that she has history of "GI issues". No lower extremity swelling. No cough, congestion, sore throat, fever, chills. No alleviating or aggravating factors. - Related Data Home Medications Medication Instructions Recorded Confirmed Cyclobenzaprine [Flexeril] 10 mg PO BID PRN 06/26/23 08/09/23 Dicyclomine [Bentyl] 10 mg PO QID 06/28/23 08/14/23 Omeprazole [PriLOSEC] 20 mg PO BID 06/28/23 08/14/23 Metoprolol Tartrate 12.5 mg PO BID 08/09/23 08/14/23 Allergies Allergy/AdvReac Type Severity Reaction Status Date / Time nitrofurantoin Allergy Nausea & Verified 11/29/24 19:26 [From Macrobid] Vomiting Review of Systems ROS Statement: Those systems with pertinent positive or pertinent negative responses have been documented in the HPI. ROS Other: All systems not noted in ROS Statement are negative. Past Medical History Past Medical History: COPD, Fibromyalgia, Supraventricular Tachycardia (SVT) Additional Past Medical History / Comment(s): Recent SVT flare up. HX DIVERTICULITIS, HIATAL HERNIA, PCOS, ARRYTHMIA/TACHYCARDIA/POTS, MCTD (Mixed Connective Tissue Disease), Lupus, "mottled skin on her back", pleurisy, migraines, tremors, IBS, thyroid nodule. ONGOING GI ISSUES SINCE +VE COVID 05/15/23. History of Any Multi-Drug Resistant Organisms: None Reported Past Surgical History: Appendectomy, Bowel Resection, Section, Cholecystectomy, Hysterectomy, Tubal Ligation, Uterine Ablation Additional Past Surgical History / Comment(s): Robotic assisted laproscopic vaginal hysterectomy, lysis of adhesions pt stated bladder had been knicked -had surgery to repair that and stomach lining, LAPAROSCOPY X4, TILT TABLE TEST AND EP STUDY, section X4, BILATERAL CATARACTS REMOVED, 2016 pots/cardiac ablation, COLONOSCOPY, EGD. Past Anesthesia/Blood Transfusion Reactions: No Reported Reaction Past Psychological History: Anxiety, Depression Smoking Status: Never smoker Past Alcohol Use History: None Reported Past Drug Use History: Marijuana - Past Family History Mother Family Medical History: No Reported History Additional Family Medical History / Comment(s): Celiac disease, migraines. Father Family Medical History: Diabetes Mellitus, Eye Disorder, Hyperlipidemia, Hypertension Additional Family Medical History / Comment(s): Glaucoma, Cataracts. General Exam Limitations: no limitations General appearance: alert, in no apparent distress Head exam: Present: atraumatic, normocephalic, normal inspection Eye exam: Present: normal appearance, EOMI Neck exam: Present: normal inspection. Absent: meningismus Respiratory exam: Present: normal lung sounds bilaterally. Absent: respiratory distress, wheezes, rales, rhonchi, stridor Cardiovascular Exam: Present: regular rate, normal rhythm, normal heart sounds. Absent: systolic murmur, diastolic murmur, rubs, gallop, clicks GI/Abdominal exam: Present: soft, tenderness (Diffuse discomfort). Absent: distended, guarding, rebound, rigid Extremities exam: Absent: pedal edema Neurological exam: Present: alert, oriented X3 Psychiatric exam: Present: normal affect, normal mood Skin exam: Present: warm, dry, normal color Course Vital Signs 11/29/24 11/29/24 11/29/24 19:23 20:46 21:13 Temperature 98.0 F 98.3 F 98.3 F Pulse Rate 90 65 76 Respiratory 15 18 18 Rate Blood Pressure 151/84 125/82 122/78 O2 Sat by Pulse 100 98 100 Oximetry Chest Pain MDM - MDM EKG shows sinus rhythm with short IA interval. Ventricular rate 64. IA interval 111 QRS 85 QT 361 QTc 371 Was pt. sent in by a medical professional or institution (, PA, TORQUE TESTER, urgent care, hospital, or [facility]...) When possible be specific @ -No Did you speak to anyone other than the patient for history (EMS, parent, family, police, friend...)? What history was obtained from this source @ -No Did you review nursing and triage notes (agree or disagree)? Why? @ -I reviewed and agree with nursing and triage notes Were old charts reviewed (outside hosp., previous admission, EMS record, old EKG, old radiological studies, urgent care reports/EKG's, [facility] records)? Report findings @ -No old charts were reviewed Differential Diagnosis (chest pain, altered mental status, abdominal pain women, abdominal pain men, vaginal bleeding, weakness, fever, dyspnea, syncope, headache, dizziness, GI bleed, back pain, seizure, CVA, palpatations, mental health, musculoskeletal)? @ -MDM Differential Chest Pain: Stable Angina, Unstable Angina, STEMI, NSTEMI Aortic Dissection, Pneumothorax, Musculoskeletal, Esophageal Spasm GERD, Cholecystitis, Pancreatitis, Zosterâ€¦ This is not meant to be an all-inclusive list. EKG interpreted by me (3pts min.). @ -As above X-rays interpreted by me (1pt min.). @ -Chest x-ray shows no acute process CT interpreted by me (1pt min.). @ -None done U/S interpreted by me (1pt. min.). @ -None done What testing was considered but not performed or refused? (CT, X-rays, U/S, labs)? Why? @ -None What meds were considered but not given or refused? Why? @ -None Did you discuss the management of the patient with other professionals (professionals i.e. , PA, TORQUE TESTER, lab, RT, psych nurse, social and political studies professor, egg pasteurizer, teacher, police commanding officer, binder caser)? Give summary @ -No Was smoking cessation discussed for >3mins.? @ -No Was critical care preformed (if so, how long)? @ -No Were there social determinants of health that impacted care today? How? (Homelessness, low income, unemployed, alcoholism, drug addiction, transportation, low edu. Level, literacy, decrease access to med. care, skilled nursing, rehab)? @ -No Was there de-escalation of care discussed even if they declined (Discuss DNR or withdrawal of care, Hospice)? DNR status @ -No What co-morbidities impacted this encounter? (DM, HTN, Smoking, COPD, CAD, Cancer, CVA, ARF, Chemo, Hep., AIDS, mental health diagnosis, sleep apnea, morbid obesity)? @ -None Was patient admitted / discharged? Hospital course, mention meds given and route, prescriptions, significant lab abnormalities, going to OR and other pertinent info. @ -44-year-old female presented chief complaint of chest pain. Present for the last 3 days. History and physical examination are conducted. Heart and lungs are clear to auscultation. No lower extremity swelling. No leukocytosis or anemia. Negative troponin. Lipase is WNL. Chest x-ray shows no acute process and EKG shows no acute ischemic changes. Patient is educated on today's findings. Heart score is 3. She has an appointment with her superintendent building in 1 week and feels comfortable discharge home. I believe it is safe for her to follow-up outpatient. Follow-up with PCP. Report back to ER with any new or worsening symptoms. Discussed return parameters and answered all questions. Patient conveyed verbal understanding and agreed to the plan. I discussed this case in detail with my attending Dr. Ma Undiagnosed new problem with uncertain prognosis? @ -No Drug Therapy requiring intensive monitoring for toxicity (Heparin, Nitro, Insulin, Cardizem)? @ -No Were any procedures done? @ -No Diagnosis/symptom? @ -Chest pain Acute, or Chronic, or Acute on Chronic? @ -Acute Uncomplicated (without systemic symptoms) or Complicated (systemic symptoms)? @ -Uncomplicated Side effects of treatment? @ -No Exacerbation, Progression, or Severe Exacerbation? @ -No Poses a threat to life or bodily function? How? (Chest pain, [place], [place], pneumonia, PE, COPD, DKA, ARF, appy, cholecystitis, CVA, Diverticulitis, Homicidal, Suicidal, threat to staff... and all critical care pts) @ -Low likelihood Disposition Clinical Impression: Chest pain Disposition: HOME SELF-CARE Condition: Fair Instructions (If sedation given, give patient instructions): Chest Pain (ED) Additional Instructions: Follow-up with PCP. Follow-up with your superintendent building at your scheduled appointment. Report back to ER with any new or worsening symptoms. Is patient prescribed a controlled substance at d/c from ED?: No Referrals: Papito Bravo MD [Primary Care Provider] - 1-2 days Unruly Martin MD [STAFF PHYSICIAN] - 12/06/24 Time of Disposition: 21:07
[2024-11-29] MEDS: SODIUM CHLORIDE 0.9% 1,000 ML IV STA (19:49)
[2024-11-29] MEDS: ASPIRIN 81 MG PO STA (19:49)
[2024-11-29 19:53] LABS: Basophils # (A) 0.05 10*3/uL (0.00-0.10); Basophils % (A) 0.5 %; Eosinophils # (A) 0.11 10*3/uL (0.04-0.35); Eosinophils % (A) 1.2 %; HCT 41.2 % (37.2-46.3); HGB 14.1 g/dL (12.0-15.0); Lymphocytes # (A) 1.80 10*3/uL (0.90-5.00); Lymphocytes % (A) 19.2 %; MCH 30.9 pg (27.0-32.0); MCHC 34.2 g/dL (32.0-37.0); MCV 90.4 fL (80.0-97.0); Monocytes # (A) 0.48 10*3/uL (0.20-1.00); Monocytes % (A) 5.1 %; Neutrophils # (A) 6.90 10*3/uL (1.80-7.70); Neutrophils % (A) 73.6 %; Platelet Count 254 10*3/uL (140-440); RBC 4.56 10*6/uL (4.10-5.20); RDW 12.2 % (11.5-14.5); WBC 9.38 10*3/uL (4.50-10.00)
[2024-11-29 20:08] LABS: INR 0.9 (<1.2); Partial Thromboplastin Time 23.2 sec (22.0-30.0); Prothrombin Time 9.9 sec (10.0-12.5)
[2024-11-29 20:15] LABS: ALT 21 U/L (4-34); AST 26 U/L (14-36); African American GFR (CKD) >90 (>60 ml/min/1.73 sqM); Albumin 4.5 g/dL (3.5-5.0); Alkaline Phosphatase 65 U/L (38-126); Anion Gap 9 mmol/L; Blood Urea Nitrogen 15 mg/dL (7-17); Calcium 9.5 mg/dL (8.4-10.2); Carbon Dioxide 26 mmol/L (22-30); Chloride 104 mmol/L (98-107); Glucose 104 mg/dL (74-99); Lipase 91 U/L (23-300); Magnesium 1.9 mg/dL (1.6-2.3); Non-African American GFR(CKD) >90 (>60 ml/min/1.73 sqM); Potassium 3.6 mmol/L (3.5-5.1); Sodium 139 mmol/L (137-145); Total Protein 6.9 g/dL (6.3-8.2)
--- NOTE | 2024-11-29 20:21 | XR ---
EXAMINATION TYPE: XR chest 2V DATE OF EXAM: 11/29/2024 7:58 PM COMPARISON: 08/26/2023 CLINICAL INDICATION: Female, 44 years old with history of Chest Pain; [facility] TECHNIQUE: XR chest 2V Frontal and lateral views of the chest. FINDINGS: Lungs/Pleura: There is no evidence of pleural effusion, focal consolidation, or pneumothorax. Pulmonary vascularity: Unremarkable. Heart/mediastinum: Cardiomediastinal silhouette is unremarkable. A loop recorder projects over the le ft thorax over the heart. Musculoskeletal: No acute osseous pathology. Other findings: None IMPRESSION: No acute cardiopulmonary disease/process. [facility], , 11/29/2024 8:19 PM
[2024-11-29] MEDS: MAG HYDROX/AL HYDROX/SIMETH 30 ML CUP PO STA (20:43)
[2024-11-29] MEDS: LIDOCAINE VISCOUS 2% 15 ML CUP PO ONE (20:44)
[2024-11-29 20:47] VITALS: RESP 18; TEMP 98.3
[2024-11-29 21:14] VITALS: BP 122/78; PULSE 76
== END 2024-11-29 21:17 | disposition home or self-care (01) ==
LOC: EC 19:20
DX: R07.9 Chest pain, unspecified (principal); Z88.8 Allergy status to other drugs, medicaments and biological substances
CPT/HCPCS: 36415; 71046; 80053; 83690; 83735; 84484; 85025; 85610; 85730; 93005; 96360; 99285